=== PATIENT | female | born 1985 | race Caucasian/White ===

== ENCOUNTER → 2017-07-12 08:51 | Outpatient (CLI) | payer OTHER, SELFPAY ==
[2017-07-11 16:37] LABS: Chlamydia Trachomatis by PCR Negative (Negative); Neisserai gonorrhoeae by PCR Negative (Negative); Probe Check PASS; Sample Adequacy Control PASS; Specimen Processing Control PASS
[2017-07-16 16:36] LABS: HPV APTIMA, High Risk Negative (Negative)
== END ==
PROVIDERS: Visit Provider Obstetrics & Gynecology
DX: Z34.91 Encounter for supervision of normal pregnancy, unspecified, first trimester (principal); Z12.4 Encounter for screening for malignant neoplasm of cervix
CPT/HCPCS: 87086; 87491; 87591; 88175; G0145

== ENCOUNTER → 2017-08-09 10:12 | Outpatient (CLI) | payer OTHER, SELFPAY ==
[2017-08-09 11:40] LABS: Absolute Lymphocyte Count 2.26 X10^3/ul (0.83-4.51); Absolute Neutrophil Count 5.6 X10^3/uL (2.0-7.7); Basophil# 0.01 X10^3/uL; Basophil% 0.1 % (0-1); Eosinophil# 0.07 X10^3/uL; Eosinophils% 0.8 % (0-5); Hemoglobin 11.6 g/dl (12.0-15.0); Lymphocyte # 2.26 X10^3/ul (4.0); Lymphocyte % 26.6 % (19-41); Mean Corp Hgb Conc 32.2 g/gl (32-36); Mean Corpuscular Hgb 26.3 pg (27.0-32.0); Mean Corpuscular Volume 81.6 fL (81-99); Monocyte# 0.59 X10^3/uL; Monocyte% 6.9 % (0-10); Neutrophil # 5.55 X10^3/uL (2.7-7.7); Neutrophil % 65.5 % (47-70); Platelet Count 250 K/mm3 (150-450); RBC Distribution Width CV 14.2 % (11.6-14.6); RBC Distribution Width SD 42.4 fl (35.1-43.9); Red Blood Count 4.41 M/mm3 (4.2-5.4); White Blood Count 8.5 K/mm3 (4.4-11.0)
[2017-08-09 11:41] LABS: POSITIVE COUNT NO; POSITIVE DIFFERENTIAL NO; POSITIVE MORPHOLOGY NO
[2017-08-09 12:06] LABS: Glucose Challenge Gest 1H 50g 123 mg/dL (70-140)
[2017-08-10 01:20] LABS: Rapid Plasmin Reagin (RPR) NONREACTIVE (NONREACTIVE)
[2017-08-10 11:11] LABS: HIV - WCH Non-Reactive (Nonreactive); Rubella IgG 36.8 IU/mL
[2017-08-10 11:40] LABS: HEPATITIS B SURFACE AG Negative (Negative)
== END ==
PROVIDERS: Family Provider Family Medicine; PCP Family Medicine; Visit Provider Obstetrics & Gynecology
DX: Z34.91 Encounter for supervision of normal pregnancy, unspecified, first trimester (principal)
CPT/HCPCS: 82950; 85025; 86592; 86703; 86762; 86850; 86900; 87340

== ENCOUNTER → 2017-10-03 07:46 | Outpatient (CLI) | payer OTHER, SELFPAY ==
--- NOTE | 2017-10-03 07:48 | US_ITS ---
STUDY: SECOND AND THIRD TRIMESTER OBSTETRICAL ULTRASOUND REASON FOR EXAM: Female, 32 years old. Routine survey. LMP: May 21, 2017. TECHNIQUE: Transabdominal PRIOR ULTRASOUND: None. FINDINGS: There is a single intrauterine fetus. The fetus is in a cephalic presentation. There is demonstrated cardiac activity with a heart rate of 146 bpm. There is a normal amniotic fluid volume. The largest amniotic fluid pocket measures 11.0 cm x 4.2 cm. The amniotic fluid index (KENNY) is normal. The placenta is posterior in location and is not low lying. There are Grade 0 placental changes. The cervix measures 3.8 cm in length. The bilateral adnexal regions are normal. BIOMETRY: BPD: 4.51 cm: 19 weeks, 5 days HC: 16.92 cm: 19 weeks, 4 days AC: 14.97 cm: 20 weeks, 2 days FL: 3.23 cm: 20 weeks, 1 days CI: 77% FL/BPD: 72% FL/HC: FL/AC: 22% HC/AC: 1.13 age by current US: 20 weeks, 0 days. NIMA by current US: February 20, 2018. Estimated weight: 331 grams, +/- 48 grams, 87 %. Age by LMP: 19 weeks, 2 days. NIMA by LMP: February 25, 2018. ANATOMY: Gender: Indeterminant Cranium: Normal lateral ventricles. Normal choroid plexus. Normal cerebellum. Normal cisterna magna. Normal face, nose and lips. Chest: Normal 4-chamber heart. Abdomen/Pelvis: Normal diaphragm. Normal stomach. Normal abdominal wall. Normal cord insertion. Normal 3 vessel cord. Normal kidneys. Normal bladder. Spine: Normal cervical spine. Normal thoracic spine. Normal lumbar spine. Normal sacrum. Extremities: Normal bilateral upper extremities. Normal bilateral lower extremities. US/OB Anatomy Scan IMPRESSION: Single live intrauterine gestation with a mean gestational age of 20 weeks. Electronically Signed: Barron Ron MD at 15:39 EDT Tel [phone], Service support ,
== END ==
PROVIDERS: Family Provider Family Medicine; PCP Family Medicine; Visit Provider Obstetrics & Gynecology
DX: Z34.91 Encounter for supervision of normal pregnancy, unspecified, first trimester (principal)
CPT/HCPCS: 76805

== ENCOUNTER → 2017-12-04 09:48 | Outpatient (CLI) | payer OTHER, SELFPAY ==
[2017-12-04 11:40] LABS: Absolute Lymphocyte Count 1.93 X10^3/ul (0.83-4.51); Absolute Neutrophil Count 10.7 X10^3/uL (2.0-7.7); Basophil# 0.02 X10^3/uL; Basophil% 0.1 % (0-1); Eosinophil# 0.09 X10^3/uL; Eosinophils% 0.7 % (0-5); Hematocrit 29.3 % (37-47); Hemoglobin 9.2 g/dl (12.0-15.0); Lymphocyte # 1.93 X10^3/ul (4.0); Lymphocyte % 14.2 % (19-41); Mean Corp Hgb Conc 31.4 g/gl (32-36); Mean Corpuscular Hgb 25.3 pg (27.0-32.0); Mean Corpuscular Volume 80.7 fL (81-99); Mean Platelet Vol. 8.7 fl (6.2-12.0); Monocyte# 0.71 X10^3/uL; Monocyte% 5.2 % (0-10); Neutrophil # 10.68 X10^3/uL (2.7-7.7); Neutrophil % 78.6 % (47-70); Platelet Count 335 K/mm3 (150-450); RBC Distribution Width SD 42.8 fl (35.1-43.9); Red Blood Count 3.63 M/mm3 (4.2-5.4); White Blood Count 13.6 K/mm3 (4.4-11.0)
[2017-12-04 11:41] LABS: POSITIVE COUNT NO; POSITIVE DIFFERENTIAL NO; POSITIVE MORPHOLOGY NO
[2017-12-04 12:16] LABS: Glucose Challenge Gest 1H 50g 143 mg/dL (70-140)
== END ==
PROVIDERS: Family Provider Family Medicine; PCP Family Medicine; Visit Provider Nurse Practitioner Women's Health
DX: Z34.90 Encounter for supervision of normal pregnancy, unspecified, unspecified trimester (principal)
CPT/HCPCS: 36415; 82950; 85025

== ENCOUNTER → 2017-12-13 07:35 | Outpatient (CLI) | payer OTHER, SELFPAY ==
[2017-12-13 08:35] LABS: Glucose GTT-Gestation. Fasting 80 mg/dL (<105)
== END ==
PROVIDERS: Family Provider Family Medicine; PCP Family Medicine; Referring Provider Nurse Practitioner Women's Health; Visit Provider Nurse Practitioner Women's Health
DX: O99.810 Abnormal glucose complicating pregnancy (principal); Z3A.00 Weeks of gestation of pregnancy not specified
CPT/HCPCS: 36415; 82951; 82952

== ENCOUNTER 2018-01-04 09:05 | Outpatient (CLI) | payer OTHER, SELFPAY ==
[2018-01-04 09:17] VITALS: BMI 42.2
[2018-01-04 09:55] LABS: Hemoglobin 9.7 g/dl (12.0-15.0); Mean Corp Hgb Conc 30.3 g/gl (32-36); Mean Corpuscular Hgb 24.5 pg (27.0-32.0); Mean Corpuscular Volume 80.8 fL (81-99); Mean Platelet Vol. 8.6 fl (6.2-12.0); Platelet Count 238 K/mm3 (150-450); RBC Distribution Width CV 16.8 % (11.6-14.6); RBC Distribution Width SD 48.6 fl (35.1-43.9); Red Blood Count 3.96 M/mm3 (4.2-5.4); White Blood Count 11.7 K/mm3 (4.4-11.0)
[2018-01-04 09:59] LABS: Scan Indicated on CBC? Y/N NO
[2018-01-04 10:11] LABS: ALB/GLOB Ratio 0.5 RATIO (0.9-2.4); AST(SGOT) 17 U/L (15-37); Alanine Aminotransfer ALT/SGPT 18 U/L (13-56); Albumin, Serum 2.3 g/dL (3.2-5.0); Alkaline Phosphatase 116 U/L (45-117); Anion Gap 8 (5-15); BUN 10 mg/dL (7-18); BUN/Creat Ratio 16.3 RATIO (10-20); Calcium,Total 8.6 mg/dL (8.5-10.1); Chloride 109 mmol/L (98-107); Creatinine, Serum 0.62 mg/dL (0.55-1.02); EST Glomerular Filtration Rate 121 mL/min (>60); Est Glom Filt Rate - Afr Amer 146 mL/min (>60); Estimated Creatinine Clearance 100.12 ml/min; Globulin 4.2 g/dL (2.2-4.2); Glucose 98 mg/dL (74-106); Potassium 3.8 mmol/L (3.5-5.1); Protein, Total 6.5 g/dL (6.4-8.2); Sodium Level 138 mmol/L (136-145); Uric Acid 3.4 mg/dL (2.6-6.0)
--- NOTE | 2018-01-04 22:55 | OB.TRI.NOTE ---
- Problem List (1) Elevated blood pressure affecting in third trimester, antepartum Status: Acute History of Present Illness Date of Service: 01/04/18 Was patient seen by the physician?: Yes Reason For Visit: R/O PREECLAMPISA Date of Service: 01/04/18 History of Present Illness: elevated bps in office, sent down for labs and nst Allergies acetaminophen [From Tylenol-Codeine] Allergy (Severe, Verified 01/04/18 09:21) Anaphylaxis codeine [From Tylenol-Codeine] Allergy (Severe, Verified 01/04/18 09:21) Anaphylaxis iodine Allergy (Severe, Verified 01/04/18 09:21) Anaphylaxis shellfish derived Allergy (Severe, Verified 01/04/18 09:21) Anaphylaxis - Pertinent Past Medical History Medical History: Past Medical History (Last Reviewed 01/04/18 @ 09:02 by Teresa Aguero) Anxiety (Acute) celexa. tried effexor, zoloft, and wellbutrin in past. encouraged counseling Asthma (Chronic) [place] teeth extracted Hiatal hernia (Inactive) Surgical History: Past Surgical History (Last Reviewed 01/04/18 @ 09:02 by Teresa Aguero) H/O endoscopy Laboratory Studies: Laboratory Tests 01/04/18 01/04/18 Range/Units 09:40 09:40 WBC 11.7 H (4.4-11.0) K/mm3 RBC 3.96 L (4.2-5.4) M/mm3 Hgb 9.7 L (12.0-15.0) g/dl Hct 32.0 L (37-47) % MCV 80.8 L (81-99) fL MCH 24.5 L (27.0-32.0) pg MCHC 30.3 L (32-36) g/gl RDW 16.8 H (11.6-14.6) % RDW Differential 48.6 H (35.1-43.9) fl Plt Count 238 (150-450) K/mm3 MPV 8.6 (6.2-12.0) fl Sodium 138 (136-145) mmol/L Potassium 3.8 (3.5-5.1) mmol/L Chloride 109 H (98-107) mmol/L Carbon Dioxide 21.0 (21.0-32.0) mmol/L Anion Gap 8 (5-15) BUN 10 (7-18) mg/dL Creatinine 0.62 (0.55-1.02) mg/dL Estim Creat Clear Calc 100.12 ml/min Est GFR (MDRD) Af Amer 146 (>60) mL/min Est GFR (MDRD) Non-Af 121 (>60) mL/min BUN/Creatinine Ratio 16.3 (10-20) RATIO Glucose 98 (74-106) mg/dL Uric Acid 3.4 (2.6-6.0) mg/dL Calcium 8.6 (8.5-10.1) mg/dL Total Bilirubin 0.30 (0.20-1.00) mg/dL AST 17 (15-37) U/L ALT 18 (13-56) U/L Alkaline Phosphatase 116 (45-117) U/L Total Protein 6.5 (6.4-8.2) g/dL Albumin 2.3 L (3.2-5.0) g/dL Globulin 4.2 (2.2-4.2) g/dL Albumin/Globulin Ratio 0.5 L (0.9-2.4) RATIO NST - FHR Rate Baby A Baseline: 140 Variability:: Moderate Accelerations:: 15 x 15 Decelerations:: None NST Reactive:: Yes FHR Category:: Category I Uterine Activity:: no regular Impression/Plan repeat bps normal, normal labs. plan fu in office next week
== END 2018-01-04 10:26 | disposition home or self-care (01) ==
LOC: WPOUT 09:11 → WP 09:12
PROVIDERS: Family Provider Family Medicine; PCP Family Medicine; Referring Provider Obstetrics & Gynecology; Visit Provider Obstetrics & Gynecology
DX: O26.899 Other specified pregnancy related conditions, unspecified trimester (principal); Z3A.00 Weeks of gestation of pregnancy not specified; R03.0 Elevated blood-pressure reading, without diagnosis of hypertension
CPT/HCPCS: 36415; 59025; 59050; 80053; 84550; 85027; 99218; G0378

== ENCOUNTER → 2018-01-04 10:35 | Outpatient (CLI) | payer OTHER, SELFPAY ==
--- NOTE | 2018-01-04 10:36 | US_ITS ---
STUDY: SECOND AND THIRD TRIMESTER OBSTETRICAL ULTRASOUND - LIMITED REASON FOR EXAM: Female, 32 years old. Growth. Gestational diabetes. LMP: May 21, 2017. PRIOR ULTRASOUND: October 03, 2017. TECHNIQUE: Transabdominal # of Images: 63 TECHNICAL QUALITY: Adequate. FINDINGS: There is a single intrauterine fetus. The fetus is in a cephalic presentation. There is demonstrated cardiac activity with a heart rate of 133 bpm. There is a normal amniotic fluid volume. The largest amniotic fluid pocket measures 3.47 cm. The amniotic fluid index (KENNY) is 10.02 cm. The placenta is posterior in location and is not low lying. There are Grade 0 placental changes. The cervix measures 4 cm in length. BIOMETRY: BPD: 8.41 cm: 34 weeks, 0 days HC: 31.43 cm: 35 weeks, 2 days AC: 32.18 cm: 36 weeks, 1 days FL: 6.37 cm: 33 weeks, 0 days Age by LMP: 32 weeks, 4 days. NIMA by LMP: February 25, 2018.. age by prior US: 33 weeks, 2 days. NIMA by prior US: February 20, 2018.. age by current US: 34 weeks, 5 days. NIMA by current US: February 10, 2018.. Estimated weight: 2555 grams, +/- 373 grams, 97 percentile. US/OB Limited With Biometrics IMPRESSION: 1. Live single intrauterine at 34 weeks, 5 days. NIMA is February 10, 2018. This is nearly 2 weeks ahead of expected gestational age by initial ultrasound. 2. EFW of 2555 g. This is at the 97th percentile. 3. KENNY of 10.02 cm 4. Posterior grade 0 placenta. 5. Vertex presentation. Electronically Signed: Rebel Sweet DO at 20:40 EDT Tel [phone], Service support ,
== END ==
PROVIDERS: Family Provider Family Medicine; PCP Family Medicine; Referring Provider Nurse Practitioner Women's Health; Visit Provider Nurse Practitioner Women's Health
DX: Z34.90 Encounter for supervision of normal pregnancy, unspecified, unspecified trimester (principal); Z68.41 Body mass index [BMI] 40.0-44.9, adult
CPT/HCPCS: 76816

== ENCOUNTER → 2018-01-31 18:35 | Outpatient (CLI) | payer OTHER, SELFPAY ==
[2018-01-24 08:15] VITALS: BMI 42.7
== END ==
PROVIDERS: Family Provider Family Medicine; PCP Family Medicine; Referring Provider Nurse Practitioner Women's Health; Visit Provider Nurse Practitioner Women's Health
DX: O09.93 Supervision of high risk pregnancy, unspecified, third trimester (principal)
CPT/HCPCS: 87081

== ENCOUNTER 2018-02-18 19:30 | Inpatient (IN) | payer OTHER, SELFPAY ==
[2018-02-06 08:44] VITALS: BMI 43.4
[2018-02-14 14:30] VITALS: BMI 43.4
[2018-02-18] MEDS: 0.9% Saline Lock 10 ML Syringe IV (20:00)
[2018-02-18 20:25] VITALS: BMI 44.1
--- NOTE | 2018-02-18 20:41 | PCM.HP.OB ---
- Problem List (1) Insulin controlled gestational diabetes mellitus (GDM) in third trimester Status: Acute Comment: mfm cocare, for insulin to start 2x weekly NST and delivery at 39 weeks. Sees MFM every Sunday. (2) LGA (large for gestational age) fetus Status: Acute Comment: 97% discussed IOL at 39 weeks only if EFW <4500g (3) Supervision of high-risk Status: Acute Qualifiers: Comment: PRR NIAM 02/25/18 gender surprise [place] (4) Anemia affecting Status: Acute Qualifiers: Comment: iron and cbc monthly (5) Status: Acute Qualifiers: Comment: genetic, carrier, ntd screening declined. anatomy scan reviewed (6) Body mass index (BMI) of 40.1 to 44.9 in adult Status: Acute Comment: 1 tm glucola and weekly nsts w/ US and weekly BPP w/ MFM (7) Anxiety Status: Acute Comment: celexa. tried effexor, zoloft, and wellbutrin in past. encouraged counseling (8) Asthma Status: Chronic Qualifiers: History Date of Admission: 02/18/18 Final NIMA: 02/25/18 Gestational age: 39 Weeks and 0 Days History of this : This is a 33 year-old, at 39 weeks gestational age presents for induction of labor secondary to gestational diabetes controlled with insulin. Patient has had a complicated by gestational diabetes that has been insulin controlled and she has been following along with maternal medicine. Growth scans has shown enlarged size but estimated weight was approximately between 4000-4250g. Medical History: Medical History (Last Reviewed 02/14/18 @ 14:30 by Christy Huerta) Anxiety (Acute) F41.9 celexa. tried effexor, zoloft, and wellbutrin in past. encouraged counseling Asthma (Chronic) J45.909 [place] teeth extracted K08.409 Hiatal hernia (Inactive) K44.9 Surgical History: Surgical History (Last Reviewed 02/14/18 @ 14:30 by Christy Huerta) H/O endoscopy Z98.890 Allergies acetaminophen [From Tylenol-Codeine] Allergy (Severe, Verified 02/14/18 14:29) Anaphylaxis codeine [From Tylenol-Codeine] Allergy (Severe, Verified 02/14/18 14:29) Anaphylaxis iodine Allergy (Severe, Verified 02/14/18 14:29) Anaphylaxis shellfish derived Allergy (Severe, Verified 02/14/18 14:29) Anaphylaxis Home Medications: Home Medications albuterol sulfate 90 mcg/actuation breath activated powder inhaler 2 puff INHALATION Q6H PRN 07/11/17 epinephrine 0.3 mg/0.3 mL injection, auto-injector 0.3 mg IM ONCE 07/11/17 pantoprazole 40 mg tablet,delayed release 40 mg PO QDAY 07/11/17 vitamin,calcium,uoqwkntj-shem-axgbc acid tablet 1 tab PO QDAY 07/11/17 ondansetron HCl 4 mg tablet 4 mg PO Q6H PRN #60 tab 08/29/17 docusate sodium 100 mg capsule 100 mg PO QDAY 11/07/17 blood-glucose meter kit See Dose Instructions .ROUTE .MEDSUPPLY #1 ea 12/13/17 blood sugar diagnostic strips See Dose Instructions .ROUTE .MEDSUPPLY #100 ea 12/27/17 fluoxetine 20 mg capsule 20 mg PO DAILY 01/18/18 Smoking Status: Never smoker Alcohol: None Number of Fetus(es): 1 Heart Tracing: fht 140s moderate variability reactiv nolberto decels cat I tracing TOCO Analysis: no regular ctx History Past Pregnancies: Past Pregnancies Delivery Date Name GA/Weeks Outcome Route Weight Gender Labor Length Anesthesia Delivery Location Provider FOB Labs: Social History Smoking Status Never smoker Expected Infant Delivery Method: Spontaneous Vaginal Review of Systems Constitutional: Denies: Fever, Malaise Eyes: Denies: Blurred vision, Vision Change HEENT: Denies: Head Aches, Visual Changes Cardiovascular: Denies: Chest Pain, Palpitations Respiratory: Denies: Cough, Shortness of Breath, Wheezing Gastrointestinal: Denies: Abdominal Pain, Diarrhea, Nausea, Vomiting Genitourinary: Denies: Dysuria, Hematuria Musculoskeletal: Denies: Joint Pain, Muscle pain Skin: Denies: Lesions, Rash Neurological: Denies: Blurred vision, Focal weakness, Headaches Psychiatric: Denies: Anxiety, Depression Endocrine: Denies: Heat/ Cold Intolerance Hematologic/ Lymphatic: Denies: Easy Bruising, Easy Bleeding Physical Exam General: Alert, Cooperative, No apparent distress HEENT: Atraumatic, Normocephalic. Negative for: Thyromegaly, Lymphadenopathy Cardiovascular: Regular rate Lungs: Normal air movement Abdomen: Soft, Non Tender, Gravid Neurological: Deep Tendon Reflexes 2+/4 and Symmetrical, Neuro grossly intact. 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 Negative for: Vulvar lesions Estimated gestational size: Large for gestational age - EFW 4000-4250g Presentation: Cephalic Cervix Dilation (cm): 1 Assessment/Plan All Active Problems (Last Reviewed 02/14/18 @ 14:30 by Christy Huerta) Insulin controlled gestational diabetes mellitus (GDM) in third trimester (Acute) LGA (large for gestational age) fetus (Acute) Supervision of high-risk (Acute) Anemia affecting (Acute) (Acute) Body mass index (BMI) of 40.1 to 44.9 in adult (Acute) Anxiety (Acute) Abnormal glucose complicating childbirth (Resolved) Elevated blood pressure affecting in third trimester, antepartum (Resolved) Gestational diabetes mellitus in , diet controlled (Resolved) Supervision of normal (Resolved) Supervision of normal in first trimester (Resolved) This is a 33 year-old, , at 39 weeks gestational age presents for IOL GDMA2 Patient presents for induction of labor plan Cytotec and then Crow bulb and Pitocin. AROM when able. Pain management: Plans epidural. GBS negative. Management of any complications: Gestational diabetes. Give scheduled insulin tonight and NovoLog insulin in the morning with breakfast. Will hold morning NPH and monitor blood sugars every 4 hours. And every hour in active labor. Insulin drip in active labor I have reviewed the [facility] and made any clinically relevant updates.
--- NOTE | 2018-02-18 20:44 | HP.PCM_ITS ---
- Problem List (1) Insulin controlled gestational diabetes mellitus (GDM) in third trimester Status: Acute Comment: mfm cocare, for insulin to start 2x weekly NST and delivery at 39 weeks. Sees MFM every Sunday. (2) LGA (large for gestational age) fetus Status: Acute Comment: 97% discussed IOL at 39 weeks only if EFW <4500g (3) Supervision of high-risk Status: Acute Qualifiers: Comment: PRR NIMA 02/25/18 gender surprise [place] (4) Anemia affecting Status: Acute Qualifiers: Comment: iron and cbc monthly (5) Status: Acute Qualifiers: Comment: genetic, carrier, ntd screening declined. anatomy scan reviewed (6) Body mass index (BMI) of 40.1 to 44.9 in adult Status: Acute Comment: 1 tm glucola and weekly nsts w/ US and weekly BPP w/ MFM (7) Anxiety Status: Acute Comment: celexa. tried effexor, zoloft, and wellbutrin in past. encouraged counseling (8) Asthma Status: Chronic Qualifiers: History Date of Admission: 02/18/18 Final NIMA: 02/25/18 Gestational age: 39 Weeks and 0 Days History of this : This is a 33 year-old, at 39 weeks gestational age presents for induction of labor secondary to gestational diabetes controlled with insulin. Patient has had a complicated by gestational diabetes that has been insulin co ntrolled and she has been following along with maternal medicine. Growth scans has shown enlarged size but estimated weight was approximately between 4000-4250g. Medical History: Medical History (Last Reviewed 02/14/18 @ 14:30 by Christy Huerta) Anxiety (Acute) F41.9 celexa. tried effexor, zoloft, and wellbutrin in past. encouraged counseling Asthma (Chronic) J45.909 [place] teeth extracted K08.409 Hiatal hernia (Inactive) K44.9 Surgical History: Surgical History (Last Reviewed 02/14/18 @ 14:30 by Christy Huerta) H/O endoscopy Z98.890 Allergies acetaminophen [From Tylenol-Codeine] Allergy (Severe, Verified 02/14/18 14:29) Anaphylaxis codeine [From Tylenol-Codeine] Allergy (Severe, Verified 02/14/18 14:29) Anaphylaxis iodine Allergy (Severe, Verified 02/14/18 14:29) Anaphylaxis shellfish derived Allergy (Severe, Verified 02/14/18 14:29) Anaphylaxis Home Medications: Home Medications albuterol sulfate 90 mcg/actuation breath activated powder inhaler 2 puff INHALATION Q6H PRN 07/11/17 epinephrine 0.3 mg/0.3 mL injection, auto-injector 0.3 mg IM ONCE 07/11/17 pantoprazole 40 mg tablet,delayed release 40 mg PO QDAY 07/11/17 vitamin,calcium,odetjbuf-qjyy-sohxf acid tablet 1 tab PO QDAY 07/11/17 ondansetron HCl 4 mg tablet 4 mg PO Q6H PRN #60 tab 08/29/17 docusate sodium 100 mg capsule 100 mg PO QDAY 11/07/17 blood-glucose meter kit See Dose Instructions .ROUTE .MEDSUPPLY #1 ea 12/13/17 blood sugar diagnostic strips See Dose Instructions .ROUTE .MEDSUPPLY #100 ea 12/27/17 fluoxetine 20 mg capsule 20 mg PO DAILY 01/18/18 Smoking Status: Never smoker Alcohol: None Number of Fetus(es): 1 Heart Tracing: fht 140s moderate variability reactiv nolberto decels cat I tracing TOCO Analysis: no regular ctx History Past Pregnancies: Past Pregnancies Delivery Date Name GA/Weeks Outcome Route Weight Gender Labor Length Anesthesia Delivery Location Provider FOB Labs: Social History Smoking Status Never smoker Expected Delivery Method: Spontaneous Vaginal Review of Systems Constitutional: Denies: Fever, Malaise Eyes: Denies: Blurred vision, Vision Change HEENT: Denies: Head Aches, Visual Changes Cardiovascular: Denies: Chest Pain, Palpitations Respiratory: Denies: Cough, Shortness of Breath, Wheezing Gastrointestinal: Denies: Abdominal Pain, Diarrhea, Nausea, Vomiting Genitourinary: Denies: Dysuria, Hematuria Musculoskeletal: Denies: Joint Pain, Muscle pain Skin: Denies: Lesions, Rash Neurological: Denies: Blurred vision, Focal weakness, Headaches Psychiatric: Denies: Anxiety, Depression Endocrine: Denies: Heat/ Cold Intolerance Hematologic/ Lymphatic: Denies: Easy Bruising, Easy Bleeding Physical Exam General: Alert, Cooperative, No apparent distress HEENT: Atraumatic, Normocephalic. Negative for: Thyromegaly, Lymphadenopathy Cardiovascular: Regular rate Lungs: Normal air movement Abdomen: Soft, Non Tender, Gravid Neurological: Deep Tendon Reflexes 2+/4 and Symmetrical, Neuro grossly intact. 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 Negative for: Vulvar lesions Estimated gestational size: Large for gestational age - EFW 4000-4250g Presentation: Cephalic Cervix Dilation (cm): 1 Assessment/Plan All Active Problems (Last Reviewed 02/14/18 @ 14:30 by Christy Huerta) Insulin controlled gestational diabetes mellitus (GDM) in third trimester (Acute) LGA (large for gestational age) fetus (Acute) Supervision of high-risk (Acute) Anemia affecting (Acute) (Acute) Body mass index (BMI) of 40.1 to 44.9 in adult (Acute) Anxiety (Acute) Abnormal glucose complicating childbirth (Resolved) Elevated blood pressure affecting in third trimester, antepartum (Resolved) Gestational diabetes mellitus in , diet controlled (Resolved) Supervision of normal (Resolved) Supervision of normal in first trimester (Resolved) This is a 33 year-old, , at 39 weeks gestational age presents for IOL GDMA2 Patient presents for induction of labor plan Cytotec and then Crow bulb and Pitocin. AROM when able. Pain management: Plans epidural. GBS negative. Management of any complications: Gestational diabetes. Give scheduled insulin tonight and NovoLog insulin in the morning with breakfast. Will hold morning NPH and monitor blood sugars every 4 hours. And every hour in active labor. Insulin drip in active labor I have reviewed the [facility] and made any clinically relevant updates.
[2018-02-18] MEDS: miSOPROStol 25 MCG TABLET PO (20:52)
[2018-02-18 21:46] LABS: Hematocrit 33.8 % (37-47); Hemoglobin 10.3 g/dl (12.0-15.0); Mean Corp Hgb Conc 30.5 g/gl (32-36); Mean Corpuscular Hgb 23.7 pg (27.0-32.0); Mean Corpuscular Volume 77.7 fL (81-99); Mean Platelet Vol. 9.1 fl (6.2-12.0); Platelet Count 247 K/mm3 (150-450); RBC Distribution Width SD 45.7 fl (35.1-43.9); Red Blood Count 4.35 M/mm3 (4.2-5.4); White Blood Count 12.4 K/mm3 (4.4-11.0)
[2018-02-18 21:47] LABS: Scan Indicated on CBC? Y/N NO
[2018-02-18 21:56] LABS: Bedside Glucose 106 mg/dL (70-110)
[2018-02-18 22:11] LABS: Bedside Glucose 64 mg/dL (70-110)
[2018-02-18 23:16] LABS: Bedside Glucose 68 mg/dL (70-110)
[2018-02-19] MEDS: Insulin NPH Human 100 UNITS/ML PEN 15 UNITS SC (00:04)
[2018-02-19 00:21] LABS: Bedside Glucose 148 mg/dL (70-110)
[2018-02-19] MEDS: miSOPROStol 25 MCG TABLET PO ×2 (01:00→05:05)
[2018-02-19] MEDS: Ondansetron 4 MG/2 ML Vial IV ×3 (02:12→20:19)
[2018-02-19] MEDS: 0.9% Saline Lock 10 ML Syringe IV ×2 (02:13→20:19)
[2018-02-19 03:56] LABS: Bedside Glucose 74 mg/dL (70-110)
[2018-02-19] MEDS: Insulin Lispro 100 UNIT/ML INSULN.PEN 20 UNIT SC (08:55)
--- NOTE | 2018-02-19 09:07 | PN.OBGYN_ITS ---
Subjective: got sleep overnight fht 140s moderate variability reactive no decels cat I tracing, BS well controlled. ate breakfast, no 1-2 fb placed will start p itocin. - Physical Exam Weight: 233 lb 14.567 oz Body Mass Index (BMI) 44.1 Intake and Output for Last 24 Hours 02/17/18 02/18/18 02/19/18 23:59 23:59 23:59 Intake Total 700 / 700 800 / 800 Output Total 300 / 300 600 / 600 Balance 400 / 400 200 / 200 Laboratory Tests Past 24 Hrs 02/18/18 02/18/18 20:00 20:00 WBC 12.4 H RBC 4.35 Hgb 10.3 L Hct 33.8 L MCV 77.7 L MCH 23.7 L MCHC 30.5 L RDW 16.0 H RDW Differential 45.7 H Plt Count 247 MPV 9.1 Blood Type O POSITIVE Antibody Screen NEGATIVE POC Glucose 02/19/18 02/19/18 02/18/18 03:50 00:03 22:52 POC Glucose 74 148 H 68 L 02/18/18 02/18/18 21:52 20:22 POC Glucose 64 L 106 Medical Necessity - Tobacco Use Smoking Status: Never smoker Assessment/Plan All Active Problems (Last Reviewed 02/14/18 @ 14:30 by Christy Huerta) Insulin controlled gestational diabetes mellitus (GDM) in third trimester (Acute) LGA (large for gestational age) fetus (Acute) Supervision of high-risk (Acute) Anemia affecting (Acute) (Acute) Body mass index (BMI) of 40.1 to 44.9 in adult (Acute) Anxiety (Acute) Abnormal glucose complicating childbirth (Resolved) Elevated blood pressure affecting in third trimester, antepartum (Resolved) Gestational diabetes mellitus in , diet controlled (Resolved) Supervision of normal (Resolved) Supervision of normal in first trimester (Resolved)
[2018-02-19 09:31] LABS: Bedside Glucose 81 mg/dL (70-110)
[2018-02-19] MEDS: Oxytocin 30 units/NS 500 ml 30 UNITS/500 ML IV.SOLN IV (09:37)
[2018-02-19 12:25] LABS: Bedside Glucose 92 mg/dL (70-110)
[2018-02-19 16:46] LABS: Bedside Glucose 64 mg/dL (70-110)
[2018-02-19] MEDS: Lactated Ringers 1,000 ML 50 ML IV ×2 (16:54→21:48)
[2018-02-19 17:20] LABS: Bedside Glucose 99 mg/dL (70-110)
[2018-02-19 19:06] LABS: Bedside Glucose 80 mg/dL (70-110)
[2018-02-19 20:21] LABS: Bedside Glucose 73 mg/dL (70-110)
[2018-02-19 21:16] LABS: Bedside Glucose 72 mg/dL (70-110)
[2018-02-19] MEDS: fentaNYL-bupivacaine (epidural) 100 ML BAG EPIDURAL (22:03)
[2018-02-19 22:06] LABS: Bedside Glucose 71 mg/dL (70-110)
[2018-02-19 23:11] LABS: Bedside Glucose 70 mg/dL (70-110)
[2018-02-20] MEDS: Amnioinfusion- 0.9% NS 1,000 ML IV.SOLN. INTRA-UTER (00:22)
[2018-02-20] MEDS: Lactated Ringers 1,000 ML 50 ML IV ×3 (00:58→10:38)
[2018-02-20 01:21] LABS: Bedside Glucose 92 mg/dL (70-110)
[2018-02-20] MEDS: fentaNYL-bupivacaine (epidural) 100 ML BAG EPIDURAL ×2 (02:33→07:11)
[2018-02-20] MEDS: Amnioinfusion- 0.9% NS 1,000 ML IV.SOLN. 1000 ML INTRA-UTER (03:03)
[2018-02-20 03:10] LABS: Bedside Glucose 89 mg/dL (70-110)
[2018-02-20 03:11] LABS: Bedside Glucose 75 mg/dL (70-110)
[2018-02-20 03:11] LABS: Bedside Glucose 82 mg/dL (70-110)
[2018-02-20 04:15] LABS: Bedside Glucose 81 mg/dL (70-110)
[2018-02-20 05:21] LABS: Bedside Glucose 78 mg/dL (70-110)
[2018-02-20] MEDS: 0.9% Saline Lock 10 ML Syringe IV ×2 (05:51→15:18)
[2018-02-20] MEDS: Ondansetron 4 MG/2 ML Vial IV (05:51)
[2018-02-20 06:11] LABS: Bedside Glucose 82 mg/dL (70-110)
--- NOTE | 2018-02-20 07:16 | PCM.PN.BLA ---
Progress Note fht 130s moderate variability reactive cat I tracing now. reviewed tracing overnight some episodes of cat II tracing but resolved. interemittent pitocin and did a pitocin washout. now 9 -10 cm with a right lip. positions changed throughout the night and now we are looking at LOP position. reviewed with nursing and the patient expectations for but parameters for . continue pit per protocol
[2018-02-20 07:25] LABS: Bedside Glucose 86 mg/dL (70-110)
[2018-02-20 08:10] LABS: Bedside Glucose 90 mg/dL (70-110)
[2018-02-20 09:16] LABS: Bedside Glucose 91 mg/dL (70-110)
[2018-02-20 10:35] LABS: Bedside Glucose 100 mg/dL (70-110)
[2018-02-20] MEDS: Oxytocin 30 units/NS 500 ml 30 UNITS/500 ML IV.SOLN 334 UNITS IV (12:45)
[2018-02-20] MEDS: Oxytocin 30 units/NS 500 ml 30 UNITS/500 ML IV.SOLN 167 UNITS IV (13:15)
[2018-02-20 13:51] LABS: Bedside Glucose 115 mg/dL (70-110)
[2018-02-20 13:51] LABS: Bedside Glucose 112 mg/dL (70-110)
[2018-02-20 15:16] LABS: Bedside Glucose 112 mg/dL (70-110)
[2018-02-20 15:50] VITALS: BP 119/68; PULSE 99; RESP 18; TEMP 36.7; O2SAT 96
--- NOTE | 2018-02-20 16:35 | CHAPLAIN ---
request was made for machine lead burner to come and offer a blessing for child; at time of visit staff was busy attending to pt and request was made to come back tomorrow
[2018-02-20 20:15] VITALS: BP 127/78; PULSE 91; RESP 18; TEMP 36.6; O2SAT 98
[2018-02-20] MEDS: Naproxen 250 MG Tablet PO (20:16)
[2018-02-20] MEDS: FLUoxetine 20 MG Capsule PO (22:08)
[2018-02-21 00:40] VITALS: BP 104/84; PULSE 73; RESP 18; TEMP 36.7; O2SAT 98
[2018-02-21 03:16] VITALS: BP 118/73; PULSE 78; RESP 18; TEMP 36.6; O2SAT 100
[2018-02-21 05:46] LABS: Bedside Glucose 100 mg/dL (70-110)
[2018-02-21] MEDS: Naproxen 250 MG Tablet PO ×2 (06:19→16:37)
[2018-02-21 08:30] VITALS: BP 94/52; PULSE 96; RESP 20; TEMP 36.4; O2SAT 98
[2018-02-21] MEDS: Pantoprazole Sodium 40 MG Tablet PO (09:18)
[2018-02-21] MEDS: Senna/Docusate Sodium 1 Tablet PO (09:18)
--- NOTE | 2018-02-21 13:45 | CHAPLAIN ---
Type of Pastoral Visit _x__ Initial Visit ___ Follow-up Visit ___ On-call Visit ___ General Patient Visit ___ Spiritual Assessment ___ Family Conference ___ Bereavement ___ Rapid Response ___ Code Blue ___ Other (describe below) Pastoral Care Referral From _x__ Patient _x__ Family ___ Nurse ___ Physician ___ Management Internship ___ Strategic Analyst ___ Other (describe below) Sacrament/Intervention _x__ Active listening ___ Anointing ___ Holiness ___ Bereavement ___ Communion ___ Lory exploration ___ ___ Life review _x__ Prayer ___ Reconciliation ___ Sacrament of Sick ___ Supportive presence ___ Wedding _x__ Other (describe below) Pastoral Comments family requested that the senior finance manager come to give a blessing for the new baby; met with family and offered support; read scripture passage and gave a blessing; also presented parents with a written blessing for them to keep
[2018-02-21 16:00] VITALS: BP 117/73; PULSE 98; RESP 20; TEMP 36.8; O2SAT 97
[2018-02-21 20:05] VITALS: BP 123/73; PULSE 84; RESP 16; TEMP 36.9; O2SAT 99
[2018-02-21] MEDS: FLUoxetine 20 MG Capsule PO (21:57)
[2018-02-22 02:49] VITALS: BP 116/70; PULSE 82; RESP 16; TEMP 36.7; O2SAT 99
[2018-02-22 08:30] VITALS: BP 111/76; PULSE 78; RESP 16; TEMP 36.4; O2SAT 98
[2018-02-22] MEDS: Dibucaine 30 GM Tube 1 APPLIC TOPICAL (08:53)
[2018-02-22] MEDS: Naproxen 250 MG Tablet PO (08:53)
[2018-02-22] MEDS: Senna/Docusate Sodium 1 Tablet PO (10:00)
[2018-02-22] MEDS: Pantoprazole Sodium 40 MG Tablet PO (10:00)
--- NOTE | 2018-02-22 13:40 | PCM.OB.VAG ---
- Problem List (1) Insulin controlled gestational diabetes mellitus (GDM) in third trimester Status: Acute Comment: mfm cocare, for insulin to start 2x weekly NST and delivery at 39 weeks. Sees MFM every Sunday. (2) LGA (large for gestational age) fetus Status: Acute Comment: 97% discussed IOL at 39 weeks only if EFW <4500g (3) Supervision of high-risk Status: Acute Qualifiers: Comment: PRR NIMA 02/25/18 gender surprise [place] (4) Anemia affecting Status: Acute Qualifiers: Comment: iron and cbc monthly (5) Status: Acute Qualifiers: Comment: genetic, carrier, ntd screening declined. anatomy scan reviewed (6) Body mass index (BMI) of 40.1 to 44.9 in adult Status: Acute Comment: 1 tm glucola and weekly nsts w/ US and weekly BPP w/ MFM (7) Anxiety Status: Acute Comment: celexa. tried effexor, zoloft, and wellbutrin in past. encouraged counseling (8) Asthma Status: Chronic Qualifiers: Vaginal Delivery Maternal Presentation: Medically Indicated Induction iol [email or web address] Method of Induction: Pitocin, Crow Bulb, Cytotec Amniotic Membrane Rupture Type: Artificial Amniotic Fluid Description: Clear Final NIMA: 02/25/18 Gestational age: 40 Weeks and 0 Days Date of Procedure: 02/20/18 Pre-Operative Diagnosis: iol gdm Post-Operative Diagnosis: same Surgery/ Procedure Performed: Spontaneous Vaginal Delivery Type of Anesthesia: Epidural Description of Procedure: heart rate variables deveop so small left mediolateral episiotomy was cut and head delivered atraumatically follow by a/p shoulders rest of infant delivered uncomplicated. delayed cord clamping. perineal repair of 2nd degree laceration with the episiotomy with 3-0 rapide. ebl 400. Presentation: TRACY Placental Delivery Description: Spontaneous Placenta Disposition: [facility] Cord Vessel Description: 3 Vessels Cord Entanglement: Around neck x 1, loose Estimated Blood Loss: 400 Episiotomy Description: Left Mediolateral Laceration: Perineal Extension/lac, 2nd degree Medications given after delivery: IV Pitocin Complications: None
--- NOTE | 2018-02-22 13:41 | PCM.PN.OB ---
Subjective: doing well n ocomplaints - Physical Exam General: Alert, Oriented x3 Vital Signs Temp Pulse Resp BP Pulse Ox 97.5 F L 78 16 111/76 98 02/22/18 08:30 02/22/18 08:30 02/22/18 08:30 02/22/18 08:30 02/22/18 08:30 Oxygen Delivery Method Room Air Weight: 233 lb 14.567 oz Body Mass Index (BMI) 44.1 Intake and Output for Last 24 Hours 02/20/18 02/21/18 02/22/18 23:59 23:59 23:59 Intake Total 2055 Output Total 600 / 600 Balance 1456 / 1456 Medical Necessity - Tobacco Use Smoking Status: Never smoker Assessment/Plan All Active Problems (Last Reviewed 02/14/18 @ 14:30 by Christy Huerta) Insulin controlled gestational diabetes mellitus (GDM) in third trimester (Acute) LGA (large for gestational age) fetus (Acute) Supervision of high-risk (Acute) Anemia affecting (Acute) (Acute) Body mass index (BMI) of 40.1 to 44.9 in adult (Acute) Anxiety (Acute) Abnormal glucose complicating childbirth (Resolved) Elevated blood pressure affecting in third trimester, antepartum (Resolved) Gestational diabetes mellitus in , diet controlled (Resolved) Supervision of normal (Resolved) Supervision of normal in first trimester (Resolved) s/p PPD # 2 1. routine post delivery care 2. breast feeding- support given 3. rh positive 4. rubella immune
--- NOTE | 2018-02-22 13:42 | DCINST_ITS ---
Discharge Diet: No Restrictions Discharge Activity: Return to Normal Activity, May not drive while taking narcotic pain medications., May Shower May resume sexual activity in: 4-6 weeks Call your doctor if your incision/area has: Continuous Slow Oozing, Sudden Increased Bleeding, Increased Pain/ Swelling, Increased Redness, Foul Smelling Discharge Additional Instructions: If you experience any of the following, contact your healthcare provider. * Bleeding that soaks a pad every hour for 2 hours * Fever 100.4 or higher * Unrelieved incision or abdominal pain * Swelling, redness, discharge or bleeding from your incision or episiotomy site * Your incision begins to separate * Problems urinating (including inability to urinate or burning while urinating). * Visual changes * Severe headache * Flu-like symptoms * Pain or redness in one of both of your breasts * Pain, warmth, tenderness or swelling in your legs, especially the calf area * Frequent nausea and vomiting * Symptoms of depression or anxiety If you experience any of the following, call 911 or go to the nearest Emergency Room. * Chest pain * Problems breathing * Seizure activity * Partial or complete paralysis of a body part, slurred speech, weakness or drooping of the face, or a sudden inability to walk or hold your balance Allergies/Adverse Reactions: Allergies acetaminophen [From Tylenol-Codeine] Allergy (Severe, Verified 02/20/18 19:28) Anaphylaxis pt states she is fine taking regular tylenol but has an allergy to codeine codeine [From Tylenol-Codeine] Allergy (Severe, Verified 02/14/18 14:29) Anaphylaxis iodine Allergy (Severe, Verified 02/14/18 14:29) Anaphylaxis shellfish derived Allergy (Severe, Verified 02/14/18 14:29) Anaphylaxis Medications to take at Discharge albuterol sulfate 90 mcg/actuation breath activated powder inhaler 2 puff INHALATION Q6H PRN 07/11/17 epinephrine 0.3 mg/0.3 mL injection, auto-injector 0.3 mg IM ONCE PRN 07/11/17 pantoprazole 40 mg tablet,delayed release 40 mg PO QDAY 07/11/17 vitamin,calcium,gmxbfcrs-ysip-pkkrv acid tablet 1 tab PO QDAY 07/11/17 ondansetron HCl 4 mg tablet 4 mg PO Q6H PRN #60 tab 08/29/17 docusate sodium 100 mg capsule 100 mg PO QDAY 11/07/17 fluoxetine 20 mg capsule 20 mg PO DAILY 01/18/18 Insulin Lispro 20 units SC BREAKFAST 02/18/18 Insulin Lispro 22 units SC DINNER 02/18/18 Insulin NPH Human 30 units SQ QHS 02/18/18 Insulin NPH Human 50 units SC DAILY 02/18/18 Please Follow Up With: Alyssa Conway MD - [phone] When: Call to make an appointment with your doctor in 6 weeks. If you had elevated Blood pressure or 4th degree laceration you will need to be seen in 2 weeks. Primary Care Physician: Trina Ibrahim MD [Primary Care Provider] - Test Results: Test results from this visit will be discussed in further detail at your follow- up appointment, if applicable.
[2018-02-22 14:00] VITALS: BP 119/67; PULSE 75; RESP 16; TEMP 36.8; O2SAT 97
--- NOTE | 2018-02-25 17:12 | PCM.DC.SUM ---
Discharge Date and Diagnosis Date of Admission: 02/18/18 Date of Discharge: 02/22/18 - Primary Discharge Diagnosis gdma2 - Secondary Discharge Diagnosis Chronic Problems (Last Reviewed 02/14/18 @ 14:30 by Christy Huerta) Asthma (Chronic) Hospital Course and Treatment Consultations 02/18/18 19:49 Consult: Anesthesia Routine Comment: Reason For Exam: Operations: None Procedures: None Summary of Care Provided: The patient is a 33 year old F presents for iol gdma2 and delivered uncomplicated routine recovery dc home ppd2 - Physical Exam General: Alert, Oriented x3, Cooperative HEENT: Atraumatic, PERRLA, EOMI, Normocephalic Neck: Supple, No JVD, Negative Carotid Bruits Lungs: Clear to auscultation, Normal air movement Cardiovascular: Regular rate, No murmurs Abdomen: Bowel Sounds Present, Soft, Non Tender Extremities: No edema, Capillary Refill Less than 3 Seconds Skin: No rashes, No breakdown Musculoskeletal: No Tenderness to Palpation of Joints or Extremities Neurological: Cranial nerves II-XII grossly intact Psych/Mental Status: Normal Affect, Appropriate Vital Signs Temp Pulse Resp BP Pulse Ox 98.2 F 75 16 119/67 97 02/22/18 14:00 02/22/18 14:00 02/22/18 14:00 02/22/18 14:00 02/22/18 14:00 Oxygen Delivery Method Room Air Weight: 233 lb 14.567 oz Body Mass Index (BMI) 44.1 Discharge Diet: No Restrictions Discharge Activity: Return to Normal Activity, May not drive while taking narcotic pain medications., May Shower May resume sexual activity in: 4-6 weeks Call your doctor if your incision/area has: Continuous Slow Oozing, Sudden Increased Bleeding, Increased Pain/ Swelling, Increased Redness, Foul Smelling Discharge Home Medications: Medications to take at Discharge albuterol sulfate 90 mcg/actuation breath activated powder inhaler 2 puff INHALATION Q6H PRN 07/11/17 epinephrine 0.3 mg/0.3 mL injection, auto-injector 0.3 mg IM ONCE PRN 07/11/17 pantoprazole 40 mg tablet,delayed release 40 mg PO QDAY 07/11/17 vitamin,calcium,kvdbfufi-ltgk-rkbgp acid tablet 1 tab PO QDAY 07/11/17 ondansetron HCl 4 mg tablet 4 mg PO Q6H PRN #60 tab 08/29/17 docusate sodium 100 mg capsule 100 mg PO QDAY 11/07/17 fluoxetine 20 mg capsule 20 mg PO DAILY 01/18/18 Insulin Lispro 20 units SC BREAKFAST 02/18/18 Insulin Lispro 22 units SC DINNER 02/18/18 Insulin NPH Human 30 units SQ QHS 02/18/18 Insulin NPH Human 50 units SC DAILY 02/18/18 Primary Care Physician: Trina Ibrahim MD [Primary Care Provider] - Please Follow Up With: Alyssa Conway MD When: Call office to schedule appointment in 6 weeks for follow up. Medical Necessity - Tobacco Use Smoking Status: Never smoker Tobacco Use: Non-smoker Meaningful Use Info Meaningful Use Diagnoses (Choose all that apply): None applicable - AMI Aspirin given w/in 24hrs of arrival?: No Reason no aspirin w/in 24hrs of arrival?: none
== END 2018-02-22 16:45 | disposition home or self-care (01) | DRG 807 ==
PROVIDERS: Admitting Provider Obstetrics & Gynecology; Family Provider Family Medicine; PCP Family Medicine; Referring Provider Obstetrics & Gynecology; Visit Provider Obstetrics & Gynecology
DX: O24.424 Gestational diabetes mellitus in childbirth, insulin controlled (principal); Z37.0 Single live birth; O70.1 Second degree perineal laceration during delivery; Z79.4 Long term (current) use of insulin; O99.344 Other mental disorders complicating childbirth; F41.9 Anxiety disorder, unspecified; O99.52 Diseases of the respiratory system complicating childbirth; J45.909 Unspecified asthma, uncomplicated; O69.81X0 Labor and delivery complicated by cord around neck, without compression, not applicable or unspecified; Z3A.39 39 weeks gestation of pregnancy; O36.63X0 Maternal care for excessive fetal growth, third trimester, not applicable or unspecified
CPT/HCPCS: 59025; 59050; 82962; 85027; 86850; 86900; 99218; J7030; J7120; A4216; G0378; J2405

== ENCOUNTER 2018-02-26 10:27 | Outpatient (CLI) | payer OTHER, SELFPAY ==
[2018-02-26 13:02] LABS: Absolute Neutrophil Count 12.1 X10^3/uL (2.0-7.7); Basophil# 0.04 X10^3/uL; Basophil% 0.3 % (0-1); Eosinophil# 0.09 X10^3/uL; Eosinophils% 0.6 % (0-5); Hematocrit 30.2 % (37-47); Lymphocyte % 8.9 % (19-41); Mean Corp Hgb Conc 29.8 g/gl (32-36); Mean Corpuscular Hgb 23.7 pg (27.0-32.0); Mean Corpuscular Volume 79.5 fL (81-99); Mean Platelet Vol. 8.7 fl (6.2-12.0); Monocyte# 0.78 X10^3/uL; Monocyte% 5.4 % (0-10); Neutrophil # 12.07 X10^3/uL (2.7-7.7); Neutrophil % 82.9 % (47-70); Platelet Count 325 K/mm3 (150-450); RBC Distribution Width CV 16.6 % (11.6-14.6); White Blood Count 14.6 K/mm3 (4.4-11.0)
[2018-02-26 13:05] LABS: POSITIVE COUNT NO; POSITIVE DIFFERENTIAL NO; POSITIVE MORPHOLOGY NO
--- OUTSIDE RECORDS SUMMARY | 2018-04-14 10:51 | XMS RPT_ITS ---
:1985 Author Organization OHIP Support Name Relationship Address Phone RANCHO QUICK Unavailable [address] + [place] [address] DISBROW, MALOU Unavailable [address] + [place] [address] [employer] Unavailable [address] + [place] [address] BLACK, RANCHO Unavailable [address] + [place] [address] DISBROW, MALOU Unavailable [address] + [place] [address] [employer] Unavailable [address] + [place] [address] BLACK, RANCHO Unavailable [address] + [place] [address] DISBROW, MALOU Unavailable [address] + [place] [address] [employer] Unavailable [address] + [place] [address] Black, Rancho Unavailable Unavailable + BLACK, RANCHO Unavailable [address] + [place] [address] DISBROW, MALOU Unavailable Unavailable + [employer] Unavailable [address] + [place] [address] BLACK, RANCHO Unavailable [address] + [place] [address] DISBROW, MALOU Unavailable Unavailable + [employer] Unavailable [address] + [place] [address] BLACK, RANCHO Unavailable [address] + [place] [address] DISBROW, MALOU Unavailable Unavailable + [employer] Unavailable [address] + [place] [address] BLACK, RANCHO Unavailable [address] + [place] [address] DISBROW, MALOU Unavailable . + ., [place] . [employer] Unavailable [address] + [place] [address] BLACK, RNACHO Unavailable [address] + [place] [address] DISBROW, MALOU Unavailable . + ., [place] . [employer] Unavailable [address] + [place] [address] BLACK, RANCHO Unavailable [address] + [place] [address] DISBROW, MALOU Unavailable . + ., [place] . [employer] Unavailable [address] + [place] [address] BLACK, RANCHO Unavailable [address] + [place] [address] DISBROW, MALOU Unavailable Unavailable + [employer] Unavailable [address] + [place] [address] BLACK, RANCHO Unavailable [address] + [place] [address] DISBROW, MALOU Unavailable . + ., [place] . [employer] Unavailable [address] + [place] [address] BLACK, SINGH Unavailable [address] + [place] [address] BLACK, SINGH Unavailable [address] + [place] [address] BLACK, RANCHO Unavailable [address] + [place] [address] DISBROW, MALOU Unavailable [facility] [address] + [place] [address] [employer] Unavailable [address] + [place] [address] BLACK, SINGH Unavailable [address] + [place] [address] BLACK, SINGH Unavailable [address] + [place] [address] BLACK, RANCHO Unavailable [address] + [place] [address] DISBROW, MALOU Unavailable [address] + [place] [address] [employer] Unavailable [address] + [place] [address] BLACK, RANCHO Unavailable [address] + [place] [address] DISBROW, MALOU Unavailable [address] + [place] [address] [employer] Unavailable [address] + [place] [address] BLACK, SINGH Unavailable [address] + [place] [address] BLACK, SINGH Unavailable [address] + [place] [address] BLACK, RANCHO Unavailable [address] + [place] [address] DISBROW, MALOU Unavailable [address] + [place] [address] [employer] Unavailable [address] + [place] [address] BLACK, SINGH Unavailable [address] + [place] [address] BLACK, SINGH Unavailable [address] + [place] [address] BLACK, RANCHO Unavailable [address] + [place] [address] DISBROW, MALOU Unavailable [address] + [place] [address] [employer] Unavailable [address] + [place] [address] BLACK, SINGH Unavailable [address] + [place] [address] BLACK, SINGH Unavailable [address] + [place] [address] BLACK, SINGH Unavailable [address] + [place] [address] BLACK, SINGH Unavailable [address] + [place] [address] BLACK, SINGH Unavailable [address] + [place] [address] BLACK, RANCHO Unavailable [address] + [place] [address] DISBROW, MALOU Unavailable [address] + [place] [address] [employer] Unavailable [address] + [place] [address] BLACK, RANCHO Unavailable [address] + [place] [address] DISBROW, MALOU Unavailable [address] + [place] [address] [employer] Unavailable [address] + [place] [address] BLACK, RANCHO Unavailable [address] + [place] [address] DISBROW, MALOU Unavailable [address] + [place] [address] [employer] Unavailable [address] + [place] [address] BLACK, RANCHO Unavailable [address] + [place] [address] DISBROW, MALOU Unavailable [address] + [place] [address] [employer] Unavailable [address] + [facility] [place] [address] BLACK, RANCHO Unavailable [address] + [place] [address] DISBROW, MALOU Unavailable [address] + [place] [address] [employer] Unavailable [address] + [place] [address] BLACK, RANCHO Unavailable [address] + [place] [address] DISBROW, MALOU Unavailable [address] + [place] [address] [employer] Unavailable [address] + [facility] [place] [address] BLACK, RANCHO Unavailable [address] + [place] [address] DISBROW, MALOU Unavailable [address] + [place] [address] [employer] Unavailable [address] + [facility] [place] [address] BLACK, RANCHO Unavailable [address] + [place] [address] DISBROW, MALOU Unavailable [address] + [place] [address] [employer] Unavailable [address] + [facility] [place] [address] BLACK, RANCHO Unavailable [address] + [place] [address] DISBROW, MALOU Unavailable [address] + [place] [address] [employer] Unavailable [address] + [facility] [place] [address] BLACK, RANCHO Unavailable [address] + [place] [address] DISBROW, MALOU Unavailable [address] + [place] [address] [employer] Unavailable [address] + [facility] [place] [address] BLACK, RANCHO Unavailable [address] + [place] [address] DISBROW, MALOU Unavailable [address] + [place] [address] [employer] Unavailable [address] + [facility] [place] [address] BLACK, RANCHO Unavailable [address] + [place] [address] DISBROW, MALOU Unavailable . + [place] [address] [employer] Unavailable [address] + [place] [address] BLACK, RANCHO Unavailable [address] [address] + [place] [address] DISBROW, MALOU Unavailable . + [place] [address] [employer] Unavailable [address] + [place] [address] BLACK, RANCHO Unavailable [address] + [place] [address] DISBROW, MALOU Unavailable . + [place] [address] [employer] Unavailable [address] + [place] [address] BLACK, RNACHO Unavailable [address] + [place] [address] DISBROW, MALOU Unavailable Unavailable + [place] [address] [employer] Unavailable [address] + [place] [address] BLACK, RANCHO Unavailable [address] + [place] [address] DISBROW, MALOU Unavailable . + [place] [address] [employer] Unavailable [address] + [place] [address] BLACK, RANCHO Unavailable [address] + [place] [address] DISBROW, MALOU Unavailable . + [place] [address] [employer] Unavailable [address] + [place] [address] [employer] Unavailable Unavailable Unavailable [employer] Unavailable Unavailable + [place] [address] Care Team Providers Name Role Phone Alyssa Palomares Admitting Unavailable Alyssa Palomares Attending Unavailable Alyssa Palomares Referring Unavailable [facility] Primary Care Unavailable Alyssa Palomares Consulting Unavailable Alyssa Palomarse Attending Unavailable Alyssa Palomares Referring Unavailable [facility] Primary Care Unavailable Alyssa Palomares Attending Unavailable Patrice, Trina Primary Care Unavailable UngurTiana Attending Unavailable Marcanthony, Alyssa Attending Unavailable Patrice, Trina Referring Unavailable Marcanthony, Alyssa Attending Unavailable Patrice, Trina Referring Unavailable Marcanthony, Alyssa Attending Unavailable Marcanthony, Alyssa Attending Unavailable Marcanthony, Alyssa Referring Unavailable Marcanthony, Alyssa Attending Unavailable Patrice, Trina Referring Unavailable Marcanthony, Alyssa Attending Unavailable Marcanthony, Alyssa Referring Unavailable [place], Trina Primary Care Unavailable Yayo, Kasia Attending Unavailable [place], Trina Referring Unavailable Patrice, Trina Primary Care Unavailable Marcanthony, Alyssa Attending Unavailable [place], Trina Referring Unavailable Patrice, Trina Primary Care Unavailable Marcanthony, Alyssa Attending Unavailable [place], Trina Referring Unavailable Marcanthony, Alyssa Attending Unavailable Marcanthony, Alyssa Referring Unavailable [place], Trina Primary Care Unavailable Marcanthony, Alyssa Attending Unavailable [place], Trina Referring Unavailable [place], Trina Primary Care Unavailable Marcanthony, Alyssa Attending Unavailable [place], Trina Referring Unavailable [place], Trina Primary Care Unavailable [place], Kasia Attending Unavailable [place], Trina Referring Unavailable [place], Trina Primary Care Unavailable Yayo, Kasia Attending Unavailable Yayo, Kasia Referring Unavailable [place], Trina Primary Care Unavailable Yayo, Kasia Attending Unavailable [place], Kasia Referring Unavailable [place], Trina Primary Care Unavailable Marcanthony, Alyssa Attending Unavailable [place], Trina Referring Unavailable [place], Kasia Attending Unavailable [place], Kasia Referring Unavailable [place], Trina Primary Care Unavailable Marcanthony, Alyssa Attending Unavailable [place], Trina Referring Unavailable Marcanthony, Alyssa Attending Unavailable Marcanthony, Alyssa Referring Unavailable [place], Trina Primary Care Unavailable Marcanthony, Alyssa Attending Unavailable Marcanthony, Alyssa Referring Unavailable [place], Trina Primary Care Unavailable Marcanthony, Alyssa Consulting Unavailable Marcanthony, Alyssa Attending Unavailable Patrice, Trina Referring Unavailable Marcanthony, Alyssa Attending Unavailable Patrice, Trina Referring Unavailable [place], Kasia Attending Unavailable Patrice, Trina Referring Unavailable [place], Kasia Attending Unavailable [place], Trina Primary Care Unavailable Yayo, Kasia Referring Unavailable Marcanthony, Alyssa Attending Unavailable Patrice, Trina Referring Unavailable Marcanthony, Alyssa Admitting Unavailable Marcanthony, Alyssa Attending Unavailable Marcanthony, Alyssa Referring Unavailable [facility] Care Unavailable Marcanthony, Alyssa Attending Unavailable [facility] Referring Unavailable Marcanthony, Alyssa Admitting Unavailable Marcanthony, Alyssa Attending Unavailable Marcanthony, Alyssa Referring Unavailable [facility] Care Unavailable Marcanthony, Alyssa Consulting Unavailable Marcanthony, Alyssa Admitting Unavailable Marcanthony, Alyssa Attending Unavailable Marcanthony, Alyssa Referring Unavailable [facility] Care Unavailable Marcanthony, Alyssa Consulting Unavailable Marcanthony, Alyssa Admitting Unavailable Marcanthony, Alyssa Attending Unavailable Marcanthony, Alyssa Referring Unavailable [facility] Care Unavailable Marcanthony, Alyssa Consulting Unavailable Marcanthony, Alyssa Admitting Unavailable Marcanthony, Alyssa Attending Unavailable Marcanthony, Alyssa Referring Unavailable [facility] Care Unavailable Marcanthony, Alyssa Consulting Unavailable FLY GALICIA Attending Unavailable [facility] Referring Unavailable [facility] Care Unavailable JOSUEKYRIE Attending Unavailable MARCANTHONY, ALYSSA E Referring Unavailable MARCANTHONY, ALYSSA E Primary Care Unavailable KYRIE SALAS Attending Unavailable MARCANTHONY, ALYSSA E Referring Unavailable MARCANTHONY, ALYSSA E Primary Care Unavailable KYRIE SALAS T Attending Unavailable MARCANTHONY, ALYSSA E Referring Unavailable MARCANTHONY, ALYSSA E Primary Care Unavailable LARY GALAN Attending Unavailable MARCANTHONY, ALYSSA E Referring Unavailable MARCANTHONY, ALYSSA E Primary Care Unavailable LARY GALAN Attending Unavailable MARCANTHONY, ALYSSA E Referring Unavailable MARCANTHONY, ALYSSA E Primary Care Unavailable JIGAR RÍOS Attending Unavailable MARCANTHONY, ALYSSA E Referring Unavailable MARCANTHONY, ALYSSA E Primary Care Unavailable JIGAR RÍOS Attending Unavailable MARCANTHONY, ALYSSA E Referring Unavailable MARCANTHONY, ALYSSA E Primary Care Unavailable CIERA LOU Attending Unavailable MARCANTHONY, ALYSSA E Referring Unavailable MARCANTHONY, ALYSSA E Primary Care Unavailable CIERA LOU Attending Unavailable MARCANTHONY, ALYSSA E Referring Unavailable MARCANTHONY, ALYSSA E Primary Care Unavailable BENJAMIN CUMMINGS Attending Unavailable MARCANTHONY, ALYSSA E Referring Unavailable MARCANTHONY, ALYSSA E Primary Care Unavailable BENJAMIN CUMMINGS Attending Unavailable MARCANTHONY, ALYSSA E Referring Unavailable MARCANTHONY, ALYSSA E Primary Care Unavailable LARY GALAN Attending Unavailable MARCANTHONY, ALYSSA E Referring Unavailable MARCANTHONY, ALYSSA E Primary Care Unavailable ADAMA, LARY Attending Unavailable MARCANTHONY, ALYSSA E Referring Unavailable MARCANTHONY, ALYSSA E Primary Care Unavailable PROBLEMS PROBLEMS DATE TYPE CONDITION / CODE ATTENDING STATUS SOURCE 04/09/2018 Unknown Z97.5 - Presence of Marcanthony, Active [place] (intrauterine) [facility] device / Repository Z97.5(ICD-10) 03/20/2018 Unknown Z39.2 - Encounter Marcanthony, Active [place] for routine [facility] Hospital follow-up / Repository Z39.2(ICD-10) 02/28/2018 Admitting Diseases of the TWOMBLY, Active [facility] Diagnosis resp sys FLY System complicating the Repository puerperium / O99.53(ICD-10) 02/28/2018 Admitting Pleural effusion, TWOMBLY, Active [facility] Diagnosis not elsewhere [facility] System classified / Repository J90(ICD-10) 02/28/2018 Admitting Oth complications TWOMBLY, Active [facility] Diagnosis of the puerperium, [facility] System NEC / Repository O90.89(ICD-10) 02/28/2018 Admitting Abnormal levels of TWOMBLY, Active [facility] Diagnosis other serum enzymes FLY System / R74.8(ICD-10) Repository 02/28/2018 Admitting Nausea / TWOMBLY, Active [facility] Diagnosis R11.0(ICD-10) FLY System Repository 02/28/2018 Admitting Diarrhea, TWOMBLY, Active [facility] Diagnosis unspecified / FLY System R19.7(ICD-10) Repository 02/28/2018 Admitting Dorsalgia, TWOMBLY, Active [facility] Diagnosis unspecified / FLY System M54.9(ICD-10) Repository 03/04/2018 Unknown O99.019 - Anemia Marcanthony, Active [place] complicating [facility] , Hospital unspecified Repository trimester / O99.019(ICD-10) 02/14/2018 Unknown Z68.41 - Body mass Marcanthony, Active [place] index (BMI) [facility] 40.0-44.9, adult / Hospital Z68.41(ICD-10) Repository 2018 Unknown O09.93 - Kasia Zee Active [place] Supervision of high Community risk , Hospital unspecified, third Repository trimester / O09.93(ICD-10) 01/24/2018 Unknown F41.9 - Anxiety Marcanthony, Active [place] disorder, [facility] unspecified / Hospital F41.9(ICD-10) Repository 01/24/2018 Unknown J45.20 - Mild Marcanthony, Active [place] intermittent [facility] asthma, Hospital uncomplicated / Repository J45.20(ICD-10) 01/24/2018 Unknown O99.013 - Anemia Marcanthony, Active [place] complicating [facility] , third Hospital trimester / Repository O99.013(ICD-10) 01/24/2018 Unknown Z3A.35 - 35 weeks Marcanthony, Active [place] gestation of [facility] / Hospital Z3A.35(ICD-10) Repository 01/24/2018 Unknown O24.414 - Marcanthony, Active [place] Gestational [facility] diabetes mellitus Hospital in , Repository insulin controlled / O24.414(ICD-10) 01/18/2018 Unknown O24.410 - Marcanthony, Active [place] Gestational [facility] diabetes mellitus Hospital in , diet Repository controlled / O24.410(ICD-10) 01/09/2018 Unknown R03.0 - Elevated Marcanthony, Active [facility] blood-pressure [facility] reading, without Hospital diagnosis of Repository hypertension / R03.0(ICD-10) 01/04/2018 Unknown O12.10 - Marcanthony, Active [place] Gestational [facility] proteinuria, Hospital unspecified Repository trimester / O12.10(ICD-10) 12/21/2017 Unknown Z3A.30 - 30 weeks Marcanthony, Active [place] gestation of [facility] / Hospital Z3A.30(ICD-10) Repository 12/04/2017 Unknown Z3A.20 - 20 weeks Kasia Zee Active [place] gestation of [facility] / Hospital Z3A.20(ICD-10) Repository 12/04/2017 Unknown Z34.02 - Encounter Kasia Zee Active [place] for supervision of Community normal first Hospital , second Repository trimester / Z34.02(ICD-10) 12/04/2017 Unknown Z34.90 - Encounter Kasia Zee Active [place] for supervision of [facility] normal , Hospital unspecified, Repository unspecified trimester / Z34.90(ICD-10) 12/04/2017 Unknown Z23 - Encounter for Kasia Zee Active [place] immunization / Community Z23(ICD-10) Hospital Repository 09/11/2017 Unknown Z34.91 - Encounter Jelani Active [place] for supervision of [facility] normal , Hospital unspecified, first Repository trimester / Z34.91(ICD-10) 08/09/2017 Unknown Z34.01 - Encounter Jelani, Active [place] for supervision of [facility] normal first Hospital , first Repository trimester / Z34.01(ICD-10) 08/09/2017 Unknown Z3A.11 - 11 weeks Jelani Active [place] gestation of [facility] / Hospital Z3A.11(ICD-10) Repository 07/12/2017 Unknown Z12.4 - Encounter Jelani Active [place] for screening for [facility] malignant neoplasm Hospital of cervix / Repository Z12.4(ICD-10) PROCEDURES PROCEDURES No Procedure Records FoundRESULTS RESULTS [facility] OFF[facility] VISIT Observed: 04/09/2018 Status: F Source: [place] REPORT 2:52 PM [facility] REPOSITORY [facility] [address] [place] [address]. 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 Required: No Is patient in pain?: No Allergies acetaminophen [From Tylenol-Codeine] Allergy (Severe, Verified 04/09/18 13:16) Anaphylaxis codeine [From Tylenol-Codeine] Allergy (Severe, Verified 04/09/18 13:16) Anaphylaxis iodine Allergy (Severe, Verified 04/09/18 13:16) Anaphylaxis shellfish derived Allergy (Severe, Verified 04/09/18 13:16) Anaphylaxis Medications albuterol sulfate 90 mcg/actuation breath activated powder inhaler 2 puff INHALATION Q6H PRN 07/11/17 [History Confirmed 03/20/18] epinephrine 0.3 mg/0.3 mL injection, auto-injector 0.3 mg IM ONCE PRN 07/11/17 [History Confirmed 03/20/18] pantoprazole 40 mg tablet,delayed release 40 mg PO QDAY 07/11/17 [History Confirmed 03/20/18] fluoxetine 20 mg capsule 20 mg PO DAILY 01/18/18 [History Confirmed 03/20/18] Metoclopramide [Metoclopramide HCl] 5 mg PO BID PRN 03/07/18 [History Confirmed 03/20/18] ascorbic acid (vitamin C) 500 mg capsule mg PO cap 03/20/18 [History Confirmed 03/20/18] : No PFSH Medical History Anxiety (Acute) Asthma (Chronic) Hiatal hernia (Inactive) Surgical History delivery delivered (Acute) H/O endoscopy (Resolved) Goltry teeth extracted (Resolved) Family History Father Hypertension Mother uterine fibroids Grandmother Diabetes Social History Smoking Status: Never smoker alcohol intake: never substance use type: does not use caffeine: Yes what type of physical activity do you participate in: aerobics frequency: 1-2 times per week seatbelt use: always do you feel safe at home: Yes additional social history: - [place]- [employer]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 DatName GA/WeeksOutcome Route Bt DiogenesgInsofiya Holman LgAnesthesDel LocaProviderFOB e ht en ia tn Unknown 2018 Nj live birC-sectio Male [facility] SM ton th - majo blackman term Depression Screen PHQ-2/9 PHQ-2 Over the last 2 weeks, how often have you been bothered by any of the following problems? 1. Little interest or pleasure in doing things: not at all 2. Feeling down, depressed, or hopeless: not at all Total score: 0 If score is 2 or greater, continue Source: Developed by Drs. Milton Carolina, Kelli Elizondo, Elmer Heck and colleagues, with an educational fady from [employer] Scoring: Total Score Depression Severity Action 1-4 Minimal depression No action needed 5-9 Mild depression Repeat PHQ-9 at follow up 10-14 Moderate depression Make tx plan,consider counseling, fup, prescription Post HPI PP AND IUD INSERTION: Details: SINGH QUICK is a 33 year old who presents for her post visit. Infant Feeding: Bottle Menses resumed: No [place] since delivery: Yes Emotional Support: Yes ROS Const Reports system reviewed and no additional complaints, except as docu GI Reports system reviewed and no additional complaints, except as docu, Denies bloating, Denies nausea, Denies vomiting, Denies constipation Reports system reviewed and no additional complaints, except as docu, Denies abnormal vaginal bleeding, Denies pelvic pain, Denies sexual problems, Denies urinary urgency, Denies vaginal discharge, Denies urinary hesitancy, Denies urinary incontinence Skin/Breast Reports system reviewed and no additional complaints, except as docu, Reports as per HPI Psych Reports as per HPI Exam Const General: cooperative, healthy appearing, comfortable, no acute distress HENMT Head: normal to inspection Neck Neck: normal visual inspection, no lymphadenopathy Thyroid: thyroid normal Chest Breast inspection: normal inspection of the breasts, normal inspection of the axillae Breast palpation: normal palpation of the breasts, normal palpation of the axillae Resp Effort AND Inspection: normal respiratory effort GI Inspection: normal to inspection Palpation: soft, no hepatosplenomegaly, nontender General: bladder normal to palpation External Female Exam: normal external appearance, normal appearance of the urethra Urethra: normal appearance of the urethra Speculum Exam - Vagina: normal appearance of the vagina, normal vaginal discharge Speculum Exam - Cervix: normal appearance of the cervix Bimanual Exam- Vagina AND Uterus: bladder normal to palpation, normal bimanual exam, uterine shape normal, uterine size normal, uterus non-tender Bimanual Exam- Adnexa, other: normal adnexae, pelvic support normal Pelvic Support: normal Skin General: no rashes or lesions noted Office Procedures Liletta IUD IUD GC/Chlamydia:: not done Test: Yes Not Applicable Consent Signed: Yes Time out checklist: patient, procedure, site marked/identified, positioning of patient, supplies available, allergies confirmed, team agrees on procedure IUD: Yes Anderetta Time out time: 13:10 Details: Sign in Communication: Completed Sign out documentation: Completed The uterus sounded to 9 cm. After prepping the cervix with betadine and using sterile technique, the cervix was grasped with a single tooth tenaculum and the IUD was inserted without difficulty and the string was cut to 3cm from the external os of the cervix. All instruments were removed from the vagina and excellent hemostasis was noted. Procedure Summary: patient tolerated the procedure well without complication. levonorgestrel 20 mcg/24 hr (5 years) intrauterine device 1 insert Intrauterine ONCE IUD Details: Sign in Communication: Completed Sign out documentation: Completed The uterus sounded to [] cm. After prepping the cervix with betadine and using sterile technique, the cervix was grasped with a single tooth tenaculum and the IUD was inserted without difficulty and the string was cut to 3cm from the external os of the cervix. All instruments were removed from the vagina and excellent hemostasis was noted. Procedure Summary: patient tolerated the procedure well without complication. 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 care and examination Z39.2 Plan iud inserted without complication Orders Orders: Medications Discontinued: levonorgestrel Discontinued Reason: Office Med1 insert Intrauterine ONCE #1 0RF Z97.5 ication has been Documented as given Coding Level of Care Code No Charge Diagnoses care and examination Z39.2 Additional Codes IUD (05179) 04/09/18 6142 <Electronically signed by Alyssa Palomares MD> Date Alyssa Palomares MD [facility] Signature: Date (if applicable) CC: [facility] OFFICE VISIT Observed: 03/20/2018 Status: F Source: [place] REPORT 8:56 AM [facility] REPOSITORY [facility] 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 Required: No Is patient in pain?: No Allergies acetaminophen [From Tylenol-Codeine] Allergy (Severe, Verified 03/06/18 23:52) Anaphylaxis codeine [From Tylenol-Codeine] Allergy (Severe, Verified 03/06/18 23:52) Anaphylaxis iodine Allergy (Severe, Verified 03/06/18 23:52) Anaphylaxis shellfish derived Allergy (Severe, Verified 03/06/18 23:52) Anaphylaxis Medications albuterol sulfate 90 mcg/actuation breath activated powder inhaler 2 puff INHALATION Q6H PRN 07/11/17 [History Confirmed 03/20/18] epinephrine 0.3 mg/0.3 mL injection, auto-injector 0.3 mg IM ONCE PRN 07/11/17 [History Confirmed 03/20/18] pantoprazole 40 mg tablet,delayed release 40 mg PO QDAY 07/11/17 [History Confirmed 03/20/18] fluoxetine 20 mg capsule 20 mg PO DAILY 01/18/18 [History Confirmed 03/20/18] Metoclopramide [Metoclopramide HCl] 5 mg PO BID PRN 03/07/18 [History Confirmed 03/20/18] ascorbic acid (vitamin C) 500 mg capsule mg PO cap 03/20/18 [History Confirmed 03/20/18] Is last menstrual period known: No Post menopausal: No Patient : No [facility] Family History Father Hypertension Mother uterine fibroids Grandmother Diabetes Social History Smoking Status: Never smoker alcohol intake: never substance use type: does not use caffeine: Yes what type of physical activity do you participate in: aerobics frequency: 1-2 times per week seatbelt use: always do you feel safe at home: Yes additional social history: - [place] 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 blood pressure mildly elevated today. Pregancy History 1 Elective abortions Hx Para 0 Spontaneous abortions Past Pregnancies Del. DatName GA/WeeksOutcome Route [facility] LocaProviderFOB e ht en ia tn Unknown 2017 Nj live birC-sectio Male [facility] ton th - fuln l term ROS Const Constitutional: Reports system reviewed and no additional complaints, except as docu GI GI: Denies abdominal pain, nausea, vomiting or cramping : Denies urinary frequency, vaginal dryness, vaginal discharge, urinary urgency, urinary incontinence, vaginal odor or pelvic pain Exam Const General: cooperative, healthy appearing, comfortable, no acute distress GI Inspection: normal to inspection Palpation: soft, nontender Assessment AND Plan Problems 1. care and examination Z39.2 Plan fu for 6 week Coding Level of Care Code No Charge Diagnoses care and examination Z39.2 03/20/18 0856 <Electronically signed by Alyssa Palomares MD> Date Alyssa Palomares MD Cosigner Signature: Date (if applicable) CC: DISCHARGE INSTRUCTION Observed: 03/07/2018 Status: F Source: [place] 3:15 AM [facility] Medical Records Department [address] [place] [address] Discharge Instruction 03/07/18313 MR#: [id number] Acct: [id number] Name: SINGH QUICK Rep #: [id number] : 1985 33 From: Tiana Gonzalez DO PCP: Trina Ibrahim MD Status: REG ER ED Disposition - Plan for ED Patient: Chief Complaint: Vag Bleeding Instructions: ED Bleed Irregular Vaginal Referrals: Trina Ibrahim MD [Primary Care Provider] - Alyssa Palomares MD [STAFF PHYSICIAN] - As Needed What to do if you have Problems For any increased pain, shortness of breath, bleeding, nausea or vomiting, chest pain, or any unexpected problems, contact your Primary Care Provider. Call [facility] ([phone]) or report to the closest Emergency Room. Call 911 if necessary. 03/07/18314 <Electronically signed by Tiana Gonzalez DO> Date Tiana Gonzalez DO Cosigner Signature (If Indicated): Date CC: Trina Ibrahim MD EMERGENCY DEPARTMENT Observed: 03/07/2018 Status: F Source: [place] 3:14 AM [facility] Medical Records Department [address] [place] [address] Emergency Department Summary 03/07/18308 MR#: [id number] Acct: [id number] Name: SINGH QUICK Rep #: [id number] : 1985 33 From: Tiana Gonzalez DO PCP: Trina Ibrahim MD Status: REG ER - ER Visit Summary Date of Service: 03/07/18 Chief Complaint: [Vaginal bleeding] History of Present Illness: The patient is a 33 F [presents to the emergency department the bleeding that started around 10:15 PM tonight. Patient states that she delivered a baby 2 weeks ago. Patient had a vaginal delivery. Patient is concerned because she is passing large amount of blood and clots. Patient complains of feeling somewhat lightheaded. Patient has been somewhat anemic but her last hemoglobin this week was 10.1. Patient denies any abdominal pain.] Physical Examination: [HEENT-PERRLA, EOMI. Cranial nerves II through XII grossly intact. TMs clear. Mucous membranes moist. No adenopathy. Cardiovascular-regular and tachycardic with a heart rate of 101. No murmurs auscultated. Lungs-clear to auscultation, chest wall stable without crepitus or subcu emphysema Abdomen-normoactive bowel sounds, soft, nontender, no rebound or rigidity, no peritoneal signs. exam-patient had large amount of clot and blood within the vaginal vault which once removed noted small amount of clot from the cervical loss with just a small amount of blood oozing from the office. Fundal height is senior care between the umbilicus and pubic symphysis. Extremities-intact 4, normal range of motion, normal pulses, atraumatic] Test Results: [Initial orthostatics were positive. CBC with differential showed a white count of 9.0, hemoglobin 9.6, hematocrit 32, platelets 405.] Pelvic ultrasound showed uterus measuring 13 x 7.5 x 10 cm. Patient had heterogenous thickened endometrium. No evidence for retained products. Emergency Department Course and Treatment: [Case was discussed with Dr. Holguin] who asked that we give patient more IV fluids and repeat orthostatics. I was asked to obtain an ultrasound. After repeat fluid bolus patient orthostatics are negative and patient ambulated to the bathroom and back without difficulty. Patient's bleeding has diminished significantly. I discussed case a second time with Dr. Holguin who asked that patient take daily iron and follow-up with their office first week of March. Treatment Plan: [Follow-up with [facility] first week of March. Advised to return if persistent heavy bleeding or condition should worsen anyway. Disposition: [Discharged home in stable condition] Impression: [Irregular vaginal bleeding] This note was generated with [employer] [facility] [employer] dictation software. It may contain incorrect words, spelling, and punctuation that were not noted in review of the chart prior to signing ED Disposition - Plan for ED Patient: Chief Complaint: Vag Bleeding Referrals: Trina Ibarhim MD [Primary Care Provider] - What to do if you have Problems For any increased pain, shortness of breath, bleeding, nausea or vomiting, chest pain, or any unexpected problems, contact your Primary Care Provider. Call [facility] ([phone]) or report to the closest Emergency Room. Call 911 if necessary. 03/07/184 <Electronically signed by Tiana Gonzalez DO> Date Tiana Gonzalez DO Cosigner Signature (If Indicated): Date CC: Trina Ibrahim MD PELVIC (NON ) Observed: 03/07/2018 Status: F Source: [place] 1:03 AM [facility] REPOSITORY [facility] Imaging Services [address] [place] [id number] Pelvic (Non ) MR#: [id number] Acct: [id number] Name: SINGH QUICK Rep #: [id number] : 1985 F 33 From: Elba Crook MD PCP: Trina Ibrahim MD Status: REG ER Study: Pelvic (Non ) Date of Exam: 03/07/18 Exam# [id number] Ordering Dr: Tiana Gonzalez DO STUDY: ULTRASOUND OF THE FEMALE PELVIS - COMPLETE REASON FOR EXAM: Female, 33 years old. Heavy abnormal vaginal bleeding. Patient had recent vaginal delivery on February 20, 2018. LMP: TECHNIQUE: Transabdominal TECHNICAL QUALITY: Adequate. COMPARISON: No previous studies are available for comparison at the time of dictation. FINDINGS: The uterus is anteverted and is in a midline position. The uterus measures 13.1 x 7.5 x 10.1 cm. Normal uterine cervix. The endometrium measures 21 mm in thickness, and is heterogeneous in echogenicity. There is no demonstrated endometrial mass or internal vascularity. There is no demonstrated myometrial mass. I.U.D. - The patient does not have an I.U.D. The right ovary is visualized. The right ovary measures 2.6 x 2.1 x 1.5 cm. There is no right ovarian cyst or ovarian mass. There is no visualized right adnexal mass or complex lesion. There is normal arterial and normal venous vascularity. The left ovary is visualized. The left ovary measures 4.1 x 1.2 x 2.9 cm. There is no left ovarian cyst or ovarian mass. There is no visualized left adnexal mass or complex lesion. There is normal arterial and normal venous vascularity. There is no fluid in the cul-de-sac. The pre void volume of the bladder was 136.8 ml. Polycystic ovary disease: No. US/Pelvic (Non ) IMPRESSION: 1. Heterogeneous and thickened endometrium without definite evidence for retained products of conception. 2. Normal sonographic appearance of both ovaries. Electronically Signed: Elba Crook MD at 2:40 EST , Service support , CC: Trina Ibrahim MD; Tiana Gonzalez DO Personal Lines Account Executive: Signed CBC W/DIFF, AUTOMATED Collected: 03/07/2018 Status: F Source: [place] 12:21 AM [facility] REPOSITORY TYPE CODE TESTS RESULT OUT OF RANGE REFERENCE UNITS LAB L100.1000 4.4-11.0 K/mm3 Normal WBC 9.0 LAB L100.1200 4.2-5.4 M/mm3 Low RBC 4.06 LAB L100.1300 12.0-15.0 g/dl Low HGB 9.6 LAB L100.1400 37-47 % Low HCT 31.8 LAB L100.1500 81-99 fL Low MCV 78.3 LAB L100.1600 27.0-32.0 pg Low MCH 23.6 LAB L100.1700 32-36 g/gl Low MCHC 30.2 LAB L100.1810 11.6-14.6 % High RDW CV 16.2 LAB L100.1820 35.1-43.9 fl High RDW SD 44.9 LAB L100.1900 150-450 K/mm3 Normal PLT 405 LAB L100.2000 6.2-12.0 fl Normal MPV 9.2 LAB L100.2100 47-70 % High NEUT% 75.1 LAB L100.2200 19-41 % Low LY% 14.6 LAB L100.2300 0-10 % Normal MONO% 8.0 LAB L100.2400 0-5 % Normal EO% 1.7 LAB L100.2500 0-1 % Normal BASO% 0.2 LAB L100.2550 0.0-0.9 % Normal IM GRAN % 0.400 Result Comment: IG% - Immature Granulocytes (promyelocytes, myelocytes and metamyelocytes) > 1% indicates that a LEFT SHIFT is Present. LAB L100.2620 2.0-7.7 X10 3/uL Normal Absolute Neut 6.8 LAB L100.2720 0.83-4.51 X10 3/ul Normal Absolute Lymph 1.32 Performed By: #### L100.0100 #### [facility] [address] [place], [place], [id number] TYPE AND SCREEN Collected: 03/07/2018 Status: F Source: [place] 12:21 AM [facility] REPOSITORY Order Comment: Reason for Type AND Screen/Red Cells: HEMORRHAGE, VAGINAL TYPE CODE TESTS RESULT OUT OF RANGE REFERENCE UNITS LAB B10.0800 O Normal BLOOD TYPE GEL POSITIVE LAB B100.4000 Normal Antibody NEGATIVE Screen Performed By: #### B101.7450 #### [facility] [address] [place], [address] US ABDOMEN LIMITED Observed: 02/28/2018 Status: F Source: [facility] 5:21 PM SYSTEM REPOSITORY Patient Name: SINGH QUICK Ultrasound Exam Date/Time 02/28/2018 17:19:28 EST Exam US Abdomen Limited Ordering Physician HECTOR GALICIA MICHELLE Accession Number [id number] CPT4 Codes 24998 () Reason For Exam nausea, diarrhea, -had baby 02/20, pain between shoulder blades Report Indication: Nausea. FINDINGS: Ultrasound Limited abdomen. Liver unremarkable. Pleural effusion noted. No gallstones. Common duct normal 1.5 mm. No Neil's sign. No definite abnormality of pancreas. Right kidney lower pole poorly seen. Right kidney 9.7 cm. No gross hydronephrosis. Aorta IVC unremarkable as seen. IMPRESSION: No gallstones or acute biliary process. Effusion noted of uncertain significance. Consider follow- up or further evaluation. Report Dictated on Workstation: [employer] Final Dictated: 02/28/2018 5:21 pm Dictating Physician: MD JETER JOHN Signed Date and Time: 02/28/2018 5:23 pm Signed by: MD JETER JOHN Transcribed Date and Time: 02/28/2018 5:21 ENTERIC BACT PNL PCR Collected: 02/28/2018 Status: F Source: [place] 11:30 AM CLINIC REFERENCE REPOSITORY TYPE CODE TESTS RESULT OUT OF REFERENCE UNITS RANGE LAB PCRSHG([place]) Shigella/EIEC NDET DNA LAB PCRCMP([place]) Campy jejun/coli DNA NDET LAB PCRSTX([place]) Shiga toxin gene(s) NDET LAB PCRSAL([place]) Salmonella spp. NDET DNA Performed By: #### STLPCR #### [facility] Microbiology - [address] [place], [place] [address] CBC W/DIFF, AUTOMATED Collected: 02/26/2018 Status: F Source: [place] 12:37 PM [facility] REPOSITORY TYPE CODE TESTS RESULT OUT OF RANGE REFERENCE UNITS LAB L100.1000 4.4-11.0 K/mm3 High WBC 14.6 LAB L100.1200 4.2-5.4 M/mm3 Low RBC 3.80 LAB L100.1300 12.0-15.0 g/dl Low HGB 9.0 LAB L100.1400 37-47 % Low HCT 30.2 LAB L100.1500 81-99 fL Low MCV 79.5 LAB L100.1600 27.0-32.0 pg Low MCH 23.7 LAB L100.1700 32-36 g/gl Low MCHC 29.8 LAB L100.1810 11.6-14.6 % High RDW CV 16.6 LAB L100.1820 35.1-43.9 fl High RDW SD 45.0 LAB L100.1900 150-450 K/mm3 Normal PLT 325 LAB L100.2000 6.2-12.0 fl Normal MPV 8.7 LAB L100.2100 47-70 % High NEUT% 82.9 LAB L100.2200 19-41 % Low LY% 8.9 LAB L100.2300 0-10 % Normal MONO% 5.4 LAB L100.2400 0-5 % Normal EO% 0.6 LAB L100.2500 0-1 % Normal BASO% 0.3 LAB L100.2550 0.0-0.9 % High IM GRAN % 1.900 Result Comment: IG% - Immature Granulocytes (promyelocytes, myelocytes and metamyelocytes) > 1% indicates that a LEFT SHIFT is Present. LAB L100.2620 2.0-7.7 X10 3/uL High Absolute Neut 12.1 LAB L100.2720 0.83-4.51 X10 3/ul Normal Absolute Lymph 1.30 Performed By: #### L100.0100 #### [facility] [address] [place], [address] DISCHARGE SUMMARY Observed: 02/25/2018 Status: F Source: [place] 5:14 PM [facility] REPOSITORY [facility] Medical Records Department [address] [place] [address] Discharge Summary 02/25/18 1712 MR#: [id number] Acct: [id number] Name: SINGH QUICK Rep #: [id number] : 1985 33 From: Alyssa Palomares MD PCP: Trina Ibrahim MD Status: DIS IN Y Location: [id number] Discharge Date and Diagnosis Date of Admission: 02/18/18 Date of Discharge: 02/22/18 - Primary Discharge Diagnosis gdma2 - Secondary Discharge Diagnosis Chronic Problems (Last Reviewed 02/14/18 @ 14:30 by Christy Huerta) Asthma (Chronic) Hospital Course and Treatment Consultations 02/18/18 19:49 Consult: Anesthesia Routine Comment: Reason For Exam: Operations: None Procedures: None Summary of Care Provided: The patient is a 33 year old F presents for iol gdma2 and delivered uncomplicated routine recovery dc home ppd2 - Physical Exam General: Alert, Oriented x3, Cooperative HEENT: Atraumatic, PERRLA, EOMI, Normocephalic Neck: Supple, No JVD, Negative Carotid Bruits Lungs: Clear to auscultation, Normal air movement Cardiovascular: Regular rate, No murmurs Abdomen: Bowel Sounds Present, Soft, Non Tender Extremities: No edema, Capillary Refill Less than 3 Seconds Skin: No rashes, No breakdown Musculoskeletal: No Tenderness to Palpation of Joints or Extremities Neurological: Cranial nerves II-XII grossly intact Psych/Mental Status: Normal Affect, Appropriate Vital Signs Temp Pulse Resp BP Pulse Ox 98.2 F 75 16 119/67 97 02/22/18 14:00 02/22/18 14:00 02/22/18 14:00 02/22/18 14:00 02/22/18 14:00 Oxygen Delivery Method Room Air Weight: 233 lb 14.567 oz Body Mass Index (BMI) 44.1 Discharge Diet: No Restrictions Discharge Activity: Return to Normal Activity, May not drive while taking narcotic pain medications., May Shower May resume sexual activity in: 4-6 weeks Call your doctor if your incision/area has: Continuous Slow Oozing, Sudden Increased Bleeding, Increased Pain/ Swelling, Increased Redness, Foul Smelling Discharge Home Medications: Medications to take at Discharge albuterol sulfate 90 mcg/actuation breath activated powder inhaler 2 puff INHALATION Q6H PRN 07/11/17 epinephrine 0.3 mg/0.3 mL injection, auto-injector 0.3 mg IM ONCE PRN 07/11/17 pantoprazole 40 mg tablet,delayed release 40 mg PO QDAY 07/11/17 vitamin,calcium,eevcdexv-jvmi-zxdwe acid tablet 1 tab PO QDAY 07/11/17 ondansetron HCl 4 mg tablet 4 mg PO Q6H PRN #60 tab 08/29/17 docusate sodium 100 mg capsule 100 mg PO QDAY 11/07/17 fluoxetine 20 mg capsule 20 mg PO DAILY 01/18/18 Insulin Lispro 20 units SC BREAKFAST 02/18/18 Insulin Lispro 22 units SC DINNER 02/18/18 Insulin NPH Human 30 units SQ QHS 02/18/18 Insulin NPH Human 50 units SC DAILY 02/18/18 Primary Care Physician: Trina Ibrahim MD [Primary Care Provider] - Please Follow Up With: Alyssa Palomares MD When: Call office to schedule appointment in 6 weeks for follow up. Medical Necessity - Tobacco Use Smoking Status: Never smoker Tobacco Use: Non-smoker Meaningful Use Info Meaningful Use Diagnoses (Choose all that apply): None applicable - AMI Aspirin given w/in 24hrs of arrival?: No Reason no aspirin w/in 24hrs of arrival?: none 02/25/18 1714 <Electronically signed by Alyssa Palomares MD> Date Alyssa Palomares MD Cosigner Signature (if applicable): Date CC: Trina Ibrahim MD; Alyssa Palomares MD Signed OPERATIVE REPORT Observed: 02/25/2018 Status: F Source: [place] 5:11 PM [facility] REPOSITORY [facility] Medical Records Department [address] [place] [address] Operative Report 02/22/18 1340 MR#: [id number] Acct: [id number] Name: SINGH QUICK Rep #: [id number] : 1985 33 From: Alyssa Palomares MD PCP: Trina Ibrahim MD Status: DIS IN Y Location: [id number] - Problem List (1) Insulin controlled gestational diabetes mellitus (GDM) in third trimester Status: Acute Comment: mfm cocare, for insulin to start 2x weekly NST and delivery at 39 weeks. Sees MFM every Sunday. (2) LGA (large for gestational age) fetus Status: Acute Comment: 97% discussed IOL at 39 weeks only if EFW <4500g (3) Supervision of high-risk Status: Acute Qualifiers: Comment: PRR NIMA 02/25/18 gender surprise [place] (4) Anemia affecting Status: Acute Qualifiers: Comment: iron and cbc monthly (5) Status: Acute Qualifiers: Comment: genetic, carrier, ntd screening declined. anatomy scan reviewed (6) Body mass index (BMI) of 40.1 to 44.9 in adult Status: Acute Comment: 1 tm glucola and weekly nsts w/ US and weekly BPP w/ MFM (7) Anxiety Status: Acute Comment: celexa. tried effexor, zoloft, and wellbutrin in past. encouraged counseling (8) Asthma Status: Chronic Qualifiers: Vaginal Delivery Maternal Presentation: Medically Indicated Induction iol gdma1 Method of Induction: Pitocin, Crow Bulb, Cytotec Amniotic Membrane Rupture Type: Artificial Amniotic Fluid Description: Clear Final NIMA: 02/25/18 Gestational age: 40 Weeks and 0 Days Date of Procedure: 02/20/18 Pre-Operative Diagnosis: iol gdm Post-Operative Diagnosis: same Surgery/ Procedure Performed: Spontaneous Vaginal Delivery Type of Anesthesia: Epidural Description of Procedure: heart rate variables deveop so small left mediolateral episiotomy was cut and head delivered atraumatically follow by a/p shoulders rest of delivered uncomplicated. delayed cord clamping. perineal repair of 2nd degree laceration with the episiotomy with 3-0 rapide. ebl 400. Presentation: TRACY Placental Delivery Description: Spontaneous Placenta Disposition: [facility] Cord Vessel Description: 3 Vessels Cord Entanglement: Around neck x 1, loose Estimated Blood Loss: 400 Episiotomy Description: Left Mediolateral Laceration: Perineal Extension/lac, 2nd degree Medications given after delivery: IV Pitocin Complications: None 02/25/18 1711 <Electronically signed by Alyssa Palomares MD> Date Alyssa Palomares MD CC: Trina Ibrahim MD; Alyssa Palomares MD Signed DISCHARGE INSTRUCTION Observed: 02/22/2018 Status: F Source: [place] 1:42 PM [facility] REPOSITORY [facility] Medical Records Department [address] [place] [address] Instructions for Home/Discharge Instructions 02/22/18 1341 MR#: [id number] Acct: [id number] Name: SINGH QUICK Rep #: [id number] : 1985 33 From: Alyssa Palomares MD PCP: Trina Ibrahim MD Status: ADM IN Discharge Diet: No Restrictions Discharge Activity: Return to Normal Activity, May not drive while taking narcotic pain medications., May Shower May resume sexual activity in: 4-6 weeks Call your doctor if your incision/area has: Continuous Slow Oozing, Sudden Increased Bleeding, Increased Pain/ Swelling, Increased Redness, Foul Smelling Discharge Additional Instructions: If you experience any of the following, contact your healthcare provider. * Bleeding that soaks a pad every hour for 2 hours * Fever 100.4 or higher * Unrelieved incision or abdominal pain * Swelling, redness, discharge or bleeding from your incision or episiotomy site * Your incision begins to separate * Problems urinating (including inability to urinate or burning while urinating). * Visual changes * Severe headache * Flu-like symptoms * Pain or redness in one of both of your breasts * Pain, warmth, tenderness or swelling in your legs, especially the calf area * Frequent nausea and vomiting * Symptoms of depression or anxiety If you experience any of the following, call 911 or go to the nearest Emergency Room. * Chest pain * Problems breathing * Seizure activity * Partial or complete paralysis of a body part, slurred speech, weakness or drooping of the face, or a sudden inability to walk or hold your balance Allergies/Adverse Reactions: Allergies acetaminophen [From Tylenol-Codeine] Allergy (Severe, Verified 02/20/18 19:28) Anaphylaxis pt states she is fine taking regular tylenol but has an allergy to codeine codeine [From Tylenol-Codeine] Allergy (Severe, Verified 02/14/18 14:29) Anaphylaxis iodine Allergy (Severe, Verified 02/14/18 14:29) Anaphylaxis shellfish derived Allergy (Severe, Verified 02/14/18 14:29) Anaphylaxis Medications to take at Discharge albuterol sulfate 90 mcg/actuation breath activated powder inhaler 2 puff INHALATION Q6H PRN 07/11/17 epinephrine 0.3 mg/0.3 mL injection, auto-injector 0.3 mg IM ONCE PRN 07/11/17 pantoprazole 40 mg tablet,delayed release 40 mg PO QDAY 07/11/17 vitamin,calcium,xjgurzwo-zysq-ybswn acid tablet 1 tab PO QDAY 07/11/17 ondansetron HCl 4 mg tablet 4 mg PO Q6H PRN #60 tab 08/29/17 docusate sodium 100 mg capsule 100 mg PO QDAY 11/07/17 fluoxetine 20 mg capsule 20 mg PO DAILY 01/18/18 Insulin Lispro 20 units SC BREAKFAST 02/18/18 Insulin Lispro 22 units SC DINNER 02/18/18 Insulin NPH Human 30 units SQ QHS 02/18/18 Insulin NPH Human 50 units SC DAILY 02/18/18 Please Follow Up With: Alyssa Palomares MD - [phone] When: Call to make an appointment with your doctor in 6 weeks. If you had elevated Blood pressure or 4th degree laceration you will need to be seen in 2 weeks. Primary Care Physician: Trina Ibrahim MD [Primary Care Provider] - Test Results: Test results from this visit will be discussed in further detail at your follow-up appointment, if applicable. 02/22/18 1342 <Electronically signed by Alyssa Palomares MD> Date Alyssa Palomares MD CC: Trina Ibrahim MD BEDSIDE GLUCOSE Collected: 02/21/2018 Status: F Source: [facility]AD[facility] 5:39 AM [facility] REPOSITORY TYPE CODE TESTS RESULT OUT OF RANGE REFERENCE UNITS LAB L501.080 70-110 mg/dL Normal BEDSIDE GLU 100 Result Comment: MANAGEMENT OF PATIENT CARE PER NURSING PROTOCOL Performed By: #### L501.080 #### [facility] Point of Care [address] [place] [address] BEDSIDE GLUCOSE Collected: 02/20/2018 Status: F Source: [place]AD[place] 1:47 PM [facility] REPOSITORY TYPE CODE TESTS RESULT OUT OF REFERENCE UNITS RANGE LAB L501.080 70-110 mg/dL High BEDSIDE GLU 112 Result Comment: MANAGEMENT OF PATIENT CARE PER NURSING PROTOCOL Performed By: #### L501.080 #### [facility] Point of Care [address] [place] [address] BEDSIDE GLUCOSE Collected: 02/20/2018 Status: F Source: [place] 12:02 PM [facility] REPOSITORY TYPE CODE TESTS RESULT OUT OF REFERENCE UNITS RANGE LAB L501.080 70-110 mg/dL High BEDSIDE GLU 115 Result Comment: MANAGEMENT OF PATIENT CARE PER NURSING PROTOCOL Performed By: #### L501.080 #### [facility] Point of Care [address] [place] [address] BEDSIDE GLUCOSE Collected: 02/20/2018 Status: F Source: [place] 11:03 AM [facility] REPOSITORY TYPE CODE TESTS RESULT OUT OF REFERENCE UNITS RANGE LAB L501.080 70-110 mg/dL High BEDSIDE GLU 112 Result Comment: MANAGEMENT OF PATIENT CARE PER NURSING PROTOCOL Performed By: #### L501.080 #### [facility] Point of Care [address] [place] [address] BEDSIDE GLUCOSE Collected: 02/20/2018 Status: F Source: [place] 10:13 AM [facility] REPOSITORY TYPE CODE TESTS RESULT OUT OF RANGE REFERENCE UNITS LAB L501.080 70-110 mg/dL Normal BEDSIDE GLU 100 Result Comment: MANAGEMENT OF PATIENT CARE PER NURSING PROTOCOL Performed By: #### L501.080 #### [facility] Point of Care [address] [place] [address] BEDSIDE GLUCOSE Collected: 02/20/2018 Status: F Source: [place]AD[place] 9:09 AM [facility] REPOSITORY TYPE CODE TESTS RESULT OUT OF RANGE REFERENCE UNITS LAB L501.080 70-110 mg/dL Normal BEDSIDE GLU 91 Result Comment: MANAGEMENT OF PATIENT CARE PER NURSING PROTOCOL Performed By: #### L501.080 #### [facility] Point of Care [address] [place] [address] BEDSIDE GLUCOSE Collected: 02/20/2018 Status: F Source: [place]AD[place] 8:04 AM [facility] REPOSITORY TYPE CODE TESTS RESULT OUT OF RANGE REFERENCE UNITS LAB L501.080 70-110 mg/dL Normal BEDSIDE GLU 90 Result Comment: MANAGEMENT OF PATIENT CARE PER NURSING PROTOCOL Performed By: #### L501.080 #### [facility] Point of Care [address] [place] [address] BEDSIDE GLUCOSE Collected: 02/20/2018 Status: F Source: MADY 7:09 AM [facility] REPOSITORY TYPE CODE TESTS RESULT OUT OF RANGE REFERENCE UNITS LAB L501.080 70-110 mg/dL Normal BEDSIDE GLU 86 Result Comment: MANAGEMENT OF PATIENT CARE PER NURSING PROTOCOL Performed By: #### L501.080 #### [facility] Point of Care [address] [place] [address] BEDSIDE GLUCOSE Collected: 02/20/2018 Status: F Source: [place]AD[place] 5:58 AM [facility] REPOSITORY TYPE CODE TESTS RESULT OUT OF RANGE REFERENCE UNITS LAB L501.080 70-110 mg/dL Normal BEDSIDE GLU 82 Result Comment: MANAGEMENT OF PATIENT CARE PER NURSING PROTOCOL Performed By: #### L501.080 #### [facility] Point of Care [address] [place] [address] BEDSIDE GLUCOSE Collected: 02/20/2018 Status: F Source: [place]AD[place] 5:08 AM [facility] REPOSITORY TYPE CODE TESTS RESULT OUT OF RANGE REFERENCE UNITS LAB L501.080 70-110 mg/dL Normal BEDSIDE GLU 78 Result Comment: MANAGEMENT OF PATIENT CARE PER NURSING PROTOCOL Performed By: #### L501.080 #### [facility] Point of Care [address] [place] [address] BEDSIDE GLUCOSE Collected: 02/20/2018 Status: F Source: [place]AD[place] 4:07 AM [facility] REPOSITORY TYPE CODE TESTS RESULT OUT OF RANGE REFERENCE UNITS LAB L501.080 70-110 mg/dL Normal BEDSIDE GLU 81 Result Comment: MANAGEMENT OF PATIENT CARE PER NURSING PROTOCOL Performed By: #### L501.080 #### [facility] Point of Care [address] [place] [address] BEDSIDE GLUCOSE Collected: 02/20/2018 Status: F Source: [place]AD[place] 3:04 AM [facility] REPOSITORY TYPE CODE TESTS RESULT OUT OF RANGE REFERENCE UNITS LAB L501.080 70-110 mg/dL Normal BEDSIDE GLU 82 Result Comment: MANAGEMENT OF PATIENT CARE PER NURSING PROTOCOL Performed By: #### L501.080 #### [facility] Point of Care [address] [place] [address] BEDSIDE GLUCOSE Collected: 02/20/2018 Status: F Source: [place] 2:16 AM [facility] REPOSITORY TYPE CODE TESTS RESULT OUT OF RANGE REFERENCE UNITS LAB L501.080 70-110 mg/dL Normal BEDSIDE GLU 75 Result Comment: MANAGEMENT OF PATIENT CARE PER NURSING PROTOCOL Performed By: #### L501.080 #### [facility] Point of Care [address] [place] [address] BEDSIDE GLUCOSE Collected: 02/20/2018 Status: F Source: [place] 1:19 AM [facility] REPOSITORY TYPE CODE TESTS RESULT OUT OF RANGE REFERENCE UNITS LAB L501.080 70-110 mg/dL Normal BEDSIDE GLU 89 Result Comment: MANAGEMENT OF PATIENT CARE PER NURSING PROTOCOL Performed By: #### L501.080 #### [facility] Point of Care [address] [place] [address] BEDSIDE GLUCOSE Collected: 02/20/2018 Status: F Source: [place] 12:11 AM [facility] REPOSITORY TYPE CODE TESTS RESULT OUT OF RANGE REFERENCE UNITS LAB L501.080 70-110 mg/dL Normal BEDSIDE GLU 92 Result Comment: MANAGEMENT OF PATIENT CARE PER NURSING PROTOCOL Performed By: #### L501.080 #### [facility] Point of Care [address] [place] [address] BEDSIDE GLUCOSE Collected: 02/19/2018 Status: F Source: [place] 10:59 PM [facility] REPOSITORY TYPE CODE TESTS RESULT OUT OF RANGE REFERENCE UNITS LAB L501.080 70-110 mg/dL Normal BEDSIDE GLU 70 Result Comment: MANAGEMENT OF PATIENT CARE PER NURSING PROTOCOL Performed By: #### L501.080 #### [facility] Point of Care [address] [place] [address] BEDSIDE GLUCOSE Collected: 02/19/2018 Status: F Source: [place] 10:02 PM [facility] REPOSITORY TYPE CODE TESTS RESULT OUT OF RANGE REFERENCE UNITS LAB L501.080 70-110 mg/dL Normal BEDSIDE GLU 71 Result Comment: MANAGEMENT OF PATIENT CARE PER NURSING PROTOCOL Performed By: #### L501.080 #### [facility] Point of Care [address] [place] [address] BEDSIDE GLUCOSE Collected: 02/19/2018 Status: F Source: [place] 9:06 PM [facility] REPOSITORY TYPE CODE TESTS RESULT OUT OF RANGE REFERENCE UNITS LAB L501.080 70-110 mg/dL Normal BEDSIDE GLU 72 Result Comment: MANAGEMENT OF PATIENT CARE PER NURSING PROTOCOL Performed By: #### L501.080 #### [facility] Point of Care [address] [place] [address] BEDSIDE GLUCOSE Collected: 02/19/2018 Status: F Source: [place] 8:13 PM [facility] REPOSITORY TYPE CODE TESTS RESULT OUT OF RANGE REFERENCE UNITS LAB L501.080 70-110 mg/dL Normal BEDSIDE GLU 73 Result Comment: MANAGEMENT OF PATIENT CARE PER NURSING PROTOCOL Performed By: #### L501.080 #### [facility] Point of Care [address] [place] [address] BEDSIDE GLUCOSE Collected: 02/19/2018 Status: F Source: [place] 6:59 PM [facility] REPOSITORY TYPE CODE TESTS RESULT OUT OF RANGE REFERENCE UNITS LAB L501.080 70-110 mg/dL Normal BEDSIDE GLU 80 Result Comment: MANAGEMENT OF PATIENT CARE PER NURSING PROTOCOL Performed By: #### L501.080 #### [facility] Point of Care [address] [place] [address] BEDSIDE GLUCOSE Collected: 02/19/2018 Status: F Source: [place] 5:01 PM [facility] REPOSITORY TYPE CODE TESTS RESULT OUT OF RANGE REFERENCE UNITS LAB L501.080 70-110 mg/dL Normal BEDSIDE GLU 99 Result Comment: MANAGEMENT OF PATIENT CARE PER NURSING PROTOCOL Performed By: #### L501.080 #### [facility] Point of Care [address] [place] [address] BEDSIDE GLUCOSE Collected: 02/19/2018 Status: F Source: [place] 4:31 PM [facility] REPOSITORY TYPE CODE TESTS RESULT OUT OF REFERENCE UNITS RANGE LAB L501.080 70-110 mg/dL Low BEDSIDE GLU 64 Result Comment: MANAGEMENT OF PATIENT CARE PER NURSING PROTOCOL Performed By: #### L501.080 #### [facility] Point of Care [address] [place] [address] BEDSIDE GLUCOSE Collected: 02/19/2018 Status: F Source: [place] 12:08 PM [facility] REPOSITORY TYPE CODE TESTS RESULT OUT OF RANGE REFERENCE UNITS LAB L501.080 70-110 mg/dL Normal BEDSIDE GLU 92 Result Comment: MANAGEMENT OF PATIENT CARE PER NURSING PROTOCOL Performed By: #### L501.080 #### [facility] Point of Care [address] [place] [address] BEDSIDE GLUCOSE Collected: 02/19/2018 Status: F Source: [place] 8:07 AM [facility] REPOSITORY TYPE CODE TESTS RESULT OUT OF RANGE REFERENCE UNITS LAB L501.080 70-110 mg/dL Normal BEDSIDE GLU 81 Result Comment: MANAGEMENT OF PATIENT CARE PER NURSING PROTOCOL Performed By: #### L501.080 #### [facility] Point of Care [address] [place] [address] BEDSIDE GLUCOSE Collected: 02/19/2018 Status: F Source: [place] 3:50 AM [facility] REPOSITORY TYPE CODE TESTS RESULT OUT OF RANGE REFERENCE UNITS LAB L501.080 70-110 mg/dL Normal BEDSIDE GLU 74 Result Comment: MANAGEMENT OF PATIENT CARE PER NURSING PROTOCOL Performed By: #### L501.080 #### [facility] Point of Care [address] [place] [address] BEDSIDE GLUCOSE Collected: 02/19/2018 Status: F Source: [place] 12:03 AM [facility] REPOSITORY TYPE CODE TESTS RESULT OUT OF REFERENCE UNITS RANGE LAB L501.080 70-110 mg/dL High BEDSIDE GLU 148 Result Comment: MANAGEMENT OF PATIENT CARE PER NURSING PROTOCOL Performed By: #### L501.080 #### [facility] Point of Care [address] [place], [place] [id number] BEDSIDE GLUCOSE Collected: 02/18/2018 Status: F Source: [place] 10:52 PM [facility] REPOSITORY TYPE CODE TESTS RESULT OUT OF REFERENCE UNITS RANGE LAB L501.080 70-110 mg/dL Low BEDSIDE GLU 68 Result Comment: MANAGEMENT OF PATIENT CARE PER NURSING PROTOCOL Performed By: #### L501.080 #### [facility] Point of Care [address] [place], [place] [id number] BEDSIDE GLUCOSE Collected: 02/18/2018 Status: F Source: [place] 9:52 PM [facility] REPOSITORY TYPE CODE TESTS RESULT OUT OF REFERENCE UNITS RANGE LAB L501.080 70-110 mg/dL Low BEDSIDE GLU 64 Result Comment: MANAGEMENT OF PATIENT CARE PER NURSING PROTOCOL Performed By: #### L501.080 #### [facility] Point of Care [address] [place], [place] [id number] HISTORY AND PHYSICAL Observed: 02/18/2018 Status: F Source: [place] EXAM 8:44 PM [facility] Medical Records Department [address] [place] [address] History and Physical 02/18/18 2041 MR#: [id number] Acct: [id number] Name: SINGH QUICK Rep #: [id number] : 1985 33 From: Alyssa Palomares MD PCP: Trina Ibrahim MD Status: ADM IN Y Location: [id number] - Problem List (1) Insulin controlled gestational diabetes mellitus (GDM) in third trimester Status: Acute Comment: mfm cocare, for insulin to start 2x weekly NST and delivery at 39 weeks. Sees MFM every Sunday. (2) LGA (large for gestational age) fetus Status: Acute Comment: 97% discussed IOL at 39 weeks only if EFW <4500g (3) Supervision of high-risk Status: Acute Qualifiers: Comment: PRR NIMA 02/25/18 gender surprise [place] (4) Anemia affecting Status: Acute Qualifiers: Comment: iron and cbc monthly (5) Status: Acute Qualifiers: Comment: genetic, carrier, ntd screening declined. anatomy scan reviewed (6) Body mass index (BMI) of 40.1 to 44.9 in adult Status: Acute Comment: 1 tm glucola and weekly nsts w/ US and weekly BPP w/ MFM (7) Anxiety Status: Acute Comment: celexa. tried effexor, zoloft, and wellbutrin in past. encouraged counseling (8) Asthma Status: Chronic Qualifiers: History Date of Admission: 02/18/18 Final NIMA: 02/25/18 Gestational age: 39 Weeks and 0 Days History of this : This is a 33 year-old, at 39 weeks gestational age presents for induction of labor secondary to gestational diabetes controlled with insulin. Patient has had a complicated by gestational diabetes that has been insulin controlled and she has been following along with maternal medicine. Growth scans has shown enlarged size but estimated weight was approximately between 4000-4250g. Medical History: Medical History (Last Reviewed 02/14/18 @ 14:30 by Christy Huerta) Anxiety (Acute) F41.9 celexa. tried effexor, zoloft, and wellbutrin in past. encouraged counseling Asthma (Chronic) J45.909 Goltry teeth extracted K08.409 Hiatal hernia (Inactive) K44.9 Surgical History: Surgical History (Last Reviewed 02/14/18 @ 14:30 by Christy Huerta) H/O endoscopy Z98.890 Allergies acetaminophen [From Tylenol-Codeine] Allergy (Severe, Verified 02/14/18 14:29) Anaphylaxis codeine [From Tylenol-Codeine] Allergy (Severe, Verified 02/14/18 14:29) Anaphylaxis iodine Allergy (Severe, Verified 02/14/18 14:29) Anaphylaxis shellfish derived Allergy (Severe, Verified 02/14/18 14:29) Anaphylaxis Home Medications: Home Medications albuterol sulfate 90 mcg/actuation breath activated powder inhaler 2 puff INHALATION Q6H PRN 07/11/17 epinephrine 0.3 mg/0.3 mL injection, auto-injector 0.3 mg IM ONCE 07/11/17 pantoprazole 40 mg tablet,delayed release 40 mg PO QDAY 07/11/17 vitamin,calcium,dgxgecwz-fnnq-gcpvw acid tablet 1 tab PO QDAY 07/11/17 ondansetron HCl 4 mg tablet 4 mg PO Q6H PRN #60 tab 08/29/17 docusate sodium 100 mg capsule 100 mg PO QDAY 11/07/17 blood-glucose meter kit See Dose Instructions .ROUTE .MEDSUPPLY #1 ea 12/13/17 blood sugar diagnostic strips See Dose Instructions .ROUTE .MEDSUPPLY #100 ea 12/27/17 fluoxetine 20 mg capsule 20 mg PO DAILY 01/18/18 Smoking Status: Never smoker Alcohol: None Number of Fetus(es): 1 Heart Tracing: fht 140s moderate variability reactiv nolberto decels cat I tracing TOCO Analysis: no regular ctx History Past Pregnancies: Past Pregnancies Delivery Name GA[facility]Weeks [facility] Location Labs: Social History Smoking Status Never smoker Expected Delivery Method: Spontaneous Vaginal Review of Systems Constitutional: Denies: Fever, Malaise Eyes: Denies: Blurred vision, Vision Change HEENT: Denies: Head Aches, Visual Changes Cardiovascular: Denies: Chest Pain, Palpitations Respiratory: Denies: Cough, Shortness of Breath, Wheezing Gastrointestinal: Denies: Abdominal Pain, Diarrhea, Nausea, Vomiting Genitourinary: Denies: Dysuria, Hematuria Musculoskeletal: Denies: Joint Pain, Muscle pain Skin: Denies: Lesions, Rash Neurological: Denies: Blurred vision, Focal weakness, Headaches Psychiatric: Denies: Anxiety, Depression Endocrine: Denies: Heat/ Cold Intolerance Hematologic/ Lymphatic: Denies: Easy Bruising, Easy Bleeding Physical Exam General: Alert, Cooperative, No apparent distress HEENT: Atraumatic, Normocephalic. Negative for: Thyromegaly, Lymphadenopathy Cardiovascular: Regular rate Lungs: Normal air movement Abdomen: Soft, Non Tender, Gravid Neurological: Deep Tendon Reflexes 2+/4 and Symmetrical, Neuro grossly intact. Negative for: Clonus GENETIC SUPERVISOR: Normal external genitalia. Negative for: Vulvar lesions Estimated gestational size: Large for gestational age - EFW 4000-4250g Presentation: Cephalic Cervix Dilation (cm): 1 Assessment/Plan All Active Problems (Last Reviewed 02/14/18 @ 14:30 by Christy Huerta) Insulin controlled gestational diabetes mellitus (GDM) in third trimester (Acute) LGA (large for gestational age) fetus (Acute) Supervision of high-risk (Acute) Anemia affecting (Acute) (Acute) Body mass index (BMI) of 40.1 to 44.9 in adult (Acute) Anxiety (Acute) Abnormal glucose complicating childbirth (Resolved) Elevated blood pressure affecting in third trimester, antepartum (Resolved) Gestational diabetes mellitus in , diet controlled (Resolved) Supervision of normal (Resolved) Supervision of normal in first trimester (Resolved) This is a 33 year-old, , at 39 weeks gestational age presents for IOL GDMA2 Patient presents for induction of labor plan Cytotec and then Crow bulb and Pitocin. AROM when able. Pain management: Plans epidural. GBS negative. Management of any complications: Gestational diabetes. Give scheduled insulin tonight and NovoLog insulin in the morning with breakfast. Will hold morning NPH and monitor blood sugars every 4 hours. And every hour in active labor. Insulin drip in active labor I have reviewed the [facility] and made any clinically relevant updates. 02/18/182043 <Electronically signed by Alyssa Palomares MD> Date Alyssa Palomares MD Cosigner Signature: Date (if applicable) CC: Trina Ibrahim MD; Alyssa Palomares MD Signed BEDSIDE GLUCOSE Collected: 02/18/2018 Status: F Source: [place] 8:22 PM [facility] REPOSITORY TYPE CODE TESTS RESULT OUT OF RANGE REFERENCE UNITS LAB L501.080 70-110 mg/dL Normal BEDSIDE GLU 106 Result Comment: MANAGEMENT OF PATIENT CARE PER NURSING PROTOCOL Performed By: #### L501.080 #### [facility] Point of Care [address] [place], [place] [id number] CBC-COMPLETE BLOOD CNT Collected: 02/18/2018 Status: F Source: [place] NO DIFF 8:00 PM [facility] REPOSITORY TYPE CODE TESTS RESULT OUT OF RANGE REFERENCE UNITS LAB L100.1000 4.4-11.0 K/mm3 High WBC 12.4 LAB L100.1200 4.2-5.4 M/mm3 Normal RBC 4.35 LAB L100.1300 12.0-15.0 g/dl Low HGB 10.3 LAB L100.1400 37-47 % Low HCT 33.8 LAB L100.1500 81-99 fL Low MCV 77.7 LAB L100.1600 27.0-32.0 pg Low MCH 23.7 LAB L100.1700 32-36 g/gl Low MCHC 30.5 LAB L100.1810 11.6-14.6 % High RDW CV 16.0 LAB L100.1820 35.1-43.9 fl High RDW SD 45.7 LAB L100.1900 150-450 K/mm3 Normal PLT 247 LAB L100.2000 6.2-12.0 fl Normal MPV 9.1 Performed By: #### L100.0500 #### [facility] [address] [place], [place], [address] TYPE AND SCREEN Collected: 02/18/2018 Status: F Source: [place] 8:00 PM [facility] REPOSITORY Order Comment: Reason for Type AND Screen/Red Cells: TYPE CODE TESTS RESULT OUT OF RANGE REFERENCE UNITS LAB B10.0800 O Normal BLOOD TYPE GEL POSITIVE LAB B100.4000 Normal Antibody NEGATIVE Screen Performed By: #### B101.7450 #### [facility] [address] [place], [place], [address] [facility] OFFICE VISIT Observed: 02/14/2018 Status: F Source: [place] REPORT 3:32 PM [facility] REPOSITORY [facility] [address] [place], [place] [address] OFFICE VISIT Date of Service: 02/14/18 MR#: [id number] Acct: [id number] Name: SINGH QUICK Rep #: [id number] : 1985 Provider: Alyssa Palomares MD Age/Sex: 33/F Location: [facility] Status: Signed Intake Vital Signs02/14/18 Body Mass Index (BMI) 43.4 02/14/18 Height 5 ft 1 in 02/14/18 Weight: 233 lb 02/14/18 Body Mass Index (BMI) 44.0 Intake Visit Reasons: 38 weeks Chief Complaint: est ob Funeral Home Manager Required: No Is patient in pain?: No Allergies acetaminophen [From Tylenol-Codeine] Allergy (Severe, Verified 02/14/18 14:29) Anaphylaxis codeine [From Tylenol-Codeine] Allergy (Severe, Verified 02/14/18 14:29) Anaphylaxis iodine Allergy (Severe, Verified 02/14/18 14:29) Anaphylaxis shellfish derived Allergy (Severe, Verified 02/14/18 14:29) Anaphylaxis Medications albuterol sulfate 90 mcg/actuation breath activated powder inhaler 2 puff INHALATION Q6H PRN 07/11/17 [History Confirmed 02/14/18] epinephrine 0.3 mg/0.3 mL injection, auto-injector 0.3 mg IM ONCE 07/11/17 [History Confirmed 02/14/18] pantoprazole 40 mg tablet,delayed release 40 mg PO QDAY 07/11/17 [History Confirmed 02/14/18] vitamin,calcium,fhwwrzqj-kuio-rpmat acid tablet 1 tab PO QDAY 07/11/17 [History Confirmed 02/14/18] ondansetron HCl 4 mg tablet 4 mg PO Q6H PRN #60 tab 08/29/17 [Rx Confirmed 02/14/18] docusate sodium 100 mg capsule 100 mg PO QDAY 11/07/17 [History Confirmed 02/14/18] blood-glucose meter kit See Dose Instructions .ROUTE .MEDSUPPLY #1 ea 12/13/17 [Rx Confirmed 02/14/18] blood sugar diagnostic strips See Dose Instructions .ROUTE .MEDSUPPLY #100 ea 12/27/17 [Rx Confirmed 02/14/18] fluoxetine 20 mg capsule 20 mg PO DAILY 01/18/18 [History Confirmed 02/14/18] Last Menstral Period: 05/21/17 Zika: Zika virus screening: Negative : No PFSH PFSH Medical History Anxiety (Acute) Asthma (Chronic) Goltry teeth extracted (Resolved) Hiatal hernia (Inactive) Surgical History H/O endoscopy (Resolved) Family History Father Hypertension Mother uterine fibroids Grandmother Diabetes Social History Smoking Status: Never smoker alcohol intake: never substance use type: does not use caffeine: Yes what type of physical activity do you participate in: aerobics frequency: 1-2 times per week seatbelt use: always do you feel safe at home: Yes additional social history: - [place]- [employer]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 OB Visit NIMA Calculator Estimated Delivery Date 02/25/18 Based on LMP (certain) 05/21/17 Current WG 38w 3d Number 1 Expected Delivery Route/Plan Specific Issue/Plans flu vaccine: given tdap vaccine: given rhogam: NA LARC form signed: declines labor support person: [place] pain management: epidural cut cord/dad catch: yes : yes PP control planned: iud 6 weeks PP discussed possible routes of delivery and associated risks: discussed risks of shoulder dystocia, permanent neurologic injury. await repeat growth scan special requests: [] Initial Weight: 218 lb Date Weight BP Urine PrFHR FuHt Pres MoCTX DilationFetal StVisit NoProviderComments E ot v te GA G Effac lucose ed Visit Notes Visit Date: 02/14/18 no vb lof good fm no regular ctx Alyssa Palomares MD on 02/14/18 Visit Date: 02/06/18 discussed with patient- recommend IOL at 39 weeks only if EFW is uner 4500g due to risk of shoulder dystocia. patient agreeable and understands. Alyssa Palomares MD on 02/14/18 no vb lof god fm bs well controlled. seeing mfm and getting twice weekly testing. Alyssa Palomares MD on 02/14/18 Visit Date: 01/31/18 BS well controlled. NO VB, LOF. NST today HECTOR Solomon on 01/31/18 Visit Date: 01/24/18 no vb lof good fm no regular ctx bs well controlled. Alyssa Palomares MD on 01/24/18 Visit Date: 01/18/18 no vb lof good fm no regular ctx Alyssa Palomares MD on 01/18/18 Visit Date: 01/04/18 to l and d for evaluation- us today to. labs WNL. await urine protein creatinine ratio Alyssa Palomares MD on 01/04/18 Visit Date: 12/21/17 has diabetes based on blood sugars- recommend nutrition consult and starting diet. needs to change meds to celexa for anxiety. start nsts at 32 weeks Alyssa Palomares MD on 12/21/17 no vb lof good fm alisa rgualr ctx. Alyssa Palomares MD on 12/21/17 Visit Date: 12/04/17 Doing well. No VB, LOF. HECTOR Solomon on 12/04/17 Visit Date: 11/07/17 no vb lof good fm no regular ctx normal anatomy scan Alyssa Palomares MD on 11/07/17 Visit Date: 10/11/17 no vb cramping Alyssa Palomares MD on 10/11/17 Visit Date: 08/29/17 Work in for episodes of when lays down feels hot then nauseous then vomits last couple days. Wanted checked before leaving on vacation in 3 days. No spotting, bleeding, cramping. FHT easily found Negative urine. HECTOR Solomon on 08/29/17 Visit Date: 08/09/17 no vb crmaping, nausea improving Alyssa Palomares MD on 08/09/17 Visit Date: 07/11/17 No visit notes to display ACOG First Trimester First Trimester: Desire for , Alcohol, Tobacco Cessation, Illicit/Recreational Drug/Substance Use, Intimate Partner Violence, Barriers to care, Unstable Housing, Communication Barriers, Environmental/Work Hazards, Anticipated Course of Care, Toxoplasmosis Precations, Use of Any medications, Sexual activity, Exercise, Dental Care, Sauna/Hot tub use, Seat Belt use, Childbirth classes/Hospital facilities, , Travel, Indications for US and Screening for Aneuploidy Second Trimester Second Trimester: Signs and Symptoms of Labor, Selecting a care provider, Care Planning, Depression/Anxiety and Intimate Partner Violence; discussed Tobacco Cessation Diagnostics Diagnostics Labs Hct 32.0 % (37-47) L 01/04/18 Hgb 9.7 g/dl (12.0-15.0) L 01/04/18 Obstetrics Ultrasound 01/04/18 Glucose 1 Hr 50 gm 143 mg/dL (70-140) H 12/04/17 Group B Strep DNA Cancelled 01/31/18 Details: HIV: Urine Culture: Sequential Screen: NIPT Screen: Office Procedures OB NST Non-Stress Test Indications for Monitoring: Yes diabetes Heart Rate Baseline: 135 Heart Rate Variability: moderate Movement: Present Heart Rate Accelerations: Present Decelerations: Absent Contractions: Absent Impression: Yes Reactive Non-Stress Test Category 1 Results [id number] Office Urine Glucose Negative Last Edit by Christy Huerta on 02/14/18 14:36 Office Urine Protein Negative Last Edit by Christy Huerta on 02/14/18 14:36 Assessment AND Plan Orders Orders: Coding Level of Care Code OB Routine Additional Codes Non-Stress Test (53381) 02/14/18 1532 <Electronically signed by Alyssa Palomares MD> Date Alyssa Palomares MD Cosigner Signature: Date (if applicable) CC: [facility] OFFICE VISIT Observed: 02/14/2018 Status: F Source: [place] REPORT 6:27 AM [facility] [address] [place] [address] OFFICE VISIT Date of Service: 02/06/18 MR#: [id number] Acct: [id number] Name: SINGH QUICK Rep #: [id number] : 1985 Provider: Alyssa Palomares MD Age/Sex: 33/F Location: [facility] Status: Signed Intake Vital Signs02/06/18 Height 5 ft 1 in 02/06/18 Weight: 230 lb 02/06/18 Body Mass Index (BMI) 43.4 02/06/18 Blood Pressure 100/76 Intake Visit Reasons: 37 weeks Chief Complaint: est ob/NST Funeral Home Manager Required: No Is patient in pain?: No Allergies acetaminophen [From Tylenol-Codeine] Allergy (Severe, Verified 02/06/18 08:44) Anaphylaxis codeine [From Tylenol-Codeine] Allergy (Severe, Verified 02/06/18 08:44) Anaphylaxis iodine Allergy (Severe, Verified 02/06/18 08:44) Anaphylaxis shellfish derived Allergy (Severe, Verified 02/06/18 08:44) Anaphylaxis Medications albuterol sulfate 90 mcg/actuation breath activated powder inhaler 2 puff INHALATION Q6H PRN 07/11/17 [History Confirmed 02/06/18] epinephrine 0.3 mg/0.3 mL injection, auto-injector 0.3 mg IM ONCE 07/11/17 [History Confirmed 02/06/18] pantoprazole 40 mg tablet,delayed release 40 mg PO QDAY 07/11/17 [History Confirmed 02/06/18] vitamin,calcium,qlwtvimu-pzsa-rftnb acid tablet 1 tab PO QDAY 07/11/17 [History Confirmed 02/06/18] ondansetron HCl 4 mg tablet 4 mg PO Q6H PRN #60 tab 08/29/17 [Rx Confirmed 02/06/18] docusate sodium 100 mg capsule 100 mg PO QDAY 11/07/17 [History Confirmed 02/06/18] blood-glucose meter kit See Dose Instructions .ROUTE .MEDSUPPLY #1 ea 12/13/17 [Rx Confirmed 02/06/18] blood sugar diagnostic strips See Dose Instructions .ROUTE .MEDSUPPLY #100 ea 12/27/17 [Rx Confirmed 02/06/18] fluoxetine 20 mg capsule 20 mg PO DAILY 01/18/18 [History Confirmed 02/06/18] Last Menstral Period: 05/21/17 Zika: Zika virus screening: Negative : No PFSH PFSH Medical History Anxiety (Acute) Asthma (Chronic) Goltry teeth extracted (Resolved) Hiatal hernia (Inactive) Surgical History H/O endoscopy (Resolved) Family History Father Hypertension Mother uterine fibroids Grandmother Diabetes Social History Smoking Status: Never smoker alcohol intake: never substance use type: does not use caffeine: Yes what type of physical activity do you participate in: aerobics frequency: 1-2 times per week seatbelt use: always do you feel safe at home: Yes additional social history: - [employer] 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 OB Visit NIMA Calculator Estimated Delivery Date 02/25/18 Based on LMP (certain) 05/21/17 Current WG 38w 3d Number 1 Expected Delivery Route/Plan Specific Issue/Plans flu vaccine: given tdap vaccine: given rhogam: NA LARC form signed: declines labor support person: [place] pain management: epidural cut cord/dad catch: yes : yes PP control planned: iud 6 weeks PP discussed possible routes of delivery and associated risks: discussed risks of shoulder dystocia, permanent neurologic injury. await repeat growth scan special requests: [] Initial Weight: 218 lb Date Weight BP Urine PrFHR FuHt Pres MoCTX DilationFetal StVisit NoProviderComments E ot v te GA G Effac lucose ed Visit Notes Visit Date: 02/06/18 discussed with patient- recommend IOL at 39 weeks only if EFW is uner 4500g due to risk of shoulder dystocia. patient agreeable and understands. Alyssa Palomares MD on 02/14/18 no vb lof god fm bs well controlled. seeing mfm and getting twice weekly testing. Alyssa Palomares MD on 02/14/18 Visit Date: 01/31/18 BS well controlled. NO VB, LOF. NST today Kasia Zee NP-C on 01/31/18 Visit Date: 01/24/18 no vb lof good fm no regular ctx bs well controlled. Alyssa Palomares MD on 01/24/18 Visit Date: 01/18/18 no vb lof good fm no regular ctx Alyssa Palomares MD on 01/18/18 Visit Date: 01/04/18 to l and d for evaluation- us today to. labs WNL. await urine protein creatinine ratio Alyssa Palomares MD on 01/04/18 Visit Date: 12/21/17 has diabetes based on blood sugars- recommend nutrition consult and starting diet. needs to change meds to celexa for anxiety. start nsts at 32 weeks Alyssa Palomares MD on 12/21/17 no vb lof good fm alisa rgualr ctx. Alyssa Palomares MD on 12/21/17 Visit Date: 12/04/17 Doing well. No VB, LOF. HECTOR Solomon on 12/04/17 Visit Date: 11/07/17 no vb lof good fm no regular ctx normal anatomy scan Alyssa Palomares MD on 11/07/17 Visit Date: 10/11/17 no vb cramping Alyssa Palomares MD on 10/11/17 Visit Date: 08/29/17 Work in for episodes of when lays down feels hot then nauseous then vomits last couple days. Wanted checked before leaving on vacation in 3 days. No spotting, bleeding, cramping. FHT easily found Negative urine. HECTOR Solomon on 08/29/17 Visit Date: 08/09/17 no vb crmaping, nausea improving Alyssa Palomares MD on 08/09/17 Visit Date: 07/11/17 No visit notes to display ACOG First Trimester First Trimester: Desire for , Alcohol, Tobacco Cessation, Illicit/Recreational Drug/Substance Use, Intimate Partner Violence, Barriers to care, Unstable Housing, Communication Barriers, Environmental/Work Hazards, Anticipated Course of Care, Toxoplasmosis Precations, Use of Any medications, Sexual activity, Exercise, Dental Care, Sauna/Hot tub use, Seat Belt use, Childbirth classes/Hospital facilities, , Travel, Indications for US and Screening for Aneuploidy Second Trimester Second Trimester: Signs and Symptoms of Labor, Selecting a care provider, Care Planning, Depression/Anxiety and Intimate Partner Violence; discussed Tobacco Cessation Diagnostics Diagnostics Labs Hct 32.0 % (37-47) L 01/04/18 Hgb 9.7 g/dl (12.0-15.0) L 01/04/18 Obstetrics Ultrasound 01/04/18 Glucose 1 Hr 50 gm 143 mg/dL (70-140) H 12/04/17 Group B Strep DNA Cancelled 01/31/18 Details: HIV: Urine Culture: Sequential Screen: NIPT Screen: Office Procedures OB NST Non-Stress Test Indications for Monitoring: Yes diabetes Heart Rate Baseline: 130 Heart Rate Variability: moderate Movement: Present Heart Rate Accelerations: Present Decelerations: Absent Contractions: Absent Impression: Yes Reactive Non-Stress Test Category 1 Results [id number] Office Urine Glucose Negative Last Edit by Christy Huerta on 02/06/18 08:55 Office Urine Protein Negative Last Edit by Christy Huerta on 02/06/18 08:55 Assessment AND Plan Problems 1. Mild intermittent asthma without complication J45.20 2. LGA (large for gestational age) fetus 97% discussed IOL at 39 weeks only if EFW <4500g 3. Body mass index (BMI) of 40.1 to 44.9 in adult Z68.41 1 tm glucola and weekly nsts w/ US and weekly BPP w/ MFM 4. Insulin controlled gestational diabetes mellitus (GDM) in third trimester O24.414 [facility] for insulin to start 2x weekly NST and delivery at 39 weeks. Sees MFM every Sunday. 5. Anemia affecting in third trimester O99.013 iron and cbc monthly 6. 37 weeks gestation of Z3A.37 genetic, carrier, ntd screening declined. anatomy scan reviewed 7. Anxiety F41.9 celexa. tried effexor, zoloft, and wellbutrin in past. encouraged counseling 8. Supervision of high risk in third trimester O09.93 PRR NIMA 02/25/18 gender surprise [place] Plan movement and labor precautions reviewed. ACOG trimester education reviewed and updated. see problem list details for updated plan management information and see below for orders placed at this visit. GA appropriate handout given. Orders Orders: Coding Level of Care Code OB Routine Diagnoses Mild intermittent asthma without complication J45.20 Asthma severity: mild Asthma persistence: intermittent Asthma complication type: uncomplicated LGA (large for gestational age) fetus Body mass index (BMI) of 40.1 to 44.9 in adult Z68.41 Insulin controlled gestational diabetes mellitus (GDM) in third trimester O24.414 Anemia affecting in third trimester O99.013 Trimester: third trimester 37 weeks gestation of Z3A.37 Weeks of gestation: 37 weeks Anxiety F41.9 Supervision of high risk in third trimester O09.93 Trimester: third trimester Additional Codes Non-Stress Test (23447) 02/14/18 0627 <Electronically signed by Alyssa Palomares MD> Date Alyssa Palomares MD Cosigner Signature: Date (if applicable) CC: PROGRESS NOTE Observed: 02/11/2018 Status: COMPLETED Source: [place] 1:00 PM [facility] REPOSITORY Comanagement Visit Subjective: Singh Quick is being seen today for a comanagement visit. She is at 38w0d gestation. Patient reports no complaints. Movement: normal. She is unaccompanied. Gestational Diabetes Singh presents today for her comanage visit. She has GDMA2 diabetes. The disease course is stable. Her symptom course is compliant. She is compliant with treatment all of the time. Blood glucose readings reviewed and other (see comment). Readings are as follows: fasting hyperglycemia. Singh denies any cramping, contractions, vaginal bleeding, unusual or increase in vaginal discharge, signs and symptoms of pre-eclampsia, or leaking of any fluid. Patient with positive movement. Review of Systems Review of Systems All other systems reviewed and are negative. Objective: BP 118/84 Ht 154.9 cm Wt (!) 103.9 kg (229 lb) LMP 05/21/2017 Physical Exam FHT: Positive Presentation: Cephalic Uterine Size: S=D Pelvic Exam: No pelvic exam this visit Assessment and Plan: 33 y.o. at 38w0d with Active Non-Hospital Problems Diagnosis Date Noted Depression affecting 01/28/2018 Continue fluoxetine Patient denies SI/HI today. Asymptomatic. Obesity affecting in third trimester 01/12/2018 Patient had nutrition counseling Appropriate weight gain discussed. Recommend no more than 11-20 lb weight gain in . Supervision of other high risk , antepartum 01/12/[address] Jelani BERNAL/OB APPOINTMENTS Genetic screening: How often should patient be evaluated? weekly until delivery Work restrictions: none EVALUATION surveillance: twice weekly- Mondays in [place] or [place] with SIDNEY and with Dr. Palomares Ultrasound: growth ultrasound every 4 weeks with SIDNEY DELIVERY PLAN Hospital: [facility] Induction at 39 weeks GBS culture: Contraception: : Asthma affecting , antepartum 01/12/2018 Mild -- no meds Continue albuterol prn Hiatal hernia 01/12/2018 No current issues Anemia in 01/12/2018 Continue iron supplementation Gestational diabetes mellitus (GDM) requiring insulin 01/08/2018 Discussed risks of diabetes associated with . Insulin regimen: Increase to NPH 50/30 and continue Log Continue to monitor glucose values closely four times a day, fasting and 1 hour post prandial with a goal of fasting <90 and 1hr PP <140 mg/dL Compliance with medical nutrition therapy was discussed. Twice weekly testing, kick counts and serial growth are recommended. BPP q Sunday with SIDNEY and NSTs q with Dr. Palomares. Precautions discussed. Patient to take usual dose of NPH at bedtime the evening of induction and half her NPH in the am. Take am Log with meal as usual. Follow up to review risks of developing type 2 diabetes. Please have 2 hr GTT performed prior to visit. The total patient time of the visit was 15 minutes, of which greater than 50% of the time was spent counseling and coordinating care. PROGRESS NOTE Observed: 02/04/2018 Status: COMPLETED Source: [place] 1:00 PM [facility] REPOSITORY DIABETES AND PROGRAM COMANAGEMENT Referring/Requesting Provider: Alyssa Palomares MD PCP: Alyssa Palomares MD CHIEF COMPLAINT: GDMA2 HISTORY OF PRESENT ILLNESS: Singh is a 33 y.o. at 37w0d with GDMA2 on NPH 44/28 and Log . Her blood glucose record was reviewed and she has frequent hyperglycemia after lunch. Singh denies any obstetric complaints today and reports normal movement. OB HISTORY: OB History Para Term AB Living 1 0 0 0 0 0 SAB TAB Ectopic Multiple Live Births 0 0 0 0 0 # Outcome Date GA Lbr Tanvir/2nd Weight Sex Delivery Anes PTL Lv 1 Current PAST MEDICAL HISTORY: Past Medical History: Diagnosis Date Depression Gastrointestinal complaints, nonspecific Gestational diabetes mellitus (GDM) Hiatal hernia Psychiatric problem anxiety Pulmonary disease Seasonal allergies PAST SURGICAL HISTORY: History reviewed. No pertinent surgical history. MEDS: Current Outpatient Medications on File Prior to Visit Medication Sig Dispense Refill insulin isophane (HUMULIN N; NOVOLIN N) 100 UNIT/ML SUSP injection Inject 40-60 units subcutaneously as directed daily; pt takes 38 units before breakfast and 24 units at bedtime (Patient taking differently: Inject 60-100 units subcutaneously as directed daily. Inject 50 units before breakfast and 28 units at bedtime) 30 mL 5 insulin Lispro (HUMALOG) 100 UNIT/ML Solution injection Inject 50-70 units subcutaneously daily as directed; pt takes 18 units before breakfast and 18 units with dinner (Patient taking differently: Inject 50-70 units subcutaneously daily as directed; pt takes 20 units before breakfast and 22 units with dinner) 30 mL 5 albuterol 108 (90 Base) MCG/ACT inhaler Inhale 2 Puffs into the lungs as needed docusate sodium (COLACE) 100 MG CAPS capsule Take 100 mg by mouth daily ferrous gluconate (FERGON) 240 (27 FE) MG tablet Take 1 Tab by mouth daily FLUoxetine HCl (RAPIFLUX) 20 MG tablet Take 20 mg by mouth daily Vit-Fe Fumarate-FA ( VITAMIN PO) Take 1 Tab by mouth daily pantoprazole (PROTONIX) 40 MG EC tablet Take 40 mg by mouth daily Insulin Syringe-Needle U-100 (B-D INS SYR ULTRAFINE 1CC/31G) 31G X 5/16 1 ML MISC Use to inject insulin 3-4 times daily as directed 100 Each 5 No current facility-administered medications on file prior to visit. ALLERGY: Allergies Allergen Reactions Codeine Anaphylaxis Tylenol with codeine. Iodine Rash and Anaphylaxis Shellfish Allergy Anaphylaxis Shellfish-Derived Products Anaphylaxis PHYSICAL EXAM: VITAL SIGNS: BP 120/80 Wt (!) 103.9 kg (229 lb 1 oz) LMP 05/21/2017 BMI 43.30 kg/m AAOx3, NAD IMAGING: Estimated weight and amniotic fluid volume are appropriate for gestational age. Biophysical profile is 10/24. IMPRESSION AND RECOMMENDATIONS: Singh is a 33 y.o. at 37w0d with Active Non-Hospital Problems Diagnosis Date Noted Depression affecting 01/28/2018 Continue fluoxetine Patient denies SI/HI today. Asymptomatic. Obesity affecting in third trimester 01/12/2018 Patient had nutrition counseling Appropriate weight gain discussed. Recommend no more than 11-20 lb weight gain in . Supervision of other high risk , antepartum 01/12/2018 Comanagement [address]AN [address] Jelani BERNAL/OB APPOINTMENTS Genetic screening: How often should patient be evaluated? weekly until delivery Work restrictions: none EVALUATION surveillance: twice weekly- Mondays in [place] or [place] with SIDNEY and with Dr. Palomares Ultrasound: growth ultrasound every 4 weeks with [facility] DELIVERY PLAN Hospital: [facility] Induction at 39 weeks GBS culture: Contraception: : Asthma affecting , antepartum 01/12/2018 Mild -- no meds Continue albuterol prn Hiatal hernia 01/12/2018 No current issues Anemia in 01/12/2018 Continue iron supplementation Gestational diabetes mellitus (GDM) requiring insulin 01/08/2018 Discussed risks of diabetes associated with . Insulin regimen: Increase to NPH 50/28 and Log / Continue to monitor glucose values closely four times a day, fasting and 1 hour post prandial with a goal of fasting <90 and 1hr PP <140 mg/dL Compliance with medical nutrition therapy was discussed. Twice weekly testing, kick counts and serial growth are recommended. BPP q Sunday with SIDENY and NSTs q with Dr. Palomares. Precautions discussed. Follow up 1 week. The total patient time of the visit was 15minutes, of which was greater than 50% of the time was spent counseling and coordinating care. Benjamin Cummings DO Observed: 01/31/2018 Status: F Source: [place] CULTURE, GROUP B 6:36 PM [facility] [place] Culture Group B Beta Streptococcus is not isolated. Performed By: #### [id number] #### [facility] [address] [place], [address] [facility] OFFICE VISIT Observed: 01/31/2018 Status: F Source: [place] REPORT 10:47 AM [facility] REPOSITORY [facility] [address] [place] [address] OFFICE VISIT Date of Service: 01/31/18 MR#: [id number] Acct: [id number] Name: SINGH QUICK Rep #: [id number] : 1985 Provider: ESTHER Zee Age/Sex: 32/F Location: [facility] Status: Signed Intake Vital Signs01/31/18 Weight: 227 lb 01/31/18 Blood Pressure 110/78 Intake Visit Reasons: 36 weeks/NST Allergies acetaminophen [From Tylenol-Codeine] Allergy (Severe, Verified 01/24/18 08:15) Anaphylaxis codeine [From Tylenol-Codeine] Allergy (Severe, Verified 01/24/18 08:15) Anaphylaxis iodine Allergy (Severe, Verified 01/24/18 08:15) Anaphylaxis shellfish derived Allergy (Severe, Verified 01/24/18 08:15) Anaphylaxis Medications albuterol sulfate 90 mcg/actuation breath activated powder inhaler 2 puff INHALATION Q6H PRN 07/11/17 [History Confirmed 01/24/18] epinephrine 0.3 mg/0.3 mL injection, auto-injector 0.3 mg IM ONCE 07/11/17 [History Confirmed 01/24/18] pantoprazole 40 mg tablet,delayed release 40 mg PO QDAY 07/11/17 [History Confirmed 01/24/18] vitamin,calcium,eiotqxxz-xoaf-yrnpm acid tablet 1 tab PO QDAY 07/11/17 [History Confirmed 01/24/18] ondansetron HCl 4 mg tablet 4 mg PO Q6H PRN #60 tab 08/29/17 [Rx Confirmed 01/24/18] docusate sodium 100 mg capsule 100 mg PO QDAY 11/07/17 [History Confirmed 01/24/18] blood-glucose meter kit See Dose Instructions .ROUTE .MEDSUPPLY #1 ea 12/13/17 [Rx Confirmed 01/24/18] blood sugar diagnostic strips See Dose Instructions .ROUTE .MEDSUPPLY #100 ea 12/27/17 [Rx Confirmed 01/24/18] fluoxetine 20 mg capsule 20 mg PO DAILY 01/18/18 [History Confirmed 01/24/18] Last Menstral Period: 05/21/17 PFSH PFSH Medical History Anxiety (Acute) Asthma (Chronic) Goltry teeth extracted (Resolved) Hiatal hernia (Inactive) Surgical History H/O endoscopy (Resolved) Family History Father Hypertension Mother uterine fibroids Grandmother Diabetes Social History Smoking Status: Never smoker alcohol intake: never substance use type: does not use caffeine: Yes what type of physical activity do you participate in: aerobics frequency: 1-2 times per week seatbelt use: always do you feel safe at home: Yes additional social history: - [place]- [employer] 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 OB Visit NIMA Calculator Estimated Delivery Date 02/25/18 Based on LMP (certain) 05/21/17 Current WG 36w 3d Number 1 Expected Delivery Route/Plan Specific Issue/Plans flu vaccine: given tdap vaccine: given rhogam: NA LARC form signed: declines labor support person: [place] pain management: epidural cut cord/dad catch: yes : yes PP control planned: iud 6 weeks PP discussed possible routes of delivery and associated risks: discussed risks of shoulder dystocia, permanent neurologic injury. await repeat growth scan special requests: [] Initial Weight: 218 lb Date Weight BP Urine PFHR FuHt Pres MCTX DilatioFetal SVisit NProvideComment rot ov n t ote r s EGA Ef Gluco faced se 07/11/1217 lb 122/87 8 2 oz (+ 7w2 oz) 2d Visit Notes Visit Date: 01/31/18 BS well controlled. NO VB, LOF. NST today HECTOR Solomon on 01/31/18 Visit Date: 01/24/18 no vb lof good fm no regular ctx bs well controlled. Alyssa Palomares MD on 01/24/18 Visit Date: 01/18/18 no vb lof good fm no regular ctx Alyssa Palomares MD on 01/18/18 Visit Date: 01/04/18 to l and d for evaluation- us today to. labs WNL. await urine protein creatinine ratio Alyssa Palomares MD on 01/04/18 Visit Date: 12/21/17 has diabetes based on blood sugars- recommend nutrition consult and starting diet. needs to change meds to celexa for anxiety. start nsts at 32 weeks Alyssa Palomares MD on 12/21/17 no vb lof good fm alisa rgualr ctx. Alyssa Palomares MD on 12/21/17 Visit Date: 12/04/17 Doing well. No VB, LOF. HECTOR Solomon on 12/04/17 Visit Date: 11/07/17 no vb lof good fm no regular ctx normal anatomy scan Alyssa Palomares MD on 11/07/17 Visit Date: 10/11/17 no vb cramping Alyssa Palomares MD on 10/11/17 Visit Date: 08/29/17 Work in for episodes of when lays down feels hot then nauseous then vomits last couple days. Wanted checked before leaving on vacation in 3 days. No spotting, bleeding, cramping. FHT easily found Negative urine. HECTOR Solomon on 08/29/17 Visit Date: 08/09/17 no vb crmaping, nausea improving Alyssa Palomares MD on 08/09/17 Visit Date: 07/11/17 No visit notes to display ACOG First Trimester First Trimester: Desire for , Alcohol, Tobacco Cessation, Illicit/Recreational Drug/Substance Use, Intimate Partner Violence, Barriers to care, Unstable Housing, Communication Barriers, Environmental/Work Hazards, Anticipated Course of Care, Toxoplasmosis Precations, Use of Any medications, Sexual activity, Exercise, Dental Care, Sauna/Hot tub use, Seat Belt use, Childbirth classes/Hospital facilities, , Travel, Indications for US and Screening for Aneuploidy Second Trimester Second Trimester: Signs and Symptoms of Labor, Selecting a care provider, Care Planning, Depression/Anxiety and Intimate Partner Violence; discussed Tobacco Cessation Diagnostics Diagnostics Labs Hct 32.0 % (37-47) L 01/04/18 Hgb 9.7 g/dl (12.0-15.0) L 01/04/18 Obstetrics Ultrasound 01/04/18 Glucose 1 Hr 50 gm 143 mg/dL (70-140) H 12/04/17 Details: HIV: Urine Culture: Sequential Screen: NIPT Screen: Office Procedures OB NST Non-Stress Test Indications for Monitoring: Yes diabetes Time: 10:44 Heart Rate Variability: moderate Movement: Present Heart Rate Accelerations: Present Decelerations: Absent Contractions: Absent Impression: Yes Reactive Non-Stress Test Results [id number] Office Urine Glucose Negative Last Edit by Christy Huerta on 01/31/18 10:32 Office Urine Protein Negative Last Edit by Christy Huerta on 01/31/18 10:32 Assessment AND Plan Problems 1. Supervision of high risk in third trimester O09. PRR NIMA 02/25/18 gender surprise [place] 2. Insulin controlled gestational diabetes mellitus (GDM) in third trimester O24.414 mfm [facility], for insulin to start 2x weekly NST and delivery at 39 weeks. Sees MFM every Sunday. 3. LGA (large for gestational age) fetus 97% discussed IOL at 39 weeks only if EFW <4500g 4. Anemia affecting in third trimester O99.013 iron and cbc monthly 5. 36 weeks gestation of Z3A.36 genetic, carrier, ntd screening declined. anatomy scan reviewed Plan Orders placed: GBS, NST reactive Blood glucose well controlled on current insulin dose Reviewed of labor precautions, movement/kick counts ACOG trimester education reviewed and updated See problem list details for updated plan of care Gestational age appropriate handout given RTO: 1 week and see MFM next week also. Orders Orders: Coding Level of Care Code OB Routine Diagnoses Supervision of high risk in third trimester O09. Trimester: third trimester Insulin controlled gestational diabetes mellitus (GDM) in third trimester O24.414 LGA (large for gestational age) fetus Anemia affecting in third trimester O99.013 Trimester: third trimester 36 weeks gestation of Z3A.36 Weeks of gestation: 36 weeks Additional Codes Non-Stress Test (90657) 01/31/18 1047 <Electronically signed by Kasia YOUNG> Date Kasia Zee BATTERY REPAIRER-C Cosigner Signature: Date (if applicable) CC: PROGRESS NOTE Observed: 01/28/2018 Status: COMPLETED Source: [place] 1:00 PM [facility] DIABETES AND PROGRAM COMANAGEMENT Referring/Requesting Provider: Alyssa Palomares MD PCP: Alyssa Palomares MD CHIEF COMPLAINT: GDMA2 HISTORY OF PRESENT ILLNESS: Singh is a 32 y.o. at 36w0d with gestational diabetes on insulin, mild intermittent asthma, depression well controlled on fluoxetine and obesity with a BMI >40. She is feeling well today. Denies any complaints. Denies contractions, vaginal bleeding, or leaking fluid. She reports regular movements. She is having difficulty complying with her diabetic diet. Review of Systems Constitutional: Negative for chills and fever. Eyes: Negative for blurred vision. Respiratory: Negative for shortness of breath. Cardiovascular: Negative for chest pain. Gastrointestinal: Negative for abdominal pain, constipation, diarrhea, nausea and vomiting. Genitourinary: Negative for dysuria. Neurological: Negative for dizziness, tingling, weakness and headaches. Psychiatric/Behavioral: Negative for depression and suicidal ideas. OB HISTORY: OB History Para Term AB Living 1 0 0 0 0 0 SAB TAB Ectopic Multiple Live Births 0 0 0 0 0 # Outcome Date GA Lbr Tanvir/2nd Weight Sex Delivery Anes PTL Lv 1 Current PAST MEDICAL HISTORY: Past Medical History: Diagnosis Date Depression Gastrointestinal complaints, nonspecific Gestational diabetes mellitus (GDM) Hiatal hernia Psychiatric problem anxiety Pulmonary disease Seasonal allergies PAST SURGICAL HISTORY: History reviewed. No pertinent surgical history. MEDS: Current Outpatient Medications on File Prior to Visit Medication Sig Dispense Refill insulin isophane (HUMULIN N; NOVOLIN N) 100 UNIT/ML SUSP injection Inject 40-60 units subcutaneously as directed daily; pt takes 38 units before breakfast and 24 units at bedtime 30 mL 5 insulin Lispro (HUMALOG) 100 UNIT/ML Solution injection Inject 50-70 units subcutaneously daily as directed; pt takes 18 units before breakfast and 18 units with dinner 30 mL 5 albuterol 108 (90 Base) MCG/ACT inhaler Inhale 2 Puffs into the lungs as needed docusate sodium (COLACE) 100 MG CAPS capsule Take 100 mg by mouth daily ferrous gluconate (FERGON) 240 (27 FE) MG tablet Take 1 Tab by mouth daily FLUoxetine HCl (RAPIFLUX) 20 MG tablet Take 20 mg by mouth daily Vit-Fe Fumarate-FA ( VITAMIN PO) Take 1 Tab by mouth daily pantoprazole (PROTONIX) 40 MG EC tablet Take 40 mg by mouth daily Insulin Syringe-Needle U-100 (B-D INS SYR ULTRAFINE 1CC/31G) 31G X 5/16 1 ML MISC Use to inject insulin 3-4 times daily as directed 100 Each 5 No current facility-administered medications on file prior to visit. ALLERGY: Allergies Allergen Reactions Codeine Anaphylaxis Tylenol with codeine. Iodine Rash and Anaphylaxis Shellfish Allergy Anaphylaxis Shellfish-Derived Products Anaphylaxis PHYSICAL EXAM: VITAL SIGNS: BP 118/80 Ht 154.9 cm Wt (!) 102.6 kg (226 lb 4.8 oz) LMP 05/21/2017 BMI 42.78 kg/m AAOx3, NAD Physical Exam Nursing note and vitals reviewed. Constitutional: She appears well-developed and well-nourished. She is active. Pulmonary/Chest: Effort normal. No respiratory distress. Abdominal: Abdomen soft. She exhibits no distension. There is no rebound and no guarding. No CVA or RUQ tenderness Musculoskeletal: She exhibits no edema or tenderness. Neurological: She is alert. Skin: Skin is warm and dry. IMAGING: BPP 8/8 Glucose levels: Fastin-113 (8/8 over goal) 1hr post breakfast: 106-172 (3/7 over goal) 1hr post lunch: 131-170 (4/5 over goal) 1hr post dinner: 130-184 (4/7 over goal) IMPRESSION AND RECOMMENDATIONS: 32 y.o. at 36w0d with Active Non-Hospital Problems Diagnosis Date Noted Depression affecting 01/28/2018 Continue fluoxetine Patient denies SI/HI today. Asymptomatic. Obesity affecting in third trimester 01/12/2018 Patient had nutrition counseling Appropriate weight gain discussed. No weight gain since her last visit. Recommend no more than 11-20 lb weight gain in . Supervision of other high risk , antepartum 01/12/2018 Comanagement [address]AN OF CARE Dr. Jelani BERNAL/OB APPOINTMENTS Genetic screening: How often should patient be evaluated? weekly until delivery Work restrictions: none EVALUATION surveillance: twice weekly- Mondays in [place] or [place] with SIDENY and with Dr. Palomares Ultrasound: growth ultrasound every 4 weeks with [facility] DELIVERY PLAN Hospital: [facility] Induction at 39 weeks GBS culture: Contraception: : Asthma affecting , antepartum 01/12/2018 Mild -- no meds Continue albuterol prn Hiatal hernia 01/12/2018 No current issues Anemia in 01/12/2018 Started iron per primary OB Gestational diabetes mellitus (GDM) requiring insulin 01/08/2018 Discussed risks of diabetes associated with . Insulin regimen: Change to NPH and Log Continue to monitor glucose values closely four times a day, fasting and 1 hour post prandial with a goal of fasting <90 and 1hr PP <140 mg/dL Compliance with medical nutrition therapy was discussed. Twice weekly testing, kick counts and serial growth are recommended. BPP q Sunday with SIDNEY and NSTs q with Dr. Palomares. Precautions discussed. Follow up for weekly BPP and co-management visits. Preeclampsia and labor precautions reviewed. Ciera Shi MD [facility] OFFICE VISIT Observed: 01/24/2018 Status: F Source: [place] REPORT 8:39 AM [facility] [address] [place] [address]. [address] [place] [address] OFFICE VISIT Date of Service: 01/24/18 MR#: [id number] Acct: [id number] Name: SINGH QUICK Rep #: [id number] : 1985 Provider: Alyssa Palomares MD Age/Sex: 32/F Location: [facility] Status: Signed Intake Vital Signs01/24/18 Height 5 ft 1 in 01/24/18 Weight: 226 lb 01/24/18 Body Mass Index (BMI) 42.7 01/24/18 Blood Pressure 112/80 Intake Visit Reasons: 35 week Chief Complaint: est ob/ NST Funeral Home Manager Required: No Is patient in pain?: No Allergies acetaminophen [From Tylenol-Codeine] Allergy (Severe, Verified 01/24/18 08:15) Anaphylaxis codeine [From Tylenol-Codeine] Allergy (Severe, Verified 01/24/18 08:15) Anaphylaxis iodine Allergy (Severe, Verified 01/24/18 08:15) Anaphylaxis shellfish derived Allergy (Severe, Verified 01/24/18 08:15) Anaphylaxis Medications albuterol sulfate 90 mcg/actuation breath activated powder inhaler 2 puff INHALATION Q6H PRN 07/11/17 [History Confirmed 01/24/18] epinephrine 0.3 mg/0.3 mL injection, auto-injector 0.3 mg IM ONCE 07/11/17 [History Confirmed 01/24/18] pantoprazole 40 mg tablet,delayed release 40 mg PO QDAY 07/11/17 [History Confirmed 01/24/18] vitamin,calcium,gfthkded-jqgi-atzuk acid tablet 1 tab PO QDAY 07/11/17 [History Confirmed 01/24/18] ondansetron HCl 4 mg tablet 4 mg PO Q6H PRN #60 tab 08/29/17 [Rx Confirmed 01/24/18] docusate sodium 100 mg capsule 100 mg PO QDAY 11/07/17 [History Confirmed 01/24/18] blood-glucose meter kit See Dose Instructions .ROUTE .MEDSUPPLY #1 ea 12/13/17 [Rx Confirmed 01/24/18] blood sugar diagnostic strips See Dose Instructions .ROUTE .MEDSUPPLY #100 ea 12/27/17 [Rx Confirmed 01/24/18] fluoxetine 20 mg capsule 20 mg PO DAILY 01/18/18 [History Confirmed 01/24/18] Last Menstral Period: 05/21/17 Zika: Zika virus screening: Negative : No PFSH PFSH Medical History Anxiety (Acute) Asthma (Chronic) Goltry teeth extracted (Resolved) Hiatal hernia (Inactive) Surgical History H/O endoscopy (Resolved) Family History Father Hypertension Mother uterine fibroids Grandmother Diabetes Social History Smoking Status: Never smoker alcohol intake: never substance use type: does not use caffeine: Yes what type of physical activity do you participate in: aerobics frequency: 1-2 times per week seatbelt use: always do you feel safe at home: Yes additional social history: - [place]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 OB Visit NIMA Calculator Estimated Delivery Date 02/25/18 Based on LMP (certain) 05/21/17 Current WG 35w 3d Number 1 Expected Delivery Route/Plan Specific Issue/Plans flu vaccine: given tdap vaccine: given rhogam: NA LARC form signed: declines labor support person: [place] pain management: epidural cut cord/dad catch: yes : yes PP control planned: iud 6 weeks PP discussed possible routes of delivery and associated risks: discussed risks of shoulder dystocia, permanent neurologic injury. await repeat growth scan special requests: [] Initial Weight: 218 lb Date Weight BP Urine PrFHR FuHt Pres MoCTX DilationFetal StVisit NoProviderComments E ot v te GA G Effac lucose ed Visit Notes Visit Date: 01/24/18 no vb lof good fm no regular ctx bs well controlled. Alyssa Palomares MD on 01/24/18 Visit Date: 01/18/18 no vb lof good fm no regular ctx Alyssa Palomares MD on 01/18/18 Visit Date: 01/04/18 to l and d for evaluation- us today to. labs WNL. await urine protein creatinine ratio Alyssa Palomares MD on 01/04/18 Visit Date: 12/21/17 has diabetes based on blood sugars- recommend nutrition consult and starting diet. needs to change meds to celexa for anxiety. start nsts at 32 weeks Alyssa Palomares MD on 12/21/17 no vb lof good fm alisa rgualr ctx. Alyssa Palomares MD on 12/21/17 Visit Date: 12/04/17 Doing well. No VB, LOF. HECTOR Solomon on 12/04/17 Visit Date: 11/07/17 no vb lof good fm no regular ctx normal anatomy scan Alyssa Palomares MD on 11/07/17 Visit Date: 10/11/17 no vb cramping Alyssa Palomares MD on 10/11/17 Visit Date: 08/29/17 Work in for episodes of when lays down feels hot then nauseous then vomits last couple days. Wanted checked before leaving on vacation in 3 days. No spotting, bleeding, cramping. FHT easily found Negative urine. Kasia Zee NP-Yesy on 08/29/17 Visit Date: 08/09/17 no vb crmaping, nausea improving Alyssa Palomares MD on 08/09/17 Visit Date: 07/11/17 No visit notes to display ACOG First Trimester First Trimester: Desire for , Alcohol, Tobacco Cessation, Illicit/Recreational Drug/Substance Use, Intimate Partner Violence, Barriers to care, Unstable Housing, Communication Barriers, Environmental/Work Hazards, Anticipated Course of Care, Toxoplasmosis Precations, Use of Any medications, Sexual activity, Exercise, Dental Care, Sauna/Hot tub use, Seat Belt use, Childbirth classes/Hospital facilities, , Travel, Indications for US and Screening for Aneuploidy Second Trimester Second Trimester: Signs and Symptoms of Labor, Selecting a care provider, Care Planning, Depression/Anxiety and Intimate Partner Violence; discussed Tobacco Cessation Diagnostics Diagnostics Labs Hct 32.0 % (37-47) L 01/04/18 Hgb 9.7 g/dl (12.0-15.0) L 01/04/18 Obstetrics Ultrasound 01/04/18 Glucose 1 Hr 50 gm 143 mg/dL (70-140) H 12/04/17 Details: HIV: Urine Culture: Sequential Screen: NIPT Screen: Assessment AND Plan Problems 1. Mild intermittent asthma without complication J45.20 2. Body mass index (BMI) of 40.1 to 44.9 in adult Z68.41 1 tm glucola and weekly nsts w/ US and weekly BPP w/ MFM 3. Anemia affecting in third trimester O99.013 iron and cbc monthly 4. 35 weeks gestation of Z3A.35 genetic, carrier, ntd screening declined. anatomy scan reviewed. 5. Anxiety F41.9 celexa. tried effexor, zoloft, and wellbutrin in past. encouraged counseling 6. Supervision of high risk in third trimester O09.93 PRR NIMA 12/10/18 gender surprise [place] 7. LGA (large for gestational age) fetus 97% discussed IOL at 39 weeks only if EFW <4500g 8. Insulin controlled gestational diabetes mellitus (GDM) in third trimester O24.414 mfm [facility], for insulin to start 2x weekly NST and delivery at 39 weeks Plan ACOG trimester education reviewed and updated. see problem list details for updated plan management information and see below for orders placed at this visit. GA appropriate handout given. movement and labor precautions reviewed. Orders Orders: Coding Level of Care Code OB Routine Diagnoses Mild intermittent asthma without complication J45.20 Asthma severity: mild Asthma persistence: intermittent Asthma complication type: uncomplicated Body mass index (BMI) of 40.1 to 44.9 in adult Z68.41 Anemia affecting in third trimester O99.013 Trimester: third trimester 35 weeks gestation of Z3A.35 Weeks of gestation: 35 weeks Anxiety F41.9 Supervision of high risk in third trimester O09.93 Trimester: third trimester LGA (large for gestational age) fetus Insulin controlled gestational diabetes mellitus (GDM) in third trimester O24.414 01/24/18 0839 <Electronically signed by Alyssa Palomares MD> Date Alyssa Palomares MD Cosigner Signature: Date (if applicable) CC: PROGRESS NOTE Observed: 01/21/2018 Status: COMPLETED Source: [place] 1:00 PM [facility]IT[facility] DIABETES AND PROGRAM COMANAGEMENT Referring/Requesting Provider: Alyssa Palomares MD PCP: Alyssa Palomarse MD CHIEF COMPLAINT: GDMA2 HISTORY OF PRESENT ILLNESS: Singh is a 32 y.o. at 35w0d with GDMA2 on NPH 38/ and Log . Blood glucose record was reviewed. Hyperglycemia is present most of the time. She has no OB complaints. No diabetes related complaints. OB History Para Term AB Living 1 0 0 0 0 0 SAB TAB Ectopic Multiple Live Births 0 0 0 0 0 # Outcome Date GA Lbr Tanvir/2nd Weight Sex Delivery Anes PTL Lv 1 Current Past Medical History: Diagnosis Date Depression Gastrointestinal complaints, nonspecific Gestational diabetes mellitus (GDM) Hiatal hernia Psychiatric problem anxiety Pulmonary disease Seasonal allergies PAST SURGICAL HISTORY: History reviewed. No pertinent surgical history. MEDS: Current Outpatient Medications on File Prior to Visit Medication Sig Dispense Refill albuterol 108 (90 Base) MCG/ACT inhaler Inhale 2 Puffs into the lungs as needed docusate sodium (COLACE) 100 MG CAPS capsule Take 100 mg by mouth daily ferrous gluconate (FERGON) 240 (27 FE) MG tablet Take 1 Tab by mouth daily FLUoxetine HCl (RAPIFLUX) 20 MG tablet Take 20 mg by mouth daily Vit-Fe Fumarate-FA ( VITAMIN PO) Take 1 Tab by mouth daily pantoprazole (PROTONIX) 40 MG EC tablet Take 40 mg by mouth daily Insulin Syringe-Needle U-100 (B-D INS SYR ULTRAFINE 1CC/31G) 31G X 5/16 1 ML MISC Use to inject insulin 3-4 times daily as directed 100 Each 5 No current facility-administered medications on file prior to visit. ALLERGY: Allergies Allergen Reactions Codeine Anaphylaxis Tylenol with codeine. Iodine Rash and Anaphylaxis Shellfish Allergy Anaphylaxis Shellfish-Derived Products Anaphylaxis PHYSICAL EXAM: VITAL SIGNS: BP 120/80 Ht 154.9 cm Wt (!) 102.5 kg (226 lb) LMP 05/21/2017 BMI 42.72 kg/m AAOx3, NAD IMAGING: BPP 10/24. IMPRESSION AND RECOMMENDATIONS: Singh is a 32 y.o. at 35w0d with Active Non-Hospital Problems Diagnosis Date Noted Obesity affecting in third trimester 01/12/2018 Patient had nutrition counseling Appropriate weight gain discussed. Supervision of other high risk , antepartum 01/12/2018 Comanagement [address]AN OF CARE Dr. Jealni BERNAL/OB APPOINTMENTS Genetic screening: How often should patient be evaluated? weekly until delivery Work restrictions: none EVALUATION surveillance: twice weekly- Mondays in [place] or [place] with SIDNEY and with Dr. Palomares Ultrasound: growth ultrasound every 4 weeks with [facility] DELIVERY PLAN Hospital: [facility] Induction at 39 weeks GBS culture: Contraception: : Asthma affecting , antepartum 01/12/2018 Mild -- no meds Hiatal hernia 01/12/2018 Anemia in 01/12/2018 Started iron per primary OB Gestational diabetes mellitus (GDM) requiring insulin 01/08/2018 Discussed risks of diabetes associated with . Insulin regimen: NPH 38/24 units and Log 18/18 units Continue to monitor glucose values closely Compliance with medical nutrition therapy was discussed. Twice weekly testing, kick counts and serial growth are recommended. Precautions discussed. Follow up in 1 week with MFM for BPP and comanagement. The total patient time of the visit was 10 minutes, of which was greater than 50% of the time was spent counseling and coordinating care. [facility] OFFICE VISIT Observed: 01/18/2018 Status: F Source: [place] REPORT 9:59 AM [facility] [address] [place] [address] OFFICE VISIT Date of Service: 01/18/18 MR#: [id number] Acct: [id number] Name: SINGH QUICK Yesy Rep #: [id number] : 1985 Provider: Alyssa Palomares MD Age/Sex: 32/F Location: [facility] Status: Signed Intake Vital Signs01/18/18 Height 5 ft 1 in 01/18/18 Weight: 227 lb 6 oz 01/18/18 Body Mass Index (BMI) 43.0 01/18/18 Blood Pressure 118/82 H Intake Visit Reasons: 34 week/NST Funeral Home Manager Required: No Accompanied by: Is patient in pain?: No Allergies acetaminophen [From Tylenol-Codeine] Allergy (Severe, Verified 01/18/18 08:38) Anaphylaxis codeine [From Tylenol-Codeine] Allergy (Severe, Verified 01/18/18 08:38) Anaphylaxis iodine Allergy (Severe, Verified 01/18/18 08:38) Anaphylaxis shellfish derived Allergy (Severe, Verified 01/18/18 08:38) Anaphylaxis Medications albuterol sulfate 90 mcg/actuation breath activated powder inhaler 2 puff INHALATION Q6H PRN 07/11/17 [History Confirmed 01/18/18] epinephrine 0.3 mg/0.3 mL injection, auto-injector 0.3 mg IM ONCE 07/11/17 [History Confirmed 01/18/18] pantoprazole 40 mg tablet,delayed release 40 mg PO QDAY 07/11/17 [History Confirmed 01/18/18] vitamin,calcium,brfiuzyd-yvwo-iqmta acid tablet 1 tab PO QDAY 07/11/17 [History Confirmed 01/18/18] ondansetron HCl 4 mg tablet 4 mg PO Q6H PRN #60 tab 08/29/17 [Rx Confirmed 01/18/18] docusate sodium 100 mg capsule 100 mg PO QDAY 11/07/17 [History Confirmed 01/18/18] blood-glucose meter kit See Dose Instructions .ROUTE .MEDSUPPLY #1 ea 12/13/17 [Rx Confirmed 01/18/18] blood sugar diagnostic strips See Dose Instructions .ROUTE .MEDSUPPLY #100 ea 12/27/17 [Rx Confirmed 01/18/18] fluoxetine 20 mg capsule 20 mg PO DAILY 01/18/18 [History Confirmed 01/18/18] Last Menstral Period: 05/21/17 Zika: Zika virus screening: Negative : No PFSH PFSH Medical History Anxiety (Acute) Asthma (Chronic) Goltry teeth extracted (Resolved) Hiatal hernia (Inactive) Surgical History H/O endoscopy (Resolved) Family History Father Hypertension Mother uterine fibroids Grandmother Diabetes Social History Smoking Status: Never smoker alcohol intake: never substance use type: does not use caffeine: Yes what type of physical activity do you participate in: aerobics frequency: 1-2 times per week seatbelt use: always do you feel safe at home: Yes additional social history: - [place]- [employer]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 OB Visit NIMA Calculator Estimated Delivery Date 02/25/18 Based on LMP (certain) 05/21/17 Current WG 34w 4d Number 1 Expected Delivery Route/Plan Specific Issue/Plans flu vaccine: [] tdap vaccine: given rhogam: NA LARC form signed: declines labor support person: [place] pain management: epidural cut cord/dad catch: yes : yes PP control planned: [] discussed possible routes of delivery and associated risks: [] special requests: [] Initial Weight: 218 lb Date Weight BP Urine PrFHR FuHt Pres MoCTX DilationFetal StVisit NoProviderComments E ot v te GA G Effac lucose ed Visit Notes Visit Date: 01/18/18 no vb lof good fm no regular ctx Alyssa Palomares MD on 01/18/18 Visit Date: 01/04/18 to l and d for evaluation- us today to. labs WNL. await urine protein creatinine ratio Alyssa Palomares MD on 01/04/18 Visit Date: 12/21/17 has diabetes based on blood sugars- recommend nutrition consult and starting diet. needs to change meds to celexa for anxiety. start nsts at 32 weeks Alyssa Palomares MD on 12/21/17 no vb lof good fm alisa rgualr ctx. Alyssa Palomares MD on 12/21/17 Visit Date: 12/04/17 Doing well. No VB, LOF. HECTOR Solomon on 12/04/17 Visit Date: 11/07/17 no vb lof good fm no regular ctx normal anatomy scan Alyssa Palomares MD on 11/07/17 Visit Date: 10/11/17 no vb cramping Alyssa Palomares MD on 10/11/17 Visit Date: 08/29/17 Work in for episodes of when lays down feels hot then nauseous then vomits last couple days. Wanted checked before leaving on vacation in 3 days. No spotting, bleeding, cramping. FHT easily found Negative urine. HECTOR Solomon on 08/29/17 Visit Date: 08/09/17 no vb crmaping, nausea improving Alyssa Palomares MD on 08/09/17 Visit Date: 07/11/17 No visit notes to display ACOG First Trimester First Trimester: Desire for , Alcohol, Tobacco Cessation, Illicit/Recreational Drug/Substance Use, Intimate Partner Violence, Barriers to care, Unstable Housing, Communication Barriers, Environmental/Work Hazards, Anticipated Course of Care, Toxoplasmosis Precations, Use of Any medications, Sexual activity, Exercise, Dental Care, Sauna/Hot tub use, Seat Belt use, Childbirth classes/Hospital facilities, , Travel, Indications for US and Screening for Aneuploidy Second Trimester Second Trimester: Signs and Symptoms of Labor, Selecting a care provider, Care Planning, Depression/Anxiety and Intimate Partner Violence; discussed Tobacco Cessation Diagnostics Diagnostics Labs Blood Type O POSITIVE 08/09/17 Antibody Screen NEGATIVE 08/09/17 Hct 32.0 % (37-47) L 01/04/18 Hgb 9.7 g/dl (12.0-15.0) L 01/04/18 Obstetrics Ultrasound 01/04/18 Rubella IgG Antibody 36.8 IU/mL 08/09/17 RPR NONREACTIVE (NONREACTIVE) 08/09/17 Hep Bs Antigen Negative (Negative) 08/09/17 Glucose 1 Hr 50 gm 143 mg/dL (70-140) H 12/04/17 Details: HIV: Urine Culture: Sequential Screen: NIPT Screen: Office Procedures OB NST Non-Stress Test Indications for Monitoring: Yes diabetes Heart Rate Baseline: 140 Heart Rate Variability: moderate Movement: Present Heart Rate Accelerations: Present Decelerations: Absent Contractions: Absent Impression: Yes Reactive Non-Stress Test Category 1 Results [id number] Office Urine Glucose Negative Last Edit by Debi Lyman on 01/18/18 08:42 Office Urine Protein Negative Last Edit by Debi Lyman on 01/18/18 08:42 Assessment AND Plan Problems 1. Mild intermittent asthma without complication J45.20 2. Body mass index (BMI) of 40.1 to 44.9 in adult Z68.41 1 tm glucola and weekly nsts w/ US and weekly BPP w/ MFM 3. Diet controlled gestational diabetes mellitus (GDM) in third trimester O24.410 mfm consult for insulin to start 2x weekly NST and delivery at 39 weeks 4. Anemia affecting in third trimester O99.013 iron and cbc monthly 5. 34 weeks gestation of Z3A.34 6. Anxiety F41.9 celexa. tried effexor, zoloft, and wellbutrin in past. encouraged counseling 7. Supervision of high risk in third trimester O09.93 PRR NIMA 02/25/18 gender surprise [place] Plan movement and labor precautions reviewed. ACOG trimester education reviewed and updated. see problem list details for updated plan management information and see below for orders placed at this visit. GA appropriate handout given. Orders Orders: Medications New: Coding Level of Care Code OB Routine Diagnoses Mild intermittent asthma without complication J45.20 Asthma severity: mild Asthma persistence: intermittent Asthma complication type: uncomplicated Body mass index (BMI) of 40.1 to 44.9 in adult Z68.41 Diet controlled gestational diabetes mellitus (GDM) in third trimester O24.410 Trimester: third trimester Anemia affecting in third trimester O99.013 Trimester: third trimester 34 weeks gestation of Z3A.34 Weeks of gestation: 34 weeks Anxiety F41.9 Supervision of high risk in third trimester O09.93 Trimester: third trimester Additional Codes Non-Stress Test (35588) 01/18/18 0959 <Electronically signed by Alyssa Palomares MD> Date Alyssa Palomares MD Cosigner Signature: Date (if applicable) CC: PROGRESS NOTE Observed: 01/14/2018 Status: COMPLETED Source: [place] 9:00 AM [facility] REPOSITORY Comanagement Visit Subjective: Singh Quick is being seen today for her comanagement visit. She is at 34w0d gestation. Patient reports no complaints. Movement: normal. She is doing well with insulin. She reports that she has not been drinking enough water. She is accompanied by her spouse. Gestational Diabetes Singh presents today for her comanage visit. She has GDMA2 diabetes. Her symptom course is compliant. Pertinent negative hyper/hypoglycemia symptoms include none. Hyper/Hypoglycemia complications do not include none. Diabetic complications do not include none. Current treatments include insulin injections. She is compliant with treatment all of the time. Blood glucose readings reviewed and are not well controlled. Readings are as follows: persistent fasting and postprandial hyperglycemia. Weight gain is stable. Singh has had a prior visit with the car hostler. She exercises intermittently. Review of Systems Review of Systems All other systems reviewed and are negative. Objective: BP 120/70 Ht 154.9 cm Wt 100.7 kg (222 lb) LMP 05/21/2017 Physical Exam Nursing note and vitals reviewed. Constitutional: She is oriented to person, place, and time. She appears well-developed and well-nourished. Neurological: She is alert and oriented to person, place, and time. Psychiatric: She has a normal mood and affect. FHT: Positive Presentation: Cephalic Uterine Size: S=D Pelvic Exam: No pelvic exam this visit 32 y.o. at 34w0d with Active Non-Hospital Problems Diagnosis Date Noted Obesity affecting in third trimester 01/12/2018 Patient had nutrition counseling Appropriate weight gain discussed. Supervision of other high risk , antepartum 01/12/[address] Jelani BERNAL/OB APPOINTMENTS Genetic screening: How often should patient be evaluated? weekly until delivery Work restrictions: none EVALUATION surveillance: twice weekly- Mondays in [facility] with SIDNEY and with Dr. Palomares Ultrasound: growth ultrasound every 4 weeks with Pedro DELIVERY PLAN Hospital: [facility] Induction at 39 weeks GBS culture: Contraception: : Asthma affecting , antepartum 01/12/2018 Mild -- no meds Hiatal hernia 01/12/2018 Anemia in 01/12/2018 Started iron per primary OB Gestational diabetes mellitus (GDM) requiring insulin 01/08/2018 Discussed risks of diabetes associated with . Insulin regimen: increased to NPH 34/20 units and Log 18/16 units Continue to monitor glucose values closely Compliance with medical nutrition therapy was discussed. Twice weekly testing, kick counts and serial growth are recommended. Precautions discussed. Follow up in 1 week for BPP and comanagement visit. The total patient time of the visit was 15 minutes, of which greater than 50% of the time was spent counseling and coordinating care. PROGRESS NOTE Observed: 01/08/2018 Status: COMPLETED Source: [place] 8:30 AM [facility] REPOSITORY Maternal Medicine Consult Date of Service: 01/08/2018 Referring Provider: Alyssa Palomares Primary Care Provider: Alyssa Palomares MD Reason for Consult: Dr. Alyssa Palomares requests that Singh be evaluated due to gestational diabetes. Gestational Diabetes Singh is a 32 y.o. at 33w5d gestation who presents for evaluation of gestational diabetes. Patient had a 1h GTT of 141 mg/dL in November She was unable to have her 3h GTT done as she threw up the glucola. She started doing pattern testing and was having high values. Therefore, she was told to come here to start insulin. Blood sugar evaluation shows fasting values above goals (114-137), 1h PP breakfast 114-152, 1 outlier), 2h PP lunch (95-181, 50% above goals), 1h PP dinner (146-170). POBHx: primigravida PMedHx: hiatal hernia, asthma, obesity, anxiety PSurgHx: denies FMHx: Diabetes (MGM, Maternal aunt), HTN (sister, father). Denies defects, genetic disorders and clotting disorders Meds: PNV, Prozac, iron (starting), PNV All: Shellfish, iodine, codenie Social: Denies alcohol, drug and tobacco use Review of Systems All other systems reviewed and are negative. Physical Exam Vitals: 01/08/18 0811 BP: 131/79 Weight: 99.8 kg (220 lb) FHT: Positive Presentation: Cephalic Ultrasound Results: 1. Single, living IUP at 33w1d by clinical NIMA. 2. There is appropriate interval growth. 3. EFW is 2541 gm at the 73rd percentile. AC measures 98%. 4. Amniotic fluid volume appeared normal, 19.5 cm. 5. Placenta is normal without evidence of previa. 6. Anatomic survey performed as noted above, but was limited due to late gestational age. However, no gross anomalies were identified. Impression: Singh is a 32 y.o. female who is at 33w5d gestation. 1. Gestational diabetes. Risks associated with gestational diabetes were reviewed. Fetus is already measuring large. We discussed starting insulin, which patient agreed. She was taught how to mix insulin. Consultation today included education on: ? Optimizing maternal and outcomes in complicated by diabetes ? An individualized diabetic consistent carbohydrate meal plan created by a travel registered nurse nicu who is a certified phlebotomy technician ? At least 30-60 minutes of physical activity 5-7 days per week ? Self-monitoring blood glucose 4-7 times a day ? Use of a blood sugar log and food diary ? When to call our office when blood sugars are outside of goal ? Risk of developing Type 2 diabetes after delivery ? Importance of screening 2. Obesity. We reviewed that obesity complicating is associated with increased maternal and risks including: gestational diabetes, hypertensive disorders, iatrogenic delivery, dysfunctional labor, postterm , large for gestational age infant, shoulder dystocia, obstructive sleep apnea, hemorrhage, stillbirth, anomalies, delivery and postcesarean complications. Weight gain during should be limited to 10-15 lbs according to the [place] of Medicine. Patient has had minimal weight gain during the . Recommendations: 1. RTC in 1 week for comanagement of care in [place]. 2. Start insulin NPH , Log . 3. Growth ultrasound every 4 weeks. 4. Antepartum testing twice weekly starting at 32 weeks. 5. Delivery at 39 weeks or sooner if clinically indicated. The total patient time of the visit was 15 minutes, of which greater than 50% of the time was spent counseling and coordinating care. OB LIMITED WITH Observed: 01/04/2018 Status: F Source: [place] [facility] 10:36 AM [facility] REPOSITORY [facility] Imaging Services [address] [place] [id number] OB Limited With Biometrics MR#: [id number] Acct: [id number] Name: SINGH QUICK Rep #: [id number] : 1985 F 32 From: Rebel Sweet DO PCP: Trina Ibrahim MD Status: REG CLI Study: OB Limited With Biometrics Date of Exam: 01/04/18 Exam# [id number] Ordering Dr: Kasia Zee STUDY: SECOND AND THIRD TRIMESTER OBSTETRICAL ULTRASOUND - LIMITED REASON FOR EXAM: Female, 32 years old. Growth. Gestational diabetes. LMP: May 21, 2017. PRIOR ULTRASOUND: October 03, 2017. TECHNIQUE: Transabdominal # of Images: 63 TECHNICAL QUALITY: Adequate. FINDINGS: There is a single intrauterine fetus. The fetus is in a cephalic presentation. There is demonstrated cardiac activity with a heart rate of 133 bpm. There is a normal amniotic fluid volume. The largest amniotic fluid pocket measures 3.47 cm. The amniotic fluid index (KENNY) is 10.02 cm. The placenta is posterior in location and is not low lying. There are Grade 0 placental changes. The cervix measures 4 cm in length. BIOMETRY: BPD: 8.41 cm: 34 weeks, 0 days HC: 31.43 cm: 35 weeks, 2 days AC: 32.18 cm: 36 weeks, 1 days FL: 6.37 cm: 33 weeks, 0 days Age by LMP: 32 weeks, 4 days. NIMA by LMP: February 25, 2018.. age by prior US: 33 weeks, 2 days. NIMA by prior US: February 20, 2018.. age by current US: 34 weeks, 5 days. NIMA by current US: February 10, 2018.. Estimated weight: 2555 grams, +/- 373 grams, 97 percentile. US/OB Limited With Biometrics IMPRESSION: 1. Live single intrauterine at 34 weeks, 5 days. NIMA is February 10, 2018. This is nearly 2 weeks ahead of expected gestational age by initial ultrasound. 2. EFW of 2555 g. This is at the 97th percentile. 3. KENNY of 10.02 cm 4. Posterior grade 0 placenta. 5. Vertex presentation. Electronically Signed: Rebel Sweet DO at 20:40 EDT Tel [phone], Service support , CC: Trina Ibrahim MD; ESTHER Zee Personal Lines Account Executive: Signed [facility] OFFICE VISIT Observed: 01/04/2018 Status: F Source: [place] REPORT 10:25 AM [facility] [address] [place] [address] OFFICE VISIT Date of Service: 01/04/18 MR#: [id number] Acct: [id number] Name: SINGH QUICK Rep #: [id number] : 1985 Provider: Alyssa Palomares MD Age/Sex: 32/F Location: [facility] Status: Signed Intake Vital Signs01/04/18 Blood Pressure 138/92 H 01/04/18 Height 5 ft 1 in 01/04/18 Weight: 224 lb 01/04/18 Body Mass Index (BMI) 42.3 01/04/18 Blood Pressure 160/100 H Intake Visit Reasons: 32 week/NST Funeral Home Manager Required: No Is patient in pain?: No Allergies acetaminophen [From Tylenol-Codeine] Allergy (Severe, Verified 01/04/18 09:21) Anaphylaxis codeine [From Tylenol-Codeine] Allergy (Severe, Verified 01/04/18 09:21) Anaphylaxis iodine Allergy (Severe, Verified 01/04/18 09:21) Anaphylaxis shellfish derived Allergy (Severe, Verified 01/04/18 09:21) Anaphylaxis Medications albuterol sulfate 90 mcg/actuation breath activated powder inhaler 2 puff INHALATION Q6H PRN 07/11/17 [History Confirmed 01/04/18] epinephrine 0.3 mg/0.3 mL injection, auto-injector 0.3 mg IM ONCE 07/11/17 [History Confirmed 01/04/18] pantoprazole 40 mg tablet,delayed release 40 mg PO QDAY 07/11/17 [History Confirmed 01/04/18] vitamin,calcium,rupfbtho-bqno-uwpdi acid tablet 1 tab PO QDAY 07/11/17 [History Confirmed 01/04/18] venlafaxine ER 75 mg capsule,extended release 24 hr 75 mg PO QDAY 07/11/17 [History Confirmed 01/04/18] ondansetron HCl 4 mg tablet 4 mg PO Q6H PRN #60 tab 08/29/17 [Rx Confirmed 01/04/18] docusate sodium 100 mg capsule 100 mg PO QDAY 11/07/17 [History Confirmed 01/04/18] blood-glucose meter kit See Dose Instructions .ROUTE .MEDSUPPLY #1 ea 12/13/17 [Rx Confirmed 01/04/18] blood sugar diagnostic strips See Dose Instructions .ROUTE .MEDSUPPLY #100 ea 12/27/17 [Rx Confirmed 01/04/18] Last Menstral Period: 05/21/17 Zika: Zika virus screening: Negative : No PFSH PFSH Medical History Anxiety (Acute) Asthma (Chronic) Goltry teeth extracted (Resolved) Hiatal hernia (Inactive) Surgical History H/O endoscopy (Resolved) Family History Father Hypertension Mother uterine fibroids Grandmother Diabetes Social History Smoking Status: Never smoker alcohol intake: never substance use type: does not use caffeine: Yes what type of physical activity do you participate in: aerobics frequency: 1-2 times per week seatbelt use: always do you feel safe at home: Yes 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 OB Visit NIMA Calculator Estimated Delivery Date 02/25/18 Based on LMP (certain) 05/21/17 Current WG 32w 4d Number 1 Expected Delivery Route/Plan Specific Issue/Plans flu vaccine: [] tdap vaccine: given rhogam: NA LARC form signed: blanca labor support person: [place] pain management: epidural cut cord/dad catch: yes : yes PP control planned: [] discussed possible routes of delivery and associated risks: [] special requests: [] Initial Weight: 218 lb Date Weight BP Urine PrFHR FuHt Pres MoCTX DilationFetal StVisit NoProviderComments E ot v te GA G Effac lucose ed Visit Notes Visit Date: 01/04/18 to l and d for evaluation- us today to. labs WNL. await urine protein creatinine ratio Alyssa Palomares MD on 01/04/18 Visit Date: 12/21/17 has diabetes based on blood sugars- recommend nutrition consult and starting diet. needs to change meds to celexa for anxiety. start nsts at 32 weeks Alyssa Palomares MD on 12/21/17 no vb lof good fm alisa rgualr ctx. Alyssa Palomares MD on 12/21/17 Visit Date: 12/04/17 Doing well. No VB, LOF. HECTOR Solomon on 12/04/17 Visit Date: 11/07/17 no vb lof good fm no regular ctx normal anatomy scan Alyssa Palomares MD on 11/07/17 Visit Date: 10/11/17 no vb cramping Alyssa Palomares MD on 10/11/17 Visit Date: 08/29/17 Work in for episodes of when lays down feels hot then nauseous then vomits last couple days. Wanted checked before leaving on vacation in 3 days. No spotting, bleeding, cramping. FHT easily found Negative urine. HECTOR Solomon on 08/29/17 Visit Date: 08/09/17 no vb crmaping, nausea improving Alyssa Palomares MD on 08/09/17 Visit Date: 07/11/17 No visit notes to display ACOG First Trimester First Trimester: Desire for , Alcohol, Tobacco Cessation, Illicit/Recreational Drug/Substance Use, Intimate Partner Violence, Barriers to care, Unstable Housing, Communication Barriers, Environmental/Work Hazards, Anticipated Course of Care, Toxoplasmosis Precations, Use of Any medications, Sexual activity, Exercise, Dental Care, Sauna/Hot tub use, Seat Belt use, Childbirth classes/Hospital facilities, , Travel, Indications for US and Screening for Aneuploidy Second Trimester Second Trimester: Signs and Symptoms of Labor, Selecting a care provider, Care Planning, Depression/Anxiety and Intimate Partner Violence; discussed Tobacco Cessation Diagnostics Diagnostics Labs Blood Type O POSITIVE 08/09/17 Antibody Screen NEGATIVE 08/09/17 Hct 32.0 % (37-47) L 01/04/18 Hgb 9.7 g/dl (12.0-15.0) L 01/04/18 Obstetrics Ultrasound 10/03/17 Rubella IgG Antibody 36.8 IU/mL 08/09/17 RPR NONREACTIVE (NONREACTIVE) 08/09/17 Hep Bs Antigen Negative (Negative) 08/09/17 Chlam trachomat DNA PCR Negative (Negative) 07/11/17 N.gonorrhoeae DNA (PCR) Negative (Negative) 07/11/17 Glucose 1 Hr 50 gm 143 mg/dL (70-140) H 12/04/17 Details: HIV: Urine Culture: Sequential Screen: NIPT Screen: Results [id number] Office Urine Glucose Negative Last Edit by Teresa Aguero on 01/04/18 09:00 Office Urine Protein Trace Last Edit by Teresa Aguero on 01/04/18 09:00 Assessment AND Plan Problems 1. Diet controlled gestational diabetes mellitus (GDM) in third trimester O24.410 mfm consult for insulin to start 2. Mild intermittent asthma without complication J45.20 3. Body mass index (BMI) of 40.1 to 44.9 in adult Z68.41 1 tm glucola and weekly nsts and growth us q 4 weeks from 32 weeks on 4. Anemia affecting in third trimester O99.013 iron and cbc monthly 5. 32 weeks gestation of Z3A.32 6. Anxiety F41.9 celexa. tried effexor, zoloft, and wellbutrin in past. encouraged counseling 7. Supervision of high risk in third trimester O09. PRR NIMA 02/25/18 gender surprise [place] Plan movement and labor precautions reviewed. ACOG trimester education reviewed and updated. see problem list details for updated plan management information and see below for orders placed at this visit. GA appropriate handout given. Orders Orders: Coding Level of Care Code OB Routine Diagnoses Diet controlled gestational diabetes mellitus (GDM) in third trimester O24.410 Trimester: third trimester Mild intermittent asthma without complication J45.20 Asthma severity: mild Asthma persistence: intermittent Asthma complication type: uncomplicated Body mass index (BMI) of 40.1 to 44.9 in adult Z68.41 Anemia affecting in third trimester O99.013 Trimester: third trimester 32 weeks gestation of Z3A.32 Weeks of gestation: 32 weeks Anxiety F41.9 Supervision of high risk in third trimester O Trimester: third trimester 01/04/18 1025 <Electronically signed by Alyssa Palomares MD> Date Alyssa Palomares MD Cosigner Signature: Date (if applicable) CC: CBC-COMPLETE BLOOD CNT Collected: 01/04/2018 Status: F Source: [place] NO DIFF 9:40 AM [facility] REPOSITORY TYPE CODE TESTS RESULT OUT OF RANGE REFERENCE UNITS LAB L100.1000 4.4-11.0 K/mm3 High WBC 11.7 LAB L100.1200 4.2-5.4 M/mm3 Low RBC 3.96 LAB L100.1300 12.0-15.0 g/dl Low HGB 9.7 LAB L100.1400 37-47 % Low HCT 32.0 LAB L100.1500 81-99 fL Low MCV 80.8 LAB L100.1600 27.0-32.0 pg Low MCH 24.5 LAB L100.1700 32-36 g/gl Low MCHC 30.3 LAB L100.1810 11.6-14.6 % High RDW CV 16.8 LAB L100.1820 35.1-43.9 fl High RDW SD 48.6 LAB L100.1900 150-450 K/mm3 Normal PLT 238 LAB L100.2000 6.2-12.0 fl Normal MPV 8.6 Performed By: #### L100.0500 #### [facility] [address] [place], [address] COMPREHENSIVE METABOLIC Collected: 01/04/2018 Status: F Source: [place] PROFIL 9:40 AM [facility] REPOSITORY TYPE CODE TESTS RESULT OUT OF RANGE REFERENCE UNITS LAB L501.0100 74-106 mg/dL Normal GLU 98 Result Comment: Please note revised GLUCOSE reference range effective 2017. LAB L501.1000 7-18 mg/dL Normal BUN 10 LAB L501.1100 0.55-1.02 mg/dL Normal CREAT,SERUM 0.62 Result Comment: The validity of the calculated GFR AND GFRAA in patients over 70 years has not been determined. Clinical correlation is essential. LAB L501.1110 >60 mL/min Normal EST GFR 121 Result Comment: Non- GFR Calc LAB L501.1115 >60 mL/min Normal EST GFR - AA 146 Result Comment: GFR Calc LAB L501.1255 ml/min Normal Estimated CRCL 100.12 LAB L501.1300 10-20 RATIO BUN/CRE Normal 16.3 LAB L501.1500 6.4-8. g/dL 2 T PROT Normal 6.5 LAB L501.1800 3.2-5. g/dL Low 0 ALB 2.3 LAB L501.1950 2.2-4. g/dL 2 GLOB Normal 4.2 LAB L501.2000 0.9-2. RATIO Low 4 A/G 0.5 LAB L501.2200 8.5-10 mg/dL .1 CA Normal 8.6 LAB L501.4100 15-37 U/L AST Normal 17 LAB L501.4305 45-117 U/L ALK P Normal 116 LAB L501.4405 13-56 U/L ALT Normal 18 LAB L501.4600 0.20-1 mg/dL .00 T BILI Normal 0.30 LAB L501.5300 136-14 mmol/L 5 NA Normal 138 LAB L501.5600 3.5-5. mmol/L 1 K Normal 3.8 LAB L501.5900 98-107 mmol/L High CL 109 LAB L501.6100 21.0-3 mmol/L 2.0 CO2 Normal 21.0 LAB L501.6200 5-15 GAP Normal 8 Performed By: #### L500.4050, L501.1400 #### [facility] [address], [place], [id number] URIC ACID Collected: 01/04/2018 Status: F Source: [place] 9:40 AM [facility] REPOSITORY TYPE CODE TESTS RESULT OUT OF RANGE REFERENCE UNITS LAB L501.1400 2.6-6.0 mg/dL Normal URIC 3.4 Result Comment: The drugs N-Acetylcysteine and Metamizole may falsely depress this assay. Performed By: #### L500.4050, L501.1400 #### [facility] [address], [place], [id number] PROTEIN+CREATININE Collected: Status: F Source: [place] RATIO,URINE 01/04/2018 9:08 AM [facility] REPOSITORY TYPE CODE TESTS RESULT OUT OF RANGE REFERENCE UNITS LAB L501.1200 NO RANGE EST. mg/dL Normal UR CREAT 141.00 LAB L501.1930 <11.9 mg/dL High 40.2 PROTEIN,UR.R AN. LAB L501.1940 0-200 mg/g CRE High PROT:CRE 285 RATIO Performed By: #### L501.0900 #### [facility] [address] [place], [address] [facility] OFFICE VISIT Observed: 12/21/2017 Status: F Source: [place] REPORT 9:43 AM [facility] REPOSITORY [facility] [address] [place] [address] OFFICE VISIT Date of Service: 12/21/17 MR#: [id number] Acct: [id number] Name: SINGH QUICK Rep #: [id number] : 1985 Provider: Alyssa Palomares MD Age/Sex: 32/F Location: [facility] Status: Signed Intake Vital Signs12/21/17 Height 5 ft 1 in 12/21/17 Weight: 225 lb 8 oz 12/21/17 Body Mass Index (BMI) 42.6 12/21/17 Blood Pressure 110/80 Intake Visit Reasons: 30 WEEK OB Chief Complaint: est ob Funeral Home Manager Required: No Is patient in pain?: No Medications albuterol sulfate 90 mcg/actuation breath activated powder inhaler 2 puff INHALATION Q6H PRN 07/11/17 [History Confirmed 12/21/17] epinephrine 0.3 mg/0.3 mL injection, auto-injector 0.3 mg IM ONCE 07/11/17 [History Confirmed 12/21/17] pantoprazole 40 mg tablet,delayed release 40 mg PO QDAY 07/11/17 [History Confirmed 12/21/17] vitamin,calcium,vomfjtwv-tqdg-yidpw acid tablet 1 tab PO QDAY 07/11/17 [History Confirmed 12/21/17] venlafaxine ER 75 mg capsule,extended release 24 hr 75 mg PO QDAY 07/11/17 [History Confirmed 12/21/17] ondansetron HCl 4 mg tablet 4 mg PO Q6H PRN #60 tab 08/29/17 [Rx Confirmed 12/21/17] docusate sodium 100 mg capsule 100 mg PO QDAY 11/07/17 [History Confirmed 12/21/17] blood sugar diagnostic strips See Dose Instructions .ROUTE .MEDSUPPLY #100 ea 12/13/17 [Rx Confirmed 12/21/17] blood-glucose meter kit See Dose Instructions .ROUTE .MEDSUPPLY #1 ea 12/13/17 [Rx Confirmed 12/21/17] Last Menstral Period: 05/21/17 Zika: Zika virus screening: Negative : No PFSH PFSH Medical History Anxiety (Acute) Asthma (Chronic) Goltry teeth extracted (Resolved) Hiatal hernia (Inactive) Surgical History H/O endoscopy (Resolved) Family History Father Hypertension Mother uterine fibroids Grandmother Diabetes Social History Smoking Status: Never smoker alcohol intake: never substance use type: does not use caffeine: Yes what type of physical activity do you participate in: aerobics frequency: 1-2 times per week seatbelt use: always do you feel safe at home: Yes additional 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 OB Visit NIMA Calculator Estimated Delivery Date 02/25/18 Based on LMP (certain) 05/21/17 Current WG 30w 4d Number 1 Expected Delivery Route/Plan Specific Issue/Plans flu vaccine: [] tdap vaccine: given rhogam: NA LARC form signed: declines labor support person: [place] pain management: epidural cut cord/dad catch: yes : yes PP control planned: [] discussed possible routes of delivery and associated risks: [] special requests: [] Initial Weight: 218 lb Date Weight BP Urine PrFHR FuHt Pres MoCTX DilationFetal StVisit NoProviderComments E ot v te GA G Effac lucose ed Visit Notes Visit Date: 12/21/17 has diabetes based on blood sugars- recommend nutrition consult and starting diet. needs to change meds to celexa for anxiety. start nsts at 32 weeks Alyssa Palomares MD on 12/21/17 no vb lof good fm alisa rgualr ctx. Alyssa Palomares MD on 12/21/17 Visit Date: 12/04/17 Doing well. No VB, LOF. HECTOR Solomon on 12/04/17 Visit Date: 11/07/17 no vb lof good fm no regular ctx normal anatomy scan Alyssa Palomares MD on 11/07/17 Visit Date: 10/11/17 no vb cramping Alyssa Palomares MD on 10/11/17 Visit Date: 08/29/17 Work in for episodes of when lays down feels hot then nauseous then vomits last couple days. Wanted checked before leaving on vacation in 3 days. No spotting, bleeding, cramping. FHT easily found Negative urine. HECTOR Solomon on 08/29/17 Visit Date: 08/09/17 no vb crmaping, nausea improving Alyssa Palomares MD on 08/09/17 Visit Date: 07/11/17 No visit notes to display ACOG First Trimester First Trimester: Desire for , Alcohol, Tobacco Cessation, Illicit/Recreational Drug/Substance Use, Intimate Partner Violence, Barriers to care, Unstable Housing, Communication Barriers, Environmental/Work Hazards, Anticipated Course of Care, Toxoplasmosis Precations, Use of Any medications, Sexual activity, Exercise, Dental Care, Sauna/Hot tub use, Seat Belt use, Childbirth classes/Hospital facilities, , Travel, Indications for US and Screening for Aneuploidy Second Trimester Second Trimester: Signs and Symptoms of Labor, Selecting a care provider, Care Planning, Depression/Anxiety and Intimate Partner Violence; discussed Tobacco Cessation Diagnostics Diagnostics Labs Blood Type O POSITIVE 08/09/17 Antibody Screen NEGATIVE 08/09/17 Hct 29.3 % (37-47) L 12/04/17 Hgb 9.2 g/dl (12.0-15.0) L 12/04/17 Pap Smear Negative 07/31/16 Obstetrics Ultrasound 10/03/17 Rubella IgG Antibody 36.8 IU/mL 08/09/17 RPR NONREACTIVE (NONREACTIVE) 08/09/17 Hep Bs Antigen Negative (Negative) 08/09/17 Chlam trachomat DNA PCR Negative (Negative) 07/11/17 N.gonorrhoeae DNA (PCR) Negative (Negative) 07/11/17 Glucose 1 Hr 50 gm 143 mg/dL (70-140) H 12/04/17 Details: HIV: Urine Culture: Sequential Screen: NIPT Screen: Results [id number] Office Urine Glucose Negative Last Edit by Christy Huerta on 12/21/17 09:28 Office Urine Protein Negative Last Edit by Christy Huerta on 12/21/17 09:28 Assessment AND Plan Problems 1. Supervision of high risk in third trimester O09.93 PRR NIMA 02/25/18 gender surprise [place] 2. 30 weeks gestation of Z3A.30 3. Anemia affecting in third trimester O99.013 iron and cbc monthly 4. Body mass index (BMI) of 40.1 to 44.9 in adult Z68.41 1 tm glucola and weekly nsts and growth us q 4 weeks from 32 weeks on 5. Anxiety F41.9 celexa. tried effexor, zoloft, and wellbutrin in past. encouraged counseling 6. Mild intermittent asthma without complication J45.20 7. Diet controlled gestational diabetes mellitus (GDM) in third trimester O24.410 Plan movement and labor precautions reviewed. ACOG trimester education reviewed and updated. see problem list details for updated plan management information and see below for orders placed at this visit. GA appropriate handout given. Orders Orders: Coding Level of Care Code OB Routine Diagnoses Supervision of high risk in third trimester O09.93 Trimester: third trimester 30 weeks gestation of Z3A.30 Weeks of gestation: 30 weeks Anemia affecting in third trimester O99.013 Trimester: third trimester Body mass index (BMI) of 40.1 to 44.9 in adult Z68.41 Anxiety F41.9 Mild intermittent asthma without complication J45.20 Asthma severity: mild Asthma persistence: intermittent Asthma complication type: uncomplicated Diet controlled gestational diabetes mellitus (GDM) in third trimester O24.410 Trimester: third trimester 12/21/17 0943 <Electronically signed by Alyssa Palomares MD> Date Alyssa Palomares MD Cosigner Signature: Date (if applicable) CC: GESTATIONAL GTT 3HR Collected: 12/13/2017 Status: F Source: MADY 100G 7:53 AM [facility] REPOSITORY Order Comment: Is Patient Fasting? Y TYPE CODE TESTS RESULT OUT OF RANGE REFERENCE UNITS LAB L501.0650 <105 mg/dL Normal GLU 80 GTT-FASTING Result Comment: GLUCOSE TOLERANCE TEST FOR Reference Interval GESTATIONAL DIABETES Fasting <105 mg/dL 1 hour <190 mg/dl 2 hour <165 mg/dl 3 hour <145 mg/dl Performed By: #### L500.4710 #### [facility] [address] [place], [place], [id number] CBC W/DIFF, AUTOMATED Collected: 12/04/2017 Status: F Source: MADY 10:22 AM [facility] REPOSITORY TYPE CODE TESTS RESULT OUT OF RANGE REFERENCE UNITS LAB L100.1000 4.4-11.0 K/mm3 High WBC 13.6 LAB L100.1200 4.2-5.4 M/mm3 Low RBC 3.63 LAB L100.1300 12.0-15.0 g/dl Low HGB 9.2 LAB L100.1400 37-47 % Low HCT 29.3 LAB L100.1500 81-99 fL Low MCV 80.7 LAB L100.1600 27.0-32.0 pg Low MCH 25.3 LAB L100.1700 32-36 g/gl Low MCHC 31.4 LAB L100.1810 11.6-14.6 % High RDW CV 15.0 LAB L100.1820 35.1-43.9 fl Normal RDW SD 42.8 LAB L100.1900 150-450 K/mm3 Normal PLT 335 LAB L100.2000 6.2-12.0 fl Normal MPV 8.7 LAB L100.2100 47-70 % High NEUT% 78.6 LAB L100.2200 19-41 % Low LY% 14.2 LAB L100.2300 0-10 % Normal MONO% 5.2 LAB L100.2400 0-5 % Normal EO% 0.7 LAB L100.2500 0-1 % Normal BASO% 0.1 LAB L100.2550 0.0-0.9 % High IM GRAN % 1.200 Result Comment: IG% - Immature Granulocytes (promyelocytes, myelocytes and metamyelocytes) > 1% indicates that a LEFT SHIFT is Present. LAB L100.2620 2.0-7.7 X10 3/uL High Absolute Neut 10.7 LAB L100.2720 0.83-4.51 X10 3/ul Normal Absolute Lymph 1.93 Performed By: #### L100.0100 #### [facility] [address] [place], [address] GLUCOSE CHALLENGE GEST Collected: 12/04/2017 Status: F Source: MADY 1H 50G 10:22 AM [facility] REPOSITORY Order Comment: Comments: Draw at 10:27am Comments: Draw at 10:27am TYPE CODE TESTS RESULT OUT OF RANGE REFERENCE UNITS LAB L501.0250 70-140 mg/dL High GLU GEST 143 50g 1H Performed By: #### L501.0250 #### [facility] [address] [place], [address] [employer] [employer] OFFICE VISIT Observed: 12/04/2017 Status: F Source: MADY REPORT 9:44 AM [facility] REPOSITORY [facility] [address] [place] [address] OFFICE VISIT Date of Service: 12/04/17 MR#: [id number] Acct: [id number] Name: SINGH QUICK Rep #: [id number] : 1985 Provider: ESTHER Zee Age/Sex: 32/F Location: [facility] Status: Signed Intake Vital Signs12/04/17 Height 5 ft 1 in 12/04/17 Weight: 223 lb 6 oz 12/04/17 Body Mass Index (BMI) 42.2 12/04/17 Blood Pressure 126/84 Intake Visit Reasons: 28 weeks Funeral Home Manager Required: No Is patient in pain?: No Allergies iodine Allergy (Mild, Verified 12/04/17 09:17) anaphylaxis tylenol codeine Allergy (Mild, Uncoded 10/11/17 09:09) throat swelling Medications albuterol sulfate 90 mcg/actuation breath activated powder inhaler 2 puff INHALATION Q6H PRN 07/11/17 [History Confirmed 12/04/17] epinephrine 0.3 mg/0.3 mL injection, auto-injector 0.3 mg IM ONCE 07/11/17 [History Confirmed 12/04/17] pantoprazole 40 mg tablet,delayed release 40 mg PO QDAY 07/11/17 [History Confirmed 12/04/17] vitamin,calcium,gsagnura-bids-khacf acid tablet 1 tab PO QDAY 07/11/17 [History Confirmed 12/04/17] venlafaxine ER 75 mg capsule,extended release 24 hr 75 mg PO QDAY 07/11/17 [History Confirmed 12/04/17] ondansetron HCl 4 mg tablet 4 mg PO Q6H PRN #60 tab 08/29/17 [Rx Confirmed 12/04/17] docusate sodium 100 mg capsule 100 mg PO QDAY 11/07/17 [History Confirmed 12/04/17] Last Menstral Period: 05/21/17 Zika: Zika virus screening: Negative : No PFSH PFSH Medical History Anxiety (Acute) Asthma (Chronic) Hiatal hernia (Inactive) Surgical History H/O endoscopy (Resolved) Goltry teeth extracted (Resolved) Family History Father Hypertension Mother uterine fibroids Grandmother Diabetes Social History Smoking Status: Never smoker alcohol intake: never substance use type: does not use caffeine: Yes what type of physical activity do you participate in: aerobics frequency: 1-2 times per week seatbelt use: always do you feel safe at home: Yes additional social history: - [place]- [employer]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 OB Visit NIMA Calculator Estimated Delivery Date 02/25/18 Based on LMP (certain) 05/21/17 Current WG 28w 1d Number 1 Expected Delivery Route/Plan Specific Issue/Plans flu vaccine: [] tdap vaccine: given rhogam: NA LARC form signed: [place] labor support person: [place] pain management: epidural cut cord/dad catch: yes : yes PP control planned: [] discussed possible routes of delivery and associated risks: [] special requests: [] Initial Weight: 218 lb Date Weight BP Urine PFHR FuHt Pres MCTX DilatioFetal SVisit NProvideComment rot ov n t ote r s EGA Ef Gluco faced se 07/11/1217 lb 122/87 8 2 oz (+ 7w2 oz) 2d Visit Notes Visit Date: 12/04/17 Doing well. No VB, LOF. LIBIA SolomonC on 12/04/17 Visit Date: 11/07/17 no vb lof good fm no regular ctx normal anatomy scan Alyssa Palomares MD on 11/07/17 Visit Date: 10/11/17 no vb cramping Alyssa Palomares MD on 10/11/17 Visit Date: 08/29/17 Work in for episodes of when lays down feels hot then nauseous then vomits last couple days. Wanted checked before leaving on vacation in 3 days. No spotting, bleeding, cramping. FHT easily found Negative urine. HECTOR Solomon on 08/29/17 Visit Date: 08/09/17 no vb crmaping, nausea improving Alyssa Palomares MD on 08/09/17 Visit Date: 07/11/17 No visit notes to display ACOG First Trimester First Trimester: Desire for , Alcohol, Tobacco Cessation, Illicit/Recreational Drug/Substance Use, Intimate Partner Violence, Barriers to care, Unstable Housing, Communication Barriers, Environmental/Work Hazards, Anticipated Course of Care, Toxoplasmosis Precations, Use of Any medications, Sexual activity, Exercise, Dental Care, Sauna/Hot tub use, Seat Belt use, Childbirth classes/Hospital facilities, , Travel, Indications for US and Screening for Aneuploidy Second Trimester Second Trimester: Signs and Symptoms of Labor, Selecting a care provider, Care Planning, Depression/Anxiety and Intimate Partner Violence; discussed Tobacco Cessation Diagnostics Diagnostics Labs Blood Type O POSITIVE 08/09/17 Antibody Screen NEGATIVE 08/09/17 Hct 36.0 % (37-47) L 08/09/17 Hgb 11.6 g/dl (12.0-15.0) L 08/09/17 Pap Smear Negative 07/31/16 Obstetrics Ultrasound 10/03/17 Rubella IgG Antibody 36.8 IU/mL 08/09/17 RPR NONREACTIVE (NONREACTIVE) 08/09/17 Hep Bs Antigen Negative (Negative) 08/09/17 Chlam trachomat DNA PCR Negative (Negative) 07/11/17 N.gonorrhoeae DNA (PCR) Negative (Negative) 07/11/17 Glucose 1 Hr 50 gm 123 mg/dL (70-140) 08/09/17 Details: HIV: Urine Culture: Sequential Screen: NIPT Screen: Results [id number] Office Urine Glucose Negative Last Edit by Debi Lyman on 12/04/17 09:30 Office Urine Protein Negative Last Edit by Debi Lyman on 12/04/17 09:30 Immunizations Boostrix Tdap Performing Provider: HECTOR Solomon Administered by: Debi Lyman on 12/04/17 09:31 Dose Route Admin Location Lot Number Expiration Date NDC Export Sales Assistant 0.5 mL IM Left Deltoid [id number] 08/30/19 [id number] [employer] VIS Given Date VIS Publication Date 12/04/17 05/12/14 Eligibility Eligibility Date Assessment AND Plan Problems 1. Encounter for supervision of normal first in second trimester Z34.02 PRR NIMA 02/25/18 gender surprise [place] 2. Body mass index (BMI) of 40.1 to 44.9 in adult Z68.41 1 tm glucola and weekly nsts and growth us q 4 weeks from 32 weeks on 3. 20 weeks gestation of Z3A.20 4. Anxiety F41.9 5. Mild intermittent asthma without complication J45.20 Plan Orders placed: tdap, 28 wk labs Reviewed of labor precautions, movement/kick counts ACOG trimester education reviewed and updated See problem list details for updated plan of care Gestational age appropriate handout given RTO: 2 weeks and NST Orders Orders: Medications Discontinued: Boostrix Tdap (diphth,pertus(acell),tetanus) Disc0.5 mL IM ONCE NS Z23 Debi Lyman ontinued Reason: Office Medication has been Documen mario alberto as given Coding Level of Care Code OB Routine Diagnoses Encounter for supervision of normal first in second trimester Z34.02 Normal : normal first Trimester: second trimester Body mass index (BMI) of 40.1 to 44.9 in adult Z68.41 20 weeks gestation of Z3A.20 Weeks of gestation: 20 weeks Anxiety F41.9 Mild intermittent asthma without complication J45.20 Asthma severity: mild Asthma persistence: intermittent Asthma complication type: uncomplicated 12/04/17 0944 <Electronically signed by Kasia YOUNG> Date Kasia Zee NP-C Cosigner Signature: Date (if applicable) CC: [employer] [employer] OFFICE VISIT Observed: 11/07/2017 Status: F Source: MADY REPORT 9:39 AM [facility] [address] [place] [address] OFFICE VISIT Date of Service: 11/07/17 MR#: [id number] Acct: [id number] Name: SINGH QUICK Rep #: [id number] : 1985 Provider: Alyssa Palomares MD Age/Sex: 32/F Location: [facility] Status: Signed Intake Vital Signs11/07/17 Height 5 ft 1 in 11/07/17 Weight: 219 lb 2 oz 11/07/17 Body Mass Index (BMI) 41.3 11/07/17 Blood Pressure 126/78 Intake Visit Reasons: 24 weeks Funeral Home Manager Required: No Is patient in pain?: No Allergies iodine Allergy (Mild, Verified 11/07/17 09:20) anaphylaxis tylenol codeine Allergy (Mild, Uncoded 10/11/17 09:09) throat swelling Medications albuterol sulfate 90 mcg/actuation breath activated powder inhaler 2 puff INHALATION Q6H PRN 07/11/17 [History Confirmed 11/07/17] epinephrine 0.3 mg/0.3 mL injection, auto-injector 0.3 mg IM ONCE 07/11/17 [History Confirmed 11/07/17] pantoprazole 40 mg tablet,delayed release 40 mg PO QDAY 07/11/17 [History Confirmed 11/07/17] vitamin,calcium,kngjyfvu-tfub-ctoja acid tablet 1 tab PO QDAY 07/11/17 [History Confirmed 11/07/17] venlafaxine ER 75 mg capsule,extended release 24 hr 75 mg PO QDAY 07/11/17 [History Confirmed 11/07/17] ondansetron HCl 4 mg tablet 4 mg PO Q6H PRN #60 tab 08/29/17 [Rx Confirmed 11/07/17] docusate sodium 100 mg capsule 100 mg PO QDAY 11/07/17 [History Confirmed 11/07/17] Last Menstral Period: 05/21/17 Zika: Zika virus screening: Negative : No PFSH PFSH Medical History Anxiety (Acute) Asthma (Chronic) Hiatal hernia (Inactive) Surgical History H/O endoscopy (Resolved) Goltry teeth extracted (Resolved) Family History Father Hypertension Mother uterine fibroids Grandmother Diabetes Social History Smoking Status: Never smoker alcohol intake: never substance use type: does not use caffeine: Yes what type of physical activity do you participate in: aerobics frequency: 1-2 times per week seatbelt use: always do you feel safe at home: Yes additional social history: - [place]- [employer] 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 OB Visit NIMA Calculator Estimated Delivery Date 02/25/18 Based on LMP (certain) 05/21/17 Current WG 24w 2d Number 1 Expected Delivery Route/Plan Specific Issue/Plans flu vaccine: [] tdap vaccine: [] rhogam: [] LARC form signed: [] labor support person: [] pain management: [] cut cord/dad catch: [] : [] PP control planned: [] discussed possible routes of delivery and associated risks: [] special requests: [] Initial Weight: 218 lb Date Weight BP Urine PrFHR FuHt Pres MoCTX DilationFetal StVisit NoProviderComments E ot v te GA G Effac lucose ed Visit Notes Visit Date: 11/07/17 no vb lof good fm no regular ctx normal anatomy scan Alyssa Palomares MD on 11/07/17 Visit Date: 10/11/17 no vb cramping Alyssa Palomares MD on 10/11/17 Visit Date: 08/29/17 Work in for episodes of when lays down feels hot then nauseous then vomits last couple days. Wanted checked before leaving on vacation in 3 days. No spotting, bleeding, cramping. FHT easily found Negative urine. HECTOR Solomon on 08/29/17 Visit Date: 08/09/17 no vb crmaping, nausea improving Alyssa Palomares MD on 08/09/17 Visit Date: 07/11/17 No visit notes to display ACOG First Trimester First Trimester: Desire for , Alcohol, Tobacco Cessation, Illicit/Recreational Drug/Substance Use, Intimate Partner Violence, Barriers to care, Unstable Housing, Communication Barriers, Environmental/Work Hazards, Anticipated Course of Care, Toxoplasmosis Precations, Use of Any medications, Sexual activity, Exercise, Dental Care, Sauna/Hot tub use, Seat Belt use, Childbirth classes/Hospital facilities, , Travel, Indications for US and Screening for Aneuploidy Second Trimester Second Trimester: Signs and Symptoms of Labor, Selecting a care provider, Care Planning, Depression/Anxiety and Intimate Partner Violence; discussed Tobacco Cessation Diagnostics Diagnostics Labs Blood Type O POSITIVE 08/09/17 Antibody Screen NEGATIVE 08/09/17 Hct 36.0 % (37-47) L 08/09/17 Hgb 11.6 g/dl (12.0-15.0) L 08/09/17 Pap Smear Negative 07/31/16 Obstetrics Ultrasound 10/03/17 Rubella IgG Antibody 36.8 IU/mL 08/09/17 RPR NONREACTIVE (NONREACTIVE) 08/09/17 Hep Bs Antigen Negative (Negative) 08/09/17 Chlam trachomat DNA PCR Negative (Negative) 07/11/17 N.gonorrhoeae DNA (PCR) Negative (Negative) 07/11/17 Glucose 1 Hr 50 gm 123 mg/dL (70-140) 08/09/17 Details: HIV: Urine Culture: Sequential Screen: NIPT Screen: Results [id number] Office Urine Glucose Negative Last Edit by Fly Mathews on 11/07/17 09:15 Office Urine Protein Trace Last Edit by Fly Mathews on 11/07/17 09:15 Assessment AND Plan Problems 1. 20 weeks gestation of Z3A.20 2. Encounter for supervision of normal first in second trimester Z34.02 PRR NIMA 02/25/18 gender surprise [place] 3. Body mass index (BMI) of 40.1 to 44.9 in adult Z68.41 1 tm glucola and weekly nsts and growth us q 4 weeks from 32 weeks on 4. Anxiety F41.9 5. Mild intermittent asthma without complication J45.20 Plan movement and labor precautions reviewed. ACOG trimester education reviewed and updated. see problem list details for updated plan management information and see below for orders placed at this visit. GA appropriate handout given. Orders Orders: Coding Level of Care Code OB Routine Diagnoses 20 weeks gestation of Z3A.20 Weeks of gestation: 20 weeks Encounter for supervision of normal first in second trimester Z34.02 Normal : normal first Trimester: second trimester Body mass index (BMI) of 40.1 to 44.9 in adult Z68.41 Anxiety F41.9 Mild intermittent asthma without complication J45.20 Asthma severity: mild Asthma persistence: intermittent Asthma complication type: uncomplicated 11/07/17 0939 <Electronically signed by Alyssa Palomares MD> Date Alyssa Palomares MD Cosigner Signature: Date (if applicable) CC: [employer] [employer] OFFICE VISIT Observed: 10/11/2017 Status: F Source: MADY REPORT 9:25 AM [facility] [address] [place] [address] OFFICE VISIT Date of Service: 10/11/17 MR#: [id number] Acct: [id number] Name: SINGH QUICK Rep #: [id number] : 1985 Provider: Alyssa Palomares MD Age/Sex: 32/F Location: [facility] Status: Signed Intake Vital Signs10/11/17 Height 5 ft 1 in 10/11/17 Weight: 214 lb 2 oz 10/11/17 Body Mass Index (BMI) 40.4 10/11/17 Blood Pressure 111/71 Intake Visit Reasons: 20 WEEK OB Chief Complaint: est ob Funeral Home Manager Required: No Is patient in pain?: No Allergies iodine Allergy (Mild, Verified 10/11/17 09:09) anaphylaxis tylenol codeine Allergy (Mild, Uncoded 10/11/17 09:09) throat swelling Medications albuterol sulfate 90 mcg/actuation breath activated powder inhaler 2 puff INHALATION Q6H PRN 07/11/17 [History Confirmed 10/11/17] epinephrine 0.3 mg/0.3 mL injection, auto-injector 0.3 mg IM ONCE 07/11/17 [History Confirmed 10/11/17] pantoprazole 40 mg tablet,delayed release 40 mg PO QDAY 07/11/17 [History Confirmed 10/11/17] vitamin,calcium,qjrfbses-qlim-wahdj acid tablet 1 tab PO QDAY 07/11/17 [History Confirmed 10/11/17] venlafaxine ER 75 mg capsule,extended release 24 hr 75 mg PO QDAY 07/11/17 [History Confirmed 10/11/17] ondansetron HCl 4 mg tablet 4 mg PO Q6H PRN #60 tab 08/29/17 [Rx Confirmed 10/11/17] Last Menstral Period: 05/21/17 Zika: Zika virus screening: Negative : No PFSH PFSH Medical History Anxiety (Acute) Asthma (Chronic) Hiatal hernia (Inactive) Surgical History H/O endoscopy (Resolved) Goltry teeth extracted (Resolved) Family History Father Hypertension Mother uterine fibroids Grandmother Diabetes Social History Smoking Status: Never smoker alcohol intake: never substance use type: does not use caffeine: Yes what type of physical activity do you participate in: aerobics frequency: 1-2 times per week seatbelt use: always do you feel safe at home: Yes additional social history: - [place]- [employer] 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 OB Visit NIMA Calculator Estimated Delivery Date 02/25/18 Based on LMP (certain) 05/21/17 Current WG 20w 3d Number 1 Expected Delivery Route/Plan Specific Issue/Plans flu vaccine: [] tdap vaccine: [] rhogam: [] LARC form signed: [] labor support person: [] pain management: [] cut cord/dad catch: [] : [] PP control planned: [] discussed possible routes of delivery and associated risks: [] special requests: [] Initial Weight: Not Recorded Date Weight BP Urine PrFHR FuHt Pres MoCTX DilationFetal StVisit NoProviderComments E ot v te GA G Effac lucose ed Visit Notes Visit Date: 10/11/17 no vb cramping Alyssa Palomares MD on 10/11/17 Visit Date: 08/29/17 Work in for episodes of when lays down feels hot then nauseous then vomits last couple days. Wanted checked before leaving on vacation in 3 days. No spotting, bleeding, cramping. FHT easily found Negative urine. HECTOR Solomon on 08/29/17 Visit Date: 08/09/17 no vb crmaping, nausea improving Alyssa Palomares MD on 08/09/17 Visit Date: 07/11/17 No visit notes to display ACOG First Trimester First Trimester: Desire for , Alcohol, Tobacco Cessation, Illicit/Recreational Drug/Substance Use, Intimate Partner Violence, Barriers to care, Unstable Housing, Communication Barriers, Environmental/Work Hazards, Anticipated Course of Care, Toxoplasmosis Precations, Use of Any medications, Sexual activity, Exercise, Dental Care, Sauna/Hot tub use, Seat Belt use, Childbirth classes/Hospital facilities, , Travel, Indications for US and Screening for Aneuploidy Diagnostics Diagnostics Labs Blood Type O POSITIVE 08/09/17 Antibody Screen NEGATIVE 08/09/17 Hct 36.0 % (37-47) L 08/09/17 Hgb 11.6 g/dl (12.0-15.0) L 08/09/17 Pap Smear Negative 07/31/16 Obstetrics Ultrasound 10/03/17 Rubella IgG Antibody 36.8 IU/mL 08/09/17 RPR NONREACTIVE (NONREACTIVE) 08/09/17 Hep Bs Antigen Negative (Negative) 08/09/17 Chlam trachomat DNA PCR Negative (Negative) 07/11/17 N.gonorrhoeae DNA (PCR) Negative (Negative) 07/11/17 Glucose 1 Hr 50 gm 123 mg/dL (70-140) 08/09/17 Details: HIV: Urine Culture: Sequential Screen: NIPT Screen: Results [id number] Office Urine Glucose Negative Last Edit by Christy Huerta on 10/11/17 09:11 Office Urine Protein Negative Last Edit by Christy Huerta on 10/11/17 09:11 Assessment AND Plan Problems 1. Body mass index (BMI) of 40.1 to 44.9 in adult Z68.41 1 tm glucola and weekly nsts and growth us q 4 weeks from 32 weeks on 2. Anxiety F41.9 3. Mild intermittent asthma without complication J45.20 4. 20 weeks gestation of Z3A.20 5. Encounter for supervision of normal first in second trimester Z34.02 NIMA 02/25/18 gender surprise [place] Plan ACOG trimester education reviewed and updated. see problem list details for updated plan management information and see below for orders placed at this visit. [place] appropriate handout given. Orders Orders: Coding Level of Care Code OB Routine Diagnoses Body mass index (BMI) of 40.1 to 44.9 in adult Z68.41 Anxiety F41.9 Mild intermittent asthma without complication J45.20 Asthma severity: mild Asthma persistence: intermittent Asthma complication type: uncomplicated 20 weeks gestation of Z3A.20 Weeks of gestation: 20 weeks Encounter for supervision of normal first in second trimester Z34.02 Normal : normal first Trimester: second trimester 10/11/17 0925 <Electronically signed by Alyssa Palomares MD> Date Alyssa Palomares MD [facility] Signature: Date (if applicable) CC: OB ANATOMY SCAN Observed: 10/03/2017 Status: F Source: [place] 7:48 AM [facility] REPOSITORY [facility] Imaging Services [address] [place] [address] OB Anatomy Scan MR#: [id number] Acct: [id number] Name: SINGH QUICK Rep #: [id number] : 1985 F 32 From: Barron Ron MD PCP: Trina Ibrahim MD Status: REG CLI Study: OB Anatomy Scan Date of Exam: 10/03/17 Exam# [id number] Ordering Dr: Alyssa Palomares MD STUDY: SECOND AND THIRD TRIMESTER OBSTETRICAL ULTRASOUND REASON FOR EXAM: Female, 32 years old. Routine survey. LMP: May 21, 2017. TECHNIQUE: Transabdominal PRIOR ULTRASOUND: None. FINDINGS: There is a single intrauterine fetus. The fetus is in a cephalic presentation. There is demonstrated cardiac activity with a heart rate of 146 bpm. There is a normal amniotic fluid volume. The largest amniotic fluid pocket measures 11.0 cm x 4.2 cm. The amniotic fluid index (KENNY) is normal. The placenta is posterior in location and is not low lying. There are Grade 0 placental changes. The cervix measures 3.8 cm in length. The bilateral adnexal regions are normal. BIOMETRY: BPD: 4.51 cm: 19 weeks, 5 days HC: 16.92 cm: 19 weeks, 4 days AC: 14.97 cm: 20 weeks, 2 days FL: 3.23 cm: 20 weeks, 1 days CI: 77% FL/BPD: 72% FL/HC: FL/AC: 22% HC/AC: 1.13 age by current US: 20 weeks, 0 days. NIMA by current US: February 20, 2018. Estimated weight: 331 grams, +/- 48 grams, 87 %. Age by LMP: 19 weeks, 2 days. NIMA by LMP: February 25, 2018. ANATOMY: Gender: Indeterminant Cranium: Normal lateral ventricles. Normal choroid plexus. Normal cerebellum. Normal cisterna magna. Normal face, nose and lips. Chest: Normal 4-chamber heart. Abdomen/Pelvis: Normal diaphragm. Normal stomach. Normal abdominal wall. Normal cord insertion. Normal 3 vessel cord. Normal kidneys. Normal bladder. Spine: Normal cervical spine. Normal thoracic spine. Normal lumbar spine. Normal sacrum. Extremities: Normal bilateral upper extremities. Normal bilateral lower extremities. US/OB Anatomy Scan IMPRESSION: Single live intrauterine gestation with a mean gestational age of 20 weeks. Electronically Signed: Barron Ron MD at 15:39 EDT Tel [phone], Service support , CC: Trina Ibrahim MD; Alyssa Palomares MD Personal Lines Account Executive: Signed [facility] OFFICE VISIT Observed: 09/14/2017 Status: F Source: [place] REPORT 12:34 AM [facility] [address] [place] [address] OFFICE VISIT Date of Service: 09/11/17 MR#: [id number] Acct: [id number] Name: SINGH QUICK Rep #: [id number] : 1985 Provider: Alyssa Palomares MD Age/Sex: 32/F Location: [facility] Status: Signed Intake Vital Signs09/11/17 Height 5 ft 1 in 09/11/17 Weight: 209 lb 8 oz 09/11/17 Body Mass Index (BMI) 39.6 09/11/17 Blood Pressure 132/88 Intake Visit Reasons: 16 WEEK OB - BLEEDING Is patient in pain?: No Allergies iodine Allergy (Mild, Verified 09/11/17 12:24) anaphylaxis tylenol codeine Allergy (Mild, Uncoded 08/29/17 15:13) throat swelling Medications albuterol sulfate 90 mcg/actuation breath activated powder inhaler 2 puff INHALATION Q6H PRN 07/11/17 [History Confirmed 09/11/17] epinephrine 0.3 mg/0.3 mL injection, auto-injector 0.3 mg IM ONCE 07/11/17 [History Confirmed 09/11/17] pantoprazole 40 mg tablet,delayed release 40 mg PO QDAY 07/11/17 [History Confirmed 09/11/17] vitamin,calcium,esyzahet-qdrs-ytlie acid tablet 1 tab PO QDAY 07/11/17 [History Confirmed 09/11/17] venlafaxine ER 75 mg capsule,extended release 24 hr 75 mg PO QDAY 07/11/17 [History Confirmed 09/11/17] ondansetron HCl 4 mg tablet 4 mg PO Q6H PRN #60 tab 08/29/17 [Rx Confirmed 09/11/17] Patient : Yes PFSH PFSH Medical History Anxiety (Acute) Asthma (Chronic) Hiatal hernia (Inactive) Surgical History H/O endoscopy (Resolved) Goltry teeth extracted (Resolved) Family History Father Hypertension Mother uterine fibroids Grandmother Diabetes Social History Smoking Status: Never smoker alcohol intake: never substance use type: does not use caffeine: Yes what type of physical activity do you participate in: aerobics frequency: 1-2 times per week seatbelt use: always do you feel safe at home: Yes additional social history: - [place] 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 she is rh posititve. she denies cramping. fht seen at 150s and cervix closed Assessment AND Plan Problems 1. Mild intermittent asthma without complication J45.20 2. Encounter for supervision of normal first in first trimester Z34.01 NIMA 02/25/18 [place] 3. Body mass index (BMI) of 40.1 to 44.9 in adult Z68.41 1 tm glucola and weekly nsts and growth us q 4 weeks from 32 weeks on 4. Anxiety F41.9 5. Vaginal bleeding during O46.90 Plan routine fu Orders Orders: Coding Level of Care Code No Charge Diagnoses Mild intermittent asthma without complication J45.20 Asthma severity: mild Asthma persistence: intermittent Asthma complication type: uncomplicated Encounter for supervision of normal first in first trimester Z34.01 Normal : normal first Body mass index (BMI) of 40.1 to 44.9 in adult Z68.41 Anxiety F41.9 Vaginal bleeding during O46.90 09/14/17 0034 <Electronically signed by Alyssa Palomares MD> Date [facility] Signature: Date (if applicable) CC: [facility] OFFICE VISIT Observed: 08/29/2017 Status: F Source: [place] REPORT 3:38 PM [facility] [address] [place] [address] OFFICE VISIT Date of Service: 08/29/17 MR#: [id number] Acct: [id number] Name: DIANASINGH Rep #: [id number] : 1985 Provider: ESTHER Zee Age/Sex: 32/F Location: [facility] Status: Signed Intake Vital Signs08/29/17 Height 5 ft 1.5 in 08/29/17 Weight: 211 lb 6 oz 08/29/17 Body Mass Index (BMI) 39.2 08/29/17 Blood Pressure 120/82 Intake Visit Reasons: ABD pain Chief Complaint: est ob, abdominal pain Funeral Home Manager Required: No Is patient in pain?: Yes Allergies iodine Allergy (Mild, Verified 08/29/17 15:13) anaphylaxis tylenol codeine Allergy (Mild, Uncoded 08/29/17 15:13) throat swelling Medications albuterol sulfate 90 mcg/actuation breath activated powder inhaler 2 puff INHALATION Q6H PRN 07/11/17 [History Confirmed 08/29/17] epinephrine 0.3 mg/0.3 mL injection, auto-injector 0.3 mg IM ONCE 07/11/17 [History Confirmed 08/29/17] pantoprazole 40 mg tablet,delayed release 40 mg PO QDAY 07/11/17 [History Confirmed 08/29/17] vitamin,calcium,maamtqep-wdwn-pmgrf acid tablet 1 tab PO QDAY 07/11/17 [History Confirmed 08/29/17] venlafaxine ER 75 mg capsule,extended release 24 hr 75 mg PO QDAY 07/11/17 [History Confirmed 08/29/17] ondansetron HCl 4 mg tablet 4 mg PO Q6H PRN #60 tab 08/29/17 [Rx Confirmed 08/29/17] Last Menstral Period: 05/21/17 Zika: Zika virus screening: Negative : No PFSH PFSH Medical History Anxiety (Acute) Asthma (Chronic) Hiatal hernia (Inactive) Surgical History H/O endoscopy (Resolved) Goltry teeth extracted (Resolved) Family History Father Hypertension Mother uterine fibroids Grandmother Diabetes Social History Smoking Status: Never smoker alcohol intake: never substance use type: does not use caffeine: Yes what type of physical activity do you participate in: aerobics frequency: 1-2 times per week seatbelt use: always do you feel safe at home: Yes additional social history: - [place] 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 OB Visit NIMA Calculator Estimated Delivery Date 02/25/18 Based on LMP (certain) 05/21/17 Current WG 14w 2d Number 1 Expected Delivery Route/Plan Specific Issue/Plans flu vaccine: [] minichart given: [] tdap vaccine: [] rhogam: [] LARC form signed: [] labor support person: [] pain management: [] cut cord/dad catch: [] : [] PP control planned: [] special requests: [] Initial Weight: Not Recorded Date Weight BP Urine PrFHR FuHt Pres MoCTX DilationFetal StVisit NoProviderComments E ot v te [place] G Effac lucose ed Visit Notes Visit Date: 08/29/17 Work in for episodes of when lays down feels hot then nauseous then vomits last couple days. Wanted checked before leaving on vacation in 3 days. No spotting, bleeding, cramping. FHT easily found Negative urine. HECTOR Solomon on 08/29/17 Visit Date: 08/09/17 no vb crmaping, nausea improving Alyssa Palomares MD on 08/09/17 Visit Date: 07/11/17 No visit notes to display ACOG First Trimester First Trimester: Desire for , Alcohol, Tobacco Cessation, Illicit/Recreational Drug/Substance Use, Intimate Partner Violence, Barriers to care, Unstable Housing, Communication Barriers, Environmental/Work Hazards, Anticipated Course of Care, Toxoplasmosis Precations, Use of Any medications, Sexual activity, Exercise, Dental Care, Sauna/Hot tub use, Seat Belt use, Childbirth classes/Hospital facilities, , Travel, Indications for US and Screening for Aneuploidy Diagnostics Diagnostics Labs Blood Type O POSITIVE 08/09/17 Antibody Screen NEGATIVE 08/09/17 Hct 36.0 % (37-47) L 08/09/17 Hgb 11.6 g/dl (12.0-15.0) L 08/09/17 Pap Smear Negative 07/31/16 Rubella IgG Antibody 36.8 IU/mL 08/09/17 RPR NONREACTIVE (NONREACTIVE) 08/09/17 Hep Bs Antigen Negative (Negative) 08/09/17 Chlam trachomat DNA PCR Negative (Negative) 07/11/17 N.gonorrhoeae DNA (PCR) Negative (Negative) 07/11/17 Glucose 1 Hr 50 gm 123 mg/dL (70-140) 08/09/17 Details: HIV: Urine Culture: Sequential Screen: NIPT Screen: Results [id number] Office Urine Glucose Negative Last Edit by Christy Huerta on 08/29/17 15:20 Office Urine Protein Negative Last Edit by Christy Huerta on 08/29/17 15:20 Assessment AND Plan Problems 1. Encounter for supervision of normal first in first trimester Z34.01 NIMA 02/25/18 [place] 2. Nausea/vomiting in O21.9 Plan Rx zofran. May be fluid changes with . Try not to sleep flat on back. Increase fluid intake Stop often while traveling to [place]. RTO routine OB 2 weeks. Orders Orders: Medications New: Coding Level of Care Code OB Routine Diagnoses Encounter for supervision of normal first in first trimester Z34.01 Normal : normal first Nausea/vomiting in O21.9 08/29/17 1538 <Electronically signed by Kasia YOUNG> Date Kasia YOUNG Cosigner Signature: Date (if applicable) CC: CBC W/DIFF, AUTOMATED Collected: 08/09/2017 Status: F Source: [place] 10:55 AM [facility] REPOSITORY TYPE CODE TESTS RESULT OUT OF RANGE REFERENCE UNITS LAB L100.1000 4.4-11.0 K/mm3 Normal WBC 8.5 LAB L100.1200 4.2-5.4 M/mm3 Normal RBC 4.41 LAB L100.1300 12.0-15.0 g/dl Low HGB 11.6 LAB L100.1400 37-47 % Low HCT 36.0 LAB L100.1500 81-99 fL Normal MCV 81.6 LAB L100.1600 27.0-32.0 pg Low MCH 26.3 LAB L100.1700 32-36 g/gl Normal MCHC 32.2 LAB L100.1810 11.6-14.6 % Normal RDW CV 14.2 LAB L100.1820 35.1-43.9 fl Normal RDW SD 42.4 LAB L100.1900 150-450 K/mm3 Normal PLT 250 LAB L100.2000 6.2-12.0 fl Normal MPV 9.0 LAB L100.2100 47-70 % Normal NEUT% 65.5 LAB L100.2200 19-41 % Normal LY% 26.6 LAB L100.2300 0-10 % Normal MONO% 6.9 LAB L100.2400 0-5 % Normal EO% 0.8 LAB L100.2500 0-1 % Normal BASO% 0.1 LAB L100.2550 0.0-0.9 % Normal IM GRAN % 0.100 Result Comment: IG% - Immature Granulocytes (promyelocytes, myelocytes and metamyelocytes) > 1% indicates that a LEFT SHIFT is Present. LAB L100.2620 2.0-7.7 X10 3/uL Normal Absolute Neut 5.6 LAB L100.2720 0.83-4.51 X10 3/ul Normal Absolute Lymph 2.26 Performed By: #### L100.0100 #### [facility] [address], [place], [id number] GLUCOSE CHALLENGE GEST Collected: 08/09/2017 Status: F Source: [place] 1H 50G 10:55 AM [facility] REPOSITORY TYPE CODE TESTS RESULT OUT OF RANGE REFERENCE UNITS LAB L501.0250 70-140 mg/dL Normal GLU GEST 123 50g 1H Performed By: #### L501.0250 #### [facility] [address], [place], [id number] TYPE AND SCREEN Collected: 08/09/2017 Status: F Source: [place] 10:55 AM [facility] REPOSITORY Order Comment: Reason for Type AND Screen/Red Cells: TYPE CODE TESTS RESULT OUT OF RANGE REFERENCE UNITS LAB B10.0800 O Normal BLOOD TYPE GEL POSITIVE LAB B100.4000 Normal Antibody NEGATIVE Screen Performed By: #### B101.7450 #### [facility] [address], [place], [id number] #### L3100.0390 #### [facility] (refer to report for specific site) refer to report for address and phone number HEPATITIS B SURFACE Collected: 08/09/2017 Status: F Source: [place] 10:55 AM [facility] REPOSITORY TYPE CODE TESTS RESULT OUT OF RANGE REFERENCE UNITS LAB L3100.0400 Negative Normal HB Negative SURF AG Result Comment: Performed at: - [facility] [address] [id number] Bank Teller Machine Mechanic: Garth Bertrand PhD, Phone: [phone] Performed By: #### B101.7450 #### [facility] [address] [place], [place] [address]. [place], [address] #### L3100.0390 #### [facility] (refer to report for specific site) refer to report for address and phone number RAPID PLASMIN REAGIN Collected: 08/09/2017 Status: F Source: [place] (RPR) 10:55 AM [facility] REPOSITORY TYPE CODE TESTS RESULT OUT OF REFERENCE UNITS RANGE LAB L700.5000 NONREACTIVE NONREACTIVE Normal RPR Performed By: #### L700.5000, L509.4000, L3890.6005 #### [facility] [address] [place], [place] [address]. [place], [address] RUBELLA IGG Collected: 08/09/2017 Status: F Source: [place] 10:55 AM [facility] REPOSITORY TYPE CODE TESTS RESULT OUT OF RANGE REFERENCE UNITS LAB L509.4000 IU/mL Normal Rubella IgG 36.8 Result Comment: Antibody results Interpretation of Immune Status < 5 IU/ml Presumed Non-immune 5 - < 10 IU/ml Equivocal > or = 10 IU/ml Presumed Immune Performed By: #### L700.5000, L509.4000, L3890.6005 #### [facility] [place], [address] HIV - [facility] Collected: 08/09/2017 Status: F Source: [place] 10:55 AM [facility] REPOSITORY TYPE CODE TESTS RESULT OUT OF RANGE REFERENCE UNITS LAB L3890.6005 Nonreactive Normal HIV - [facility] Non-Reactive Performed By: #### L700.5000, L509.4000, L3890.6005 #### [facility] [facility] [address] [facility] OFFICE VISIT Observed: 08/09/2017 Status: F Source: [place] REPORT 10:07 AM [facility] [address] [place] [address] OFFICE VISIT Date of Service: 08/09/17 MR#: [id number] Acct: [id number] Name: SINGH QUICK Rep #: [id number] : 1985 Provider: Alyssa Palomares MD Age/Sex: 32/F Location: [facility] Status: Signed Intake Vital Signs08/09/17 Height 5 ft 1.5 in 08/09/17 Weight: 213 lb 4 oz 08/09/17 Body Mass Index (BMI) 39.6 08/09/17 Blood Pressure 126/79 Intake Visit Reasons: 12 WEEK Chief Complaint: est ob Funeral Home Manager Required: No Is patient in pain?: No Allergies iodine Allergy (Mild, Verified 08/09/17 09:56) anaphylaxis tylenol codeine Allergy (Mild, Uncoded 08/09/17 09:56) throat swelling Medications albuterol sulfate 90 mcg/actuation breath activated powder inhaler 2 puff INHALATION Q6H PRN 07/11/17 [History Confirmed 08/09/17] epinephrine 0.3 mg/0.3 mL injection, auto-injector 0.3 mg IM ONCE 07/11/17 [History Confirmed 08/09/17] pantoprazole 40 mg tablet,delayed release 40 mg PO QDAY 07/11/17 [History Confirmed 08/09/17] vitamin,calcium,hcyehipg-rtcz-fuizi acid tablet 1 tab PO QDAY 07/11/17 [History Confirmed 08/09/17] venlafaxine ER 75 mg capsule,extended release 24 hr 75 mg PO QDAY 07/11/17 [History Confirmed 08/09/17] Last Menstral Period: 05/21/17 Zika: Zika virus screening: Negative : No PFSH PFSH Medical History Anxiety (Acute) Asthma (Chronic) Hiatal hernia (Inactive) Surgical History H/O endoscopy (Resolved) Goltry teeth extracted (Resolved) Family History Father Hypertension Mother uterine fibroids Grandmother Diabetes Social History Smoking Status: Never smoker alcohol intake: never substance use type: does not use caffeine: Yes what type of physical activity do you participate in: aerobics frequency: 1-2 times per week seatbelt use: always do you feel safe at home: Yes additional social history: - [place]- [employer] 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 OB Visit NIMA Calculator Estimated Delivery Date 02/25/18 Based on LMP (certain) 05/21/17 Current WG 11w 3d Number 1 Expected Delivery Route/Plan Specific Issue/Plans flu vaccine: [] minichart given: [] tdap vaccine: [] rhogam: [] LARC form signed: [] labor support person: [] pain management: [] cut cord/dad catch: [] : [] PP control planned: [] special requests: [] Initial Weight: Not Recorded Date Weight BP Urine PFHR FuHt Pres MCTX DilatioFetal SVisit NProvideComment rot ov n t ote r s EGA Ef Gluco faced se 07/11/1217 lb 122/87 8 2 oz 7w 2d Visit Notes Visit Date: 08/09/17 no vb crmaping, nausea improving Alyssa Palomares MD on 08/09/17 Visit Date: 07/11/17 No visit notes to display ACOG First Trimester First Trimester: Desire for , Alcohol, Tobacco Cessation, Illicit/Recreational Drug/Substance Use, Intimate Partner Violence, Barriers to care, Unstable Housing, Communication Barriers, Environmental/Work Hazards, Anticipated Course of Care, Toxoplasmosis Precations, Use of Any medications, Sexual activity, Exercise, Dental Care, Sauna/Hot tub use, Seat Belt use, Childbirth classes/Hospital facilities, , Travel, Indications for US and Screening for Aneuploidy Diagnostics Diagnostics Labs Pap Smear Negative 07/31/16 Chlam trachomat DNA PCR Negative (Negative) 07/11/17 N.gonorrhoeae DNA (PCR) Negative (Negative) 07/11/17 Details: HIV: Urine Culture: Sequential Screen: NIPT Screen: Results [id number] Office Urine Glucose Negative Last Edit by Christy Huerta on 08/09/17 09:58 Office Urine Protein Trace Last Edit by Christy Huerta on 08/09/17 09:58 Assessment AND Plan Problems 1. Encounter for supervision of normal first in first trimester Z34.01 NIMA 02/25/18 [place] 2. Body mass index (BMI) of 40.1 to 44.9 in adult Z68.41 1 tm glucola and weekly nsts and growth us q 4 weeks from 32 weeks on 3. Anxiety F41.9 4. Mild intermittent asthma without complication J45.20 5. 11 weeks gestation of Z3A.11 Plan Orders placed: blood work today ACOG trimester education reviewed and updated. see problem list details for updated plan management information. [place] appropriate handout given. Orders Orders: Coding Level of Care Code OB Routine Diagnoses Encounter for supervision of normal first in first trimester Z34.01 Normal : normal first Body mass index (BMI) of 40.1 to 44.9 in adult Z68.41 Anxiety F41.9 Mild intermittent asthma without complication J45.20 Asthma severity: mild Asthma persistence: intermittent Asthma complication type: uncomplicated 11 weeks gestation of Z3A.11 08/09/17 1007 <Electronically signed by Alyssa Palomares MD> Date Alyssa Palomares MD Cosigner Signature: Date (if applicable) CC: [facility] OFFICE VISIT Observed: 07/13/2017 Status: F Source: [place] RE[place] 3:59 AM [facility] [address] [place] [address] OFFICE VISIT Date of Service: 07/11/17 MR#: [id number] Acct: [id number] Name: SINGH QUICK Rep #: [id number] : 1985 Provider: Alyssa Palomares MD Age/Sex: 32/F Location: [facility] Status: Signed Intake Vital Signs07/11/17 Height 5 ft 1 in 07/11/17 Weight: 218 lb 2 oz 07/11/17 Body Mass Index (BMI) 41.2 07/11/17 Blood Pressure 122/87 Intake Visit Reasons: NEW OB Funeral Home Manager Required: No Is patient in pain?: No Allergies iodine Allergy (Mild, Verified 07/11/17 12:14) anaphylaxis tylenol codeine Allergy (Mild, Uncoded 07/11/17 12:14) throat swelling Medications albuterol sulfate 90 mcg/actuation breath activated powder inhaler 2 puff INHALATION Q6H PRN 07/11/17 [History Confirmed 07/11/17] epinephrine 0.3 mg/0.3 mL injection, auto-injector 0.3 mg IM ONCE 07/11/17 [History Confirmed 07/11/17] pantoprazole 40 mg tablet,delayed release 40 mg PO QDAY 07/11/17 [History Confirmed 07/11/17] vitamin,calcium,riyvrpho-leji-xlsvw acid tablet 1 tab PO QDAY 07/11/17 [History Confirmed 07/11/17] venlafaxine ER 75 mg capsule,extended release 24 hr 75 mg PO QDAY 07/11/17 [History Confirmed 07/11/17] Last Menstral Period: 05/21/17 Zika: Zika virus screening: Negative : No PFSH PFSH Medical History Anxiety (Acute) Hiatal hernia (Chronic) Asthma (Chronic) Surgical History H/O endoscopy (Resolved) Goltry teeth extracted (Resolved) Family History Father Hypertension Mother uterine fibroids Grandmother Diabetes Social History Smoking Status: Never smoker alcohol intake: never substance use type: does not use caffeine: Yes what type of physical activity do you participate in: aerobics frequency: 1-2 times per week seatbelt use: always do you feel safe at home: Yes additional social history: - [place] 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 OB Visit NIMA Calculator Estimated Delivery Date 02/25/18 Based on LMP (certain) 05/21/17 Current WG 7w 4d Number 1 Comments: limited us done and consistent with LMP fht seen Expected Delivery Route/Plan Specific Issue/Plans flu vaccine: [] minichart given: [] tdap vaccine: [] rhogam: [] LARC form signed: [] labor support person: [] pain management: [] cut cord/dad catch: [] : [] PP control planned: [] special requests: [] Initial Weight: Not Recorded Date Weight BP Urine PrFHR FuHt Pres MoCTX DilationFetal StVisit NoProviderComments E ot v te [place] G Effac lucose ed Menstrual History Last Menstral Period: 05/21/17 Reported LMP: definite Normal amount/duration: Yes On hormonal BC at conception: No Antepartum Record Genetic Screening: Congenital Heart Defect: Other, Neural Tube Defect: Other, Hemoglobinopathy Or Carrier: Other, Cystic Fibrosis: Other, Chromosome Abnormality: Other, Lang-Sachs: Other, Hemophilia: Other, Intellectual Disability/Autism: Other, Recurrent Loss/Stillbirth: Other, Other Structural Defect: Other, Other Genetic Disease: Other, Maternal Metabolic Disorder: Other Infection History: Live with someone with TB or Exposed to TB: No, Patient or Partner has history of Genital Herpes: No, Rash or Viral illness since last mentrual period: No, Prior GBS-Infected child: No, History of STD: No, HIV Infection: No, History of Hepatitis: No, Recent travel outside of [place]: No, Concern for Hep exposure: No, Varicella immune: Yes Medical History Medical History: Positive: Depression/ depression, Pulmonary (e.g.,TB,Asthma), Negative: Diabetes, Hypertension, Heart disease, Auto-immune disorder, Kidney disease/UTI, Neurologic/epilepsy, Psychiatric, Hepatitis/liver disease, Varicosities/phlebitis, Thyroid dysfunction, Trauma/domestic violence, History of blood transfusions, D (Rh) Sensitized, Seasonal allergies, Drug/latex allergies/reactions, Breast, Mill 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, Operations/hospitalizations, Anesthetic complications, History of abnormal pap, Uterine anomaly/shauna, Infertility, Anti-retroviral treatment, Relevant family history, Other ACOG First Trimester First Trimester: Desire for , Alcohol, Tobacco Cessation, Illicit/Recreational Drug/Substance Use, Intimate Partner Violence, Barriers to care, Unstable Housing, Communication Barriers, Environmental/Work Hazards, Anticipated Course of Care, Nurtrition and weight gain, Toxoplasmosis Precations, Use of Any medications, Sexual activity, Exercise, Dental Care, Sauna/Hot tub use, Seat Belt use, Childbirth classes/Hospital facilities, , Travel, Indications for US and Screening for Aneuploidy ROS Const Denies fever(s), Reports system reviewed and no additional complaints, except as docu, Reports fatigue Eyes Reports system reviewed and no additional complaints, except as docu ENT Reports system reviewed and no additional complaints, except as docu Card Denies chest pain, Denies shortness of breath Resp Reports system reviewed and no additional complaints, except as docu, Denies shortness of breath, Denies cough GI Reports nausea, Denies abdominal pain Reports system reviewed and no additional complaints, except as docu Musc Reports system reviewed and no additional complaints, except as docu Skin/Breast Reports system reviewed and no additional complaints, except as docu Neuro Yes system reviewed and no additional complaints, except as docu Psych Reports system reviewed and no additional complaints, except as docu Endo Reports fatigue, Reports system reviewed and no additional complaints, except as docu Exam Const General: healthy appearing, comfortable, no acute distress Orientation: alert HENCT Head: normal to inspection, atraumatic, normocephalic Ears: external ears normal, hearing grossly normal bilaterally Nose: nares normal, external nose normal Mouth: oral mucosae normal Teeth and gingiva: dentition normal Eyes General: appearance normal, both eyes and all related structures Neck Neck: no lymphadenopathy, supple, normal visual inspection Thyroid: thyroid normal Chest Chest palpation AND inspection: normal inspection of the chest Breast inspection: normal inspection of the breasts, normal inspection of the axillae Breast palpation: normal palpation of the breasts, normal palpation of the axillae Resp Effort AND Inspection: normal respiratory effort GI Inspection: normal to inspection Palpation: soft, no hepatosplenomegaly General: bladder normal to palpation External Female Exam: normal external appearance, normal appearance of the urethra Urethra: normal appearance of the urethra Speculum Exam - Vagina: normal appearance of the vagina, normal vaginal discharge Speculum Exam - Cervix: normal appearance of the cervix Bimanual Exam- Vagina AND Uterus: bladder normal to palpation, normal bimanual exam, uterus non-tender, other Bimanual Exam- Adnexa, other: adnexae non-tender Skin General: no rashes or lesions noted Neuro Motor: muscle tone normal throughout, no movement abnormalities noted Extrem General: normal to inspection, full ROM Assessment AND Plan Problems 1. Body mass index (BMI) of 40.1 to 44.9 in adult Z68.41 1 tm glucola and weekly nsts and growth us q 4 weeks from 32 weeks on 2. Encounter for supervision of normal first in first trimester Z34.01 NIMA 02/25/18 [place] 3. Anxiety F41.9 4. Mild intermittent asthma without complication J45.20 Plan Patient oriented to practice and discussed care expectations and screenings. OG book offered to patient. labs and 19-20 week anatomy ultrasound ordered. Genetic screening offered to patient and patient chose: considering nt Orders Orders: Supplemental Info ACOG book given and patient encouraged to read about nutrition, exercise, weight gain, and food avoidance in . Coding Level of Care Code OB Routine Diagnoses Body mass index (BMI) of 40.1 to 44.9 in adult Z68.41 Encounter for supervision of normal first in first trimester Z34.01 Normal : normal first Anxiety F41.9 Mild intermittent asthma without complication J45.20 Asthma severity: mild Asthma persistence: intermittent Asthma complication type: uncomplicated 07/13/17 0359 <Electronically signed by Alyssa Palomares MD> Date Alyssa Palomares MD Cosigner Signature: Date (if applicable) CC: CT/NG WCH BY PCR Collected: 07/11/2017 Status: F Source: [place] 2:53 PM [facility] REPOSITORY TYPE CODE TESTS RESULT OUT OF RANGE REFERENCE UNITS LAB L8200.2100 Negative Normal Chlam Negative Trac PCR LAB L8200.2200 Negative Normal NG by Negative PCR Performed By: #### L8200.2000 #### [facility] [address] [place], [address] Observed: 07/11/2017 Status: F Source: [place]ADY CULTURE, URINE 2:53 PM [facility] REPOSITORY CYTOLOGY INFORMATION: - CLINICAL INFORMATION: - DATE LMP/MENOPAUSE: LMP n/a - COLLECTION VIAL: Thin Prep Vial - GENETIC SUPERVISOR SOURCE: CERVICAL - COLLECTION TECHNIQUE: BRUSH ONLY/ cervix broom only Urine Culture Culture exhibits no growth. Performed By: #### M100.0650 #### [facility] [address] [place], [address] PAP IG HPV HR Collected: 07/11/2017 Status: F Source: MADY APTIMA 2:53 PM [facility] REPOSITORY Order Comment: Specimen Comment: No. of containers..01 ThinPrep Vial TYPE CODE TESTS RESULT OUT OF RANGE REFERENCE UNITS LAB L7400.0800 . Normal DIAGN Comment Result Comment: NEGATIVE FOR INTRAEPITHELIAL LESION AND MALIGNANCY. THIS SPECIMEN WAS RESCREENED PART OF OUR BLUEPRINT MAKER PROGRAM. LAB L7400.0900 . Normal ADEQ Comment Result Comment: Satisfactory for evaluation. Endocervical and/or squamous metaplastic cells (endocervical component) are present. LAB L7400.1400 . Normal PERFORM Comment Result Comment: Kristie Byers, Fast Food Cashier (ASCP) LAB L7400.1500 . Normal QC Comment REV Result Comment: Tamara Cohen, Supervisory Fast Food Cashier (ASCP) LAB L7400.2575 . Normal TEST METHOD Comment Result Comment: This liquid based ThinPrep(R) pap test was screened with the use of an image guided system. LAB L7400.2600 . Normal . COMM LAB L7400.2700 . Normal PAPSMR Comment Result Comment: The Pap smear is a screening test designed to aid in the detection of premalignant and malignant conditions of the uterine cervix. It is not a diagnostic procedure and should not be used as the sole means of detecting cervical cancer. Both false-positive and false-negative reports do occur. LAB L7400.2760 Negative Normal HPV APTIMA, Negative HR Result Comment: This test detects fourteen high-risk HPV types (16/18/31/33/35/39/45/ 51/52/56/58/59/66/68) without differentiation. Performed at: - [facility] [address] [id number] Bank Teller Machine Mechanic: Yuliya Knapp MD, Phone: [phone] Performed at: =G - [facility] [address] [id number] Bank Teller Machine Mechanic: Yuliya Knapp MD, Phone: [phone] Performed By: #### L7400.0377 #### [facility] (refer to report for specific site) refer to report for address and phone number ALLERGIES ALLERGIES DATE TYPE / CODE NAME / CODE REACTION SEVERITY SOURCE Drug iodine/Y374946 Anaphylaxis SV [place] 9 Allergy/045110343( 852(RXNORM) [facility] Repository Drug codeine/P02008 Anaphylaxis SV [place] 9 Allergy/736084360( 1550(RXNORM) [facility] Hospital Repository Drug acetaminophen/ Anaphylaxis SV [place] 9 Allergy/777012421( Z237582683(RXN [facility]) OR) Hospital Repository Drug shellfish Anaphylaxis SV [place] 9 Allergy/281137568( derived/E23321 [facility]) 1754(RXNORM) Hospital Repository Drug No Known Unknown [place] 8 Allergy/070195494( Allergies/F001 [facility]) 664746(RXNORM) Hospital Repository Miscellaneous tylenol throat swelling MD [place] 8 Allergy/743178188( codeine [facility] Hospital Repository DRUG CODEINE Tylenol with [place] 6 INGREDI/424400688( codeine. [facility] Hospital Repository Drug SHELLFISH-DERI [place] 5 Class/795155949(SN SAAD PRODUCTS [facility] OMED CT) Hospital Repository DRUG IODINE [place] 1 INGREDI/273363964( [facility] SN[facility]) Hospital Repository DRUG SHELLFISH [place] 1 INGREDI/753421459( ALLERGY [facility] SN[facility]) Hospital Repository ENCOUNTERS ENCOUNTERS ADMIT/DISCHARGE ACCOUNT NUMBER ADMITTING ENCOUNTER LOCATION SOURCE CLASS 04/09/2018/04/09/19 [id number] Ambulatory BMSBuilding: [place] 19 BMS.[facility] Repository 03/20/2018/03/20/19 [id number] Ambulatory BMSBuilding: [place] 19 BMS.[facility] Repository 03/06/2018/03/07/20 [id number] Emergency [address] ding:ED Repository 02/28/2018 [id number] Ambulatory [facility] Repository 02/26/2018/02/27/20 [id number] Ambulatory [address] ding:WPOUTRo Repository om: WPOLRM 02/18/2018 [id number] Jelani, Ambulatory BMSBuilding: [place] Alyssa BMS.CF.[facility] Repository 02/18/2018/02/23/20 [id number] Jelani, Inpatient [place] 18 Alyssa Encounter [facility] ding:WPRoom: Repository PO051Jes: 1 02/18/2018 [id number] Jelani, Ambulatory BMSBuilding: [place] Alyssa BMS.CF.[facility] Repository 02/18/2018 [id number] Jelani, Ambulatory BMSBuilding: [place] A[place] BMS.CF.[facility] Repository 02/18/2018 [id number] Jelani, Ambulatory BMSBuilding: [place] Alyssa BMS.CF.[facility] Repository 02/18/2018 [id number] Jelani, Ambulatory BMSBuilding: [place] Alyss[place] BMS.CF.[facility] Repository 02/14/2018/02/15/20 [id number] Ambulatory BMSBuilding: [place] 18 BMS.[facility] Repository 02/11/2018 [id number] Ambulatory Building[facility] Repository 02/11/2018 [id number] Ambulatory Building:[facility] Repository 02/06/2018/02/07/20 [id number] Ambulatory BMSBuilding: [place] 18 BMS.[facility] Repository 02/04/2018 [id number] Ambulatory Building:[facility] Repository 02/04/2018 [id number] Ambulatory Building:[facility] Repository 01/31/2018 [id number] Ambulatory [facility] ding:LABSPEC Repository 01/31/2018/02/01/20 [id number] Ambulatory BMSBuilding: [place] 18 BMS.[facility] Repository 01/28/2018 [id number] Ambulatory Building:[facility] Repository 01/28/2018 [id number] Ambulatory Building:[facility] Repository 01/24/2018/01/25/20 [id number] Ambulatory BMSBuilding: [place] 18 BMS.[facility] Repository 01/21/2018 [id number] Ambulatory Building:[facility] Repository 01/21/2018 [id number] Ambulatory Building:[facility] Repository 01/18/2018/01/19/20 [id number] Ambulatory BMSBuilding: [place] 18 BMS.[facility] Repository 01/14/2018 [id number] Ambulatory Building:[facility] Repository 01/14/2018 [id number] Ambulatory Building:[facility] Repository 01/08/2018/01/09/20 [id number] Ambulatory Building:[address] Repository 01/08/2018/01/09/20 [id number] Ambulatory Building:[address] Repository 01/08/2018/01/09/20 [id number] Ambulatory Building:[address] Repository 01/04/2018 [id number] Ambulatory BMSBuilding: [place] BMS.CF.[facility] Repository 01/04/2018 [id number] Ambulatory [facility] ding:OPUS Repository 01/04/2018/01/05/20 [id number] Ambulatory [address] ding:WPOUTRo Repository om: WP016 01/04/2018/01/05/20 [id number] Ambulatory BMSBuilding: [place] 18 BMS.[facility] Repository 12/21/2017/12/22/19 [id number] Ambulatory BMSBuilding: [place] 18 BMS.[facility] Repository 12/13/2017 [id number] Ambulatory [facility] ding:LAB Repository 12/04/2017 [id number] Ambulatory [facility] ding:LAB Repository 12/04/2017/12/05/19 [id number] Ambulatory BMSBuilding: [place] 18 BMS.[facility] Repository 11/07/2017/11/08/19 [id number] Ambulatory BMSBuilding: [place] 18 BMS.[facility] Repository 10/11/2017/10/12/19 [id number] Ambulatory BMSBuilding: [place] 18 BMS.[facility] Repository 10/03/2017 [id number] Ambulatory [facility] ding:OPUS Repository 09/13/2017 [id number] Ambulatory BMSBuilding: [place] BMS.[facility] Repository 09/11/2017/09/12/19 [id number] Ambulatory BMSBuilding: [place] 18 BMS.[facility] Repository 08/29/2017/08/30/19 [id number] Ambulatory BMSBuilding: [place] 18 BMS.[facility] Repository 08/09/2017 [id number] Ambulatory [facility] ding:LAB Repository 08/09/2017/08/10/19 [id number] Ambulatory BMSBuilding: [place] 18 BMS.[facility] Repository 07/12/2017 [id number] Ambulatory [facility] ding:LABSPEC Repository 07/11/2017 [id number] Ambulatory BMSBuilding: [place] BMS.[facility] Repository 07/11/2017/07/12/19 [id number] Ambulatory BMSBuilding: [place] 18 BMS.[facility] Repository PAYERS PAYERS ENCOUNTER GUARANTOR PAYER SUBSCRIBER SOURCE 04/09/2018 SINGH [place] Primary SINGH [id number] Insurance:[facility] BLACKDOB: [facility] [address]Giuvvi [id number] Number[place] Repository [address]Jln: [phone] [id number] [facility]0290 (HP) Date:8590-98-27OW [address] [address]BR: 04/09/2018 Secondary NOT GIVENUNK [place] Insurance:SELF PAY [facility] Number: Effective Repository Date:2018-04-09 03/20/2018 SINGH C Primary SINGH C [place] [id number] Insurance:[facility] BLACKDOB: [address] [id number] [facility] Number: Repository [address]Yte: 330 [id number] [phone] (HP) Date:8244-72-21JS [address] [address]EG: 03/20/2018 Secondary NOT GIVENUNK [place] Insurance:SELF PAY [facility] Number: Effective Repository Date:2018-03-20 03/06/2018 SINGH C Primary SINGH C [place] [id number] Insurance:[facility] BLACKDOB: [address] [id number] Memorial [facility] Number: Repository [address]Yha: 330 [id number] [phone] () Date:1190-90-70FU[address] [address]EP: 03/06/2018 Secondary NOT GIVENUNK [place] Insurance:SELF PAY [facility] Number: Effective Repository Date:2018-03-06 02/28/2018 Singh C Primary Singh C [facility] BlackDOB: Insurance:United BlackDOB: System [id number] [facility] [id number] [facility] Number: Effective [place], [place] Date: [address]Sya: () 02/26/2018 SINGH C Primary SINGH C [place] [id number] Insurance:[facility] BLACKDOB: [address] [id number] Memorial [facility], [place] Number: Repository [address]Dbq: 330 [id number] [phone] (HP) Date:0383-45-14LZ [facility] [address]QOONRBJ, [place] [address]YC: 02/26/2018 Secondary NOT GIVENUNK [place] Insurance:SELF PAY [facility] Number: Effective Repository Date:2018-02-26 02/18/2018 SINGH C Primary SINGH C [place] [id number] Insurance:[facility] BLACKB: [address] [id number] View [facility] [place] Number: Repository [address]Iud: 330 [id number] [phone] () Date:0823-29-46PH [address]PMJEYXI, [place] [address]ZP: 02/18/2018 Secondary NOT GIVENUNK [place] Insurance:SELF PAY [facility] Number: Effective Repository Date:2018-02-18 02/18/2018 SINGH C Primary SINGH C [place] [id number] Insurance:[facility] BLACKB: [address] [id number] View Regional Medical [facility] [place] Number: Repository [address]Ifg: 330 [id number] [phone] () Date:7954-61-00NU [address]RRGZEEW, [place] [address]ZR: 02/18/2018 Secondary NOT GIVENUNK [place] Insurance:SELF PAY [facility] Number: Effective Repository Date:2018-02-11 02/18/2018 SINGH C Primary SINGH C [place] [id number] [facility] [id number] View Regional Medical [facility] [place] Number: Repository [address]Gbx: 330 [id number] [phone] () Date:1876-99-99ME [facility] [address]99974NKFYFOG, [place] [address]UR: 02/18/2018 Secondary NOT GIVENUNK [place] Insurance:SELF PAY [facility] Number: Effective Repository Date:2018-02-18 02/18/2018 SINGH C Primary SINGH C [place] [id number] Insurance:[place] BLACKDOB: [facility] [id number], [place] Number: Repository [address]Xvd: 330 [id number] [phone] (HP) Date:2206-46-15KD [address]YPOFBCN, [place] [address]UL: 02/18/2018 Secondary NOT GIVENUNK [place] Insurance:SELF PAY [facility] Number: Effective Repository Date:2018-02-18 02/18/2018 SINGH C Primary SINGH C [place] [id number] Insurance:UNITED BLACKDOB: [facility] [id number] Memorial [facility] Number: Repository [address]Ifx: 330 [id number] [phone] (HP) Date:6831-87-96YV [address]KYSWFTH, [place] [address]JJ: 02/18/2018 Secondary NOT GIVENUNK [place] Insurance:SELF PAY [facility] Number: Effective Repository Date:2018-02-18 02/18/2018 SINGH C Primary SINGH C [place] [id number] Insurance:[facility] BLACKDOB: [place] [id number] [id number] [facility], [place] Number: Repository [address]Hdd: 330 [id number] [phone] (HP) Date:8716-11-74QS [address]VPLAHBE [place] [address]GG: 02/18/2018 Secondary NOT GIVENUNK [place] Insurance:SELF PAY [facility] Number: Effective Repository Date:2018-02-18 02/14/2018 SINGH C Primary SINGH C [place] [id number] Insurance:[facility]: [facility] [id number], [place] Number: Repository [address]Dll: 330 [id number] [phone] (HP) Date:2529-74-72FT [address]DEIHCTG, [place] [address]EP: 02/14/2018 Secondary NOT GIVENUNK [place] Insurance:SELF PAY [facility] Number: Effective Repository Date:2018-01-18 02/11/2018 SINGH Primary SINGH [facility] BLACKDOB: Insurance:UNITED BLACKDOB: Hospital HEALTHCAREPolicy [id number] Repository [place] Number: [address] [place], [place] [id number] [place] [address]Xrk: (330) Date: (HP) 02/11/2018 SINGH Primary SINGH [facility] BLACKDOB: Insurance:UNITED BLACKDOB: [facility] [id number] Repository [place] Number: [address] [place], [place] [id number] [place] [address]Vhs: (330) Date: (HP) 02/06/2018 SINGH C Primary SINGH C [place] [id number] Insurance:UNITED BLACKDOB: [facility] [id number] [facility] [place] Number: Repository [phone]: [phone] [id number] (HP) Date:6921-12-84BD [facility] [address]85956WCXPIBK, [place] [address]MX: 02/06/2018 Secondary NOT GIVENUNK [place] Insurance:SELF PAY [facility] Number: Effective Repository Date:2018-02-05 02/04/2018 SINGH Primary SINGHBRANT [facility] BLACKDOB: Insurance:UNITED BLACKDOB: [facility] [id number] Repository [place] Number: [address] [place], [place] [id number] [place] [address]Ndo: (330) Date: (HP) 02/04/2018 SINGH Primary SINGHBRANT [facility] BLACKDOB: Insurance:UNITED BLACKDOB: Hospital HEALTHCAREPolicy [id number] Repository [place] Number: [address] [place], [place] [id number] [place] [address]Tse: (330) Date: (HP) 01/31/2018 SINGH C Primary SINGH C [place] [id number] Insurance:[facility] BLACKDOB: [facility] [id number] [id number] Memorial Hospital, [place] Number: Repository [address]Zux: 330 [id number] (HP) Date:6821-22-33AV[address] [address]SV: 01/31/2018 Secondary NOT GIVENUNK [place] Insurance:SELF PAY [facility] Number: Effective Repository Date:2018-01-31 01/31/2018 SINGH C Primary SINGH C [place] [id number] Insurance:[facility]: [facility] [id number] View [facility] [place] Number: Repository [address]Ekh: 330 [id number] (HP) Date:7847-35-27TJ [address]OELRLZT, [place] [address]EN: 01/31/2018 Secondary NOT GIVENUNK [place] Insurance:SELF PAY [facility] Number: Effective Repository Date:2018-01-31 01/28/2018 SINGH Primary SINGH [facility] BLACKDOB: [facility] [id number] Repository [place] Number: [address] [place], [place] [id number] [place] [address]Tjd: (330) Date: (HP) 01/28/2018 SINGH Primary SINGH [facility] BLACKDOB: Insurance:[facility]: [facility] [id number] Repository [place] Number: [address] [place], [place] [id number] [place] [address]Qff: (330) Date: (HP) 01/24/2018 SINGH C Primary SINGH C [place] [id number] Insurance:UNITED BLACKDOB: [facility] [id number] Memorial [facility] Number: Repository [address]Zoi: 330 [id number] (HP) Date:2815-40-36PW [facility] 415214AWHTYPA, [place] [address]MT: 01/24/2018 Secondary NOT GIVENUNK [place] Insurance:SELF PAY [facility] Number: Effective Repository Date:2018-01-24 01/21/2018 SINGH Primary SINGHBRANT [facility] BLACKDOB: Insurance:UNITED BLACKDOB: Hospital [facility] [id number] Repository [place] Number: [address] [place], [place] [id number] [place] [address]Shn: (330) Date: (HP) 01/21/2018 SINGH Primary SINGH [facility] BLACKDOB: Insurance:UNITED BLACKDOB: Hospital [facility] [id number] Repository [place] Number: [address] [place], [place] [id number] [place] [address] 169[address]Fzv: (330) Date: (HP) 01/18/2018 SINGH C Primary SINGH C [place] [id number] Insurance:UNITED BLACKDOB: [facility] [id number] Memorial Hospital, [place] Number: Repository [address]Oxn: 330 [id number] (HP) Date:1548-22-88CJ [address]YRCOIVB, [place] [address]HC: 01/18/2018 Secondary NOT GIVENUNK [place] Insurance:SELF PAY [facility] Number: Effective Repository Date:2018-01-10 01/14/2018 SINGH Primary SINGH [facility] BLACKDOB: Insurance:UNITED BLACKDOB: [facility] [id number] Repository [place] Number: [address] [place], [place] [id number] [place] [address]Gnk: (330) Date: (HP) 01/14/2018 SINGH Primary SINGHPAT [facility] BLACKDOB: Insurance:UNITED BLACKDOB: [facility] [id number] Repository [place] Number: [address] [place], [place] [id number] [place] [address]Osa: (330) Date: (HP) 01/08/2018 SINGH Primary SINGH [place] [facility] BLACKDOB: Insurance:UNITED BLACKDOB: [facility] [id number] Repository [place] Number: [address] [place], [place] [id number] [place] [address] 06853Pel: (330) Date: (HP) 01/08/2018 SINGH Primary SINGH [facility] BLACKDOB: Insurance:UNITED BLACKDOB: [facility] [id number] Repository [place] Number: [address] [place], [place] [id number] [place] [address] 07117Uip: (330) Date: (HP) 01/08/2018 SINGH Primary SINGHBRANT [facility] BLACKDOB: Insurance:UNITED BLACKDOB: [facility] [id number] Repository [place] Number: [address] [place], [place] [id number] [place] [address] 84[address]Tyv: (330) Date: (HP) 01/04/2018 SINGH C Primary SINGH C [place] [id number] Insurance:MENDON BLACKDOB: [facility] [id number] [facility] [place] Number: Repository [address]Qrb: [phone] [id number] (HP) Date:6772-95-93DC MARJORIE 346227YHNKXBR, [place] [address]GX: 01/04/2018 Secondary NOT GIVENUNK Alvarado Insurance:SELF PAY [facility] Number: Effective Repository Date:2018-01-04 01/04/2018 SINGH C Primary SINGH C Mady [id number] Insurance:UNITED BLACKDOB: [address], [place] Number: Repository [id number]: 330 [id number] [phone] () Date:0106-87-02JX[address] [address]TA: 01/04/2018 Secondary NOT GIVENUNK Mady Insurance:SELF PAY [facility] Number: Effective Repository Date:2017-12-06 01/04/2018 SINGH C Primary SINGH C Mady [id number] Insurance:UNITED BLACKDOB: [address], [place] Number: Repository [id number]: 330 [id number] [phone] () Date:0538-32-99ET [address] [address]NF: 01/04/2018 Secondary NOT GIVENUNK Mady Insurance:SELF PAY [facility] Number: Effective Repository Date:2018-01-04 01/04/2018 SINGH C Primary SINGH C [place] [id number] Insurance:UNITED BLACKDOB: [facility] [id number], [place] Number: Repository [address]Uhd: 330 [id number] [phone] () Date:9706-91-25BA[address] [address]OH: 01/04/2018 Secondary NOT GIVENUNK Mady Insurance:SELF PAY [facility] Number: Effective Repository Date:2018-01-04 12/21/2017 SINGH C Primary SINGH C Mady [id number] Insurance:UNITED BLACKDOB: [address], [place] Number: Repository [id number]: 330 [id number] [phone] () Date:9427-04-07ZF [address]HNZHWGS, [place] [address]VC: 12/21/2017 Secondary NOT GIVENUNK [place] Insurance:SELF PAY [facility] Number: Effective Repository Date:2017-12-21 12/13/2017 SINGH C Primary SINGH C Mady [id number] Insurance:[facility]: [facility] [id number] Number[place]ository [address]Gnv: 330 [id number] [phone] () Date:6264-48-68FJ [address]QSSIHQX, [place] [address]HS: 12/13/2017 Secondary NOT GIVENUNK Mady Insurance:SELF PAY [facility] Number: Effective Repository Date:2017-12-05 12/04/2017 SINGH C Primary SINGH C Alvarado [id number] Insurance:UNITED BLACKDOB: [facility] [id number] Number: Repository [id number]: 330 [id number] [phone] () Date:7685-40-90UN [address], [place] [address]FT: 12/04/2017 Secondary NOT GIVENUNK [place] Insurance:SELF PAY [facility] Number: Effective Repository Date:2017-12-04 12/04/2017 SINGH C Primary SINGH C [place] [id number] Insurance:UNITED BLACKDOB: [facility] 4529-57-92[place] Number: Repository [id number]: 330 [id number] [phone] () Date:7646-26-77SQ [address]ARSREXU, [place] [address]LH: 12/04/2017 Secondary NOT GIVENUNK Mady Insurance:SELF PAY [facility] Number: Effective Repository Date:2017-12-04 11/07/2017 SINGH C Primary SINGH C Al[place] [id number] Insurance:UNITED BLACKDOB: [address]16[facility] [place] Number: Repository [address]Jpc: 330 [id number] [phone] () Date:6702-21-54HZ [facility] [id number] [place] [address]HK: 11/07/2017 Secondary NOT GIVENUNK [place] Insurance:SELF PAY [facility] Number: Effective Repository Date:2017-11-07 10/11/2017 SINGH C Primary SINGH C [place] [id number] Insurance:UNITED BLACKDOB: [id number] [place] Number[facility] Repository [address]Hbu: 330 [id number] [phone] () Date:7475-88-97NE [address] [place] [address]BQ: 10/11/2017 Secondary NOT GIVENUNK [place] Insurance:SELF PAY [facility] Number: Effective Repository Date:2017-10-11 10/03/2017 SINGH C Primary SINGH C [place] [id number] Insurance:UNITED BLACKDOB: [facility] 4156-41-35BP[facility]res [facility] [place] Number[place] Repository [address]Nkf: 330 [id number] [phone] () Date:6595-01-74HP [address] [address]YS: 10/03/2017 Secondary NOT GIVENUNK [place] Insurance:SELF PAY [facility] Number: Effective Repository Date:2017-09-18 09/13/2017 SINGH C Primary SINGH C [place] [id number] Insurance:UNITED BLACKDOB: [facility] 7868-63-77[facility]AKMimbres [facility] [place] Number[place] Repository [address]Dvp: 330 [id number] [phone] () Date:8429-44-00PJ [address] [place] [address]OW: 09/13/2017 Secondary NOT GIVENUNK Mady Insurance:SELF PAY [facility] Number: Effective Repository Date:2017-08-09 09/11/2017 SINGH C Primary SINGH C [place] [id number] Insurance:[facility] [address]16[facility] [place] Number: Repository [address]Ljj: 330 [id number] [phone] (HP) Date:3134-64-96XB [address]OVUYWXX, [place] [address]LH: 09/11/2017 Secondary NOT GIVENUNK Al[place] Insurance:SELF PAY [facility] Number: Effective Repository Date:2017-09-11 08/29/2017 SINGH C Primary SINGH C [place] [id number] Insurance:[facility]: [facility] [id number] [place] Number: Repository [address]Prv: 330 [id number] [phone] (HP) Date:7153-98-35BO [address]QKFCKPB, [place] [address]QY: 08/29/2017 Secondary NOT GIVENUNK Mady Insurance:SELF PAY [facility] Number: Effective Repository Date:2017-08-29 08/09/2017 SINGH C Primary SINGH C Mady [id number] Insurance:UNITED NORFOLKDOB: [address] [place] Number: Repository [id number]: 330 [id number] [phone] (HP) Date:2375-83-35FU [address]DAEGUGX, [place] [address]RB: 08/09/2017 Secondary NOT GIVENUNK Mady Insurance:SELF PAY [facility] Number: Effective Repository Date:2017-08-09 08/09/2017 SINGH C Primary SINGH C [place] [id number] Insurance:[facility]: [address] [place] Number: Repository [id number]: 330 [id number] [phone] (HP) Date:9503-82-84CT [address]DSWPDPM, [place] [address]LO: 08/09/2017 Secondary NOT GIVENUNK Mady Insurance:SELF PAY [facility] Number: Effective Repository Date:2017-08-09 07/12/2017 SINGH C Primary SINGH C Alvarado [id number] Insurance:UNITED BLACKDOB: [facility] 1707-31-64[place]HCres[place] Number: Repository [address]Jtt: [phone] [id number] [phone] (HP) Date:9353-49-41XU [address]KRDPJTR, [place] [address]CO: 07/12/2017 Secondary NOT GIVENUNK Mady Insurance:SELF PAY [facility] Number: Effective Repository Date:2017-07-12 07/11/2017 Primary Insurance:SELF NOT GIVENUNK Mady [facility] Number: Effective Hospital Date:2017-06-25 Repository 07/11/2017 SINGH Primary SINGH Mady [id number] Insurance:UNITED BLACKDOB: [facility] [place]43-[place] Repository [id number]: [phone] [id number] [phone] () Date:2017-07-05 07/11/2017 Secondary NOT GIVENUNK Alvar[place] Insurance:SELF PAY [facility] Number: Effective Repository Date:2017-07-11
== END 2018-02-26 12:15 | disposition home or self-care (01) ==
LOC: WPOUT 10:29 → WP 10:30
PROVIDERS: Family Provider Family Medicine; PCP Family Medicine; Referring Provider Obstetrics & Gynecology; Visit Provider Obstetrics & Gynecology
DX: O99.019 Anemia complicating pregnancy, unspecified trimester (principal); Z3A.00 Weeks of gestation of pregnancy not specified
CPT/HCPCS: 36415; 85025; 96152

== ENCOUNTER 2018-03-06 23:51 | Emergency (ER) | payer OTHER, SELFPAY ==
[2018-03-06 23:53] VITALS: BP 137/90; PULSE 101; RESP 18; TEMP 36.4; O2SAT 98; BMI 36.8
[2018-03-07 00:26] VITALS: BP 137/90; PULSE 101; RESP 18; TEMP 36.4; O2SAT 98
[2018-03-07] MEDS: 0.9% Normal Saline 1,000 ML 1000 ML IV (00:32)
[2018-03-07 00:34] LABS: Absolute Lymphocyte Count 1.32 X10^3/ul (0.83-4.51); Absolute Neutrophil Count 6.8 X10^3/uL (2.0-7.7); Basophil# 0.02 X10^3/uL; Basophil% 0.2 % (0-1); Eosinophil# 0.15 X10^3/uL; Eosinophils% 1.7 % (0-5); Hematocrit 31.8 % (37-47); Hemoglobin 9.6 g/dl (12.0-15.0); Lymphocyte # 1.32 X10^3/ul (4.0); Lymphocyte % 14.6 % (19-41); Mean Corp Hgb Conc 30.2 g/gl (32-36); Mean Corpuscular Hgb 23.6 pg (27.0-32.0); Mean Corpuscular Volume 78.3 fL (81-99); Mean Platelet Vol. 9.2 fl (6.2-12.0); Monocyte# 0.72 X10^3/uL; Neutrophil # 6.78 X10^3/uL (2.7-7.7); Neutrophil % 75.1 % (47-70); POSITIVE COUNT NO; POSITIVE DIFFERENTIAL NO; POSITIVE MORPHOLOGY NO; Platelet Count 405 K/mm3 (150-450); RBC Distribution Width CV 16.2 % (11.6-14.6); RBC Distribution Width SD 44.9 fl (35.1-43.9); Red Blood Count 4.06 M/mm3 (4.2-5.4)
[2018-03-07 00:35] VITALS: BP 102/58; BP 133/92; BP 134/98; PULSE 78; PULSE 97; PULSE 98
--- NOTE | 2018-03-07 01:03 | US_ITS ---
STUDY: ULTRASOUND OF THE FEMALE PELVIS - COMPLETE REASON FOR EXAM: Female, 33 years old. Heavy abnormal vaginal bleeding. Patient had recent vaginal delivery on February 20, 2018. LMP: TECHNIQUE: Transabdominal TECHNICAL QUALITY: Adequate. COMPARISON: No previous studies are available for comparison at the time of dictation. FINDINGS: The uterus is anteverted and is in a midline position. The uterus measures 13.1 x 7.5 x 10.1 cm. Normal uterine cervix. The endometrium measures 21 mm in thickness, and is heterogeneous in echogenicity. There is no demonstrated endometrial mass or internal vascularity. There is no demonstrated myometrial mass. I.U.D. - The patient does not have an I.U.D. The right ovary is visualized. The right ovary measures 2.6 x 2.1 x 1.5 cm. There is no right ovarian cyst or ovarian mass. There is no visualized right adnexal mass or complex lesion. There is normal arterial and normal venous vascularity. The left ovary is visualized. The left ovary measures 4.1 x 1.2 x 2.9 cm. There is no left ovarian cyst or ovarian mass. There is no visualized left adnexal mass or complex lesion. There is normal arterial and normal venous vascularity. There is no fluid in the cul-de-sac. The pre void volume of the bladder was 136.8 ml. Polycystic ovary disease: No. US/Pelvic (Non ) IMPRESSION: 1. Heterogeneous and thickened endometrium without definite evidence for retained products of conception. 2. Normal sonographic appearance of both ovaries. Electronically Signed: Elba Crook MD at 2:40 EST , Service support ,
[2018-03-07 01:12] VITALS: BP 102/58; PULSE 98; RESP 18; TEMP 36.4; O2SAT 98
[2018-03-07] MEDS: 0.9% Normal Saline 1,000 ML 999 ML IV (01:28)
[2018-03-07 02:58] VITALS: BP 135/99; BP 149/107; BP 153/99; PULSE 65; PULSE 80; PULSE 85
--- NOTE | 2018-03-07 03:09 | ED.VISSUMM ---
- ER Visit Summary Date of Service: 03/07/18 Chief Complaint: [Vaginal bleeding] History of Present Illness: The patient is a 33 F [presents to the emergency department the bleeding that started around 10:15 PM tonight. Patient states that she delivered a baby 2 weeks ago. Patient had a vaginal delivery. Patient is concerned because she is passing large amount of blood and clots. Patient complains of feeling somewhat lightheaded. Patient has been somewhat anemic but her last hemoglobin this week was 10.1. Patient denies any abdominal pain.] Physical Examination: [HEENT-PERRLA, EOMI. Cranial nerves II through XII grossly intact. TMs clear. Mucous membranes moist. No adenopathy. Cardiovascular-regular and tachycardic with a heart rate of 101. No murmurs auscultated. Lungs-clear to auscultation, chest wall stable without crepitus or subcu emphysema Abdomen-normoactive bowel sounds, soft, nontender, no rebound or rigidity, no peritoneal signs. exam-patient had large amount of clot and blood within the vaginal vault which once removed noted small amount of clot from the cervical loss with just a small amount of blood oozing from the office. Fundal height is group home between the umbilicus and pubic symphysis. Extremities-intact ?4, normal range of motion, normal pulses, atraumatic] Test Results: [Initial orthostatics were positive. CBC with differential showed a white count of 9.0, hemoglobin 9.6, hematocrit 32, platelets 405.] Pelvic ultrasound showed uterus measuring 13 x 7.5 x 10 cm. Patient had heterogenous thickened endometrium. No evidence for retained products. Emergency Department Course and Treatment: [Case was discussed with Dr. Holguin] who asked that we give patient more IV fluids and repeat orthostatics. I was asked to obtain an ultrasound. After repeat fluid bolus patient orthostatics are negative and patient ambulated to the bathroom and back without difficulty. Patient's bleeding has diminished significantly. I discussed case a second time with Dr. Holguin who asked that patient take daily iron and follow-up with their office first week of March. Treatment Plan: [Follow-up with [facility] first week of March. Advised to return if persistent heavy bleeding or condition should worsen anyway. Disposition: [Discharged home in stable condition] Impression: [Irregular vaginal bleeding] This note was generated with [employer] dictation software. It may contain incorrect words, spelling, and punctuation that were not noted in review of the chart prior to signing ED Disposition - Plan for ED Patient: Chief Complaint: Vag Bleeding Referrals: Trina Ibrahim MD [Primary Care Provider] -
--- NOTE | 2018-03-07 03:14 | ED.DCSUM_ITS ---
- ER Visit Summary Date of Service: 03/07/18 Chief Complaint: [Vaginal bleeding] History of Present Illness: The patient is a 33 F [presents to the emergency department the bleeding that started around 10:15 PM tonight. Patient states that she delivered a baby 2 weeks ago. Patient had a vaginal delivery. Patient is concerned because she is passing large amount of blood and clots. Patient complains of feeling somewhat lightheaded. Patient has been somewhat anemic but her last hemoglobin this week was 10.1. Patient denies any abdominal pain.] Physical Examination: [HEENT-PERRLA, EOMI. Cranial nerves II through XII grossly intact. TMs clear. Mucous membranes moist. No adenopathy. Cardiovascular-regular and tachycardic with a heart rate of 101. No murmurs auscultated. Lungs-clear to auscultation, chest wall stable without crepitus or subcu emphysema Abdomen-normoactive bowel sounds, soft, nontender, no rebound or rigidity, no peritoneal signs. exam-patient had large amount of clot and blood within the vaginal vault which once removed noted small amount of clot from the cervical loss with just a small amount of blood oozing from the office. Fundal height is longterm between the umbilicus and pubic symphysis. Extremities-intact ?4, normal range of motion, normal pulses, atraumatic] Test Results: [Initial orthostatics were positive. CBC with differential showed a white count of 9.0, hemoglobin 9.6, hematocrit 32, platelets 405.] Pelvic ultrasound showed uterus measuring 13 x 7.5 x 10 cm. Patient had heterogenous thickened endometrium. No evidence for retained products. Emergency Department Course and Treatment: [Case was discussed with Dr. Holguin] who asked that we give patient more IV fluids and repeat orthostatics. I was asked to obtain an ultrasound. After repeat fluid bolus patient orthostatics are negative and patient ambulated to the bathroom and back without difficulty. Patient's bleeding has diminished significantly. I discussed case a second time with Dr. Holguin who asked that patient take daily iron and follow-up with their office first week of March. Treatment Plan: [Follow-up with [facility] first week of March. Advised to return if persistent heavy bleeding or condition should worsen anyway. Disposition: [Discharged home in stable condition] Impression: [Irregular vaginal bleeding] This note was generated with [employer] dictation software. It may contain incorrect words, spelling, and punctuation that were not noted in review of the chart prior to signing ED Disposition - Plan for ED Patient: Chief Complaint: Vag Bleeding Referrals: Trina Ibrahim MD [Primary Care Provider] -
--- NOTE | 2018-03-07 03:14 | ED.DEP ---
ED Disposition - Plan for ED Patient: Chief Complaint: Vag Bleeding Instructions: ED Bleed Irregular Vaginal Referrals: Trina Ibrahim MD [Primary Care Provider] - Alyssa Conway MD [STAFF PHYSICIAN] - As Needed
== END 2018-03-07 03:26 | disposition home or self-care (01) ==
LOC: ED 03-07 00:28
PROVIDERS: Emergency Provider Emergency Medicine; Family Provider Family Medicine; PCP Family Medicine
DX: O72.1 Other immediate postpartum hemorrhage (principal); R93.89 Abnormal findings on diagnostic imaging of other specified body structures
CPT/HCPCS: 76856; 85025; 86850; 86900; 96360; 96361; 99284; J7030; A4216

== ENCOUNTER → 2019-07-16 14:00 | Outpatient (CLI) | payer OTHER, SELFPAY ==
[2019-07-16 11:42] VITALS: BMI 36.8
[2019-07-16 14:57] LABS: Amphetamine Urine VISTA NEGATIVE (<1000 ng/mL); Barbiturate Urine VISTA NEGATIVE (< 200 ng/mL); Benzodiazepine Urine VISTA NEGATIVE (< 200 ng/mL); Cocaine Urine VISTA NEGATIVE (< 300 ng/mL); Ecstacy Urine VISTA NEGATIVE (< 500 ng/mL); Methadone Urine VISTA NEGATIVE (< 300 ng/mL); PCP Urine VISTA NEGATIVE (< 25 ng/mL); THC Urine VISTA NEGATIVE (< 50 ng/mL); Vista UDS pH Range 6
[2019-07-16 16:30] LABS: Chlamydia Trachomatis by PCR Negative (Negative); Neisserai gonorrhoeae by PCR Negative (Negative); Probe Check PASS; Sample Adequacy Control PASS; Specimen Processing Control PASS
== END ==
PROVIDERS: PCP Family Medicine; Referring Provider Obstetrics & Gynecology; Visit Provider Obstetrics & Gynecology
DX: Z34.91 Encounter for supervision of normal pregnancy, unspecified, first trimester (principal)
CPT/HCPCS: 80307; 87086; 87088; 87491; 87591

== ENCOUNTER → 2019-08-06 08:58 | Outpatient (CLI) | payer OTHER, SELFPAY ==
[2019-07-16 11:42] VITALS: BMI 36.8
[2019-08-06 09:34] LABS: Absolute Lymphocyte Count 1.97 X10^3/uL (0.83-4.51); Absolute Neutrophil Count 7.8 X10^3/uL (2.0-7.7); Basophil# 0.02 X10^3/uL; Basophil% 0.2 % (0-1); Eosinophil# 0.12 X10^3/uL; Eosinophils% 1.1 % (0-5); Hemoglobin 12.2 g/dL (12.0-15.0); Lymphocyte # 1.97 X10^3/ul (4.0); Lymphocyte % 18.9 % (19-41); Mean Corp Hgb Conc 31.3 g/dL (32-36); Mean Corpuscular Hgb 26.2 pg (27.0-32.0); Mean Corpuscular Volume 83.7 fL (81-99); Mean Platelet Vol. 8.9 fl (6.2-12.0); Monocyte# 0.48 X10^3/uL; Monocyte% 4.6 % (0-10); NRBC Flagged by Analyzer 0 % (0-5); Neutrophil # 7.81 X10^3/uL (2.7-7.7); Neutrophil % 74.7 % (47-70); Platelet Count 275 K/mm3 (150-450); RBC Distribution Width CV 14.7 % (11.6-14.6); RBC Distribution Width SD 44.7 fl (35.1-43.9); Red Blood Count 4.66 M/mm3 (4.2-5.4); White Blood Count 10.5 K/mm3 (4.4-11.0)
[2019-08-06 10:04] LABS: Glucose Challenge Gest 1H 50g 166 mg/dL (70-140)
[2019-08-06 10:48] LABS: HIV - WCH Non-Reactive (Nonreactive); Hepatitis B Surface Antigen Non-Reactive (Nonreactive); Hepatitis C Antibody Non-Reactive (Nonreactive); Rubella IgG 38.8 IU/mL
[2019-08-07 02:20] LABS: Rapid Plasmin Reagin (RPR) NONREACTIVE (NONREACTIVE)
== END ==
PROVIDERS: PCP Family Medicine; Referring Provider Obstetrics & Gynecology; Visit Provider Obstetrics & Gynecology
DX: O99.210 Obesity complicating pregnancy, unspecified trimester (principal)
CPT/HCPCS: 36415; 82950; 85025; 86592; 86703; 86762; 86803; 86850; 86900; 86901; 87340

== ENCOUNTER → 2019-11-13 16:03 | Outpatient (CLI) | payer OTHER, SELFPAY ==
[2019-10-10 09:55] VITALS: BMI 36.8
[2019-11-07 09:13] VITALS: BMI 36.8
--- NOTE | 2019-11-13 16:03 | US_ITS ---
STUDY: SECOND AND THIRD TRIMESTER OBSTETRICAL ULTRASOUND - LIMITED REASON FOR EXAM: Female, 34 years old GROWTH LMP: 05/02/2019. PRIOR ULTRASOUND: None. TECHNIQUE: Transabdominal TECHNICAL QUALITY: Adequate. FINDINGS: There is a single intrauterine fetus. The fetus is in a cephalic presentation. There is demonstrated cardiac activity with a heart rate of 136 bpm. There is a normal amniotic fluid volume. The largest amniotic fluid pocket measures 6 cm. The amniotic fluid index (KENNY) is 20 cm. The placenta is anterior in location and is not low lying. There are Grade 1 placental changes. The cervix measures 5.9 cm in length. BIOMETRY: BPD: 6.66 cm: 26 weeks, 5 days HC: 25.77 cm: 28 weeks, 0 days AC: 23.98 cm: 28 weeks, 1 days FL: 5.12 cm: 27 weeks, 2 days Age by LMP: 27 weeks, 6 days. NIMA by LMP: 02/06/2020. age by current US: 27 weeks, 3 days. NIMA by current US: 02/09/2020. Estimated weight: 1135 grams, 47.7 percentile. US/OB Limited With Biometrics IMPRESSION: Single live uterine gestation with mean gestational age of 27 weeks and 3 days. Electronically Signed: Barron Ron, at 12:51 EDT , Service support ,
[2019-11-13 16:52] LABS: Absolute Lymphocyte Count 2.21 X10^3/uL (0.83-4.51); Absolute Neutrophil Count 11.2 X10^3/uL (2.0-7.7); Basophil# 0.03 X10^3/uL; Basophil% 0.2 % (0-1); Eosinophil# 0.16 X10^3/uL; Eosinophils% 1.1 % (0-5); Hemoglobin 10.3 g/dL (12.0-15.0); Lymphocyte # 2.21 X10^3/ul (4.0); Lymphocyte % 15.3 % (19-41); Mean Corp Hgb Conc 30.3 g/dL (32-36); Mean Corpuscular Hgb 24.3 pg (27.0-32.0); Mean Corpuscular Volume 80.4 fL (81-99); Mean Platelet Vol. 8.6 fl (6.2-12.0); Monocyte# 0.69 X10^3/uL; Monocyte% 4.8 % (0-10); NRBC Flagged by Analyzer 0 % (0-5); Neutrophil # 11.24 X10^3/uL (2.7-7.7); Neutrophil % 77.7 % (47-70); Platelet Count 358 K/mm3 (150-450); RBC Distribution Width CV 14.1 % (11.6-14.6); RBC Distribution Width SD 40.3 fl (35.1-43.9); Red Blood Count 4.23 M/mm3 (4.2-5.4); White Blood Count 14.5 K/mm3 (4.4-11.0)
== END ==
LOC: OPUS 16:03 → US 16:05
PROVIDERS: Obstetrics & Gynecology; PCP Family Medicine; Referring Provider Obstetrics & Gynecology; Visit Provider Obstetrics & Gynecology
DX: O09.90 Supervision of high risk pregnancy, unspecified, unspecified trimester (principal); Z3A.00 Weeks of gestation of pregnancy not specified
CPT/HCPCS: 36415; 76816; 85025

== ENCOUNTER → 2019-12-12 10:30 | Outpatient (CLI) | payer OTHER, SELFPAY ==
[2019-10-10 09:30] VITALS: BMI 36.8
[2019-12-12 09:02] VITALS: BMI 36.8
--- NOTE | 2019-12-12 10:31 | US_ITS ---
STUDY: SECOND AND THIRD TRIMESTER OBSTETRICAL ULTRASOUND - LIMITED REASON FOR EXAM: Female, 34 years old GROWTH LMP: 05/02/2019. PRIOR ULTRASOUND: Comparison is made with prior examination dated 11/13/2019. TECHNIQUE: Transabdominal TECHNICAL QUALITY: Adequate. FINDINGS: There is a single intrauterine fetus. The fetus is in a cephalic presentation. There is demonstrated cardiac activity with a heart rate of 132 bpm. There is a normal amniotic fluid volume. The largest amniotic fluid pocket measures 9.6 cm. The amniotic fluid index (KENNY) is 14.3 cm. The placenta is anterior in location and is not low lying. There are Grade 2 placental changes. The cervix measures 6 cm in length. BIOMETRY: BPD: 7.66 cm: 30 weeks, 4 days HC: 29.33 cm: 32 weeks, 2 days AC: 28.29 cm: 32 weeks, 2 days FL: 6.01 cm: 31 weeks, 1 days Age by LMP: 32 weeks, 0 days. NIMA by LMP: 02/06/2020. age by prior US: 31 weeks, 5 days. NIMA by prior US: 02/08/2020. age by current US: 31 weeks, 6 days. NIMA by current US: 02/07/2020. Estimated weight: 1850 grams, +/- 277 grams, 38.6 percentile. US/OB Limited With Biometrics IMPRESSION: Single live intrauterine gestation with a mean gestational age of 31 weeks and 5 days. The measurements obtained today fall within normal expected range. Electronically Signed: Barron Ron, at 11:35 EDT , Service support ,
== END ==
PROVIDERS: PCP Family Medicine; Referring Provider Obstetrics & Gynecology; Visit Provider Obstetrics & Gynecology
DX: O24.419 Gestational diabetes mellitus in pregnancy, unspecified control (principal); Z3A.31 31 weeks gestation of pregnancy
CPT/HCPCS: 76816

== ENCOUNTER → 2019-12-19 11:27 | Outpatient (CLI) | payer OTHER, SELFPAY ==
[2019-10-10 09:55] VITALS: BMI 36.8
[2019-12-19 09:03] VITALS: BMI 36.8
--- NOTE | 2019-12-19 11:28 | US_ITS ---
STUDY: SECOND AND THIRD TRIMESTER OBSTETRICAL ULTRASOUND - LIMITED REASON FOR EXAM: Female, 34 years old KENNY LMP: 05/02/2019. PRIOR ULTRASOUND: Comparison is made with prior examination dated 12/12/2019. TECHNIQUE: Transabdominal TECHNICAL QUALITY: Adequate. FINDINGS: There is a single intrauterine fetus. The fetus is in a breech presentation. There is demonstrated cardiac activity with a heart rate of 140 bpm. There is a normal amniotic fluid volume. The largest amniotic fluid pocket measures 6.4 cm. The amniotic fluid index (KENNY) is 12.38 cm. The placenta is anterior in location and is not low lying. There are Grade 1 placental changes. The cervix measures 3.8 cm in length. US/OB Limited (No Biometrics) IMPRESSION: Normal amniotic fluid. Electronically Signed: Barron Ron, at 15:12 EDT , Service support ,
== END ==
PROVIDERS: PCP Family Medicine; Referring Provider Obstetrics & Gynecology; Visit Provider Obstetrics & Gynecology
DX: O24.419 Gestational diabetes mellitus in pregnancy, unspecified control (principal)
CPT/HCPCS: 76815

== ENCOUNTER → 2019-12-24 13:44 | Outpatient (CLI) | payer OTHER, SELFPAY ==
[2019-12-24 09:24] VITALS: BMI 36.8
== END ==
PROVIDERS: PCP Family Medicine; Referring Provider Obstetrics & Gynecology; Visit Provider Obstetrics & Gynecology
DX: N39.0 Urinary tract infection, site not specified (principal)
CPT/HCPCS: 87086; 87088

== ENCOUNTER → 2019-12-26 11:32 | Outpatient (CLI) | payer OTHER, SELFPAY ==
[2019-10-10 09:55] VITALS: BMI 36.8
[2019-12-26 09:06] VITALS: BMI 36.8
--- NOTE | 2019-12-26 11:32 | US_ITS ---
STUDY: SECOND AND THIRD TRIMESTER OBSTETRICAL ULTRASOUND REASON FOR EXAM: Female, 34 years old KENNY-GDM LMP: 05/02/2019 TECHNIQUE: Transabdominal TECHNICAL QUALITY: Adequate. PRIOR ULTRASOUND: Prior study of 12/19/2019 FINDINGS: This study is for evaluation of KENNY only. A single viable intrauterine is seen. KENNY measures 14.6 cm. Largest measured fluid pocket is 5.0 cm. heart rate is 133 bpm and is in cephalic presentation. Cervical length is 3.6 cm. There is an anterior not low lying placenta. US/OB Limited (No Biometrics) IMPRESSION: KENNY within normal limits, measuring 14.6 cm. Electronically Signed: Peter Hudson MD at 16:38 EDT , Service support ,
== END ==
PROVIDERS: PCP Family Medicine; Referring Provider Obstetrics & Gynecology; Visit Provider Obstetrics & Gynecology
DX: O09.90 Supervision of high risk pregnancy, unspecified, unspecified trimester (principal); Z3A.00 Weeks of gestation of pregnancy not specified
CPT/HCPCS: 76815

== ENCOUNTER → 2020-01-02 11:31 | Outpatient (CLI) | payer OTHER, SELFPAY ==
[2019-10-10 09:55] VITALS: BMI 36.8
[2020-01-02 09:03] VITALS: BMI 42.7
--- NOTE | 2020-01-02 11:32 | US_ITS ---
STUDY: SECOND AND THIRD TRIMESTER OBSTETRICAL ULTRASOUND - LIMITED REASON FOR EXAM: Female, 34 years old KENNY, GESTATIONAL DIABETES LMP: 05/02/2019 PRIOR ULTRASOUND: 12/26/2019 TECHNIQUE: Transabdominal TECHNICAL QUALITY: Adequate. FINDINGS: There is a single intrauterine fetus. The fetus is in an transverse lie with the head on the maternal left side. There is demonstrated cardiac activity with a heart rate of 143 bpm. There is a normal amniotic fluid volume. The largest amniotic fluid pocket measures 5.9 cm. The amniotic fluid index (KENNY) is 16.0 cm. The placenta is anterior in location and is not low lying. There are Grade 1 placental changes. The cervix measures 5.6 cm cm in length. Age by LMP: 35 weeks, 0 days. NIMA by LMP: 02/06/2020. US/OB Limited (No Biometrics) IMPRESSION: Living intrauterine of 35 weeks 0 days as described above. Electronically Signed: Thai Valentino MD at 15:29 EDT Tel , Service support ,
== END ==
PROVIDERS: PCP Family Medicine; Referring Provider Obstetrics & Gynecology; Visit Provider Obstetrics & Gynecology
DX: O09.93 Supervision of high risk pregnancy, unspecified, third trimester (principal); O24.313 Unspecified pre-existing diabetes mellitus in pregnancy, third trimester; Z3A.35 35 weeks gestation of pregnancy
CPT/HCPCS: 76815

== ENCOUNTER → 2020-01-09 09:04 | Outpatient (CLI) | payer OTHER, SELFPAY ==
[2019-10-10 09:55] VITALS: BMI 36.8
[2020-01-06 09:42] VITALS: BMI 43.2
--- NOTE | 2020-01-09 09:12 | US_ITS ---
STUDY: SECOND AND THIRD TRIMESTER OBSTETRICAL ULTRASOUND - LIMITED REASON FOR EXAM: Female, 34 years old GROWTH LMP: 05/02/2019 PRIOR ULTRASOUND: 01/02/2020 TECHNIQUE: Transabdominal TECHNICAL QUALITY: Adequate. FINDINGS: There is a single intrauterine fetus. The fetus is in a cephalic presentation. There is demonstrated cardiac activity with a heart rate of 145 bpm. There is a normal amniotic fluid volume. The largest amniotic fluid pocket measures 6.2 cm. The amniotic fluid index (KENNY) is 15.7 cm. The placenta is anterior in location and is not low lying. There are Grade 1 placental changes. The cervix measures 3.4 cm in length. BIOMETRY: BPD: 8.8 cm: 35 weeks, 2 days HC: 32.4 cm: 36 weeks, 4 days AC: 33.6): 37 weeks, 3 days FL: 6.9 cm: 35 weeks, 3 days Age by LMP: 36 weeks, 0 days. NIMA by LMP: 02/06/2020. age by current US: 36 weeks, 6 days. NIMA by current US: 01/31/2020. Estimated weight: 3000 grams, +/- 444 grams, 69 percentile. Gender: US/OB Limited With Biometrics IMPRESSION: Living intrauterine of 36 weeks 6 days as described above. Electronically Signed: Thai Valentino MD at 9:36 EDT Tel , Service support ,
== END ==
PROVIDERS: PCP Family Medicine; Referring Provider Obstetrics & Gynecology; Visit Provider Obstetrics & Gynecology
DX: O24.419 Gestational diabetes mellitus in pregnancy, unspecified control (principal); Z3A.36 36 weeks gestation of pregnancy
CPT/HCPCS: 76816

== ENCOUNTER → 2020-01-09 13:01 | Outpatient (CLI) | payer OTHER, SELFPAY ==
[2020-01-09 09:56] VITALS: BMI 42.6
== END ==
PROVIDERS: PCP Family Medicine; Visit Provider Obstetrics & Gynecology
DX: Z34.93 Encounter for supervision of normal pregnancy, unspecified, third trimester (principal); Z3A.36 36 weeks gestation of pregnancy
CPT/HCPCS: 87081

== ENCOUNTER → 2020-01-16 08:44 | Outpatient (CLI) | payer OTHER, SELFPAY ==
[2019-10-10 09:55] VITALS: BMI 36.8
[2020-01-13 09:44] VITALS: BMI 43.0
--- NOTE | 2020-01-16 09:05 | US_ITS ---
STUDY: SECOND AND THIRD TRIMESTER OBSTETRICAL ULTRASOUND - LIMITED REASON FOR EXAM: Female, 34 years old KENNY LMP: 05/02/2019. PRIOR ULTRASOUND: Comparison is made with prior study 01/09/2020. TECHNIQUE: Transabdominal TECHNICAL QUALITY: Adequate. FINDINGS: There is a single intrauterine fetus. The fetus is in a breech presentation. There is demonstrated cardiac activity with a heart rate of 123 bpm. There is a normal amniotic fluid volume. The largest amniotic fluid pocket measures 5.2 cm. The amniotic fluid index (KENNY) is 15.95 cm. The placenta is anterior in location and is not low lying. There are Grade 1 placental changes. BIOMETRY: Age by LMP: 37 weeks, 0 days. NIMA by LMP: . US/OB Limited (No Biometrics) IMPRESSION: Normal amniotic fluid. Electronically Signed: Barron Ron, at 14:19 EDT , Service support ,
== END ==
PROVIDERS: PCP Family Medicine; Referring Provider Obstetrics & Gynecology; Visit Provider Obstetrics & Gynecology
DX: O24.419 Gestational diabetes mellitus in pregnancy, unspecified control (principal); Z3A.37 37 weeks gestation of pregnancy
CPT/HCPCS: 76815

== ENCOUNTER → 2020-01-23 08:58 | Outpatient (CLI) | payer OTHER, SELFPAY ==
[2019-10-10 09:55] VITALS: BMI 36.8
[2020-01-20 09:36] VITALS: BMI 44.0
--- NOTE | 2020-01-23 09:09 | US_ITS ---
STUDY: SECOND AND THIRD TRIMESTER OBSTETRICAL ULTRASOUND - LIMITED REASON FOR EXAM: Female, 34 years old KENNY LMP: 05/02/2019 PRIOR ULTRASOUND: Comparison is made with prior examination dated 01/16/2020. TECHNIQUE: Transabdominal TECHNICAL QUALITY: Adequate. FINDINGS: There is a single intrauterine fetus. The fetus is in a cephalic presentation. There is demonstrated cardiac activity with a heart rate of 123 bpm. There is a normal amniotic fluid volume. The largest amniotic fluid pocket measures 5.1 cm. The amniotic fluid index (KENNY) is 50 cm. The placenta is anterior in location and is not low lying. There are Grade 2 placental changes. The cervix was not measured due to head positioning. US/OB Limited (No Biometrics) IMPRESSION: Normal amniotic fluid. Electronically Signed: Barron Ron, at 14:02 EST , Service support ,
[2020-01-23 11:12] LABS: Absolute Lymphocyte Count 2.29 X10^3/uL (0.83-4.51); Absolute Neutrophil Count 9.6 X10^3/uL (2.0-7.7); Basophil# 0.05 X10^3/uL; Basophil% 0.4 % (0-1); Eosinophil# 0.11 X10^3/uL; Eosinophils% 0.8 % (0-5); Hematocrit 27.8 % (37-47); Lymphocyte # 2.29 X10^3/ul (4.0); Lymphocyte % 17.4 % (19-41); Mean Corp Hgb Conc 28.8 g/dL (32-36); Mean Corpuscular Hgb 19.8 pg (27.0-32.0); Mean Corpuscular Volume 68.8 fL (81-99); Mean Platelet Vol. 9.1 fl (6.2-12.0); Monocyte% 6.1 % (0-10); NRBC Flagged by Analyzer 0.5 % (0-5); Neutrophil # 9.62 X10^3/uL (2.7-7.7); Neutrophil % 73.1 % (47-70); Platelet Count 273 K/mm3 (150-450); RBC Distribution Width CV 17.7 % (11.6-14.6); RBC Distribution Width SD 44.2 fl (35.1-43.9); Red Blood Count 4.04 M/mm3 (4.2-5.4); White Blood Count 13.2 K/mm3 (4.4-11.0)
[2020-01-23 11:35] LABS: ALB/GLOB Ratio 0.5 RATIO (0.9-2.4); AST(SGOT) 18 U/L (15-37); Alanine Aminotransfer ALT/SGPT 13 U/L (13-56); Albumin, Serum 2.1 g/dL (3.2-5.0); Alkaline Phosphatase 205 U/L (45-117); Anion Gap 8 (5-15); BUN 9 mg/dL (7-18); BUN/Creat Ratio 12.7 RATIO (10-20); Chloride 111 mmol/L (98-107); Creatinine, Serum 0.71 mg/dL (0.55-1.02); EST Glomerular Filtration Rate 101 mL/min (>60); Est Glom Filt Rate - Afr Amer 123 mL/min (>60); Glucose 81 mg/dL (74-106); Potassium 3.9 mmol/L (3.5-5.1); Protein, Total 6.1 g/dL (6.4-8.2); Sodium Level 140 mmol/L (136-145)
[2020-01-23 13:48] LABS: Protein, Urine (Random) 55.9 mg/dL (<11.9); Protein:Creat Ratio 238 mg/g CRE (0-200)
== END ==
PROVIDERS: Obstetrics & Gynecology; PCP Family Medicine; Referring Provider Obstetrics & Gynecology; Visit Provider Obstetrics & Gynecology
DX: O16.3 Unspecified maternal hypertension, third trimester (principal); Z3A.00 Weeks of gestation of pregnancy not specified
CPT/HCPCS: 36415; 76815; 80053; 82570; 84156; 85025

== ENCOUNTER → 2020-01-23 10:13 | Outpatient (CLI) | payer OTHER, SELFPAY ==
[2020-01-06 09:42] VITALS: BMI 43.2
[2020-01-23 09:47] VITALS: BMI 44.4
== END ==
PROVIDERS: PCP Family Medicine; Referring Provider Obstetrics & Gynecology; Visit Provider Obstetrics & Gynecology
DX: Z11.59 Encounter for screening for other viral diseases (principal)
CPT/HCPCS: 87635; C9803; U0003

== ENCOUNTER 2020-01-27 10:50 | Inpatient (IN) | payer OTHER, SELFPAY ==
[2020-01-27] VITALS (16 sets, daily range): BP systolic 121–152; BP diastolic 64–105; PULSE 89–194; TEMP 36.2–37.2; O2SAT 85–99; BMI 43.9
--- NOTE | 2020-01-27 11:12 | HP.PCM_ITS ---
- Problem List (1) 36 weeks gestation of Status: Acute Comment: covid testing- NEGATIVE (2) Anemia affecting Status: Acute (3) Anxiety and depression Status: Acute Comment: effexor, counseling encouraged. plan switch to zoloft third trimester. (4) Breech presentation Status: Acute (5) Hypertension affecting Status: Acute Comment: BP mild range in office. Was also mild range last week. Sent to triage for evaluation, if remains mild range, will likely plan for induction. (6) Modified White class B pregestational diabetes mellitus Status: Acute Comment: controlled with insulin, endocrine managing; echo at 22-24 normal results. growth US q 4 wk and NST 2x/weekly starting at 32 week alternating with BPP, deliver 39 (7) Obesity affecting Status: Acute Qualifiers: Comment: abnl 1 tm glucola. encouraged healthy weight gain in . (8) Status: Acute Qualifiers: Comment: genetic, ntd, and carrier screening declined. nl anatomy. 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 Is patient in pain?: No Allergies acetaminophen [From Tylenol-Codeine] Allergy (Severe, Verified 01/27/20 09:05) Anaphylaxis codeine [From Tylenol-Codeine] Allergy (Severe, Verified 01/27/20 09:05) Anaphylaxis iodine Allergy (Severe, Verified 01/27/20 09:05) Anaphylaxis shellfish derived Allergy (Severe, Verified 01/27/20 09:05) Anaphylaxis insulin detemir [From Levemir U-100 Insulin] Allergy (Intermediate, Verified 01/27/20 09:05) large welts Medications albuterol sulfate 90 mcg/actuation breath activated powder inhaler 2 puff INHALATION Q6H PRN 07/11/17 [History Confirmed 01/27/20] epinephrine 0.3 mg/0.3 mL injection, auto-injector 0.3 mg IM ONCE PRN 07/11/17 [History Confirmed 01/27/20] prenat.vits,faraz,vny-pfpd-hjrca 1 tab PO DAILY 07/16/19 [History Confirmed 01/27/20] loratadine 10 mg tablet 10 mg PO DAILY 08/21/19 [History Confirmed 01/27/20] pen needle, diabetic 32 gauge x See Rx Instructions .ROUTE .MEDSUPPLY #150 ea 08/21/19 [Rx Confirmed 01/27/20] lansoprazole 30 mg capsule,delayed release 30 mg PO DAILY #30 cap 08/25/19 [Rx Confirmed 01/27/20] insulin degludec 100 unit/mL (3 mL) subcutaneous pen 32 unit SC QHS ml 10/10/19 [History Confirmed 01/27/20] insulin lispro 100 unit/mL subcutaneous pen 15 unit SC TID #15 ml 12/01/19 [Rx Confirmed 01/27/20] venlafaxine 75 mg capsule,extended release 24 hr 75 mg PO DAILY #30 cap 12/01/19 [Rx Confirmed 01/27/20] Last Menstral Period: 05/02/19 Zika: Zika virus screening: Negative : No PFSH PFSH Medical History GI problem (Acute) Gestational diabetes (Acute) Seasonal allergies (Acute) Anxiety (Resolved) Asthma (Resolved) Hiatal hernia (Inactive) Surgical History delivery delivered (Acute) H/O endoscopy (Resolved) [place] teeth extracted (Resolved) Family History Father Hypertension Mother uterine fibroids Grandmother Diabetes Grandfather Myocardial infarction Parkinsons disease Brother Anxiety Sister Hypertension Social History (Updated 01/27/20 @ 09:[address] 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 Date Name GA/Weeks Outcome Route Bth Weight Gen Labor Lgth Anesthesia Del Locatn Provider FOB Unknown 2017 [place] 39 live - full term 7'6 Male 1 9 hrs epidural [facility] SM [place] HPI NST ONLY (2x weekly): Details: SINGH ORTIZ is a 34 year old who presents for routine OB visit. Upon evaluation blood pressures were noted to be elevated and therefore she was evaluated in triage and blood pressures continue to be high the and the decision for induction of labor was made. OB Visit NIMA Calculator 2 Estimated Delivery Date Method Current WG Current Estimate 02/06/20 LMP (Certain) 38w 4d Other Estimates 02/09/20 Ultrasound #1 38w 1d Expected Delivery Route/Plan Labor Preferences- labor support person: [place] labor intervention preferences: Had epidural with last . Open to natural labor and epidural. Open to standard interventions cut cord/dad catch: both : bottle PP control planned: [] discussed possible routes of delivery and associated risks: [] special requests: [] Specific Issue/Plans flu vaccine: 12/04 tdap vaccine: 11/07/2019 rhogam: Rh positive LARC form signed: 12/04 movement and labor precautions reviewed. Problem list reviewed and updated with the most current plan of care details and appropriate orders placed. Relevant counseling for the gestational age provided. Continue routine care and follow up unless otherwise noted in visit notes/problem list details Initial Weight: Not Recorded Date EGA Weight BP Urine Prot Glucose FHR FuHt Pres Dilation Effaced St Visit Note 08/15/19 15w 0d 217 lb 110/88 Negative Negative 147 MH-home BS checks qid all abnormal:GDM. No VB, LOF. Consult RENETTA: MH-home BS checks qid all abnormal:GDM. No VB, LOF. Consult RENETTA: ref Dr. Quezada. 09/12/19 19w 0d 219 lb 130/78 Negative Negative 140 SM- no vb lof good fm nor egular ctx. anatomy scheduled. 10/10/19 23w 0d 224 lb 120/80 Negative Negative 145 23 SM- no vb lof good fm no regular ctx. BS well controlled. discussed third trimester testing 11/07/19 27w 0d 226 lb 126/74 Negative Negative 130 28 GP -no LOF/VB/DFM/ctx. BGTs controlled. Testing scheduled. 12/05/19 31w 0d 231 lb 6 oz 134/88 Negative Negative 130 32 GP - no LOF, VB, DFM. Insulin recently increased for elevated fastings. Starts testing next week. 12/09/19 31w 4d 231 lb 122/80 Trace Negative GP - NST only 12/12/19 32w 0d 229 lb 2 oz 124/88 Trace Negative 130 32 GP - no LOF, VB, DFM, ctx. Insulin recently increased - BGTs now better controlled. Growth today. 12/16/19 32w 4d 230 lb 114/84 Negative Negative 150 Reactive NST 12/19/19 33w 0d 232 lb 112/88 Negative Negative SM- reviewed BS 12/26/19 34w 0d 230 lb 138/88 Negative Negative 150 34 Cephalic GP - no ctx, LOF, VB, DFM. NST reactive. Vertex on ultrasound. 12/30/19 34w 4d 231 lb 110/80 Negative Negative 140 NST only-reactive/MH 01/02/20 35w 0d 233 lb 6 oz 130/82 Negative Negative 120 SM- no vb lof good fm nor egular ctx 01/06/20 35w 4d 236 lb 4 oz 122/78 Negative Negative 140 MH-NST only reactive 01/09/20 36w 0d 233 lb 122/88 Negative Negative 140 36 Cephalic 0 40 -3 GP - No cramping, LOF, VB , DFM. Discussed labor interventions. GBS done today. NST reactive. 01/13/20 36w 4d 235 lb 104/82 Negative Negative 140 MH-NST only reactive 01/16/20 37w 0d 237 lb 126/80 Negative Negative 140 Breech 0 SM- variable presentation discussed ECV at 39 weeks and IOL vs 01/23/20 38w 0d 243 lb 122/92 1+ Negative 140 38 Cephalic 0 GP- no LOF, VB, DFM, ctx. [place] baby flip yesterday - cephalic on US. BP mildly elevated. Asymptomatic. PreE labs sent. Patient to monitor BPs at home. Scheduled for induction vs. version vs. c/s next Sunday. 01/27/20 38w 4d 240 lb 6 oz 144/92 Trace Negative 140 Cephalic GP - no LOF, VB, DFM, ctx. BP mild range - sent to triage for evaluation. ACOG First Trimester First Trimester: Desire for , Alcohol, Tobacco Cessation, Illicit/Recreational Drug/Substance Use, Intimate Partner Violence, Barriers to care, Unstable Housing, Communication Barriers, Environmental/Work Hazards, Anticipated Course of Care, Toxoplasmosis Precations, Use of Any medications, Sexual activity, Exercise, Dental Care, Sauna/Hot tub use, Seat Belt use, Childbirth classes/Hospital facilities, Travel, Indications for US and Screening for Aneuploidy; discussed Second Trimester Second Trimester: Signs and Symptoms of Labor, Selecting a care provider, Care Planning, Depression/Anxiety and Intimate Partner Violence; discussed Tobacco Cessation Diagnostics Diagnostics Diagnostics Blood Type O POSITIVE 08/06/19 Antibody Screen NEGATIVE 08/06/19 Gest Glucose Tolerance MG/DL 12/13/17 Glucose 1 Hr 50 gm 166 mg/dL (70-140) H 08/06/19 HIV 1&2 Antibody Non-Reactive (Nonreactive) 08/06/19 Rubella IgG Antibody 38.8 IU/mL 08/06/19 Pap Smear Negative 08/11/16 Hgb 8.0 g/dL (12.0-15.0) L 01/23/20 Hct 27.8 % (37-47) L 01/23/20 RPR NONREACTIVE (NONREACTIVE) 08/06/19 Details: HIV: Urine Culture: Sequential Screen: NIPT Screen: ROS Const Reports system reviewed and no additional complaints, except as docu Eyes Reports system reviewed and no additional complaints, except as docu ENT Reports system reviewed and no additional complaints, except as docu Card Reports system reviewed and no additional complaints, except as docu Resp Reports system reviewed and no additional complaints, except as docu GI Reports system reviewed and no additional complaints, except as docu Reports system reviewed and no additional complaints, except as docu, Denies abnormal vaginal bleeding, Denies painful urination, Denies nipple discharge, Denies pelvic pain, Denies vaginal discharge, Denies vaginal odor, Denies vaginal itching Musc Reports system reviewed and no additional complaints, except as docu Skin/Breast Reports system reviewed and no additional complaints, except as docu, Denies nipple discharge Neuro Yes system reviewed and no additional complaints, except as docu Psych Reports system reviewed and no additional complaints, except as docu Exam Const General: cooperative, healthy appearing, comfortable, no acute distress, well developed, well groomed Nutritional Appearance: average body habitus, well nourished Orientation: alert, awake, oriented x3 HENMT Head: normal to inspection, normocephalic, atraumatic Eyes Pupils: PERRL, accommodation normal Resp Effort & Inspection: normal respiratory effort, able to speak in complete sentences, symmetric chest movement Cardio Rate: regular rate GI Palpation: soft, no guarding, no masses, nontender Skin General: no rashes or lesions noted, elasticity normal, turgor normal Neuro General: alert, awake, oriented x3 Cranial Nerves: CN's II-XI intact bilaterally, sense of smell intact, PERRL, accommodation normal, EOM intact bilaterally Speech: speech normal Gait: normal gait Psych Appearance: grossly normal, well kempt Mental Status: mental status grossly normal Mood: congruent mood Affect: normal affect Speech and Movement: speech and movement normal Attitude: cooperative Thought Process: normal Thought Content: normal Judgment: judgment good Office Procedures OB NST Non-Stress Test Indications for Monitoring: Yes diabetes Heart Rate Baseline: 140 Heart Rate Variability: moderate Movement: Present Heart Rate Accelerations: Present Decelerations: Absent Contractions: Absent Impression: Yes Reactive Non-Stress Test Results POC Urinalysis 2 Dip (Clinic) Office Urine Glucose Negative Last Edit by Debi Lyman on 01/27/20 09:18 Office Urine Protein Trace Last Edit by Debi Lyman on 01/27/20 09:18 Assessment & Plan Problems 1. Anemia affecting O99.019 2. 36 weeks gestation of Z3A.36 covid testing- NEGATIVE 3. Gestational diabetes mellitus (GDM) affecting second O24.419 Growth normal on 11/13 growth 01/08 68% 4. Anxiety and depression F41.9; F32.9 effexor, counseling encouraged. plan switch to zoloft third trimester. 5. Modified White class B pregestational diabetes mellitus O24.319 controlled with insulin, endocrine managing; echo at 22-24 normal results. growth US q 4 wk and NST 2x/weekly starting at 32 week alternating with BPP, deliver 39 6. Supervision of high risk , antepartum O09.90 PRR NIMA:02/06/20 surprise PC:Eb Spouse:Rancho 7. Z34.90 genetic, ntd, and carrier screening declined. nl anatomy. plan echo 22-24 8. Obesity affecting O99.210 abnl 1 tm glucola. encouraged healthy weight gain in . 9. Hypertension affecting O16.9 BP mild range in office. Was also mild range last week. Sent to triage for evaluation, if remains mild range, will likely plan for induction. 34-year-old G2, P1 at 8 weeks 4 days presents with gestational hypertension. Recommend proceeding with induction of labor Patient presents IOL, plan management for with Cytotec and then Pitocin. Infant vertex at this time will monitor throughout labor due to variable presentation. Pain management: [plans epidural]. GBS [negative]. Management of any complications: Gestational diabetes controlled with insulin. Will give diabetic diet for lunch and possibly dinner and give subcu insulin with these meals. After that manage blood sugars with insulin drip throughout labor. I have reviewed the [facility] and made any clinically relevant updates. Orders Orders: OB NST Today O24.419 POC Urinalysis 2 Dip (Clinic) Today Coding Level of Care Code OB Routine Diagnoses Anemia affecting O99.019 36 weeks gestation of Z3A.36 Gestational diabetes mellitus (GDM) affecting second O24.419 Anxiety and depression F41.9; F32.9 Modified White class B pregestational diabetes mellitus O24.319 Supervision of high risk , antepartum O09.90 Z34.90 Obesity affecting O99.210 Hypertension affecting O16.9 Additional Codes Non-Stress Test (21985)
[2020-01-27 11:30] LABS: Bedside Glucose 90 mg/dL (70-110)
[2020-01-27] MEDS: 0.9% Saline Lock 10 ML Syringe IV (11:35)
[2020-01-27 11:58] LABS: Absolute Lymphocyte Count 2.21 X10^3/uL (0.83-4.51); Absolute Neutrophil Count 9.4 X10^3/uL (2.0-7.7); Basophil# 0.03 X10^3/uL; Basophil% 0.2 % (0-1); Eosinophil# 0.09 X10^3/uL; Eosinophils% 0.7 % (0-5); Hematocrit 26.6 % (37-47); Hemoglobin 7.8 g/dL (12.0-15.0); Lymphocyte # 2.21 X10^3/ul (4.0); Lymphocyte % 17.3 % (19-41); Mean Corp Hgb Conc 29.3 g/dL (32-36); Mean Corpuscular Hgb 19.9 pg (27.0-32.0); Mean Corpuscular Volume 67.9 fL (81-99); Mean Platelet Vol. 9.7 fl (6.2-12.0); Monocyte# 0.74 X10^3/uL; Monocyte% 5.8 % (0-10); NRBC Flagged by Analyzer 0.6 % (0-5); Neutrophil # 9.42 X10^3/uL (2.7-7.7); Neutrophil % 73.8 % (47-70); Platelet Count 288 K/mm3 (150-450); RBC Distribution Width CV 18.4 % (11.6-14.6); RBC Distribution Width SD 44.6 fl (35.1-43.9); Red Blood Count 3.92 M/mm3 (4.2-5.4); White Blood Count 12.8 K/mm3 (4.4-11.0)
[2020-01-27 12:09] LABS: Protein, Urine (Random) 11.4 mg/dL (<11.9); Protein:Creat Ratio 218 mg/g CRE (0-200)
[2020-01-27 12:20] LABS: AST(SGOT) 28 U/L (15-37); Alanine Aminotransfer ALT/SGPT 13 U/L (13-56); Creatinine, Serum 0.77 mg/dL (0.55-1.02); EST Glomerular Filtration Rate 92 mL/min (>60); Est Glom Filt Rate - Afr Amer 111 mL/min (>60); Estimated Creatinine Clearance 82.96 ml/min; Uric Acid 6.2 mg/dL (2.6-6.0)
[2020-01-27] MEDS: miSOPROStol 25 MCG TABLET PO (12:41)
[2020-01-27] MEDS: Insulin Lispro 100 UNIT/ML INSULN.PEN 18 UNIT SC (12:55)
[2020-01-27 15:36] LABS: Bedside Glucose 86 mg/dL (70-110)
[2020-01-27] MEDS: miSOPROStol 50 MCG TABLET PO (16:45)
[2020-01-27] MEDS: Insulin Lispro 100 UNIT/ML INSULN.PEN 20 UNIT SC (18:58)
[2020-01-27 21:40] LABS: Bedside Glucose 101 mg/dL (70-110)
[2020-01-28] VITALS (52 sets, daily range): BP systolic 119–200; BP diastolic 64–131; PULSE 85–150; RESP 14–18; TEMP 35.8–36.9; O2SAT 89–99
[2020-01-28 00:06] LABS: Bedside Glucose 60 mg/dL (70-110)
[2020-01-28] MEDS: Venlafaxine XR 75 MG Capsule PO ×2 (00:24→21:30)
[2020-01-28 00:25] LABS: Bedside Glucose 78 mg/dL (70-110)
[2020-01-28 01:40] LABS: Bedside Glucose 56 mg/dL (70-110)
[2020-01-28 02:06] LABS: Bedside Glucose 79 mg/dL (70-110)
[2020-01-28] MEDS: Lactated Ringers 1,000 ML 50 ML IV (02:22)
[2020-01-28 02:31] LABS: Bedside Glucose 79 mg/dL (70-110)
[2020-01-28] MEDS: Oxytocin 30 units/NS 500 ml 30 UNITS/500 ML IV.SOLN IV (02:53)
[2020-01-28] MEDS: Ondansetron 4 MG/2 ML Vial IV (03:01)
[2020-01-28] MEDS: Lactated Ringers 500 ML 999 ML IV (06:58)
[2020-01-28 07:21] LABS: Bedside Glucose 65 mg/dL (70-110)
[2020-01-28 07:21] LABS: Bedside Glucose 74 mg/dL (70-110)
[2020-01-28] MEDS: Oxytocin 30 units/NS 500 ml 30 UNITS/500 ML IV.SOLN 334 UNITS IV (08:37)
[2020-01-28] MEDS: Ibuprofen 600 MG Tablet PO ×2 (10:37→19:30)
[2020-01-28 10:55] LABS: Bedside Glucose 142 mg/dL (70-110)
[2020-01-28] MEDS: Pantoprazole Sodium 40 MG Tablet PO (11:00)
--- NOTE | 2020-01-28 12:35 | PCM.OPRPT ---
Problem List (1) Hypertension affecting Status: Acute Comment: BP mild range in office. Was also mild range last week. Sent to triage for evaluation, if remains mild range, will likely plan for induction. (2) Anemia affecting Status: Acute (3) Breech presentation Status: Acute (4) 36 weeks gestation of Status: Acute Comment: covid testing- NEGATIVE (5) Gestational diabetes mellitus (GDM) affecting second Status: Chronic Comment: Growth normal on 11/13 growth 01/08 68% (6) Anxiety and depression Status: Acute Comment: effexor, counseling encouraged. plan switch to zoloft third trimester. (7) Modified White class B pregestational diabetes mellitus Status: Acute Comment: controlled with insulin, endocrine managing; echo at 22-24 normal results. growth US q 4 wk and NST 2x/weekly starting at 32 week alternating with BPP, deliver 39 (8) Supervision of high risk , antepartum Status: Acute Comment: PRR NIMA:02/06/20 surprise PC:Eb Spouse:Rancho (9) Status: Acute Qualifiers: Comment: genetic, ntd, and carrier screening declined. nl anatomy. plan echo - (10) Obesity affecting Status: Acute Qualifiers: Comment: abnl 1 tm glucola. encouraged healthy weight gain in . Vaginal Delivery Maternal Presentation: Medically Indicated Induction 34yo at 38 weeks admitted for induction of labor for PreE without severe features. Induced with cytotec, weiner bulb, and pitocin. Method of Induction: Pitocin, Weiner Bulb, Cytotec Medical Reason for Induction: Preeclampsia, eclampsia Amniotic Membrane Rupture Type: Spontaneous Amniotic Fluid Description: Clear Final NIMA: 02/06/20 Gestational age: 38 Weeks and 5 Days Date of Procedure: 01/28/20 Pre-Operative Diagnosis: Term , Gestational diabetes, Preeclampsia without severe features Post-Operative Diagnosis: Same Surgery/ Procedure Performed: Spontaneous Vaginal Delivery Type of Anesthesia: Epidural, Local with 1% lidocaine Description of Procedure: Patient began pushing and delivered the head in the TRACY presentation. The head was delivered atraumatically and a loose nuchal cord ?1 was identified and easily reduced over the 's head. The anterior and posterior shoulders delivered without complication followed by the rest of the and the infant was placed on the maternal abdomen. Delayed cord clamping was employed for approximately 60 seconds. Cord was clamped and cut and gentle traction was applied to the cord and the placenta delivered spontaneously immediately following it was noted to be intact with three-vessel cord. The perineum and vagina were inspected and a midline second degree laceration and midline periurethral laceration were repaired in the standard fashion using 3-0 vicryl rapide. EBL was 300 cc. Patient and tolerated delivery well. Presentation: Vertex, TRACY Placental Delivery Description: Spontaneous Placenta Disposition: [facility] Cord Vessel Description: 3 Vessels Nuchal Cord Compression: Without compression Cord Entanglement: Around neck x 1, loose Estimated Blood Loss: 300 A gender: Female Episiotomy Description: None Laceration: Midline, Periurethral Extnsion/lac, Perineal Extension/lac, 2nd degree Medications given after delivery: IV Pitocin Complications: None Multi Select Codes - Urinary/Genital Urinary/Genital CPT Codes: 86501 Vaginal Delivery [facility]
[2020-01-28 14:38] LABS: Absolute Lymphocyte Count 1.62 X10^3/uL (0.83-4.51); Absolute Neutrophil Count 20.9 X10^3/uL (2.0-7.7); Basophil# 0.04 X10^3/uL; Basophil% 0.2 % (0-1); Eosinophil# 0.01 X10^3/uL; Hematocrit 25.2 % (37-47); Hemoglobin 7.3 g/dL (12.0-15.0); Lymphocyte # 1.62 X10^3/ul (4.0); Lymphocyte % 6.7 % (19-41); Mean Corpuscular Hgb 19.9 pg (27.0-32.0); Mean Corpuscular Volume 68.7 fL (81-99); Mean Platelet Vol. 9.3 fl (6.2-12.0); Monocyte# 1.37 X10^3/uL; Monocyte% 5.7 % (0-10); NRBC Flagged by Analyzer 0.5 % (0-5); Neutrophil # 20.85 X10^3/uL (2.7-7.7); Neutrophil % 86.2 % (47-70); POSITIVE DIFFERENTIAL YES; Platelet Count 275 K/mm3 (150-450); RBC Distribution Width CV 18.2 % (11.6-14.6); RBC Distribution Width SD 45.1 fl (35.1-43.9); Red Blood Count 3.67 M/mm3 (4.2-5.4); White Blood Count 24.2 K/mm3 (4.4-11.0)
[2020-01-28 14:45] LABS: Differential Indicated SCAN CRITERIA MET
[2020-01-28 15:06] LABS: Anisocytosis 1+; Platelet Estimate ADEQUATE (ADEQ); Red Cell Morphology N CHROM NORMAL (NORM C&C)
[2020-01-28] MEDS: 0.9% Saline Lock 10 ML Syringe IV ×2 (21:30→22:29)
[2020-01-28] MEDS: Ferrous Sulfate 325 MG Tablet PO (21:30)
[2020-01-28 21:39] LABS: Absolute Lymphocyte Count 2.81 X10^3/uL (0.83-4.51); Absolute Neutrophil Count 18.9 X10^3/uL (2.0-7.7); Basophil# 0.05 X10^3/uL; Basophil% 0.2 % (0-1); Eosinophil# 0.04 X10^3/uL; Eosinophils% 0.2 % (0-5); Hematocrit 23.3 % (37-47); Hemoglobin 6.6 g/dL (12.0-15.0); Lymphocyte # 2.81 X10^3/ul (4.0); Mean Corp Hgb Conc 28.3 g/dL (32-36); Mean Corpuscular Hgb 19.9 pg (27.0-32.0); Mean Corpuscular Volume 70.2 fL (81-99); Mean Platelet Vol. 9.2 fl (6.2-12.0); Monocyte# 1.28 X10^3/uL; Monocyte% 5.5 % (0-10); NRBC Flagged by Analyzer 0.6 % (0-5); Neutrophil # 18.87 X10^3/uL (2.7-7.7); Neutrophil % 80.6 % (47-70); Platelet Count 239 K/mm3 (150-450); RBC Distribution Width CV 18.4 % (11.6-14.6); RBC Distribution Width SD 45.9 fl (35.1-43.9); Red Blood Count 3.32 M/mm3 (4.2-5.4); White Blood Count 23.4 K/mm3 (4.4-11.0)
[2020-01-28] MEDS: Acetaminophen 500 MG Tablet 1000 MG PO (22:28)
[2020-01-28] MEDS: DiphenhydrAMINE 25 MG Capsule PO (22:29)
[2020-01-28] MEDS: 0.9% Normal Saline 1,000 ML 15 ML IV (22:43)
[2020-01-29] VITALS (16 sets, daily range): BP systolic 118–164; BP diastolic 78–99; PULSE 82–114; RESP 16–24; TEMP 36.2–37; O2SAT 97–99
[2020-01-29] MEDS: 0.9% Saline Lock 10 ML Syringe IV (01:39)
[2020-01-29 06:01] LABS: Bedside Glucose 69 mg/dL (70-110)
[2020-01-29 06:02] LABS: Absolute Lymphocyte Count 3.16 X10^3/uL (0.83-4.51); Absolute Neutrophil Count 14.8 X10^3/uL (2.0-7.7); Basophil% 0.5 % (0-1); Eosinophil# 0.12 X10^3/uL; Eosinophils% 0.6 % (0-5); Hematocrit 23.2 % (37-47); Lymphocyte # 3.16 X10^3/ul (4.0); Lymphocyte % 15.9 % (19-41); Mean Corp Hgb Conc 30.2 g/dL (32-36); Mean Corpuscular Hgb 21.7 pg (27.0-32.0); Mean Corpuscular Volume 71.8 fL (81-99); Mean Platelet Vol. 9.3 fl (6.2-12.0); Monocyte# 1.11 X10^3/uL; Monocyte% 5.6 % (0-10); NRBC Flagged by Analyzer 0.6 % (0-5); Neutrophil # 14.77 X10^3/uL (2.7-7.7); Neutrophil % 74.5 % (47-70); POSITIVE MORPHOLOGY YES; Platelet Count 214 K/mm3 (150-450); RBC Distribution Width CV 20.3 % (11.6-14.6); RBC Distribution Width SD 51.1 fl (35.1-43.9); Red Blood Count 3.23 M/mm3 (4.2-5.4); White Blood Count 19.8 K/mm3 (4.4-11.0)
[2020-01-29 06:19] LABS: Differential Indicated SCAN CRITERIA MET
[2020-01-29 06:21] LABS: Bedside Glucose 83 mg/dL (70-110)
[2020-01-29] MEDS: NIFEdipine 30 MG Tablet PO (06:36)
[2020-01-29 06:39] LABS: Anisocytosis 1+; Differential Comment SCANNED; Hypochromasia RARE; Microcytosis 1+; Ovalocyte RARE; Polychromasia RARE
--- NOTE | 2020-01-29 07:59 | PCM.PN.OB ---
Patient Problems: Active and Suspected Problems (Last Reviewed 01/27/20 @ 09:04 by Debi Lyman) Hypertension affecting (Acute) BP mild range in office. Was also mild range last week. Sent to triage for evaluation, if remains mild range, will likely plan for induction. Anemia affecting (Acute) Breech presentation (Acute) 36 weeks gestation of (Acute) covid testing- NEGATIVE Anxiety and depression (Acute) effexor, counseling encouraged. plan switch to zoloft third trimester. 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 growth US q 4 wk and NST 2x/weekly starting at 32 week alternating with BPP, deliver 39 Supervision of high risk , antepartum (Acute) PRR NIMA:02/06/20 surprise PC:Eb Spouse:Rancho (Acute) genetic, ntd, and carrier screening declined. nl anatomy. plan echo 22-24 Obesity affecting (Acute) abnl 1 tm glucola. encouraged healthy weight gain in . Subjective: Patient doing well without complaints. Tolerating PO. Ambulating and voiding without difficulty. Bottle feeding well. Denies chest pain, calf pain/swelling, fevers, chills, lightheadedness. Reports SOB with ambulation and still feeling somewhat weak. Does feel somewhat better after 1 unit of blood. Objective: Laboratory Tests 01/29/20 01/29/20 01/29/20 Range/Units 06:13 05:51 05:47 WBC 19.8 H (4.4-11.0) K/mm3 RBC 3.23 L (4.2-5.4) M/mm3 Hgb 7.0 L (12.0-15.0) g/dL Hct 23.2 L (37-47) % MCV 71.8 L (81-99) fL MCH 21.7 L (27.0-32.0) pg MCHC 30.2 L D (32-36) g/dL RDW Std Deviation 51.1 H (35.1-43.9) fl RDW Coeff of Yakov 20.3 H (11.6-14.6) % Plt Count 214 (150-450) K/mm3 MPV 9.3 (6.2-12.0) fl Immature Gran % (Auto) 2.900 H (0.0-0.9) % Neut % (Auto) 74.5 H (47-70) % Lymph % (Auto) 15.9 L (19-41) % Garrett % (Auto) 5.6 (0-10) % Eos % (Auto) 0.6 (0-5) % Baso % (Auto) 0.5 (0-1) % Absolute Neuts (auto) 14.8 H (2.0-7.7) X10^3/uL Absolute Lymphs (auto) 3.16 (0.83-4.51) X10^3/uL Nucleated RBC % 0.6 (0-5) % Differential Comment SCANNED Platelet Estimate (ADEQ) RBC Morphology (NORM C&C) NORMAL Polychromasia RARE Hypochromasia RARE Anisocytosis 1+ Microcytosis 1+ Ovalocytes RARE Creatinine (0.55-1.02) mg/dL Estim Creat Clear Calc ml/min Est GFR (MDRD) Af Amer (>60) mL/min Est GFR (MDRD) Non-Af (>60) mL/min Uric Acid (2.6-6.0) mg/dL AST (15-37) U/L ALT (13-56) U/L U Random Total Protein (<11.9) mg/dL Urine Creatinine (NO RANGE EST.) mg/dL Protein/Creatinin Ratio (0-200) mg/g CRE POC Glucose 83 69 L (70-110) mg/dL Blood Type Antibody Screen Crossmatch 01/28/20 01/28/20 01/28/20 Range/Units 21:30 14:15 10:41 WBC 23.4 H 24.2 H (4.4-11.0) K/mm3 RBC 3.32 L 3.67 L (4.2-5.4) M/mm3 Hgb 6.6 L 7.3 L (12.0-15.0) g/dL Hct 23.3 L 25.2 L (37-47) % MCV 70.2 L 68.7 L (81-99) fL MCH 19.9 L 19.9 L (27.0-32.0) pg MCHC 28.3 L 29.0 L (32-36) g/dL RDW Std Deviation 45.9 H 45.1 H (35.1-43.9) fl RDW Coeff of Yakov 18.4 H 18.2 H (11.6-14.6) % Plt Count 239 275 (150-450) K/mm3 MPV 9.2 9.3 (6.2-12.0) fl Immature Gran % (Auto) 1.500 H 1.200 H (0.0-0.9) % Neut % (Auto) 80.6 H 86.2 H (47-70) % Lymph % (Auto) 12.0 L 6.7 L (19-41) % Garrett % (Auto) 5.5 5.7 (0-10) % Eos % (Auto) 0.2 0.0 (0-5) % Baso % (Auto) 0.2 0.2 (0-1) % Absolute Neuts (auto) 18.9 H 20.9 H (2.0-7.7) X10^3/uL Absolute Lymphs (auto) 2.81 1.62 (0.83-4.51) X10^3/uL Nucleated RBC % 0.6 0.5 (0-5) % Differential Comment Platelet Estimate ADEQUATE (ADEQ) RBC Morphology N CHROM (NORM C&C) NORMAL Polychromasia Hypochromasia Anisocytosis 1+ Microcytosis Ovalocytes Creatinine (0.55-1.02) mg/dL Estim Creat Clear Calc ml/min Est GFR (MDRD) Af Amer (>60) mL/min Est GFR (MDRD) Non-Af (>60) mL/min Uric Acid (2.6-6.0) mg/dL AST (15-37) U/L ALT (13-56) U/L U Random Total Protein (<11.9) mg/dL Urine Creatinine (NO RANGE EST.) mg/dL Protein/Creatinin Ratio (0-200) mg/g CRE POC Glucose 142 H (70-110) mg/dL Blood Type Antibody Screen Crossmatch 01/28/20 01/28/20 01/28/20 Range/Units 06:59 06:30 02:21 WBC (4.4-11.0) K/mm3 RBC (4.2-5.4) M/mm3 Hgb (12.0-15.0) g/dL Hct (37-47) % MCV (81-99) fL MCH (27.0-32.0) pg MCHC (32-36) g/dL RDW Std Deviation (35.1-43.9) fl RDW Coeff of Yakov (11.6-14.6) % Plt Count (150-450) K/mm3 MPV (6.2-12.0) fl Immature Gran % (Auto) (0.0-0.9) % Neut % (Auto) (47-70) % Lymph % (Auto) (19-41) % Garrett % (Auto) (0-10) % Eos % (Auto) (0-5) % Baso % (Auto) (0-1) % Absolute Neuts (auto) (2.0-7.7) X10^3/uL Absolute Lymphs (auto) (0.83-4.51) X10^3/uL Nucleated RBC % (0-5) % Differential Comment Platelet Estimate (ADEQ) RBC Morphology (NORM C&C) NORMAL Polychromasia Hypochromasia Anisocytosis Microcytosis Ovalocytes Creatinine (0.55-1.02) mg/dL Estim Creat Clear Calc ml/min Est GFR (MDRD) Af Amer (>60) mL/min Est GFR (MDRD) Non-Af (>60) mL/min Uric Acid (2.6-6.0) mg/dL AST (15-37) U/L ALT (13-56) U/L U Random Total Protein (<11.9) mg/dL Urine Creatinine (NO RANGE EST.) mg/dL Protein/Creatinin Ratio (0-200) mg/g CRE POC Glucose 74 65 L 79 (70-110) mg/dL Blood Type Antibody Screen Crossmatch 01/28/20 01/28/20 01/28/20 Range/Units 01:59 01:32 00:19 WBC (4.4-11.0) K/mm3 RBC (4.2-5.4) M/mm3 Hgb (12.0-15.0) g/dL Hct (37-47) % MCV (81-99) fL MCH (27.0-32.0) pg MCHC (32-36) g/dL RDW Std Deviation (35.1-43.9) fl RDW Coeff of Yakov (11.6-14.6) % Plt Count (150-450) K/mm3 MPV (6.2-12.0) fl Immature Gran % (Auto) (0.0-0.9) % Neut % (Auto) (47-70) % Lymph % (Auto) (19-41) % Garrett % (Auto) (0-10) % Eos % (Auto) (0-5) % Baso % (Auto) (0-1) % Absolute Neuts (auto) (2.0-7.7) X10^3/uL Absolute Lymphs (auto) (0.83-4.51) X10^3/uL Nucleated RBC % (0-5) % Differential Comment Platelet Estimate (ADEQ) RBC Morphology (NORM C&C) NORMAL Polychromasia Hypochromasia Anisocytosis Microcytosis Ovalocytes Creatinine (0.55-1.02) mg/dL Estim Creat Clear Calc ml/min Est GFR (MDRD) Af Amer (>60) mL/min Est GFR (MDRD) Non-Af (>60) mL/min Uric Acid (2.6-6.0) mg/dL AST (15-37) U/L ALT (13-56) U/L U Random Total Protein (<11.9) mg/dL Urine Creatinine (NO RANGE EST.) mg/dL Protein/Creatinin Ratio (0-200) mg/g CRE POC Glucose 79 56 L 78 (70-110) mg/dL Blood Type Antibody Screen Crossmatch 01/27/20 01/27/20 01/27/20 Range/Units 23:58 21:33 15:31 WBC (4.4-11.0) K/mm3 RBC (4.2-5.4) M/mm3 Hgb (12.0-15.0) g/dL Hct (37-47) % MCV (81-99) fL MCH (27.0-32.0) pg MCHC (32-36) g/dL RDW Std Deviation (35.1-43.9) fl RDW Coeff of Yakov (11.6-14.6) % Plt Count (150-450) K/mm3 MPV (6.2-12.0) fl Immature Gran % (Auto) (0.0-0.9) % Neut % (Auto) (47-70) % Lymph % (Auto) (19-41) % Garrett % (Auto) (0-10) % Eos % (Auto) (0-5) % Baso % (Auto) (0-1) % Absolute Neuts (auto) (2.0-7.7) X10^3/uL Absolute Lymphs (auto) (0.83-4.51) X10^3/uL Nucleated RBC % (0-5) % Differential Comment Platelet Estimate (ADEQ) RBC Morphology (NORM C&C) NORMAL Polychromasia Hypochromasia Anisocytosis Microcytosis Ovalocytes Creatinine (0.55-1.02) mg/dL Estim Creat Clear Calc ml/min Est GFR (MDRD) Af Amer (>60) mL/min Est GFR (MDRD) Non-Af (>60) mL/min Uric Acid (2.6-6.0) mg/dL AST (15-37) U/L ALT (13-56) U/L U Random Total Protein (<11.9) mg/dL Urine Creatinine (NO RANGE EST.) mg/dL Protein/Creatinin Ratio (0-200) mg/g CRE POC Glucose 60 L 101 86 (70-110) mg/dL Blood Type Antibody Screen Crossmatch 01/27/20 01/27/20 01/27/20 Range/Units 11:35 11:35 11:35 WBC (4.4-11.0) K/mm3 RBC (4.2-5.4) M/mm3 Hgb (12.0-15.0) g/dL Hct (37-47) % MCV (81-99) fL MCH (27.0-32.0) pg MCHC (32-36) g/dL RDW Std Deviation (35.1-43.9) fl RDW Coeff of Yakov (11.6-14.6) % Plt Count (150-450) K/mm3 MPV (6.2-12.0) fl Immature Gran % (Auto) (0.0-0.9) % Neut % (Auto) (47-70) % Lymph % (Auto) (19-41) % Garrett % (Auto) (0-10) % Eos % (Auto) (0-5) % Baso % (Auto) (0-1) % Absolute Neuts (auto) (2.0-7.7) X10^3/uL Absolute Lymphs (auto) (0.83-4.51) X10^3/uL Nucleated RBC % (0-5) % Differential Comment Platelet Estimate (ADEQ) RBC Morphology (NORM C&C) NORMAL Polychromasia Hypochromasia Anisocytosis Microcytosis Ovalocytes Creatinine (0.55-1.02) mg/dL Estim Creat Clear Calc ml/min Est GFR (MDRD) Af Amer (>60) mL/min Est GFR (MDRD) Non-Af (>60) mL/min Uric Acid (2.6-6.0) mg/dL AST (15-37) U/L ALT (13-56) U/L U Random Total Protein 11.4 (<11.9) mg/dL Urine Creatinine 52.20 (NO RANGE EST.) mg/dL Protein/Creatinin Ratio 218 H (0-200) mg/g CRE POC Glucose (70-110) mg/dL Blood Type O POSITIVE Antibody Screen NEGATIVE Crossmatch See Detail 01/27/20 01/27/20 01/27/20 Range/Units 11:35 11:35 11:24 WBC 12.8 H (4.4-11.0) K/mm3 RBC 3.92 L (4.2-5.4) M/mm3 Hgb 7.8 L (12.0-15.0) g/dL Hct 26.6 L (37-47) % MCV 67.9 L (81-99) fL MCH 19.9 L (27.0-32.0) pg MCHC 29.3 L (32-36) g/dL RDW Std Deviation 44.6 H (35.1-43.9) fl RDW Coeff of Yakov 18.4 H (11.6-14.6) % Plt Count 288 (150-450) K/mm3 MPV 9.7 (6.2-12.0) fl Immature Gran % (Auto) 2.200 H (0.0-0.9) % Neut % (Auto) 73.8 H (47-70) % Lymph % (Auto) 17.3 L (19-41) % Garrett % (Auto) 5.8 (0-10) % Eos % (Auto) 0.7 (0-5) % Baso % (Auto) 0.2 (0-1) % Absolute Neuts (auto) 9.4 H (2.0-7.7) X10^3/uL Absolute Lymphs (auto) 2.21 (0.83-4.51) X10^3/uL Nucleated RBC % 0.6 (0-5) % Differential Comment Platelet Estimate (ADEQ) RBC Morphology (NORM C&C) NORMAL Polychromasia Hypochromasia Anisocytosis Microcytosis Ovalocytes Creatinine 0.77 (0.55-1.02) mg/dL Estim Creat Clear Calc 82.96 ml/min Est GFR (MDRD) Af Amer 111 (>60) mL/min Est GFR (MDRD) Non-Af 92 (>60) mL/min Uric Acid 6.2 H (2.6-6.0) mg/dL AST 28 (15-37) U/L ALT 13 (13-56) U/L U Random Total Protein (<11.9) mg/dL Urine Creatinine (NO RANGE EST.) mg/dL Protein/Creatinin Ratio (0-200) mg/g CRE POC Glucose 90 (70-110) mg/dL Blood Type Antibody Screen Crossmatch - Physical Exam Vitals/I&O's: Vital Signs Temp Pulse Resp BP Pulse Ox 98.2 F 87 16 136/88 H 98 01/29/20 02:48 01/29/20 06:34 01/29/20 02:48 01/29/20 06:34 01/29/20 02:48 Oxygen Delivery Method Room Air Weight: 240 lb Body Mass Index (BMI) 43.9 Intake and Output for Last 24 Hours 01/27/20 01/28/20 01/29/20 23:59 23:59 23:59 Intake Total 1495.2 / 1495.2 444 / 444 Balance 1495.2 / 1495.2 444 / 444 General: Alert, Oriented x3, Cooperative, No apparent distress, Well developed, Well nourished HEENT: Atraumatic, PERRLA, EOMI, Normocephalic Neck: Supple, No JVD Lungs: Clear to auscultation, Normal air movement Cardiovascular: Regular rate, Regular Rhythm Abdomen: Soft, Non Tender, Non-Distended, - - fundus firm Extremities: No edema Neurological: Cranial nerves II-XII grossly intact, Neuro grossly intact Psych/Mental Status: Normal Affect, Appropriate Laboratory Results 01/27/20 11:35: Crossmatch See Detail 01/28/20 10:41: POC Glucose 142 H 01/28/20 14:15: WBC 24.2 H, RBC 3.67 L, Hgb 7.3 L, Hct 25.2 L, MCV 68.7 L, MCH 19.9 L, MCHC 29.0 L, RDW Std Deviation 45.1 H, RDW Coeff of Yakov 18.2 H, Plt Count 275, MPV 9.3, Immature Gran % (Auto) 1.200 H, Neut % (Auto) 86.2 H, Lymph % (Auto) 6.7 L, Garrett % (Auto) 5.7, Eos % (Auto) 0.0, Baso % (Auto) 0.2, Absolute Neuts (auto) 20.9 H, Absolute Lymphs (auto) 1.62, Nucleated RBC % 0.5, Differential Comment , Platelet Estimate ADEQUATE, RBC Morphology N CHROM, Anisocytosis 1+ 01/28/20 21:30: WBC 23.4 H, RBC 3.32 L, Hgb 6.6 L, Hct 23.3 L, MCV 70.2 L, MCH 19.9 L, MCHC 28.3 L, RDW Std Deviation 45.9 H, RDW Coeff of Yakov 18.4 H, Plt Count 239, MPV 9.2, Immature Gran % (Auto) 1.500 H, Neut % (Auto) 80.6 H, Lymph % (Auto) 12.0 L, Garrett % (Auto) 5.5, Eos % (Auto) 0.2, Baso % (Auto) 0.2, Absolute Neuts (auto) 18.9 H, Absolute Lymphs (auto) 2.81, Nucleated RBC % 0.6 01/29/20 05:47: POC Glucose 69 L 01/29/20 05:51: WBC 19.8 H, RBC 3.23 L, Hgb 7.0 L, Hct 23.2 L, MCV 71.8 L, MCH 21.7 L, MCHC 30.2 L D, RDW Std Deviation 51.1 H, RDW Coeff of Yakov 20.3 H, Plt Count 214, MPV 9.3, Immature Gran % (Auto) 2.900 H, Neut % (Auto) 74.5 H, Lymph % (Auto) 15.9 L, Garrett % (Auto) 5.6, Eos % (Auto) 0.6, Baso % (Auto) 0.5, Absolute Neuts (auto) 14.8 H, Absolute Lymphs (auto) 3.16, Nucleated RBC % 0.6, Differential Comment SCANNED, Polychromasia RARE, Hypochromasia RARE, Anisocytosis 1+, Microcytosis 1+, Ovalocytes RARE 01/29/20 06:13: POC Glucose 83 Current Medications Albuterol Sulfate (Albuterol 2.5 Mg/3 Ml Vial.Neb.) 2.5 mg INHALATION Q4H PRN PRN Reason: Asthma Bisacodyl (Bisacodyl 10 Mg Suppository) 10 mg RECTAL UD PRN PRN Reason: If no BM Dextrose (Dextrose 50%-Water 25 Gm/50 Ml Disp.Syrin) 0 gm IV X1 PRN; Protocol PRN Reason: Hypoglycemia Dibucaine (Dibucaine 30 Gm Tube) 1 applic TOPICAL TID PRN PRN; Protocol PRN Reason: Discomfort Ferrous Sulfate (Ferrous Sulfate 325 Mg Tablet) 325 mg PO 1200,1700 [facility] Last Admin: 01/28/20 21:30 Dose: 325 mg Documented by: Glucagon (Glucagon 1 Mg/Ml Syringe) 1 mg IM .X1 PRN PRN Reason: Hypoglycemia Hydrocortisone (Hydrocortisone 2.5% Crm) 1 applic TOPICAL TID PRN PRN; Protocol PRN Reason: Discomfort Sodium Chloride () 1,000 mls @ 15 mls/hr IV .Q48H [facility] Last Infusion: 01/29/20 01:39 Dose: Infused Documented by: Ibuprofen (Ibuprofen 600 Mg Tablet) 600 mg PO Q6H PRN PRN PRN Reason: Pain Score 1-3 Last Admin: 01/28/20 19:30 Dose: 600 mg Documented by: Loratadine (Loratadine 10 Mg Tablet) 10 mg PO DAILY [facility] Last Admin: 01/28/20 10:23 Dose: Not Given Documented by: Methylergonovine Maleate (Methylergonovine 0.2 Mg/Ml Ampul) 0.2 mg IM X1 PRN PRN Reason: Excess bleeding/uterine atony Nifedipine (Nifedipine 30 Mg Tablet) 30 mg PO DAILY [facility] Last Admin: 01/29/20 06:36 Dose: 30 mg Documented by: Ondansetron HCl (Ondansetron 4 Mg/2 Ml Vial) 4 mg IV Q4H PRN PRN PRN Reason: Nausea Oxycodone HCl (Oxycodone 5 Mg Tablet) 5 - 10 mg PO Q4H PRN PRN PRN Reason: Pain Score 4-10 Pantoprazole Sodium (Pantoprazole Sodium 40 Mg Tablet) 40 mg PO DAILY [facility] Last Admin: 01/28/20 11:00 Dose: 40 mg Documented by: Senna/Docusate Sodium (Senna/Docusate Sodium 1 Tablet) 1 - 2 tablet PO DAILY PRN PRN PRN Reason: Constipation Simethicone (Simethicone 80 Mg Tablet) 80 mg PO PCHS PRN PRN Reason: Indigestion/Stomach pain Sodium Chloride (0.9% Saline Lock 10 Ml Syringe) 5 - 15 ml IV UD PRN PRN Reason: SALINE FLUSH Last Admin: 01/29/20 01:39 Dose: 10 ml Documented by: Venlafaxine HCl (Venlafaxine Xr 75 Mg Capsule) 75 mg PO QHS [facility] Last Admin: 01/28/20 21:30 Dose: 75 mg Documented by: Medical Necessity - Tobacco Use Smoking Status: Never smoker Assessment/Plan All Active Problems (Last Reviewed 01/27/20 @ 09:04 by Debi Lyman) Hypertension affecting (Acute) Anemia affecting (Acute) Breech presentation (Acute) 36 weeks gestation of (Acute) Anxiety and depression (Acute) 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) Supervision of high risk , antepartum (Acute) (Acute) Obesity affecting (Acute) Abnormal glucose complicating childbirth (Resolved) Anemia affecting (Resolved) Anxiety (Resolved) Asthma (Resolved) Body mass index (BMI) of 40.1 to 44.9 in adult (Resolved) Elevated blood pressure affecting in third trimester, antepartum (Resolved) Gestational diabetes mellitus in , diet controlled (Resolved) Insulin controlled gestational diabetes mellitus (GDM) in third trimester (Resolved) LGA (large for gestational age) fetus (Resolved) (Resolved) Supervision of high-risk (Resolved) Supervision of normal (Resolved) Supervision of normal in first trimester (Resolved) Supervision of normal in first trimester (Resolved) s/p PPD # 1 1. routine post delivery care 2. breast feeding- support given 3. rh positive 4. rubella immune 5. Anemia - Hb 7.0 s/p 1u PRBCs, still SOB with ambulation, will give additional unit of blood 6. PreEwoSF - started on Procardia XL 30mg daily overnight due to persistent mild range BPs
[2020-01-29] MEDS: DiphenhydrAMINE 25 MG Capsule PO (08:25)
[2020-01-29] MEDS: Acetaminophen 500 MG Tablet 1000 MG PO (08:25)
[2020-01-29] MEDS: Pantoprazole Sodium 40 MG Tablet PO (08:25)
[2020-01-29] MEDS: Ferrous Sulfate 325 MG Tablet PO ×2 (13:13→18:00)
[2020-01-29 16:15] LABS: Absolute Neutrophil Count 17.8 X10^3/uL (2.0-7.7); Basophil# 0.09 X10^3/uL; Basophil% 0.4 % (0-1); Differential Indicated SCAN CRITERIA MET; Eosinophil# 0.06 X10^3/uL; Eosinophils% 0.3 % (0-5); Hematocrit 29.1 % (37-47); Hemoglobin 8.8 g/dL (12.0-15.0); Lymphocyte % 11.6 % (19-41); Mean Corp Hgb Conc 30.2 g/dL (32-36); Mean Corpuscular Hgb 22.5 pg (27.0-32.0); Mean Corpuscular Volume 74.4 fL (81-99); Monocyte# 1.03 X10^3/uL; Monocyte% 4.6 % (0-10); NRBC Flagged by Analyzer 0.4 % (0-5); Neutrophil # 17.83 X10^3/uL (2.7-7.7); Neutrophil % 79.5 % (47-70); POSITIVE MORPHOLOGY YES; Platelet Count 255 K/mm3 (150-450); RBC Distribution Width CV 21.4 % (11.6-14.6); RBC Distribution Width SD 56.1 fl (35.1-43.9); Red Blood Count 3.91 M/mm3 (4.2-5.4); White Blood Count 22.4 K/mm3 (4.4-11.0)
[2020-01-29] MEDS: Ibuprofen 600 MG Tablet PO (16:42)
[2020-01-29] MEDS: Venlafaxine XR 75 MG Capsule PO (21:13)
[2020-01-30 00:18] VITALS: BP 130/72; PULSE 94; RESP 18; TEMP 36.8; O2SAT 98
[2020-01-30 03:46] VITALS: BP 145/89; PULSE 86; RESP 16; TEMP 36.6; O2SAT 98
[2020-01-30] MEDS: Ibuprofen 600 MG Tablet PO ×2 (03:52→14:54)
--- NOTE | 2020-01-30 07:59 | PN.OBGYN_ITS ---
Patient Problems: Active and Suspected Problems (Last Reviewed 01/27/20 @ 09:04 by Dbei Lyman) Hypertension affecting (Acute) BP mild range in office. Was also mild range last week. Sent to triage for evaluation, if remains mild range, will likely plan for induction. Anemia affecting (Acute) Breech presentation (Acute) 36 weeks gestation of (Acute) covid testing- NEGATIVE Anxiety and depression (Acute) effexor, counseling encouraged. plan switch to zoloft third trimester. 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 growth US q 4 wk and NST 2x/weekly starting at 32 week alternating with BPP, deliver 39 Supervision of high risk , antepartum (Acute) PRR NIMA:02/06/20 surprise PC:Eb Spouse:Rancho (Acute) genetic, ntd, and carrier screening declined. nl anatomy. plan echo 22- 24 Obesity affecting (Acute) abnl 1 tm glucola. encouraged healthy weight gain in . Subjective: Patient doing well without complaints. Tolerating PO. Ambulating and voiding without difficulty. Bottle feeding well. Denies chest pain, shortness of breath, calf pain/swelling, fevers, chills, lightheadedness. Objective: Laboratory Tests 01/29/20 01/29/20 01/29/20 Range/Units 16:00 06:13 05:51 WBC 22.4 H 19.8 H (4.4-11.0) K/mm3 RBC 3.91 L 3.23 L (4.2-5.4) M/mm3 Hgb 8.8 L 7.0 L (12.0-15.0) g/dL Hct 29.1 L 23.2 L (37-47) % MCV 74.4 L 71.8 L (81-99) fL MCH 22.5 L 21.7 L (27.0-32.0) pg MCHC 30.2 L 30.2 L D (32-36) g/dL RDW Std Deviation 56.1 H 51.1 H (35.1-43.9) fl RDW Coeff of Yakov 21.4 H 20.3 H (11.6-14.6) % Plt Count 255 214 (150-450) K/mm3 MPV 9.0 9.3 (6.2-12.0) fl Immature Gran % (Auto) 3.600 H 2.900 H (0.0-0.9) % Neut % (Auto) 79.5 H 74.5 H (47-70) % Lymph % (Auto) 11.6 L 15.9 L (19-41) % [place] % (Auto) 4.6 5.6 (0-10) % Eos % (Auto) 0.3 0.6 (0-5) % Baso % (Auto) 0.4 0.5 (0-1) % Absolute Neuts (auto) 17.8 H 14.8 H (2.0-7.7) X10^3/uL Absolute Lymphs (auto) 2.60 3.16 (0.83-4.51) X10^3/uL Nucleated RBC % 0.4 0.6 (0-5) % Differential Comment SCANNED Platelet Estimate (ADEQ) RBC Morphology (NORM C&C) NORMAL Polychromasia RARE Hypochromasia RARE Anisocytosis 1+ Microcytosis 1+ Ovalocytes RARE Creatinine (0.55-1.02) mg/dL Estim Creat Clear Calc ml/min Est GFR (MDRD) Af Amer (>60) mL/min Est GFR (MDRD) Non-Af (>60) mL/min Uric Acid (2.6-6.0) mg/dL AST (15-37) U/L ALT (13-56) U/L U Random Total Protein (<11.9) mg/dL Urine Creatinine (NO RANGE EST.) mg/dL Protein/Creatinin Ratio (0-200) mg/g CRE POC Glucose 83 (70-110) mg/dL Blood Type Antibody Screen Crossmatch 01/29/20 01/28/20 01/28/20 Range/Units 05:47 21:30 14:15 WBC 23.4 H 24.2 H (4.4-11.0) K/mm3 RBC 3.32 L 3.67 L (4.2-5.4) M/mm3 Hgb 6.6 L 7.3 L (12.0-15.0) g/dL Hct 23.3 L 25.2 L (37-47) % MCV 70.2 L 68.7 L (81-99) fL MCH 19.9 L 19.9 L (27.0-32.0) pg MCHC 28.3 L 29.0 L (32-36) g/dL RDW Std Deviation 45.9 H 45.1 H (35.1-43.9) fl RDW Coeff of Yakov 18.4 H 18.2 H (11.6-14.6) % Plt Count 239 275 (150-450) K/mm3 MPV 9.2 9.3 (6.2-12.0) fl Immature Gran % (Auto) 1.500 H 1.200 H (0.0-0.9) % Neut % (Auto) 80.6 H 86.2 H (47-70) % Lymph % (Auto) 12.0 L 6.7 L (19-41) % [place] % (Auto) 5.5 5.7 (0-10) % Eos % (Auto) 0.2 0.0 (0-5) % Baso % (Auto) 0.2 0.2 (0-1) % Absolute Neuts (auto) 18.9 H 20.9 H (2.0-7.7) X10^3/uL Absolute Lymphs (auto) 2.81 1.62 (0.83-4.51) X10^3/uL Nucleated RBC % 0.6 0.5 (0-5) % Differential Comment Platelet Estimate ADEQUATE (ADEQ) RBC Morphology N CHROM (NORM C&C) NORMAL Polychromasia Hypochromasia Anisocytosis 1+ Microcytosis Ovalocytes Creatinine (0.55-1.02) mg/dL Estim Creat Clear Calc ml/min Est GFR (MDRD) Af Amer (>60) mL/min Est GFR (MDRD) Non-Af (>60) mL/min Uric Acid (2.6-6.0) mg/dL AST (15-37) U/L ALT (13-56) U/L U Random Total Protein (<11.9) mg/dL Urine Creatinine (NO RANGE EST.) mg/dL Protein/Creatinin Ratio (0-200) mg/g CRE POC Glucose 69 L (70-110) mg/dL Blood Type Antibody Screen Crossmatch 01/28/20 01/28/20 01/28/20 Range/Units 10:41 06:59 06:30 WBC (4.4-11.0) K/mm3 RBC (4.2-5.4) M/mm3 Hgb (12.0-15.0) g/dL Hct (37-47) % MCV (81-99) fL MCH (27.0-32.0) pg MCHC (32-36) g/dL RDW Std Deviation (35.1-43.9) fl RDW Coeff of Yakov (11.6-14.6) % Plt Count (150-450) K/mm3 MPV (6.2-12.0) fl Immature Gran % (Auto) (0.0-0.9) % Neut % (Auto) (47-70) % Lymph % (Auto) (19-41) % [place] % (Auto) (0-10) % Eos % (Auto) (0-5) % Baso % (Auto) (0-1) % Absolute Neuts (auto) (2.0-7.7) X10^3/uL Absolute Lymphs (auto) (0.83-4.51) X10^3/uL Nucleated RBC % (0-5) % Differential Comment Platelet Estimate (ADEQ) RBC Morphology (NORM C&C) NORMAL Polychromasia Hypochromasia Anisocytosis Microcytosis Ovalocytes Creatinine (0.55-1.02) mg/dL Estim Creat Clear Calc ml/min Est GFR (MDRD) Af Amer (>60) mL/min Est GFR (MDRD) Non-Af (>60) mL/min Uric Acid (2.6-6.0) mg/dL AST (15-37) U/L ALT (13-56) U/L U Random Total Protein (<11.9) mg/dL Urine Creatinine (NO RANGE EST.) mg/dL Protein/Creatinin Ratio (0-200) mg/g CRE POC Glucose 142 H 74 65 L (70-110) mg/dL Blood Type Antibody Screen Crossmatch 01/28/20 01/28/20 01/28/20 Range/Units 02:21 01:59 01:32 WBC (4.4-11.0) K/mm3 RBC (4.2-5.4) M/mm3 Hgb (12.0-15.0) g/dL Hct (37-47) % MCV (81-99) fL MCH (27.0-32.0) pg MCHC (32-36) g/dL RDW Std Deviation (35.1-43.9) fl RDW Coeff of Yakov (11.6-14.6) % Plt Count (150-450) K/mm3 MPV (6.2-12.0) fl Immature Gran % (Auto) (0.0-0.9) % Neut % (Auto) (47-70) % Lymph % (Auto) (19-41) % [place] % (Auto) (0-10) % Eos % (Auto) (0-5) % Baso % (Auto) (0-1) % Absolute Neuts (auto) (2.0-7.7) X10^3/uL Absolute Lymphs (auto) (0.83-4.51) X10^3/uL Nucleated RBC % (0-5) % Differential Comment Platelet Estimate (ADEQ) RBC Morphology (NORM C&C) NORMAL Polychromasia Hypochromasia Anisocytosis Microcytosis Ovalocytes Creatinine (0.55-1.02) mg/dL Estim Creat Clear Calc ml/min Est GFR (MDRD) Af Amer (>60) mL/min Est GFR (MDRD) Non-Af (>60) mL/min Uric Acid (2.6-6.0) mg/dL AST (15-37) U/L ALT (13-56) U/L U Random Total Protein (<11.9) mg/dL Urine Creatinine (NO RANGE EST.) mg/dL Protein/Creatinin Ratio (0-200) mg/g CRE POC Glucose 79 79 56 L (70-110) mg/dL Blood Type Antibody Screen Crossmatch 01/28/20 01/27/20 01/27/20 Range/Units 00:19 23:58 21:33 WBC (4.4-11.0) K/mm3 RBC (4.2-5.4) M/mm3 Hgb (12.0-15.0) g/dL Hct (37-47) % MCV (81-99) fL MCH (27.0-32.0) pg MCHC (32-36) g/dL RDW Std Deviation (35.1-43.9) fl RDW Coeff of Yakov (11.6-14.6) % Plt Count (150-450) K/mm3 MPV (6.2-12.0) fl Immature Gran % (Auto) (0.0-0.9) % Neut % (Auto) (47-70) % Lymph % (Auto) (19-41) % [place] % (Auto) (0-10) % Eos % (Auto) (0-5) % Baso % (Auto) (0-1) % Absolute Neuts (auto) (2.0-7.7) X10^3/uL Absolute Lymphs (auto) (0.83-4.51) X10^3/uL Nucleated RBC % (0-5) % Differential Comment Platelet Estimate (ADEQ) RBC Morphology (NORM C&C) NORMAL Polychromasia Hypochromasia Anisocytosis Microcytosis Ovalocytes Creatinine (0.55-1.02) mg/dL Estim Creat Clear Calc ml/min Est GFR (MDRD) Af Amer (>60) mL/min Est GFR (MDRD) Non-Af (>60) mL/min Uric Acid (2.6-6.0) mg/dL AST (15-37) U/L ALT (13-56) U/L U Random Total Protein (<11.9) mg/dL Urine Creatinine (NO RANGE EST.) mg/dL Protein/Creatinin Ratio (0-200) mg/g CRE POC Glucose 78 60 L 101 (70-110) mg/dL Blood Type Antibody Screen Crossmatch 01/27/20 01/27/20 01/27/20 Range/Units 15:31 11:35 11:35 WBC (4.4-11.0) K/mm3 RBC (4.2-5.4) M/mm3 Hgb (12.0-15.0) g/dL Hct (37-47) % MCV (81-99) fL MCH (27.0-32.0) pg MCHC (32-36) g/dL RDW Std Deviation (35.1-43.9) fl RDW Coeff of Yakov (11.6-14.6) % Plt Count (150-450) K/mm3 MPV (6.2-12.0) fl Immature Gran % (Auto) (0.0-0.9) % Neut % (Auto) (47-70) % Lymph % (Auto) (19-41) % [place] % (Auto) (0-10) % Eos % (Auto) (0-5) % Baso % (Auto) (0-1) % Absolute Neuts (auto) (2.0-7.7) X10^3/uL Absolute Lymphs (auto) (0.83-4.51) X10^3/uL Nucleated RBC % (0-5) % Differential Comment Platelet Estimate (ADEQ) RBC Morphology (NORM C&C) NORMAL Polychromasia Hypochromasia Anisocytosis Microcytosis Ovalocytes Creatinine (0.55-1.02) mg/dL Estim Creat Clear Calc ml/min Est GFR (MDRD) Af Amer (>60) mL/min Est GFR (MDRD) Non-Af (>60) mL/min Uric Acid (2.6-6.0) mg/dL AST (15-37) U/L ALT (13-56) U/L U Random Total Protein (<11.9) mg/dL Urine Creatinine (NO RANGE EST.) mg/dL Protein/Creatinin Ratio (0-200) mg/g CRE POC Glucose 86 (70-110) mg/dL Blood Type Antibody Screen Crossmatch See Detail See Detail 01/27/20 01/27/20 01/27/20 Range/Units 11:35 11:35 11:35 WBC (4.4-11.0) K/mm3 RBC (4.2-5.4) M/mm3 Hgb (12.0-15.0) g/dL Hct (37-47) % MCV (81-99) fL MCH (27.0-32.0) pg MCHC (32-36) g/dL RDW Std Deviation (35.1-43.9) fl RDW Coeff of Yakov (11.6-14.6) % Plt Count (150-450) K/mm3 MPV (6.2-12.0) fl Immature Gran % (Auto) (0.0-0.9) % Neut % (Auto) (47-70) % Lymph % (Auto) (19-41) % [place] % (Auto) (0-10) % Eos % (Auto) (0-5) % Baso % (Auto) (0-1) % Absolute Neuts (auto) (2.0-7.7) X10^3/uL Absolute Lymphs (auto) (0.83-4.51) X10^3/uL Nucleated RBC % (0-5) % Differential Comment Platelet Estimate (ADEQ) RBC Morphology (NORM C&C) NORMAL Polychromasia Hypochromasia Anisocytosis Microcytosis Ovalocytes Creatinine 0.77 (0.55-1.02) mg/dL Estim Creat Clear Calc 82.96 ml/min Est GFR (MDRD) Af Amer 111 (>60) mL/min Est GFR (MDRD) Non-Af 92 (>60) mL/min Uric Acid 6.2 H (2.6-6.0) mg/dL AST 28 (15-37) U/L ALT 13 (13-56) U/L U Random Total Protein 11.4 (<11.9) mg/dL Urine Creatinine 52.20 (NO RANGE EST.) mg/dL Protein/Creatinin Ratio 218 H (0-200) mg/g CRE POC Glucose (70-110) mg/dL Blood Type O POSITIVE Antibody Screen NEGATIVE Crossmatch 01/27/20 01/27/20 Range/Units 11:35 11:24 WBC 12.8 H (4.4-11.0) K/mm3 RBC 3.92 L (4.2-5.4) M/mm3 Hgb 7.8 L (12.0-15.0) g/dL Hct 26.6 L (37-47) % MCV 67.9 L (81-99) fL MCH 19.9 L (27.0-32.0) pg MCHC 29.3 L (32-36) g/dL RDW Std Deviation 44.6 H (35.1-43.9) fl RDW Coeff of Yakov 18.4 H (11.6-14.6) % Plt Count 288 (150-450) K/mm3 MPV 9.7 (6.2-12.0) fl Immature Gran % (Auto) 2.200 H (0.0-0.9) % Neut % (Auto) 73.8 H (47-70) % Lymph % (Auto) 17.3 L (19-41) % [place] % (Auto) 5.8 (0-10) % Eos % (Auto) 0.7 (0-5) % Baso % (Auto) 0.2 (0-1) % Absolute Neuts (auto) 9.4 H (2.0-7.7) X10^3/uL Absolute Lymphs (auto) 2.21 (0.83-4.51) X10^3/uL Nucleated RBC % 0.6 (0-5) % Differential Comment Platelet Estimate (ADEQ) RBC Morphology (NORM C&C) NORMAL Polychromasia Hypochromasia Anisocytosis Microcytosis Ovalocytes Creatinine (0.55-1.02) mg/dL Estim Creat Clear Calc ml/min Est GFR (MDRD) Af Amer (>60) mL/min Est GFR (MDRD) Non-Af (>60) mL/min Uric Acid (2.6-6.0) mg/dL AST (15-37) U/L ALT (13-56) U/L U Random Total Protein (<11.9) mg/dL Urine Creatinine (NO RANGE EST.) mg/dL Protein/Creatinin Ratio (0-200) mg/g CRE POC Glucose 90 (70-110) mg/dL Blood Type Antibody Screen Crossmatch - Physical Exam Vitals/I&O's: Vital Signs Temp Pulse Resp BP Pulse Ox 97.9 F 86 16 145/89 H 98 01/30/20 03:46 01/30/20 03:46 01/30/20 03:46 01/30/20 03:46 01/30/20 03:46 Oxygen Delivery Method Room Air Weight: 240 lb Body Mass Index (BMI) 43.9 Intake and Output for Last 24 Hours 01/28/20 01/29/20 01/30/20 23:59 23:59 23:59 Intake Total 1495.2 / 1495.2 844 / 844 Balance 1495.2 / 1495.2 844 / 844 General: Alert, Oriented x3, Cooperative, No apparent distress, Well developed, Well nourished HEENT: Atraumatic, PERRLA, EOMI, Normocephalic Neck: Supple, No JVD Lungs: Normal air movement Cardiovascular: Regular rate Abdomen: Soft, Non Tender, Non-Distended, - - fundus firm Extremities: No Calf Tenderness, Edema - trace Neurological: Cranial nerves II-XII grossly intact, Neuro grossly intact Psych/Mental Status: Normal Affect, Appropriate Laboratory Results 01/27/20 11:35: Crossmatch See Detail 01/27/20 11:35: Crossmatch See Detail 01/29/20 16:00: WBC 22.4 H, RBC 3.91 L, Hgb 8.8 L, Hct 29.1 L, MCV 74.4 L, MCH 22.5 L, MCHC 30.2 L, RDW Std Deviation 56.1 H, RDW Coeff of Yakov 21.4 H, Plt C ount 255, MPV 9.0, Immature Gran % (Auto) 3.600 H, Neut % (Auto) 79.5 H, Lymph % (Auto) 11.6 L, [place] % (Auto) 4.6, Eos % (Auto) 0.3, Baso % (Auto) 0.4, Absolute Neuts (auto) 17.8 H, Absolute Lymphs (auto) 2.60, Nucleated RBC % 0.4, Differential Comment Current Medications Albuterol Sulfate (Albuterol 2.5 Mg/3 Ml Vial.Neb.) 2.5 mg INHALATION Q4H PRN PRN Reason: Asthma Bisacodyl (Bisacodyl 10 Mg Suppository) 10 mg RECTAL UD PRN PRN Reason: If no BM Dextrose (Dextrose 50%-Water 25 Gm/50 Ml Disp.Syrin) 0 gm IV X1 PRN; Protocol PRN Reason: Hypoglycemia Dibucaine (Dibucaine 30 Gm Tube) 1 applic TOPICAL TID PRN PRN; Protocol PRN Reason: Discomfort Ferrous Sulfate (Ferrous Sulfate 325 Mg Tablet) 325 mg PO 1200,1700 [facility] Last Admin: 01/29/20 18:00 Dose: 325 mg Documented by: Glucagon (Glucagon 1 Mg/Ml Syringe) 1 mg IM .X1 PRN PRN Reason: Hypoglycemia Hydrocortisone (Hydrocortisone 2.5% Crm) 1 applic TOPICAL TID PRN PRN; Protocol PRN Reason: Discomfort Sodium Chloride () 1,000 mls @ 15 mls/hr IV .Q48H [facility] Last Infusion: 01/29/20 01:39 Dose: Infused Documented by: Ibuprofen (Ibuprofen 600 Mg Tablet) 600 mg PO Q6H PRN PRN PRN Reason: Pain Score 1-3 Last Admin: 01/30/20 03:52 Dose: 600 mg Documented by: Loratadine (Loratadine 10 Mg Tablet) 10 mg PO DAILY [facility] Last Admin: 01/29/20 09:06 Dose: Not Given Documented by: Methylergonovine Maleate (Methylergonovine 0.2 Mg/Ml Ampul) 0.2 mg IM X1 PRN PRN Reason: Excess bleeding/uterine atony Nifedipine (Nifedipine 30 Mg Tablet) 30 mg PO DAILY [facility] Last Admin: 01/29/20 06:36 Dose: 30 mg Documented by: Ondansetron HCl (Ondansetron 4 Mg/2 Ml Vial) 4 mg IV Q4H PRN PRN PRN Reason: Nausea Oxycodone HCl (Oxycodone 5 Mg Tablet) 5 - 10 mg PO Q4H PRN PRN PRN Reason: Pain Score 4-10 Pantoprazole Sodium (Pantoprazole Sodium 40 Mg Tablet) 40 mg PO DAILY [facility] Last Admin: 01/29/20 08:25 Dose: 40 mg Documented by: Senna/Docusate Sodium (Senna/Docusate Sodium 1 Tablet) 1 - 2 tablet PO DAILY PRN PRN PRN Reason: Constipation Simethicone (Simethicone 80 Mg Tablet) 80 mg PO PCHS PRN PRN Reason: Indigestion/Stomach pain Sodium Chloride (0.9% Saline Lock 10 Ml Syringe) 5 - 15 ml IV UD PRN PRN Reason: SALINE FLUSH Last Admin: 01/29/20 01:39 Dose: 10 ml Documented by: Venlafaxine HCl (Venlafaxine Xr 75 Mg Capsule) 75 mg PO QHS [facility] Last Admin: 01/29/20 21:13 Dose: 75 mg Documented by: Medical Necessity - Tobacco Use Smoking Status: Never smoker Assessment/Plan All Active Problems (Last Reviewed 01/27/20 @ 09:04 by Debi Lyman) Hypertension affecting (Acute) Anemia affecting (Acute) Breech presentation (Acute) 36 weeks gestation of (Acute) Anxiety and depression (Acute) 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) Supervision of high risk , antepartum (Acute) (Acute) Obesity affecting (Acute) Abnormal glucose complicating childbirth (Resolved) Anemia affecting (Resolved) Anxiety (Resolved) Asthma (Resolved) Body mass index (BMI) of 40.1 to 44.9 in adult (Resolved) Elevated blood pressure affecting in third trimester, antepartum (Resolved) Gestational diabetes mellitus in , diet controlled (Resolved) Insulin controlled gestational diabetes mellitus (GDM) in third trimester (Resolved) LGA (large for gestational age) fetus (Resolved) (Resolved) Supervision of high-risk (Resolved) Supervision of normal (Resolved) Supervision of normal in first trimester (Resolved) Supervision of normal in first trimester (Resolved) s/p PPD # 2 1. routine post delivery care 2. bottle feeding- support given 3. rh positive 4. rubella immune 5. Anemia - s/p 2u PRBCs, no further symptoms, post transfusion Hb 8.8 6. PreEwoSF - on Procardia XL 30mg daily started yesterday, BPs mild range to normal since this time, max BP 145/89 since initiating meds
--- NOTE | 2020-01-30 08:04 | DCINST_ITS ---
Discharge Diet: No Restrictions Discharge Activity: Return to Normal Activity, May not drive while taking narcotic pain medications., May Shower May resume sexual activity in: 4-6 weeks Additional Activity Instructions:: Nothing in the vagina for 4-6 weeks. You may return to work/school in 6 weeks. Call your doctor if your incision/area has: Continuous Slow Oozing, Sudden Increased Bleeding, Increased Pain/ Swelling, Increased Redness, Foul Smelling Discharge Additional Instructions: If you experience any of the following, contact your healthcare provider. * Bleeding that soaks a pad every hour for 2 hours * Fever 100.4 or higher * Unrelieved incision or abdominal pain * Swelling, redness, discharge or bleeding from your incision or episiotomy site * Your incision begins to separate * Problems urinating (including inability to urinate or burning while urinating). * Visual changes * Severe headache * Flu-like symptoms * Pain or redness in one of both of your breasts * Pain, warmth, tenderness or swelling in your legs, especially the calf area * Frequent nausea and vomiting * Symptoms of depression or anxiety If you experience any of the following, call 911 or go to the nearest Emergency Room. * Chest pain * Problems breathing * Seizure activity * Partial or complete paralysis of a body part, slurred speech, weakness or drooping of the face, or a sudden inability to walk or hold your balance Allergies/Adverse Reactions: Allergies acetaminophen [From Tylenol-Codeine] Allergy (Severe, Verified 01/27/20 10:18) Anaphylaxis pt states she is fine taking regular tylenol but has an allergy to codeine codeine [From Tylenol-Codeine] Allergy (Severe, Verified 01/27/20 10:18) Anaphylaxis iodine Allergy (Severe, Verified 01/27/20 10:18) Anaphylaxis shellfish derived Allergy (Severe, Verified 01/27/20 10:18) Anaphylaxis insulin detemir [From Levemir U-100 Insulin] Allergy (Intermediate, Verified 01/27/20 10:18) large welts Medications to take at Discharge albuterol sulfate 90 mcg/actuation breath activated powder inhaler 2 puff INHALATION PRN PRN 07/11/17 epinephrine 0.3 mg/0.3 mL injection, auto-injector 0.3 mg IM PRN PRN 07/11/17 prenat.vits,faraz,[id number] 1 tab PO DAILY 07/16/19 loratadine 10 mg tablet 10 mg PO DAILY 08/21/19 pen needle, diabetic 32 gauge x See Rx Instructions .ROUTE .MEDSUPPLY #150 ea 08/21/19 lansoprazole 30 mg capsule,delayed release 30 mg PO DAILY #30 cap 08/25/19 insulin degludec 100 unit/mL (3 mL) subcutaneous pen 32 unit SC QHS ml 10/10/19 insulin lispro 100 unit/mL subcutaneous pen 15 unit SC TID #15 ml 12/01/19 venlafaxine 75 mg capsule,extended release 24 hr 75 mg PO DAILY #30 cap 12/01/19 Ibuprofen [Motrin] 600 mg PO Q6H PRN PRN #30 tab 01/30/20 The following prescriptions were given: Ibuprofen [Motrin] 600 mg PO Q6H PRN PRN #30 tab PRN Reason: Pain Transmission Status: Pending to [facility] When: Call to make an appointment with your doctor in 6 weeks. If you had elevated Blood Pressure or 4th degree laceration you will need to be seen in 2 weeks. Primary Care Physician: Trina Ibrahim MD [Primary Care Provider] - Test Results: Test results from this visit will be discussed in further detail at your follow- up appointment, if applicable.
[2020-01-30 09:18] VITALS: BP 130/82; PULSE 70; RESP 16; TEMP 37.2
[2020-01-30] MEDS: Loratadine 10 MG Tablet PO (11:38)
[2020-01-30] MEDS: Pantoprazole Sodium 40 MG Tablet PO (11:38)
[2020-01-30] MEDS: NIFEdipine 30 MG Tablet PO (11:52)
[2020-01-30] MEDS: Ferrous Sulfate 325 MG Tablet PO ×2 (12:03→17:00)
[2020-01-30 14:45] VITALS: BP 147/94; RESP 16; TEMP 36.7
[2020-01-30 15:15] VITALS: BP 148/102
[2020-01-30 15:29] VITALS: BP 133/83
--- NOTE | 2020-01-30 15:32 | NURSING ---
spoke with office nurse concerning BP 147/94-148/102 after positioning on right side 133/81. Office nurse stated will let Dr lopez know.
--- NOTE | 2020-01-30 16:31 | NURSING ---
dr nur office nurse called stating MD is aware of BP and is ok with discharging Mary Jo rose
== END 2020-01-30 18:00 | disposition home or self-care (01) | DRG 807 ==
LOC: WP 10:56 → WPOUT 01-28 09:20
PROVIDERS: Obstetrics & Gynecology; Admitting Provider Obstetrics & Gynecology; PCP Family Medicine; Referring Provider Obstetrics & Gynecology; Visit Provider Obstetrics & Gynecology
DX: O14.04 Mild to moderate pre-eclampsia, complicating childbirth (principal); Z37.0 Single live birth; Z3A.38 38 weeks gestation of pregnancy; O99.214 Obesity complicating childbirth; O24.424 Gestational diabetes mellitus in childbirth, insulin controlled; O32.1XX0 Maternal care for breech presentation, not applicable or unspecified; O69.1XX0 Labor and delivery complicated by cord around neck, with compression, not applicable or unspecified; O70.1 Second degree perineal laceration during delivery; O71.82 Other specified trauma to perineum and vulva; O99.02 Anemia complicating childbirth; D64.9 Anemia, unspecified; E66.9 Obesity, unspecified; F32.9 Major depressive disorder, single episode, unspecified; F41.9 Anxiety disorder, unspecified; O99.344 Other mental disorders complicating childbirth; Z79.4 Long term (current) use of insulin
CPT/HCPCS: 36415; 59025; 59050; 82565; 82570; 82962; 84156; 84450; 84460; 84550; 85025; 86850; 86900; 86901; 86920; 99218; J7030; J7120; P9016; A4216; G0378; J2405

== ENCOUNTER → 2020-02-03 14:23 | Outpatient (CLI) | payer OTHER, SELFPAY ==
[2020-02-03 14:10] VITALS: BMI 39.1
[2020-02-03 17:22] LABS: Absolute Lymphocyte Count 1.94 X10^3/uL (0.83-4.51); Absolute Neutrophil Count 10.5 X10^3/uL (2.0-7.7); Basophil# 0.07 X10^3/uL; Basophil% 0.5 % (0-1); Eosinophil# 0.16 X10^3/uL; Eosinophils% 1.2 % (0-5); Hemoglobin 10.2 g/dL (12.0-15.0); Lymphocyte # 1.94 X10^3/ul (4.0); Lymphocyte % 14.4 % (19-41); Mean Corp Hgb Conc 28.3 g/dL (32-36); Mean Corpuscular Volume 77.8 fL (81-99); Mean Platelet Vol. 8.6 fl (6.2-12.0); Monocyte% 4.5 % (0-10); NRBC Flagged by Analyzer 0 % (0-5); Neutrophil # 10.54 X10^3/uL (2.7-7.7); Neutrophil % 78.3 % (47-70); POSITIVE MORPHOLOGY YES; Platelet Count 506 K/mm3 (150-450); RBC Distribution Width CV 24.7 % (11.6-14.6); RBC Distribution Width SD 67.1 fl (35.1-43.9); Red Blood Count 4.63 M/mm3 (4.2-5.4); White Blood Count 13.5 K/mm3 (4.4-11.0)
[2020-02-03 17:25] LABS: Differential Indicated SCAN CRITERIA MET
[2020-02-03 17:55] LABS: Anisocytosis 1+; Crenated RBC 1+; Differential Comment SCANNED; Hypochromasia 1+; Ovalocyte RARE; Polychromasia 1+
== END ==
PROVIDERS: PCP Family Medicine; Referring Provider Obstetrics & Gynecology; Visit Provider Obstetrics & Gynecology
DX: O16.9 Unspecified maternal hypertension, unspecified trimester (principal); Z3A.00 Weeks of gestation of pregnancy not specified
CPT/HCPCS: 36415; 85025

== ENCOUNTER → 2022-02-24 | Outpatient (CLI) | payer OTHER, SELFPAY ==
--- NOTE | 2022-02-24 10:32 | US_ITS ---
STUDY: ULTRASOUND OF THE FEMALE PELVIS - COMPLETE REASON FOR EXAM: Female, 37 years old. PAIN -- LEFT PELVIC PAIN LMP: 02/20/2022. TECHNIQUE: Transabdominal and Transvaginal TECHNICAL QUALITY: Adequate. COMPARISON: None. FINDINGS: The uterus is anteverted and is in a midline position. The uterus measures 8.9 cm x 5.7 cm x 4.7 cm. There is a Nabothian cyst of the cervix. The endometrium measures 7 mm in thickness, and is hyperechoic. Minimal amount of endometrial fluid is seen. There is no demonstrated endometrial mass. There is no demonstrated myometrial mass. I.U.D. - The patient does not have an I.U.D. The right ovary is visualized. The right ovary measures 3.2 cm x 3.1 cm x 1.5 cm. There is no right ovarian cyst or ovarian mass. There is no visualized right adnexal mass or complex lesion. There is normal arterial and normal venous vascularity. The left ovary is visualized. The left ovary measures 3.1 cm x 2.4 cm x 1.5 cm. There is no left ovarian cyst or ovarian mass. There is no visualized left adnexal mass or complex lesion. There is normal arterial and normal venous vascularity. There is no fluid in the cul-de-sac. IMPRESSION: Normal female pelvis. Electronically Signed: Barron Ron MD at 13:21 EST , STUDY: ULTRASOUND TRANSVAGINAL CLINICAL: Female, 37 years old. PAIN -- LEFT PELVIC PAIN TECHNIQUE: Transvaginal COMPARISON: None. FINDINGS: Normal uterine size measuring cm in maximal craniocaudal dimension. There are no myometrial masses. Normal endometrial thickness measuring mm. There are no endometrial masses, and there is no fluid in the endometrial cavity. Normal uterine cervix. Normal right ovary, measuring cm. There are multiple follicles without a dominant cyst. Normal left ovary, measuring cm. There are multiple follicles without a dominant cyst. There is no free fluid in the pelvis. Polycystic ovary disease: No. US/Pelvic (Non ) IMPRESSION: Electronically Signed: Barron Ron MD at 13:21 EST ,
--- NOTE | 2022-02-24 10:32 | US_ITS ---
STUDY: ULTRASOUND OF THE FEMALE PELVIS - COMPLETE REASON FOR EXAM: Female, 37 years old. PAIN -- LEFT PELVIC PAIN LMP: 02/20/2022. TECHNIQUE: Transabdominal and Transvaginal TECHNICAL QUALITY: Adequate. COMPARISON: None. FINDINGS: The uterus is anteverted and is in a midline position. The uterus measures 8.9 cm x 5.7 cm x 4.7 cm. There is a Nabothian cyst of the cervix. The endometrium measures 7 mm in thickness, and is hyperechoic. Minimal amount of endometrial fluid is seen. There is no demonstrated endometrial mass. There is no demonstrated myometrial mass. I.U.D. - The patient does not have an I.U.D. The right ovary is visualized. The right ovary measures 3.2 cm x 3.1 cm x 1.5 cm. There is no right ovarian cyst or ovarian mass. There is no visualized right adnexal mass or complex lesion. There is normal arterial and normal venous vascularity. The left ovary is visualized. The left ovary measures 3.1 cm x 2.4 cm x 1.5 cm. There is no left ovarian cyst or ovarian mass. There is no visualized left adnexal mass or complex lesion. There is normal arterial and normal venous vascularity. There is no fluid in the cul-de-sac. IMPRESSION: Normal female pelvis. Electronically Signed: Barron Ron MD at 13:21 EST , STUDY: ULTRASOUND TRANSVAGINAL CLINICAL: Female, 37 years old. PAIN -- LEFT PELVIC PAIN TECHNIQUE: Transvaginal COMPARISON: None. FINDINGS: Normal uterine size measuring cm in maximal craniocaudal dimension. There are no myometrial masses. Normal endometrial thickness measuring mm. There are no endometrial masses, and there is no fluid in the endometrial cavity. Normal uterine cervix. Normal right ovary, measuring cm. There are multiple follicles without a dominant cyst. Normal left ovary, measuring cm. There are multiple follicles without a dominant cyst. There is no free fluid in the pelvis. Polycystic ovary disease: No. US/Transvaginal Non- IMPRESSION: Electronically Signed: Barron Ron MD at 13:21 EST ,
== END | disposition home or self-care (01) ==
PROVIDERS: PCP Family Medicine; Referring Provider Nurse Practitioner Women's Health; Visit Provider Nurse Practitioner Women's Health
DX: R10.2 Pelvic and perineal pain (principal)
CPT/HCPCS: 76830; 76856; 93976

== ENCOUNTER → 2024-12-29 | Outpatient (CLI) | payer BC, SELFPAY ==
[2025-01-02 15:08] LABS: HPV APTIMA, High Risk Negative (Negative)
== END | disposition home or self-care (01) ==
LOC: LABSPEC 16:18
PROVIDERS: PCP Family Medicine; Visit Provider Nurse Practitioner Women's Health
DX: Z12.4 Encounter for screening for malignant neoplasm of cervix (principal)
CPT/HCPCS: 87624; 88175; G0145